=== PATIENT | female | born 1965 | race Caucasian/White ===

== ENCOUNTER 2023-07-27 13:21 | Inpatient (IN) | payer BC, SELFPAY ==
[2023-07-27] VITALS (50 sets, daily range): BP systolic 113–192; BP diastolic 67–153; PULSE 68–192; RESP 20–28; TEMP 36.5–36.9; O2SAT 89–100; BMI 38.0; BMI 37.9
[2023-07-27 13:32] LABS: Glucometer 480 mg/dL (74-106)
--- NOTE | 2023-07-27 13:41 | PC.NURSE ---
pt has not taken her medications including insulin in 3 days d/t packing it away since she just moved here from [place]
--- NOTE | 2023-07-27 13:56 | XR_ITS ---
The [address] [address] Patient Name: SUSSY BLOUNT MRN: [id number] date: 1965 Sex: F Assigned Patient Location: ER Current Patient Location: ER Accession/Order Number: [id number] Exam Date: 07/27/2023 14:00 Report Date: 07/27/2023 14:33 At the request of: REJI PERRY Procedure: XR chest 1V EXAM: XR chest 1V INDICATION: afib. COMPARISON: None. TECHNIQUE: Single frontal view of the chest FINDINGS: Normal cardiomediastinal contours. No acute infiltrative process. No pleural effusion or pneumothorax. No acute osseous abnormality. XR/XR chest 1V IMPRESSION: No acute cardiopulmonary process. Electronically authenticated by: MARY WALKER Date: 07/27/2023 14:33
--- NOTE | 2023-07-27 13:56 | ECG_ITS ---
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1965 Requested By: Order Number: [id number] Reading MD: OMI PEREZ Measurements Intervals [place] Rate: 176 P: -22739 [place]: -31657 QRS: 9 QRSD: 90 T: 192 QT: 306 QTc: 400 Interpretive Statements 97170 Atrial fibrillation with rapid ventricular response [address] depression, possible subendocardial injury or digitalis effect 82035 Twave abnormality, possible anterolateral ischemia or digitalis effect 30829 Twave abnormality, possible inferior ischemia or digitalis effect 9150 abnormal ECG No previous ECG available for comparison Electronically Signed On 07-28-2023 7:32:15 EST by OMI PEREZ
--- NOTE | 2023-07-27 13:59 | ED_ITS ---
HPI - General Adult General Chief complaint: Nausea/Vomiting/Diarrhea Stated complaint: HIGH BLOOD SUGAR Time Seen by Provider: 07/27/23 13:53 Source: patient Mode of arrival: Wheelchair Limitations: no limitations History of Present Illness HPI narrative: Patient is a 57-year-old female who is presenting to the ER with chief complaint of nausea, vomiting, high sugars, fast heart rate. Patient just moved here from [place] 3 days ago. Patient has not taken any of her medications in the past 3 days. Patient is from the local area of [place], patient has been living in [place] for 10 years. Patient moves home, and has driven home the past 3 days in a [employer]. Patient states that she cannot find her medications, somebody Pack of her medications she does not know what box therein. Patient is uncertain if it's in her [place], or she thinks it may be in a garage door been of a friend does not know when she can get there to find them. Patient came into the Emergency Room today complaining of lightheaded, dizziness, fast heart rate. Patient is on a course, she is not taking eloquent for 3 days. Patient has a history of intermittent atrial fibrillation. Patient isn't from diabetic. No sick contacts. Patient does not believe she's never had DKA before. Patient has no establlished PCP locally, patient thinks she might see Dr. Beltran. Patient presented with heart rate in the 170s,Slightly hypotensive. All systems are negative except as noted/marked. All systems reviewed and otherwise negative. Nurses note and vital signs reviewed and patient is not hypoxic. General: The patient appears Mild distress with low blood pressure, inncreased heart rate, nausea and vomiting. Patient is resting uncomfortably on cart. Patient is not toxic, lethargic, or listless Skin: Warm, dry, no pallor noted. There is no rash noted. No petechiae, purpura. Head: Normocephalic, atraumatic Eye: Normal conjunctiva, no drainage, EOMI. PERRL Ears, Nose, Mouth, and Throat: oral mucosa is dry. Nares patent. Mouth without vesicles. Cardiovascular: Irregular irregular tachycardic Rate and Rhythm, no murmur, gallop, rub, Atrial fibrillation with RVR, acute on chronic Respiratory: Patient is in no distress, no accessory muscle use, lungs are clear to auscultation, no wheezing, rales or rhonchi Back: Obese, mild midepigastric tenderness to palpation, no peritoneal signs, no flank pain bilateral, otherwise non-tender, no CVA tenderness bilaterally to percussion. No CT LS midline pain GI: no tenderness to palpation, no masses appreciated. No rebound, guarding, or rigidity noted. No distention Musculoskeletal: Patient has full range of motion of all of the extremities, no motor, sensory, or focal neurological deficits Neurological: A&O x4, normal speech Psychiatric: Cooperative Related Data Home Medications Medication Instructions Recorded Confirmed albuterol sulfate 90 mcg/actuation 2 inh inhalation Q4H PRN SOB 07/27/23 07/27/23 aerosol inhaler (Ventolin HFA) amiodarone 200 mg tablet 200 mg PO DAILY 07/27/23 07/27/23 apixaban 5 mg tablet (Eliquis) 5 mg PO BID 07/27/23 07/27/23 aripiprazole 5 mg tablet (Abilify) 5 mg PO DAILY 07/27/23 07/27/23 aspirin 81 mg capsule 81 mg PO DAILY 07/27/23 07/27/23 atorvastatin 20 mg tablet 20 mg PO DAILY 07/27/23 07/27/23 clonidine HCl 0.1 mg tablet 0.1 mg PO TID 07/27/23 07/27/23 duloxetine 60 mg capsule,delayed 60 mg PO BID 07/27/23 07/27/23 release (Cymbalta) gabapentin 300 mg capsule 300 mg PO BID 07/27/23 07/27/23 hydrochlorothiazide 25 mg tablet 25 mg PO DAILY 07/27/23 07/27/23 insulin glargine 100 unit/mL (3 100 unit subcut QPM 07/27/23 07/27/23 mL) subcutaneous pen (Lantus Solostar U-100 Insulin) lisinopril 40 mg tablet 40 mg PO DAILY 07/27/23 07/27/23 metoprolol tartrate 100 mg tablet 100 mg PO BID 07/27/23 07/27/23 (Lopressor) oxcarbazepine 300 mg tablet 300 mg PO DAILY 07/27/23 07/27/23 (Trileptal) oxycodone 15 mg tablet 15 mg PO DAILY 07/27/23 07/27/23 verapamil 40 mg tablet 20 mg PO DAILY 07/27/23 07/27/23 Allergies Allergy/AdvReac Type Severity Reaction Status Date / Time Sulfa (Sulfonamide AdvReac Severe Hives Verified 07/27/23 13:33 Antibiotics) [facility] Medical History (Updated 07/27/23 @ 17:40 by Wilma Knutson) FHx: cholecystectomy ?Z83.79 - Family history of other diseases of the digestive system (ICD-10) Carpal tunnel syndrome of left wrist ?G56.02 - Carpal tunnel syndrome, left upper limb (ICD-10) Rectocele ?N81.6 - Rectocele (ICD-10) delivery delivered ?O82 - Encounter for delivery without indication (ICD-10) AC (acromioclavicular) joint arthritis ?M19.019 - Primary osteoarthritis, unspecified shoulder (ICD-10) Surgical History (Updated 07/27/23 @ 17:40 by Wilma Knutson) H/O right heart catheterization ?Z98.890 - Other specified postprocedural states (ICD-10) Status post left breast lumpectomy ?Z98.890 - Other specified postprocedural states (ICD-10) H/O hysterectomy for benign disease ?Z90.710 - Acquired absence of both cervix and uterus (ICD-10) Previous back surgery ?Z98.890 - Other specified postprocedural states (ICD-10) Tubal ligation status ?Z98.51 - Tubal ligation status (ICD-10) History of tonsillectomy ?Z90.89 - Acquired absence of other organs (ICD-10) Social History (Updated 07/27/23 @ 17:42 by Wilma Knutson) Within the past year, how often did you have a drink containing alcohol: never Score interpretation: A score less than 3 is consistent with normal alcohol consumption. Non-prescribed substance use: cannabis (any form) Previous occupational history: disabled Known occupational exposures/hazards: No Highest level of school completed/degree received: high school graduate Little interest or pleasure in doing things: not at all Feeling down, depressed, or hopeless: not at all Feel stressed/tense/nervous/anxious/difficulty sleeping: only a little Life stressor details: recent move to [place] from [place] Due to disability, difficulty making decisions: No Exam Constitutional Vital Signs, click to edit/add: Last Vital Signs Temp 97.7 F 07/27/23 19:26 Pulse 135 H 07/27/23 19:29 Resp 27 H 07/27/23 19:26 BP 151/76 H 07/27/23 19:26 Pulse Ox 95 07/27/23 19:29 O2 Del Method Nasal Cannula 07/27/23 19:26 O2 Flow Rate 2 07/27/23 19:26 Course Vital Signs Vital signs: Vital Signs Pulse Rate 69 07/27/23 13:26 Respiratory Rate 20 07/27/23 13:26 Blood Pressure 145/125 H 07/27/23 13:26 Pulse Oximetry 95 07/27/23 13:26 Oxygen Delivery Method Room Air 07/27/23 13:26 Temperature 97.7 F 07/27/23 19:26 Pulse Rate 135 H 07/27/23 19:29 Respiratory Rate 27 H 07/27/23 19:26 Blood Pressure 151/76 H 07/27/23 19:26 Pulse Oximetry 95 07/27/23 19:29 Oxygen Delivery Method Nasal Cannula 07/27/23 19:26 Oxygen Delivery Flow Rate 2 07/27/23 19:26 Medical Decision Making MDM Narrative Medical decision making narrative: Patient presented in atrial fibrillation with RVR, patient's blood sugars were reading high, patient's blood pressure was low. Chest pain cardiac workup and a DKA workup was initiated. Patient had 2 IVs placed immediately, patient was given 2 L of IV fluid. Patient was given Zofran. Patient was initially given CCardizem 20 bolus and started on a drip of 5 mg per hour. Patient had her Cardizem drip titrated. Patient was given a 2nd bolus of 20 mg Cardizem IV, and patient's Cardizem drip was titrated up to 15. Patient's heart rate was managing in the 100s to 1 teens after this. Patient was also given a dose of eliquis and amiodaarone that she has not taken for days. See medication list, patient's approximately 12-15 medications that she has not had an 3 days leading to her high blood sugars and high heart rate. Patient's pH and CO2 levels were not showing any signs of DKA. Patient was given IV fluids and given subcutaneous insulin. Patient has leukocytosis and elevated troponins as well. This could be distress secondary to several days of atrial fibrillation with RVR. Lactic and blood cultures were added and prophylactic antibiotic was started by Dr SAENZ encase there is underlying infection that is not being found in the Emergency Room. Patient will be admitted to the intensive care unit. Patient does feel better after 2 L of IV fluid. Patient's initial troponin was 137, a repeat troponin was done at 160. Dr Saenz is aware of this and comfortable with admission at [facility] still to the ICU. Patient was giiven aspirin. Patient was given her relative's. No Lovenox or heparin will be started, this was discussed with Dr. Saenz as well and he stated giveing aspirin and eliquis is apppropriate at this time. Multiple bedside visits were made to reassess patient's hemodynamics. Critical care time 45 minutes exclusive from separate billable procedures that were performed. The following was considered in the determination of critical care but not limited to the level of medical decision making, intensive cardiac and/or respiratory monitoring, frequent vital sign monitoring, evaluation of laboratory studies, evaluation of radiographic studies, oxygen monitoring, and constant monitoring and speaking to family at bedside Lab Data Lab results reviewed: Yes I reviewed the patient's lab results Labs: Lab Results 07/27/23 07/27/23 07/27/23 Range/Units 13:29 13:40 13:56 WBC 21.0 H (4.0-11.0) 10^3/uL RBC 5.01 (4.20-5.40) 10^6/uL Hgb 13.9 (12.0-16.0) g/dL Hct 43.1 (36.0-48.0) % MCV 86.0 (81.0-99.0) fL MCH 27.7 (26.7-34.0) pg MCHC 32.3 (29.9-35.2) g/dL RDW 15.3 H (11.0-15.0) % Plt Count 293 (150-450) 10^3/uL MPV 11.5 (9.5-13.5) fL Neut % (Auto) 83.6 H (43.0-75.0) % Lymph % (Auto) 9.7 L (20.5-60.0) % [place] % (Auto) 5.7 (1.7-12.0) % Eos % (Auto) 0.0 L (0.9-7.0) % Baso % (Auto) 0.2 (0.2-2.0) % Neut # (Auto) 17.6 H (1.4-6.5) 10^3/uL Lymph # (Auto) 2.0 (1.2-3.8) 10^3/uL [place] # (Auto) 1.2 H (0.3-0.8) 10^3/uL Eos # (Auto) 0.0 (0.0-0.7) 10^3/uL Baso # (Auto) 0.0 (0.0-0.1) 10^3/uL Abs Immat Gran (auto) 0.17 H (0.00-0.03) 10^3/uL Imm/Tot Granulo (auto) 0.8 H (0.0-0.5) % D-Dimer 0.55 (<=0.59) mg/L FEU VBG pH 7.473 H (7.330-7.430) VBG pCO2 36.3 L (40.0-52.0) mmHg Sodium 133 L (136-145) mmol/L Potassium 3.4 L (3.5-5.1) mmol/L Chloride 90 L (98-107) mmol/L Carbon Dioxide 25.0 (21.0-32.0) mmol/L Anion Gap 21.4 BUN 15.0 (7.0-18.0) mg/dL Creatinine 1.03 H (0.55-1.02) mg/dL Est GFR ( Amer) >60 (>=60) Est GFR (Non-Af Amer) 56 L (>=60) BUN/Creatinine Ratio 14.6 Glucose 459 H (74-106) mg/dL Lactate 2.8 H* (0.4-2.0) mmol/L Calcium 9.9 (8.5-10.1) mg/dL Magnesium 1.7 L (1.8-2.4) mg/dL Total Bilirubin 1.3 H (0.2-1.0) mg/dL AST 12 L (15-37) U/L ALT 21 (14-59) U/L Alkaline Phosphatase 102 (46-116) U/L Total Creatine Kinase 74 (26-192) U/L Troponin I High Sens 137.0 H* (4.0-51.3) pg/mL NT-Pro-B Natriuret Pep 3777.0 H* (<=900.0) pg/mL Total Protein 7.8 (6.4-8.2) g/dL Albumin 3.2 L (3.4-5.0) g/dL Globulin 4.6 g/dL Albumin/Globulin Ratio 0.7 Lipase 16.0 (16.0-77.0) U/L Urine Ketones >=80 A (NEGATIVE) mg/dL POC Glucose 480 H (74-106) mg/dL 07/27/23 Range/Units 16:03 WBC (4.0-11.0) 10^3/uL RBC (4.20-5.40) 10^6/uL Hgb (12.0-16.0) g/dL Hct (36.0-48.0) % MCV (81.0-99.0) fL MCH (26.7-34.0) pg MCHC (29.9-35.2) g/dL RDW (11.0-15.0) % Plt Count (150-450) 10^3/uL MPV (9.5-13.5) fL Neut % (Auto) (43.0-75.0) % Lymph % (Auto) (20.5-60.0) % [place] % (Auto) (1.7-12.0) % Eos % (Auto) (0.9-7.0) % Baso % (Auto) (0.2-2.0) % Neut # (Auto) (1.4-6.5) 10^3/uL Lymph # (Auto) (1.2-3.8) 10^3/uL [place] # (Auto) (0.3-0.8) 10^3/uL Eos # (Auto) (0.0-0.7) 10^3/uL Baso # (Auto) (0.0-0.1) 10^3/uL Abs Immat Gran (auto) (0.00-0.03) 10^3/uL Imm/Tot Granulo (auto) (0.0-0.5) % D-Dimer (<=0.59) mg/L FEU VBG pH (7.330-7.430) VBG pCO2 (40.0-52.0) mmHg Sodium (136-145) mmol/L Potassium (3.5-5.1) mmol/L Chloride (98-107) mmol/L Carbon Dioxide (21.0-32.0) mmol/L Anion Gap BUN (7.0-18.0) mg/dL Creatinine (0.55-1.02) mg/dL Est GFR ( Amer) (>=60) Est GFR (Non-Af Amer) (>=60) BUN/Creatinine Ratio Glucose (74-106) mg/dL Lactate (0.4-2.0) mmol/L Calcium (8.5-10.1) mg/dL Magnesium (1.8-2.4) mg/dL Total Bilirubin (0.2-1.0) mg/dL AST (15-37) U/L ALT (14-59) U/L Alkaline Phosphatase (46-116) U/L Total Creatine Kinase (26-192) U/L Troponin I High Sens 160.8 H* (4.0-51.3) pg/mL NT-Pro-B Natriuret Pep (<=900.0) pg/mL Total Protein (6.4-8.2) g/dL Albumin (3.4-5.0) g/dL Globulin g/dL Albumin/Globulin Ratio Lipase (16.0-77.0) U/L Urine Ketones (NEGATIVE) mg/dL POC Glucose (74-106) mg/dL ECG Data Attestation: I personally reviewed and interpreted this ECG as follows: (EKG interpretation. Irregular irregular rhythm at 176 beats a minute. Normal axis deviation. QTc of 400. Nonspecific ST changes, ST depression noted throughout.) Discharge Plan Discharge Chief Complaint: Nausea/Vomiting/Diarrhea Clinical Impression: Atrial fibrillation with RVR, Dehydration, Hyperglycemia, Medically noncompliant, Elevated troponin Patient Disposition: Admitted As Inpatient Time of Disposition Decision: 16:00 Condition: Serious Discharge Date/Time: 07/27/23 16:44
[2023-07-27] MEDS: 0.9 % SODIUM CHLORIDE 1,000 ML 999 ML IV (14:03)
[2023-07-27] MEDS: 0.9 % SODIUM CHLORIDE 1,000 ML 1000 ML IV (14:03)
[2023-07-27] MEDS: ASPIRIN 81 MG TAB.CHEW 162 MG PO (14:06)
[2023-07-27] MEDS: ONDANSETRON PF 4 MG/2 ML VIAL IV (14:07)
[2023-07-27 14:11] LABS: Basophils Percent Auto 0.2 % (0.2-2.0); Hematocrit 43.1 % (36.0-48.0); Hemoglobin 13.9 g/dL (12.0-16.0); Immature Granulocytes Abs Auto 0.17 10^3/uL (0.00-0.03); Immature Granulocytes Pct Auto 0.8 % (0.0-0.5); Lymphocytes Percent Auto 9.7 % (20.5-60.0); Mean Corpuscular HGB Conc 32.3 g/dL (29.9-35.2); Mean Corpuscular Hemoglobin 27.7 pg (26.7-34.0); Mean Platelet Volume 11.5 fL (9.5-13.5); Monocytes Absolute Auto 1.2 10^3/uL (0.3-0.8); Monocytes Percent Auto 5.7 % (1.7-12.0); Neutrophils Absolute Auto 17.6 10^3/uL (1.4-6.5); Neutrophils Percent Auto 83.6 % (43.0-75.0); Platelet Count 293 10^3/uL (150-450); Red Blood Count 5.01 10^6/uL (4.20-5.40); Red Cell Distribution Width 15.3 % (11.0-15.0)
[2023-07-27 14:12] LABS: PCO2 VBG 36.3 mmHg (40.0-52.0); pH VBG 7.473 (7.330-7.430)
[2023-07-27] MEDS: DILTIAZEM HCL 25 MG/5 ML VIAL 20 MG IV ×2 (14:18→15:10)
[2023-07-27 14:19] LABS: Ketones Urine >=80 mg/dL (NEGATIVE)
[2023-07-27] MEDS: dilTIAZem HCL 125 MG in 0.9 % SODIUM CHLORIDE 100 ML IV (14:20)
[2023-07-27 14:25] LABS: D Dimer 0.55 mg/L FEU (<=0.59)
[2023-07-27 14:28] LABS: Magnesium 1.7 mg/dL (1.8-2.4)
[2023-07-27 14:33] LABS: Creatine Kinase 74 U/L (26-192)
[2023-07-27 14:35] LABS: Alanine Aminotransferase 21 U/L (14-59); Albumin Globulin Ratio 0.7; Albumin Level 3.2 g/dL (3.4-5.0); Alkaline Phosphatase 102 U/L (46-116); Anion Gap 21.4; Aspartate Amino Transferase 12 U/L (15-37); BUN Creatinine Ratio 14.6; Bilirubin Total 1.3 mg/dL (0.2-1.0); Calcium 9.9 mg/dL (8.5-10.1); Chloride 90 mmol/L (98-107); Estimated GFR (African America >60 (>=60); Estimated GFR (Non-African Ame 56 (>=60); Globulin 4.6 g/dL; Glucose 459 mg/dL (74-106); Potassium 3.4 mmol/L (3.5-5.1); Sodium 133 mmol/L (136-145); Total Protein 7.8 g/dL (6.4-8.2)
[2023-07-27] MEDS: APIXABAN 5 MG TABLET 10 MG PO (14:44)
[2023-07-27 14:46] LABS: Lactate/Lactic Acid 2.8 mmol/L (0.4-2.0)
[2023-07-27] MEDS: 0.9 % SODIUM CHLORIDE 1,000 ML 150 ML IV (15:11)
[2023-07-27] MEDS: AMIODARONE HCL 200 MG TABLET PO (15:58)
--- NOTE | 2023-07-27 16:19 | CA_ITS ---
Patient Name: SUSSY BLOUNT MR#: [id number] : 1965 Exam Date: 07/29/2023 Ordering Doctor: DR Sergio Cabrera . ECHOCARDIOGRAM REPORT PROCEDURE: CA ECHO DOPPLER COMPLETE INDICATIONS: Dyspnea COMPARISON: None. DESCRIPTION: COMPLETE ECHOCARDIOGRAM Real-time transthoracic echocardiography with 2D, M-mode, spectral and color flow Doppler performed. QUALITY: Technical quality was good. LEFT VENTRICLE: Severe dilatation. Thickened septal wall. LV EF: Global left ventricular systolic function is lower normal limits; visually estimated ejection fraction is 50 to 55%. Abnormal septal motion; may be related to underlying bundle branch block. DIASTOLIC: Not adequately assessed due to heart rhythm. ATRIAL SEPTUM: Inadequately seen. LEFT ATRIUM: Severe dilatation. RIGHT ATRIUM: Mild dilatation. RIGHT VENTRICLE: Normal chamber size. Normal right ventricular systolic function. TRICUSPID VALVE: Normal mobility and thickness. No stenosis with mild regurgitation. Mild pulmonary hypertension. RVSP 42mmHg MITRAL VALVE: Normal mobility and thickness. No evidence of mitral valve stenosis. There is no mitral annular calcification. Trivial mitral regurgitation. AORTIC VALVE: Normal trileaflet appearance. Mildly calcified aortic valve. Normal leaflet mobility. No evidence of aortic valve stenosis. Trivial aortic regurgitation. AORTIC ROOT: Normal diameter and appearance. PULMONIC VALVE: Grossly normal. No stenosis. No regurgitation. PERICARDIUM: No evidence of pericardial effusion. IVC: Collapses with inspirations. Mildly dilated measuring 2.2cm. CONCLUSION: 1. Global left ventricular systolic function is at lower normal limits; visually estimated ejection fraction is 50 to 55% 2. Normal right ventricular size and systolic function 3. Biatrial enlargement 4. Mild tricuspid regurgitation 5. Mildly elevated right ventricular systolic pressure; RVSP 42 mmHg The patient's rhythm appears to be atrial flutter Adult Echocardiography Procedure Report Left Ventricle LVEDD (3.7 - 5.6 cm): 6.18 cm LVESD (2.2 - 4.0 cm): 5.22 cm LVIVS thickness (0.6 - 1.2 cm): 1.44 cm LVPW thickness (0.5 - 1.0 cm): 1.09 cm e': 0.14 m/s E - e': 7.37 LVOT Max Gradient: 2.42 mm[Hg] LVOT Area (cm2): 0.78 m/s Peak Velocity (LVOT): 0.78 m/s Mean Velocity (LVOT): 0.57 m/s LVOT Diameter 2.34 cm Left Ventricular Ejection Fraction: 52.97 % Left Atrium LA Volume Index (2D A2C): 52.03 ml/m2 Left Atrium Systolic Dimension: 4.60 cm Mitral Valve MV E to A Ratio: 232.35 Mitral Valve A-Wave Peak Velocity: 0.00 m/s Mitral Valve E-Wave Peak Velocity: 1.02 m/s Right Ventricle RV Internal Diastolic Dimension: 3.93 cm Aorta AO Root Diam: 3.63 cm Ascending Ao Diam: 3.41 cm Aortic Valve AoV Area (Peak [place]): 2.61 cm2, 2.61 cm2 AoV Area (VTI): 2.34 cm2, 2.34 cm2 Peak Velocity(Antegrade Flow): 1.28 m/s Peak Gradient(Antegrade Flow): 6.53 mm[Hg] Mean Velocity(Antegrade Flow): 0.95 m/s Mean Gradient(Antegrade Flow): 3.96 mm[Hg] Velocity Time Integral: 26.36 cm Tricuspid Valve Peak Velocity (Regurgitant Flow): 2.13 m/s, 2.24 m/s, 2.91 m/s Pulmonic Valve Mean Gradient: 1.34 mm[Hg] Mean Velocity: 0.56 m/s Peak Velocity: 0.70 m/s, 0.90 m/s Peak Gradient: 1.94 mm[Hg], 3.26 mm[Hg] Right Atrium Right Atrium Systolic Pressure: 59.89 ml, 59.89 ml Dictated by: Jean Pierre Cheng M.D. on 07/29/2023 at 10:19 Approved by: Jean Pierre Cheng M.D. on 07/29/2023 at 10:24
[2023-07-27 16:28] LABS: Troponin I High Sensitivity 160.8 pg/mL (4.0-51.3)
[2023-07-27] MEDS: PANTOPRAZOLE SODIUM 40 MG VIAL IV (17:24)
[2023-07-27] MEDS: DILTIAZEM HCL 60 MG TABLET PO ×2 (17:24→21:44)
[2023-07-27] MEDS: 0.9 % SODIUM CHLORIDE 1,000 ML 100 ML IV (17:26)
[2023-07-27] MEDS: dilTIAZem HCL 125 MG in 0.9 % SODIUM CHLORIDE 100 ML 10 MG IV (17:30)
[2023-07-27] MEDS: INSULIN ASPART 300 UNIT/3 ML PEN SUBQ ×2 (17:32→21:49)
[2023-07-27 17:34] LABS: Glucometer 311 mg/dL (74-106)
[2023-07-27 17:46] LABS: Lactate/Lactic Acid 2.1 mmol/L (0.4-2.0)
[2023-07-27 17:46] LABS: Troponin I High Sensitivity 165.8 pg/mL (4.0-51.3)
[2023-07-27] MEDS: PIPERACILLIN SODIUM/TAZOBACTAM 3.375 GM in 0.9 % SODIUM CHLORIDE 50 ML IV ×2 (17:49→23:55)
--- NOTE | 2023-07-27 18:15 | PC.NURSE ---
1654- Patient C/O sudden onset heartburn and nausea. Vomits approx 300 cc green emesis with immediate releif of heartburn. EKG done. Dr Cabrera made aware
--- NOTE | 2023-07-27 18:17 | ECG_ITS ---
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1965 Requested By: CHEMO SAENZ Order Number: [id number] Reading MD: OMI PEREZ Measurements Intervals [place] Rate: 121 P: -95939 [place]: -54517 QRS: 65 QRSD: 96 T: 217 QT: 336 QTc: 408 Interpretive Statements 19637 Atrial fibrillation with rapid ventricular response with aberrant conduction, or ventricular premature complexes [address] depression, probably digitalis effect 14692 Twave abnormality, possible anterolateral ischemia or digitalis effect 09650 Twave abnormality, possible inferior ischemia or digitalis effect 9150 abnormal ECG Compared to ECG 07/27/2023 13:42:30 Ventricular premature complex(es) now present ST (T wave) deviation still present Possible ischemia still present Electronically Signed On 07-28-2023 7:33:18 EST by OMI PEREZ
[2023-07-27] MEDS: METOPROLOL TARTRATE 100 MG TABLET PO (20:21)
[2023-07-27] MEDS: DULOXETINE HCL 60 MG CAPSULE.DR PO (20:21)
[2023-07-27] MEDS: APIXABAN 5 MG TABLET PO (20:22)
[2023-07-27] MEDS: GABAPENTIN 300 MG CAPSULE PO (20:22)
[2023-07-27 20:42] LABS: Troponin I High Sensitivity 194.2 pg/mL (4.0-51.3)
[2023-07-27] MEDS: LEVOFLOXACIN IN DEXTROSE 5 % 750 MG/150 ML IV.SOLN 100 MG IV (20:51)
[2023-07-27 20:59] LABS: Bilirubin Urine SMALL (NEGATIVE); Blood Urine NEGATIVE (NEGATIVE); Clarity Urine CLEAR (CLEAR); Color Urine YELLOW (YELLOW); Glucose Urine UA >=1000 mg/dL (NEGATIVE); Ketones Urine >=80 mg/dL (NEGATIVE); Leukocyte Esterase Urine NEGATIVE (NEGATIVE); Nitrite Urine NEGATIVE (NEGATIVE); Protein Urine NEGATIVE (NEG/TRACE); Urobilinogen Urine 0.2 EU/dL (0.2-1.0)
[2023-07-27 21:00] LABS: Bacteria Urine TRACE #/HPF (NONE SEEN); RBC Urine 0-2 #/HPF (0-2)
[2023-07-27 21:01] LABS: Cast Seen? NONE SEEN #/LPF (NONE SEEN); Crystals Seen? None Seen #/HPF (None Seen); Mucus Urine NONE SEEN (NONE SEEN); Squamous Epithelial Cell Urine FEW #/LPF (NONE/RARE); Urine Culture Indicated ALREADY ORDERED
[2023-07-27] MEDS: CLONIDINE HCL 0.1 MG TABLET 0.100000000000000006 MG PO (21:45)
[2023-07-27 21:52] LABS: Glucometer 190 mg/dL (74-106)
[2023-07-28] VITALS (49 sets, daily range): BP systolic 96–131; BP diastolic 54–91; PULSE 62–121; RESP 12–26; TEMP 36.6–37.1; O2SAT 54–100
[2023-07-28] MEDS: 0.9 % SODIUM CHLORIDE 1,000 ML 100 ML IV ×3 (02:10→21:24)
[2023-07-28] MEDS: DILTIAZEM HCL 60 MG TABLET PO ×4 (05:34→21:11)
[2023-07-28 05:44] LABS: Basophils Percent Auto 0.2 % (0.2-2.0); Eosinophils Percent Auto 0.1 % (0.9-7.0); Hematocrit 38.1 % (36.0-48.0); Hemoglobin 11.8 g/dL (12.0-16.0); Immature Granulocytes Abs Auto 0.15 10^3/uL (0.00-0.03); Immature Granulocytes Pct Auto 0.8 % (0.0-0.5); Lymphocytes Percent Auto 15.6 % (20.5-60.0); Mean Corpuscular Hemoglobin 27.4 pg (26.7-34.0); Mean Corpuscular Volume 88.6 fL (81.0-99.0); Mean Platelet Volume 12.1 fL (9.5-13.5); Monocytes Absolute Auto 1.8 10^3/uL (0.3-0.8); Monocytes Percent Auto 9.2 % (1.7-12.0); Neutrophils Absolute Auto 14.2 10^3/uL (1.4-6.5); Neutrophils Percent Auto 74.1 % (43.0-75.0); Platelet Count 221 10^3/uL (150-450); Red Cell Distribution Width 15.7 % (11.0-15.0); White Blood Count 19.1 10^3/uL (4.0-11.0)
[2023-07-28 06:28] LABS: Alanine Aminotransferase 18 U/L (14-59); Albumin Globulin Ratio 0.7; Albumin Level 2.5 g/dL (3.4-5.0); Alkaline Phosphatase 77 U/L (46-116); Anion Gap 8.9; Aspartate Amino Transferase 15 U/L (15-37); BUN Creatinine Ratio 15.2; Bilirubin Total 0.7 mg/dL (0.2-1.0); Calcium 8.8 mg/dL (8.5-10.1); Carbon Dioxide 31.5 mmol/L (21.0-32.0); Chloride 102 mmol/L (98-107); Estimated GFR (African America >60 (>=60); Estimated GFR (Non-African Ame >60 (>=60); Globulin 3.8 g/dL; Glucose 153 mg/dL (74-106); Potassium 3.4 mmol/L (3.5-5.1); Sodium 139 mmol/L (136-145); Total Protein 6.3 g/dL (6.4-8.2)
[2023-07-28] MEDS: OXYCODONE HCL 15 MG TABLET PO ×3 (06:32→21:10)
[2023-07-28 06:38] LABS: Troponin I High Sensitivity 171.1 pg/mL (4.0-51.3)
[2023-07-28] MEDS: INSULIN ASPART 300 UNIT/3 ML PEN SUBQ ×4 (07:38→21:14)
[2023-07-28] MEDS: APIXABAN 5 MG TABLET PO ×2 (08:07→20:58)
[2023-07-28] MEDS: METOPROLOL TARTRATE 100 MG TABLET PO ×2 (08:07→20:58)
[2023-07-28] MEDS: DULOXETINE HCL 60 MG CAPSULE.DR PO ×2 (08:07→20:58)
[2023-07-28] MEDS: ARIPIPRAZOLE 5 MG TABLET PO (08:07)
[2023-07-28] MEDS: ASPIRIN 81 MG TAB.CHEW PO (08:08)
[2023-07-28] MEDS: OXcarbazepine 300 MG TABLET PO (08:08)
[2023-07-28] MEDS: AMIODARONE HCL 200 MG TABLET PO (08:08)
[2023-07-28] MEDS: GABAPENTIN 300 MG CAPSULE PO ×2 (08:08→20:58)
[2023-07-28] MEDS: PIPERACILLIN SODIUM/TAZOBACTAM 3.375 GM in 0.9 % SODIUM CHLORIDE 50 ML IV ×3 (08:17→23:55)
[2023-07-28] MEDS: POTASSIUM CHLORIDE 10 MEQ ER TABLET 20 MEQ PO ×2 (09:03→20:58)
[2023-07-28 10:54] LABS: Glucometer 197 mg/dL (74-106)
--- NOTE | 2023-07-28 11:00 | P.HP_ITS ---
H&P: HPI History of Present Illness Chief complaint: HIGH BLOOD SUGAR, Afib, RVR, Hyperglycemia Narrative: Patient was seen and evaluated in the emergency room with palpitations and shortness of breath, cough. She has had frequent admissions in the last year for acute exacerbation of COPD secondary to pneumonia. In ER found to have atrial fibrillation with rapid ventricular response. She has a history of atrial fibrillation. She has been off of all of her medications as she is traveling recently from [place] and unable to have access to her medications for several days. Also severe hyperglycemia in the emergency room. Because of the rapid heart rate and Cardizem drip she was placed in the intensive care unit When I saw her this morning she was up at the bedside resting comfortably and her heart rate is much improved, still with dyspnea with any activity. Cough persisting. Review of Systems ROS Status of ROS 10 or more systems reviewed and unremark able except as noted in history and below [facility] Medical History (Updated 07/28/23 @ 08:56 by Wilma Knutson) Depression ?F32.A - Depression, unspecified (ICD-10) FHx: cholecystectomy ?Z83.79 - Family history of other diseases of the digestive system (ICD-10) Carpal tunnel syndrome of left wrist ?G56.02 - Carpal tunnel syndrome, left upper limb (ICD-10) Rectocele ?N81.6 - Rectocele (ICD-10) delivery delivered ?O82 - Encounter for delivery without indication (ICD-10) AC (acromioclavicular) joint arthritis ?M19.019 - Primary osteoarthritis, unspecified shoulder (ICD-10) Surgical History (Updated 07/27/23 @ 17:40 by Wilma Knutson) H/O right heart catheterization ?Z98.890 - Other specified postprocedural states (ICD-10) Status post left breast lumpectomy ?Z98.890 - Other specified postprocedural states (ICD-10) H/O hysterectomy for benign disease ?Z90.710 - Acquired absence of both cervix and uterus (ICD-10) Previous back surgery ?Z98.890 - Other specified postprocedural states (ICD-10) Tubal ligation status ?Z98.51 - Tubal ligation status (ICD-10) History of tonsillectomy ?Z90.89 - Acquired absence of other organs (ICD-10) Social History (Updated 07/27/23 @ 17:42 by Wilma Knutson) Within the past year, how often did you have a drink containing alcohol: never Score interpretation: A score less than 3 is consistent with normal alcohol consumption. Non-prescribed substance use: cannabis (any form) Previous occupational history: disabled Known occupational exposures/hazards: No Highest level of school completed/degree received: high school graduate Little interest or pleasure in doing things: not at all Feeling down, depressed, or hopeless: not at all Feel stressed/tense/nervous/anxious/difficulty sleeping: only a little Life stressor details: recent move to [place] from [place] Due to disability, difficulty making decisions: No Meds Home Medications and Allergies Home Medications Medication Instructions Recorded Confirmed Type albuterol sulfate 90 mcg/actuation 2 inh inhalation Q4H PRN SOB 07/27/23 07/27/23 History aerosol inhaler (Ventolin HFA) amiodarone 200 mg tablet 200 mg PO DAILY 07/27/23 07/27/23 History apixaban 5 mg tablet (Eliquis) 5 mg PO BID 07/27/23 07/27/23 History aripiprazole 5 mg tablet (Abilify) 5 mg PO DAILY 07/27/23 07/27/23 History aspirin 81 mg capsule 81 mg PO DAILY 07/27/23 07/27/23 History atorvastatin 20 mg tablet 20 mg PO DAILY 07/27/23 07/27/23 History clonidine HCl 0.1 mg tablet 0.1 mg PO TID 07/27/23 07/27/23 History duloxetine 60 mg capsule,delayed 60 mg PO BID 07/27/23 07/27/23 History release (Cymbalta) gabapentin 300 mg capsule 300 mg PO BID 07/27/23 07/27/23 History hydrochlorothiazide 25 mg tablet 25 mg PO DAILY 07/27/23 07/27/23 History insulin glargine 100 unit/mL (3 50 unit subcut BID 07/27/23 07/28/23 History mL) subcutaneous pen (Lantus Solostar U-100 Insulin) lisinopril 40 mg tablet 40 mg PO DAILY 07/27/23 07/27/23 History metoprolol tartrate 100 mg tablet 100 mg PO BID 07/27/23 07/27/23 History (Lopressor) oxcarbazepine 300 mg tablet 300 mg PO DAILY 07/27/23 07/27/23 History (Trileptal) oxycodone 15 mg tablet 15 mg PO Q6H PRN pain 07/27/23 07/28/23 History verapamil 40 mg tablet 20 mg PO DAILY 07/27/23 07/27/23 History Allergies Allergy/AdvReac Type Severity Reaction Status Date / Time Sulfa (Sulfonamide AdvReac Severe Hives Verified 07/27/23 13:33 Antibiotics) Exam Constitutional Vital Signs, click to edit/add: Last Vital Signs Temp 98 F 07/28/23 07:47 Pulse 62 07/28/23 10:00 Resp 20 07/28/23 07:47 BP 112/58 07/28/23 07:47 Pulse Ox 94 L 07/28/23 10:00 O2 Del Method Room Air 07/28/23 07:47 O2 Flow Rate 4 07/28/23 05:30 Documenting provider has reviewed patient's vital signs: yes Common normals: apparent distress (Mild conversational dyspnea at bedside) Exam limitations: no altered mental status HENMT Common normals: normocephalic Chest Common normals: inspection of chest normal and palpation of chest normal Respiratory Common normals: no use of accessory muscles; abnormal respiratory effort (Mild conversational dyspnea) and not clear to ascultation bilaterally Auscultation: rhonchi and diminished lung sounds Cardio Common normals: regular rate; irregular rhythm Rhythm: abnormal rhythm GI Common normals: Normal to inspection, nondistended, normoactive bowel sounds present (Obese) Results Labs Labs: Short CBC 07/27/23 07/28/23 Range/Units 13:56 04:07 WBC 21.0 H 19.1 H (4.0-11.0) 10^3/uL Hgb 13.9 11.8 L (12.0-16.0) g/dL Hct 43.1 38.1 (36.0-48.0) % Plt Count 293 221 (150-450) 10^3/uL BMP 07/27/23 07/28/23 13:56 04:07 Sodium 133 L 139 Potassium 3.4 L 3.4 L Chloride 90 L 102 Carbon Dioxide 25.0 31.5 BUN 15.0 14.0 Creatinine 1.03 H 0.92 Glucose 459 H 153 H Calcium 9.9 8.8 Cardiac Enzymes 07/27/23 Range/Units 13:56 Total Creatine Kinase 74 (26-192) U/L Liver Function 07/27/23 07/28/23 Range/Units 13:56 04:07 Total Bilirubin 1.3 H 0.7 (0.2-1.0) mg/dL AST 12 L 15 (15-37) U/L ALT 21 18 (14-59) U/L Alkaline Phosphatase 102 77 (46-116) U/L Albumin 3.2 L 2.5 L (3.4-5.0) g/dL Urine 07/27/23 Range/Units 20:45 Urine Color Yellow (YELLOW) Urine Clarity Clear (CLEAR) Urine pH 6.0 (5.0-9.0) Ur Specific [place] 1.020 (1.005-1.025) Urine Protein Negative (NEG/TRACE) mg/dL Urine Glucose (UA) >=1000 A (NEGATIVE) mg/dL ABG ABG results: 07/27/23 13:56 VBG pH 7.473 H VBG pCO2 36.3 L Assessment and Plan Assessment and Plan (1) Elevated troponin: (2) Medically noncompliant: (3) Hyperglycemia: (4) Dehydration: (5) Atrial fibrillation with RVR: Plan Atrial fibrillation with rapid ventricular sponsor with respiratory distress and acute hypoxia with O2 saturation of 89% on 4 L. Uncontrolled hyperglycemia, leukocytosis, lactic acidosis, hyponatremia, hypokalemia, elevated high- sensitivity troponin and BNP secondary to acute exacerbation of COPD and complicated by atrial fibrillation with rapid ventricular response. Patient in the ICU Atrial fibrillation with rapid ventricular response leading to elevated troponin and BNP secondary to demand ischemia-check echocardiogram. She states last echo was 6 months ago high sensitive troponins are trending down, BNP improved despite fluid resuscitation for the above L Acute exacerbation of COPD with leukocytosis-plan to obtain sputum culture, aerosol treatments, IV antibiotics, leukocytosis and lactic acidosis improving. Poorly controlled insulin-dependent diabetes mellitus-restart home regiment. Deficiency anemia-deteriorated somewhat today, monitor daily Hyponatremia secondary to dehydration secondary to hyperglycemia-improved and back to baseline normal Hypokalemia-same today-supplement Moderate protein calorie malnutrition-diet management Abnormal UA consistent with possible early acute UTI-culture which should be back tomorrow, continue with antibiotics for outlined above The severity of symptoms, most of which are unresolved over the first midnight, mentation patient in the inpatient status, intensive care unit. Medically necessary treatment likely span 3-4 midnights
[2023-07-28] MEDS: INSULIN DETEMIR 300 UNIT/3 ML INSULN.PEN 50 UNIT SQ ×2 (11:16→21:15)
[2023-07-28] MEDS: IPRATROPIUM BROMIDE 0.5 MG/2.5 ML VIAL.NEB IH ×3 (11:40→23:12)
[2023-07-28] MEDS: LEVALBUTEROL HCL 0.63 MG/3 ML VIAL.NEB 0.630000000000000004 MG IH ×3 (11:40→23:11)
[2023-07-28 13:45] LABS: Glucometer 171 mg/dL (74-106)
[2023-07-28 16:13] LABS: Glucometer 193 mg/dL (74-106)
--- NOTE | 2023-07-28 17:31 | RESP.RT ---
Pt asleep, flat on back, snoring, on room air when RT arrived. Woke pt up, sat her up in bed, and placed on 6L, but pt quickly recovered to 99%. Placed back on RA and pt maintained SpO2 of 98%. Pt stated that she had a CPAP but sold it. RT strongly encouraged pt to talk to PCP about sleep study.
[2023-07-28] MEDS: LEVOFLOXACIN IN DEXTROSE 5 % 750 MG/150 ML IV.SOLN 100 MG IV (19:50)
[2023-07-28 20:53] LABS: A. calcoaceticus-baumannii Cpx NOT DETECTED (NOT DETECTE); Bacteroides fragilis NOT DETECTED (NOT DETECTE); Candida albicans NOT DETECTED (NOT DETECTE); Candida auris NOT DETECTED (NOT DETECTE); Candida glabrata NOT DETECTED (NOT DETECTE); Candida krusei NOT DETECTED (NOT DETECTE); Candida parapsilosis NOT DETECTED (NOT DETECTE); Candida tropicalis NOT DETECTED (NOT DETECTE); Cryptococcus neoformans/gattii NOT DETECTED (NOT DETECTE); Enterobacter cloacae complex NOT DETECTED (NOT DETECTE); Enterobacterales NOT DETECTED (NOT DETECTE); Enterococcus faecalis NOT DETECTED (NOT DETECTE); Enterococcus faecium NOT DETECTED (NOT DETECTE); Haemophilus influenzae NOT DETECTED (NOT DETECTE); Klebsiella aerogenes NOT DETECTED (NOT DETECTE); Klebsiella pneumoniae group NOT DETECTED (NOT DETECTE); Listeria monocytogenes NOT DETECTED (NOT DETECTE); Neisseria meningitidis NOT DETECTED (NOT DETECTE); Proteus spp. NOT DETECTED (NOT DETECTE); Pseudomonas aeruginosa NOT DETECTED (NOT DETECTE); Salmonella spp. NOT DETECTED (NOT DETECTE); Serratia marcescens NOT DETECTED (NOT DETECTE); Staphylococcus epidermidis NOT DETECTED (NOT DETECTE); Staphylococcus lugdunensis NOT DETECTED (NOT DETECTE); Staphylococcus spp. NOT DETECTED (NOT DETECTE); Stenotrophomonas maltophilia NOT DETECTED (NOT DETECTE); Streptococcus agalactiae NOT DETECTED (NOT DETECTE); Streptococcus pneumoniae NOT DETECTED (NOT DETECTE); Streptococcus pyogenes NOT DETECTED (NOT DETECTE); Streptococcus spp. NOT DETECTED (NOT DETECTE)
[2023-07-28] MEDS: ATORVASTATIN CALCIUM 20 MG TABLET PO (20:58)
[2023-07-28] MEDS: CLONIDINE HCL 0.1 MG TABLET 0.100000000000000006 MG PO (21:11)
[2023-07-28 21:18] LABS: Glucometer 196 mg/dL (74-106)
[2023-07-29] VITALS (33 sets, daily range): BP systolic 109–148; BP diastolic 70–106; PULSE 54–86; RESP 2–28; TEMP 36.6; O2SAT 90–98
[2023-07-29] MEDS: LEVALBUTEROL HCL 0.63 MG/3 ML VIAL.NEB 0.630000000000000004 MG IH ×2 (04:11→10:35)
[2023-07-29] MEDS: IPRATROPIUM BROMIDE 0.5 MG/2.5 ML VIAL.NEB IH ×2 (04:11→10:35)
[2023-07-29 06:56] LABS: Basophils Absolute Auto 0.1 10^3/uL (0.0-0.1); Basophils Percent Auto 0.5 % (0.2-2.0); Eosinophils Percent Auto 0.1 % (0.9-7.0); Hematocrit 40.4 % (36.0-48.0); Immature Granulocytes Abs Auto 0.26 10^3/uL (0.00-0.03); Immature Granulocytes Pct Auto 1.8 % (0.0-0.5); Lymphocytes Absolute Auto 2.7 10^3/uL (1.2-3.8); Lymphocytes Percent Auto 18.9 % (20.5-60.0); Mean Corpuscular HGB Conc 29.7 g/dL (29.9-35.2); Mean Corpuscular Hemoglobin 27.8 pg (26.7-34.0); Mean Corpuscular Volume 93.5 fL (81.0-99.0); Mean Platelet Volume 10.8 fL (9.5-13.5); Monocytes Absolute Auto 1.4 10^3/uL (0.3-0.8); Monocytes Percent Auto 9.7 % (1.7-12.0); Neutrophils Absolute Auto 9.7 10^3/uL (1.4-6.5); Platelet Count 218 10^3/uL (150-450); Red Blood Count 4.32 10^6/uL (4.20-5.40); Red Cell Distribution Width 15.6 % (11.0-15.0); White Blood Count 14.1 10^3/uL (4.0-11.0)
[2023-07-29 07:18] LABS: Alanine Aminotransferase 21 U/L (14-59); Albumin Globulin Ratio 0.7; Albumin Level 2.6 g/dL (3.4-5.0); Alkaline Phosphatase 74 U/L (46-116); Anion Gap 8.6; Aspartate Amino Transferase 15 U/L (15-37); BUN Creatinine Ratio 15.2; Bilirubin Total 0.3 mg/dL (0.2-1.0); Calcium 8.5 mg/dL (8.5-10.1); Carbon Dioxide 31.2 mmol/L (21.0-32.0); Chloride 101 mmol/L (98-107); Estimated GFR (African America 54 (>=60); Estimated GFR (Non-African Ame 44 (>=60); Globulin 3.8 g/dL; Glucose 217 mg/dL (74-106); Potassium 4.8 mmol/L (3.5-5.1); Sodium 136 mmol/L (136-145); Total Protein 6.4 g/dL (6.4-8.2)
[2023-07-29 07:20] LABS: Glucometer 189 mg/dL (74-106)
[2023-07-29 07:30] LABS: Source Blood
[2023-07-29 07:33] LABS: Troponin I High Sensitivity 55.2 pg/mL (4.0-51.3)
[2023-07-29] MEDS: 0.9 % SODIUM CHLORIDE 1,000 ML 100 ML IV (07:42)
[2023-07-29] MEDS: ARIPIPRAZOLE 5 MG TABLET PO (08:14)
[2023-07-29] MEDS: PIPERACILLIN SODIUM/TAZOBACTAM 3.375 GM in 0.9 % SODIUM CHLORIDE 50 ML IV (08:14)
[2023-07-29] MEDS: GABAPENTIN 300 MG CAPSULE PO (08:14)
[2023-07-29] MEDS: ASPIRIN 81 MG TAB.CHEW PO (08:14)
[2023-07-29] MEDS: LISINOPRIL 20 MG TABLET 40 MG PO (08:14)
[2023-07-29] MEDS: DULOXETINE HCL 60 MG CAPSULE.DR PO (08:14)
[2023-07-29] MEDS: APIXABAN 5 MG TABLET PO (08:14)
[2023-07-29] MEDS: OXcarbazepine 300 MG TABLET PO (08:14)
[2023-07-29] MEDS: POTASSIUM CHLORIDE 10 MEQ ER TABLET 20 MEQ PO (08:14)
[2023-07-29] MEDS: AMIODARONE HCL 200 MG TABLET PO (08:15)
[2023-07-29] MEDS: INSULIN DETEMIR 300 UNIT/3 ML INSULN.PEN 50 UNIT SQ (08:15)
[2023-07-29] MEDS: METOPROLOL TARTRATE 100 MG TABLET PO (08:15)
[2023-07-29] MEDS: INSULIN ASPART 300 UNIT/3 ML PEN SUBQ ×2 (08:16→11:27)
[2023-07-29] MEDS: OXYCODONE HCL 15 MG TABLET PO (08:24)
--- NOTE | 2023-07-29 08:33 | P.DS_ITS ---
DS: Providers Provider Date of admission: 07/27/23 16:44 Primary care physician: Non-Staff Physician, DS: Diagnosis Discharge Diagnosis (1) Elevated troponin: (2) Medically noncompliant: (3) Hyperglycemia: (4) Dehydration: (5) Atrial fibrillation with RVR: Plan Atrial fibrillation with rapid ventricular sponsor with respiratory distress and acute hypoxia with O2 saturation of 89% on 4 L. Uncontrolled hyperglycemia, leukocytosis, lactic acidosis, hyponatremia, hypokalemia, elevated high- sensitivity troponin and BNP secondary to acute exacerbation of COPD and complicated by atrial fibrillation with rapid ventricular response. Atrial fibrillation with rapid ventricular response leading to elevated troponin and BNP secondary to demand ischemia Acute exacerbation of COPD with leukocytosis Poorly controlled insulin Iron Deficiency anemia Hyponatremia secondary to dehydration secondary to hyperglycemia- Hypokalemia- Moderate protein calorie malnutrition Abnormal UA consistent with possible early acute UTI DS: Summary Hospital Course Hospital Course: Patient appears to the emergency room with palpitations and shortness of breath. Found to have acute exacerbation of COPD with uncontrolled diabetes mellitus leading to atrial fibrillation with rapid ventricular response with demand ischemia causing elevation in BNP and high-sensitivity troponin. Her troponins were trended throughout the hospital stay and are improving. Not quite back to baseline. BNP is back to baseline. 1 blood culture returning positive which may be more likely contaminant since it is only 1 blood culture, recommend the patient to improve her overall diabetes and her COPD would be best to stay 1 additional day but she feels comfortable with going home and having close follow-up with her previous physician. She did recover faster than anticipated as initially I would suspect of a minimum of a 3-day stay. If she ambulates well, echocardiogram is normal, she will be discharged home in improving condition. Medications see list. Follow-up with PCP within the next week. Time Spent with Patient Time attestation: Total time spent providing and/or coordinating discharge services: Time spent: less than 30 minutes Exam Constitutional Vital Signs, click to edit/add: Last Vital Signs Temp 98 F 07/29/23 07:26 Pulse 86 07/29/23 08:00 Resp 6 L 07/29/23 07:06 BP 119/70 07/29/23 07:06 Pulse Ox 90 L 07/29/23 07:30 O2 Del Method Room Air 07/29/23 07:26 O2 Flow Rate 4 07/29/23 04:31 Documenting provider has reviewed patient's vital signs: yes Common normals: apparent distress (Mild conversational dyspnea at bedside) Exam limitations: no altered mental status HENMT Common normals: normocephalic Chest Common normals: inspection of chest normal and palpation of chest normal Respiratory Common normals: no use of accessory muscles; abnormal respiratory effort (Mild conversational dyspnea) and not clear to ascultation bilaterally Auscultation: rhonchi and diminished lung sounds Cardio Common normals: regular rate; irregular rhythm Rhythm: abnormal rhythm GI Common normals: Normal to inspection, nondistended, normoactive bowel sounds present (Obese) DS: Data Data Completed and Pending Labs on day of discharge: Labs from last 24 hours 07/29/23 07/29/23 07/28/23 07:17 06:45 21:09 WBC 14.1 H RBC 4.32 Hgb 12.0 Hct 40.4 MCV 93.5 MCH 27.8 MCHC 29.7 L RDW 15.6 H Plt Count 218 MPV 10.8 Neut % (Auto) 69.0 Lymph % (Auto) 18.9 L Kimball % (Auto) 9.7 Eos % (Auto) 0.1 L Baso % (Auto) 0.5 Neut # (Auto) 9.7 H Lymph # (Auto) 2.7 Kimball # (Auto) 1.4 H Eos # (Auto) 0.0 Baso # (Auto) 0.1 Abs Immat Gran (auto) 0.26 H Imm/Tot Granulo (auto) 1.8 H Sodium 136 Potassium 4.8 Chloride 101 Carbon Dioxide 31.2 Anion Gap 8.6 BUN 19.0 H Creatinine 1.25 H Est GFR ( Amer) 54 L Est GFR (Non-Af Amer) 44 L BUN/Creatinine Ratio 15.2 Glucose 217 H Calcium 8.5 Total Bilirubin 0.3 AST 15 ALT 21 Alkaline Phosphatase 74 Troponin I High Sens 55.2 H* NT-Pro-B Natriuret Pep 884.0 Total Protein 6.4 Albumin 2.6 L Globulin 3.8 Albumin/Globulin Ratio 0.7 Specimen Source A.calcoaceticus-baumannii cmplx PCR Bacteroides fragilis Cassandra albicans (PCR) Cassandra auris (PCR) C. glabrata (PCR) C. krusei (PCR) C. parapsilosis (PCR) C. tropicalis (PCR) C. neoform/gattii (PCR) Enterobacterales (PCR) E. cloacae complex PCR Enterococc faecalis PCR Enterococc faecium PCR E. coli (PCR) H. influenzae (PCR) Klebsiella aerogenes (PCR) Klebsiella oxytoca PCR K. pneumoniae group (PCR) List. monocytogenes PCR N. meningitidis (PCR) Proteus spp. (copies/mL) Salmonella spp. (PCR) Serratia marcescens PCR Staphylococcus sp PCR Staph aureus (PCR) mecA/C & MREJ Resist Gene mecA/C-Methicil Resis Gene mcr-1 Colistin Res Gene PCR Staph epidermidis (PCR) Staph lugdunensis (TEM-PCR) S. maltophilia (PCR) Streptococcus sp PCR Strep agalactiae (PCR) Strep pneumoniae (PCR) S. pyogenes (PCR) P. aeruginosa (PCR) Isaac/B-Vanco Res Genes blaIMP Car res Gene PCR KPC (blaKPC) Detect PCR NDM (blaNDM) Detect PCR OXA-48 Carbapenem Resis Gene (PCR) blaVIM Car Res Gene PCR CTX-M ESBL (PCR) POC Glucose 189 H 196 H 07/28/23 07/28/23 07/28/23 16:07 13:44 10:43 WBC RBC Hgb Hct MCV MCH MCHC RDW Plt Count MPV Neut % (Auto) Lymph % (Auto) Kimball % (Auto) Eos % (Auto) Baso % (Auto) Neut # (Auto) Lymph # (Auto) Kimball # (Auto) Eos # (Auto) Baso # (Auto) Abs Immat Gran (auto) Imm/Tot Granulo (auto) Sodium Potassium Chloride Carbon Dioxide Anion Gap BUN Creatinine Est GFR ( Amer) Est GFR (Non-Af Amer) BUN/Creatinine Ratio Glucose Calcium Total Bilirubin AST ALT Alkaline Phosphatase Troponin I High Sens NT-Pro-B Natriuret Pep Total Protein Albumin Globulin Albumin/Globulin Ratio Specimen Source A.calcoaceticus-baumannii cmplx PCR Bacteroides fragilis Cassandra albicans (PCR) Cassandra auris (PCR) C. glabrata (PCR) C. krusei (PCR) C. parapsilosis (PCR) C. tropicalis (PCR) C. neoform/gattii (PCR) Enterobacterales (PCR) E. cloacae complex PCR Enterococc faecalis PCR Enterococc faecium PCR E. coli (PCR) H. influenzae (PCR) Klebsiella aerogenes (PCR) Klebsiella oxytoca PCR K. pneumoniae group (PCR) List. monocytogenes PCR N. meningitidis (PCR) Proteus spp. (copies/mL) Salmonella spp. (PCR) Serratia marcescens PCR Staphylococcus sp PCR Staph aureus (PCR) mecA/C & MREJ Resist Gene mecA/C-Methicil Resis Gene mcr-1 Colistin Res Gene PCR Staph epidermidis (PCR) Staph lugdunensis (TEM-PCR) S. maltophilia (PCR) Streptococcus sp PCR Strep agalactiae (PCR) Strep pneumoniae (PCR) S. pyogenes (PCR) P. aeruginosa (PCR) Isaac/B-Vanco Res Genes blaIMP Car res Gene PCR KPC (blaKPC) Detect PCR NDM (blaNDM) Detect PCR OXA-48 Carbapenem Resis Gene (PCR) blaVIM Car Res Gene PCR CTX-M ESBL (PCR) POC Glucose 193 H 171 H 197 H 07/27/23 16:03 WBC RBC Hgb Hct MCV MCH MCHC RDW Plt Count MPV Neut % (Auto) Lymph % (Auto) [place] % (Auto) Eos % (Auto) Baso % (Auto) Neut # (Auto) Lymph # (Auto) Kimball # (Auto) Eos # (Auto) Baso # (Auto) Abs Immat Gran (auto) Imm/Tot Granulo (auto) Sodium Potassium Chloride Carbon Dioxide Anion Gap BUN Creatinine Est GFR ( Amer) Est GFR (Non-Af Amer) BUN/Creatinine Ratio Glucose Calcium Total Bilirubin AST ALT Alkaline Phosphatase Troponin I High Sens NT-Pro-B Natriuret Pep Total Protein Albumin Globulin Albumin/Globulin Ratio Specimen Source Blood A.calcoaceticus-baumannii cmplx PCR Not detected Bacteroides fragilis Not detected Cassandra albicans (PCR) Not detected Cassandra auris (PCR) Not detected C. glabrata (PCR) Not detected C. krusei (PCR) Not detected C. parapsilosis (PCR) Not detected C. tropicalis (PCR) Not detected C. neoform/gattii (PCR) Not detected Enterobacterales (PCR) Not detected E. cloacae complex PCR Not detected Enterococc faecalis PCR Not detected Enterococc faecium PCR Not detected E. coli (PCR) Not detected H. influenzae (PCR) Not detected Klebsiella aerogenes (PCR) Not detected Klebsiella oxytoca PCR Not detected K. pneumoniae group (PCR) Not detected List. monocytogenes PCR Not detected N. meningitidis (PCR) Not detected Proteus spp. (copies/mL) Not detected Salmonella spp. (PCR) Not detected Serratia marcescens PCR Not detected Staphylococcus sp PCR Not detected Staph aureus (PCR) Not detected mecA/C & MREJ Resist Gene Not applicable mecA/C-Methicil Resis Gene Not applicable mcr-1 Colistin Res Gene PCR Not applicable Staph epidermidis (PCR) Not detected Staph lugdunensis (TEM-PCR) Not detected S. maltophilia (PCR) Not detected Streptococcus sp PCR Not detected Strep agalactiae (PCR) Not detected Strep pneumoniae (PCR) Not detected S. pyogenes (PCR) Not detected P. aeruginosa (PCR) Not detected Isaac/B-Vanco Res Genes Not applicable blaIMP Car res Gene PCR Not applicable KPC (blaKPC) Detect PCR Not applicable NDM (blaNDM) Detect PCR Not applicable OXA-48 Carbapenem Resis Gene (PCR) Not applicable blaVIM Car Res Gene PCR Not applicable CTX-M ESBL (PCR) Not applicable POC Glucose Preliminary micro results at discharge 07/27/23 16:03 - Preliminary Blood Discharge Plan Discharge Disposition: Home, Self-Care Condition: Good Discharge Medications: New Levemir FlexPen 100 unit/mL (3 mL) Insulin Pen 50 unit subcut BID Qty: 15 11RF levofloxacin 500 mg tablet 500 mg PO DAILY 7 Days Qty: 7 0RF diltiazem HCl 240 mg capsule,extended release 24 hr 240 mg PO Q24H Qty: 30 11RF Continued Eliquis 5 mg tablet 5 mg PO BID hydrochlorothiazide 25 mg tablet 25 mg PO DAILY oxcarbazepine [Trileptal] 300 mg tablet 300 mg PO DAILY duloxetine [Cymbalta] 60 mg capsule,delayed release(DR/EC) 60 mg PO BID gabapentin 300 mg capsule 300 mg PO BID atorvastatin 20 mg tablet 20 mg PO DAILY amiodarone 200 mg tablet 200 mg PO DAILY aripiprazole [Abilify] 5 mg tablet 5 mg PO DAILY lisinopril 40 mg tablet 40 mg PO DAILY metoprolol tartrate [Lopressor] 100 mg tablet 100 mg PO BID clonidine HCl 0.1 mg tablet 0.1 mg PO TID oxycodone 15 mg tablet 15 mg PO Q6H PRN (Reason: pain) aspirin 81 mg capsule 81 mg PO DAILY albuterol sulfate [Ventolin HFA] 90 mcg/actuation HFA aerosol inhaler 2 inh inhalation Q4H PRN (Reason: SOB) Discontinued verapamil 40 mg tablet 20 mg PO DAILY insulin glargine [Lantus Solostar U-100 Insulin] 100 unit/mL (3 mL) insulin pen 50 unit subcut BID Forms: Portal Instructions
--- NOTE | 2023-07-29 09:20 | CM.NOTE ---
Rounds made with Dr. Cabrera. Potential plan for discharge later today. Ms. Chabmerlain in agreement with plan.
[2023-07-29 11:26] LABS: Glucometer 213 mg/dL (74-106)
[2023-07-29] MEDS: DILTIAZEM HCL 60 MG TABLET PO (11:33)
--- NOTE | 2023-07-29 12:26 | DIETREC ---
Pt is refusing Ensure High PRO supplement. PO intakes are good; recommend d/c Ensure. Will continue to monitor PO intakes.
--- NOTE | 2023-07-29 13:26 | PC.NURSE ---
taken to exit via wheelchair. pt discharged to private vehicle with belongings
--- NOTE | 2023-07-30 16:20 | CM.DCFOLLOWU ---
1st attempt. No answer
--- NOTE | 2023-07-31 15:06 | CM.DCFOLLOWU ---
Second attempt at discharge follow up today with no answer.
--- NOTE | 2023-08-01 13:57 | CM.DCFOLLOWU ---
07/31- 3rd attempt. No answer
== END 2023-07-29 13:25 | disposition home or self-care (01) | DRG 309 ==
LOC: ER 13:30 → ICU 16:53
PROVIDERS: Admitting Provider Family Medicine; Emergency Provider Emergency Medicine; Visit Provider Family Medicine
DX: I48.91 Unspecified atrial fibrillation (principal); E44.0 Moderate protein-calorie malnutrition; J44.1 Chronic obstructive pulmonary disease with (acute) exacerbation; E87.1 Hypo-osmolality and hyponatremia; N39.0 Urinary tract infection, site not specified; I24.89 Other forms of acute ischemic heart disease; T45.516A Underdosing of anticoagulants, initial encounter; T38.3X6A Underdosing of insulin and oral hypoglycemic [antidiabetic] drugs, initial encounter; T46.2X6A Underdosing of other antidysrhythmic drugs, initial encounter; R09.02 Hypoxemia; E11.65 Type 2 diabetes mellitus with hyperglycemia; R79.89 Other specified abnormal findings of blood chemistry; E87.6 Hypokalemia; F32.A Depression, unspecified; E86.0 Dehydration; Z91.148 Patient's other noncompliance with medication regimen for other reason; D50.9 Iron deficiency anemia, unspecified; Z79.899 Other long term (current) drug therapy; Z79.82 Long term (current) use of aspirin; Z79.4 Long term (current) use of insulin; Z68.37 Body mass index [BMI] 37.0-37.9, adult; Z79.01 Long term (current) use of anticoagulants; Z79.891 Long term (current) use of opiate analgesic; Z88.2 Allergy status to sulfonamides; Z91.138 Patient's unintentional underdosing of medication regimen for other reason; Z87.01 Personal history of pneumonia (recurrent)
CPT/HCPCS: 36415; 71045; 80053; 81001; 82550; 82800; 82948; 83605; 83690; 83735; 83880; 84484; 85025; 85378; 87040; 87070; 87086; 87150; 87493; 87507; 93005; 93306; 94640; 94667; 94668; 94761; 96361; 96365; 96366; 96368; 96375; 96376; 99285

== ENCOUNTER 2024-03-24 14:59 | Outpatient (OUT) | payer BC, SELFPAY ==
--- OUTSIDE RECORDS SUMMARY | 2024-03-24 15:20 | XMS_ITS | CCD ---
Author Organization [facility] Care Team Providers Care 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 Name Role Phone Unavailable Primary Care Provider UnavailJose Wisdom DO Primary Care Provider [phone] JACKSON HOLDEN Referring Unavailable JACKSON HOLDEN Referring Unavailable LYNNETTE AVILES Admitting Unavailable LYNNETTE AVILES Attending Unavailable JAMES STEVENSON Attending Unavailable SERVICES, [facility] Primary Care Unava ilable Services, [facility] Primary Care Provider NO PCP, NO PCP Primary Care Unavailable RAINER JOSHI Attending Unavailable HOMAR MARCUS Admitting Unavailable RAINER JOSHI Attending Unavailable RAINER JOSHI Referring Unavailable NO PCP, NO PCP Primary Care Unavailable RAINER JOSHI Attending Unavailable RAINER JOSHI Referring Unavailable NO PCP, NO PCP Primary Care Unavailable DANYEL ASEHR Attending Unavailable NO PCP, NO PCP Primary Care Unavailable DANNI MC Attending Unavailable DANNI MC Referring Unavailable NO PCP, NO PCP Primary Care Unavailable SERVICES, [facility] Primary Care Unava ilable ELIEZER LYONS Attending Unavailable CAROLEE MADERA Admitting Unavailable ELIEZER LYONS Attending Unavailable ELIEZER LYONS Referring Unavailable [facility] Primary Care Unava ilable SERVICES, [facility] Primary Care Unava ilable Allergies Allergy Classification Reported Allergen(s) Allergy Type Date of Onset Reaction(s) Facility (9 sources) Sulfonamides (Antibiotic); Translations: [SULFA (SULFONAMIDE ANTIBIOTICS)] Propensity to adverse reactions to drug 4 [facility] Medications Current Medications Medication Drug Class(es) Dates Sig (Normalized) Sig (Original) [id number] 200 actuat albuterol 0.09 mg/actuat metered dose inhaler (6 sources) beta2-Adrenergic Agonist Start: 08-21-2023 take 2 puff(s) by inhalation four times daily as needed for wheezing VENTOLIN HFA 90 mcg/actuation inhaler Indications: Chronic obstructive pulmonary disease, unspecified COPD type ([facility]) Inhale 2 puffs 4 (four) times a day as needed for wheezing. 18 g 2 08/21/2023 Active Start: 08-03-2023 take 1-2 puff(s) by mouth every four hours as needed albuterol (PROVENTIL HFA;VENTOLIN HFA) 90 mcg/actuation inhaler INHALE 1 TO 2 PUFFS BY MOUTH EVERY 4 HOURS NEEDED 0 08/03/2023 Active albuterol 0.833 mg/ml / ipratropium bromide 0.167 mg/ml inhalation solution (6 sources) Anticholinergic, beta2-Adrenergic Agonist Start: 07-16-2023 take 3 mL by inhalation four times daily as needed ipratropium-albuteroL (DUONEB) 0.5 mg-3 mg(2.5 mg base)/3 mL nebulizer Inhale 3 mL by nebulization 4 (four) times a day as needed for shortness of breath. 07/16/2023 Active Start: 07-16-2023 take 1 dose by inhal ation four times daily as needed for wheezing ipratropium-albuteroL (DUONEB) 0.5 mg-3 mg(2.5 mg base)/3 mL nebulizer INHALE 1 VIAL VIA NEBULIZER FOUR TIMES DAILY FOR 30 DAYS NEEDED FOR SHORTNESS OF BREATH OR WHEEZING 0 07/16/2023 Active amiodarone hydrochloride 200 mg oral tablet (3 sources) Antiarrhythmic take 1 tablet by mouth in the morning amiodarone (PACERONE) 200 mg tablet Take 1 tablet (200 mg total) by mouth in the morning. 0 Active apixaban 5 mg oral tablet (6 sources) Factor Xa Inhibitor Start: 07-19-19 take 1 tablet by mouth in the morning, then take 1 tablet by mouth at bedtime ELIQUIS 5 mg tablet Take 1 tablet (5 mg total) by mouth in the morning and 1 tablet (5 mg total) before bedtime. 07/19/2023 Active ARIPiprazole 10 mg oral tablet (5 sources) Atypical Antipsychotic Start: 04-10-20 24 take 0.5 tablet by mouth in the morning ARIPiprazole (ABILIFY) 10 mg tablet Indications: Persistent depressive disorder Take 0.5 tablets (5 mg total) by mouth in the morning. 15 tablet 09/04/2023 Active Start: 08-16-2023 take 1 tablet by sylwia th in the morning ARIPiprazole (ABILIFY) 10 mg tablet Indications: Persistent depressive disorder Take 1 tablet (10 mg total) by mouth in the morning. 90 tablet 0 08/16/2023 Active aspirin 81 mg chewable tablet (3 sources) Platelet Aggregation Inhibitor, Nonsteroidal Anti-inflammatory Drug aspirin 81 mg chewable tablet Chew 1 tablet (81 mg total) and swallow in the morning. Active atorvastatin 20 mg oral tablet (6 sources) HMG-CoA Reductase Inhibitor Start: take 1 tablet by mouth once daily atorvastatin (LIPITOR) 20 mg tablet Take 1 tablet (20 mg total) by mouth nightly. 06/16/2023 Active cloNIDine hydrochloride 0.1 mg oral tablet (6 sources) Central alpha-2 Adrenergic Agonist Start: cloNIDine (CATAPRES) 0.1 mg tablet Take 1 tablet (0.1 mg total) by mouth in the morning and 1 tablet (0.1 mg total) at noon and 1 tablet (0.1 mg total) in the evening. Take before meals. 05/19/2023 Active dapagliflozin 10 mg oral tablet (3 sources) Sodium-Glucose Cotransporter 2 Inhibitor Start: take 1 tablet by mouth in the morning FARXIGA 10 mg tablet Take 1 tablet (10 mg total) by mouth in the morning. 02/04/2024 Active 0.5 ml dulaglutide 3 mg/ml auto-injector (3 sources) GLP-1 Receptor Agonist Start: TRULICITY 1.5 mg/0.5 mL pen injector once a week. Saturday02/26/2024 Active Start: 02-26-2024 TRULICITY 1.5 mg/0.5 mL pen injector 02/26/2024 Active DULoxetine 60 mg delayed release oral capsule (9 sources) Serotonin and Norepinephrine Reuptake Inhibitor Start: 05-29-2023 take 1 capsule by mouth in the morning, then take 1 capsule by mouth at bedtime DULoxetine (CYMBALTA) 60 mg capsule Take 1 capsule (60 mg total) by mouth in the morning and 1 capsule (60 mg total) before bedtime. 05/29/2023 Active gabapentin 300 mg oral capsule (6 sources) Anti-epileptic Agent Start: 06-24-2023 take 1 capsule by mouth at bedtime gabapentin (NEURONTIN) 300 mg capsule Take 1 capsule (300 mg total) by mouth in the morning and at bedtime. 06/24/2023 Active insulin detemir 100 unt/ml injectable solution (3 sources) Insulin Analog Start: 10-16-2023 inject 0.56 mL by subcutaneous injection in the morning insulin detemir U-100 (LEVEMIR U-100 INSULIN) 100 unit/mL injection Indications: Type 2 diabetes mellitus without complication, with long-term current use of insulin ([facility]) Inject 0.56 mL (56 Units total) under the skin in the morning and 0.56 mL (56 Units total) before bedtime. 10 mL 1 10/16/2023 Active insulin glargine 100 unt/ml injectable solution (3 sources) Insulin Analog Start: 07-26-2023 inject 0.56 mL by subcutaneous injection in the morning LANTUS U-100 INSULIN 100 unit/mL injection Inject 0.56 mL (56 Units total) under the skin in the morning and 0.56 mL (56 Units total) before bedtime. 0 07/26/2023 Active Start: 07-26-2023 inject 50 [IU] by gillespie bcutaneous injection twice daily LANTUS U-100 INSULIN 100 unit/mL injection INJECT 50 UNITS UNDER THE SKIN TWICE DAILY 0 07/26/2023 Active insulin, regular, human 100 unt/ml injectable solution (6 sources) Insulin Start: 10-10-2023 insulin regula r (HumuLIN R Regular U-100 Insuln) 100 unit/mL injection Indications: Type 2 diabetes mellitus without complication, with long-term current use of insulin ([facility]) Inject 0.05 mL (5 Units total) under the skin in the morning and 0.05 mL (5 Units total) at noon and 0.05 mL (5 Units total) in the evening. Inject before meals. 10 mL 10/10/2023 Active Start: 07-26-2023 NovoLIN R Regu lar U100 Insulin 100 unit/mL injection ADMINISTER 60 UNITS UNDER THE SKIN DAILY PER SLIDING SCALE 0 07/26/2023 Active lisinopril 40 mg oral tablet (6 sources) Angiotensin Converting Enzyme Inhibitor Start: 05-29-2023 take 1 tablet by mouth in the morning lisinopriL (PRINIVIL,ZESTRIL) 40 mg tablet Take 1 tablet (40 mg total) by mouth in the morning. 05/29/2023 Active metoprolol tartrate 100 mg oral tablet (7 sources) beta-Adrenergic Hailey Start: 06-22-2023 End: 08-20-2023 take 1 tablet by mouth twice daily metoprolol tartrate (LOPRESSOR) 100 mg tablet Indications: Chronic diastolic CHF (congestive heart failure) (CMS-HCC) TAKE 1 TABLET BY MOUTH TWICE DAILY 180 tablet 08/20/2023 Active OXcarbazepine 300 mg oral tablet (6 sources) Anti-epileptic Agent Start: 06-03-2023 take 1 tablet by mouth in the morning OXcarbazepine (TRILEPTAL) 300 mg tablet Take 1 tablet (300 mg total) by mouth in the morning. 06/03/2023 Active potassium chloride 10 meq extended release oral capsule (6 sources) Start: 02-17-2024 take 1 capsule by mouth in the morning potassium chloride (KLOR-CON SPRINKLE) 10 MEQ CR capsule Take 1 capsule (10 mEq total) by mouth in the morning and 1 capsule (10 mEq total) before bedtime. 02/17/2024 Active Start: 07-19-2023 potassium chlo ride (K-TAB,KLOR-CON) 10 MEQ CR tablet TAKE 1 TO 2 TABLETS BY MOUTH DAILY 0 07/19/2023 Active sod sulf-pot chloride-mag sulf 1.479-0.188- 0.225 gram tablet (3 sources) Start: 03-03-2024 sod sulf-pot chloride-mag sulf 1.479-0.188- 0.225 gram tablet Indications: Positive colorectal cancer screening using Cologuard test Please see instructional sheet given by physicians office. 24 tablet 03/03/2024 Active spironolactone 25 mg oral tablet (5 sources) Aldosterone Antagonist Start: 08-16-2023 take 0.5 tablet by mouth in the morning spironolactone (ALDACTONE) 25 mg tablet Indications: Chronic diastolic CHF (congestive heart failure) (CMS-HCC) Take 0.5 tablets (12.5 mg total) by mouth in the morning. 45 tablet 1 08/16/2023 Active Completed/Discontinued Medications Medication Drug Class(es) Dates Sig (Normalized) Sig (Original) empagliflozin 10 mg oral tablet (4 sources) Sodium-Glucose Cotransporter 2 Inhibitor Start: 08-16-2023 End: 03-03-2024 take 1 tablet by mouth in the morning empagliflozin (JARDIANCE) 10 mg tablet tablet Indications: Chronic diastolic CHF (congestive heart failure) ([facility]) Take 1 tablet (10 mg total) by mouth in the morning. 90 tablet 1 08/16/2023 03/03/2024 Discontinued (Therapy completed) lansoprazole 30 mg delayed release oral capsule (4 sources) Proton Pump Inhibitor Start: 09-11-2023 End: 03-03-2024 take 1 capsule by mouth once daily before breakfast lansoprazole (PREVACID) 30 mg capsule Indications: Gastroesophageal reflux disease, unspecified whether esophagitis present Take 1 capsule (30 mg total) by mouth every morning before breakfast. 90 capsule 09/11/2023 03/03/2024 Discontinued (Therapy completed) Start: 05-29-2023 take 1 capsule by mo [facility] once daily lansoprazole (PREVACID) 30 mg capsule TAKE 1 CAPSULE BY MOUTH DAILY 0 05/29/2023 Active levoFLOXacin 500 mg oral tablet (2 sources) Quinolone Antimicrobial Start: 07-29-2023 End: 08-16-2023 take 1 tablet by mouth once daily levoFLOXacin (LEVAQUIN) 500 mg tablet TAKE 1 TABLET BY MOUTH DAILY FOR 7 DAYS 0 07/29/2023 08/16/2023 Discontinued (Therapy completed) Problems Active Problems Problem Classification Problem Date Documented Da te Episodic/Chronic Cardiac dysrhythmias (7 sources) Paroxysmal atrial fibrillation; Translations: [Paroxysmal atrial fibrillation] Onset: 08-07-2023 08-07-2023 Chronic Congestive heart failure; nonhypertensive (2 sources) Chronic diastolic heart failure; Translations: [Chronic diastolic (congestive) heart failure] 08-16-2023 Chronic Diabetes mellitus with complications (14 sources) Type 1 diabetes mellitus; Translations: [Type 1 diabetes mellitus with diabetic polyneuropathy] Onset: 08-07-2023 08-07-2023 Chronic Diabetes mellitus without complication (2 sources) Type 2 diabetes mellitus without complication; Translations: [Type 2 diabetes mellitus without complications] 08-07-2023 Chronic Diabetes mellitus without complication (5 sources) High glucose level in blood; Translations: [Hyperglycemia, unspecified] Onset: 12-29-2023 12-29-2023 Episodic Diseases of white blood cells (1 source) Elevated white blood cell count, unspecified; Translations: [Elevated white blood cell count, unspecified] Onset: 12-29-2023 Chronic Disorders of lipid metabolism (4 sources) Hyperlipidemia; Translations: [Hyperlipidemia, unspecified] 08-07-2023 Chronic Essential hypertension (5 sources) Essential hypertension; Translations: [Essential (primary) hypertension] 08-07-2023 Chronic Mood disorders (2 sources) Dysthymic disorder; Translations: [Dysthymic disorder] Onset: 09-02-2023 08-16-2023 Chronic Nutritional deficiencies (1 source) Cobalamin deficiency; Translations: [Deficiency of other specified B group vitamins] 08-07-2023 Episodic Other gastrointestinal disorders (1 source) Other fecal abnormalities; Translations: [Other fecal abnormalities] Onset: 03-03-2024 Episodic Other gastrointestinal disorders (1 source) Stool DNA-based colorectal cancer screening positive; Translations: [Other fecal abnormalities] 03-03-2024 Episodic Other injuries and conditions due to external causes (2 sources) Unspecified foreign body in larynx causing other injury, initial encounter; Translations: [Unspecified foreign body in larynx causing other injury, initial encounter] Onset: 09-11-2023 Episodic Other nervous system disorders (3 sources) Chronic pain syndrome; Translations: [Chronic pain syndrome] Onset: 09-04-2023 09-04-2023 Chronic Other nervous system disorders (1 source) Chronic pain syndrome; Translations: [Chronic pain syndrome] Onset: 09-04-2023 Chronic Other screening for suspected conditions (not mental disorders or infectious disease) (1 source) Other specified abnormal findings of blood chemistry; Translations: [Other specified abnormal findings of blood chemistry] Onset: 12-29-2023 Episodic Residual codes; unclassified (1 source) Obstructive sleep apnea syndrome; Translations: [Obstructive sleep apnea (adult) (pediatric)] 08-16-2023 Chronic Spondylosis; intervertebral disc disorders; other back problems (1 source) Chronic low back pain; Translations: [Chronic bilateral low back pain, unspecified whether sciatica present] 08-07-2023 Episodic Unclassified (1 source) High Blood Sugar - Symptomatic Onset: 12-29-2023 Unclassified (1 source) Pleuritic Chest Pain - Adult Onset: 10-16-2023 Unclassified (1 source) weakness, pain rt knee Onset: 09-02-2023 Past or Other Problems Problem Classification Problem Date Documented Da te Episodic/Chronic Acute and unspecified renal failure (4 sources) Acute renal failure syndrome; Translations: [Acute kidney failure, unspecified] Onset: 09-03-2023 12-29-2023 Episodic Malaise and fatigue (1 source) Weakness; Translations: [Weakness] Onset: 09-02-2023 Episodic Mood disorders (6 sources) Mood disorders Onset: 08-07-2023 Resolved: 08-16-2023 08-07-2023 Nonspecific chest pain (4 sources) Other chest pain; Translations: [Chest pain, unspecified] Onset: 09-11-2023 Episodic Other non-traumatic joint disorders (3 sources) Pain in right knee; Translations: [Pain in joint, lower leg] Onset: 09-03-2023 09-03-2023 Episodic Other non-traumatic joint disorders (1 source) Knee pain Onset: 09-02-2023 Episodic Results Test Name Value Interpretation Reference Range Facility CBC AND AUTO DIFFon 01-01-20 24 ABSOLUTE BASOPHIL 0.1 X10E9/L Normal 0.0-0.2 [facility] Comment on above: Performed By: #### C BCA, CMP, 18975-2 ####[facility] ([id number])[address] [place] [address] 04243 ABSOLUTE NEUTROPHIL 6.5 X10E9/L Normal 1.5-6.6 [facility] Comment on above: Performed By: #### C BCA, CMP, 75492-9 ####[facility] ([id number])[address] [place] [address] 44946 Basophils/100 WBC (Bld) 0.8 % Normal [facility] Comment on above: Performed By: #### C BCA, CMP, 08552-9 ####[facility] ([id number])[address] [place] [address] 84027 Eosinophils (Bld) [#/Vol] 0.0 10*3/uL Normal 0.0-0.4 [facility] Comment on above: Performed By: #### Siva FRANKEL [facility], ####[facility] ([id number])[address] [place] [address] 76310 Eosinophils/100 WBC (Bld) 0.2 % Normal [facility] Comment on above: Performed By: #### Siva FRANKEL [facility], ####[facility] ([id number])[address] [place] [address] 02555 Erythrocyte distribution width (RBC) [Ratio] 15.8 % High 11.5-15.0 [facility] Comment on above: Performed By: #### Siva FRANKEL [facility], ####[facility] ([id number])[address] [place] [address] 32810 Hematocrit (Bld) [Volume fraction] 39.6 % Normal 35-47 [facility] Comment on above: Performed By: #### Siva FRANKEL [facility], ####[facility] ([id number])[address] [place] [address] 78656 Hemoglobin (Bld) [Mass/Vol] 12.9 g/dL Normal 11.7-15.5 [facility] Comment on above: Performed By: #### Siva FRANKEL [facility], ####[facility] ([id number])[address] [place] [address] 53588 Lymphocytes (Bld) [#/Vol] 3.9 10*3/uL High 1.0-3.5 [facility] Comment on above: Performed By: #### Siva FRANKEL [facility], ####[facility] ([id number])[address] [place] [address] 12095 Lymphocytes/100 WBC (Bld) 33.3 % Normal [facility] Comment on above: Performed By: #### Siva FRANKEL CMP, ####[facility] ([id number])[address] [place] [address] 72273 MCH (RBC) [Entitic mass] 28.0 pg Normal 27-34 [facility] Comment on above: Performed By: #### Siva FRANKEL CMP, ####[facility] ([id number])[address] [place] [address] 55586 MCHC (RBC) [Mass/Vol] 32.7 g/dL Normal 32-36 [facility] Comment on above: Performed By: #### Siva FRANKEL CMP, ####[facility] ([id number])[address] [place] [address] 09123 MCV (RBC) [Entitic vol] 86 fL Normal 80-100 [facility] Comment on above: Performed By: #### Siva FRANKEL CMP, ####[facility] ([id number])[address] [place] [address] 33246 Monocytes (Bld) [#/Vol] 1.3 10*3/uL High 0-0.9 [facility] Comment on above: Performed By: #### Siva FRANKEL CMP, ####[facility] ([id number])[address] [place] [address] 02631 Monocytes/100 WBC (Bld) 11.1 % Normal [facility] Comment on above: Performed By: #### Siva FRANKEL CMP, ####[facility] ([id number])[address] [place] [address] 03547 Neutrophils/100 WBC (Bld) 54.6 % Normal [facility] Comment on above: Performed By: #### Siva FRANKEL CMP, ####[facility] ([id number])[address] [place] [address] 14479 Platelet mean volume (Bld) [Entitic vol] 8.8 fL Normal 7-12 [facility] Comment on above: Performed By: #### C JOSTIN, CMP, ####[facility] ([id number])[address] [place] [address] 13293 Platelets (Bld) [#/Vol] 197 10*3/uL Normal 150-450 [facility] Comment on above: Performed By: #### C JOSTIN, CMP, ####[facility] ([id number])[address] [place] [address] 29593 RBC COUNT 4.62 X10E12/L Normal 3.80-5.20 [facility] Comment on above: Performed By: #### C JOSTIN, CMP, ####[facility] ([id number])[address] [place] [address] 31364 WBC (Bld) [#/Vol] 11.9 10*3/uL High 4.0-11.0 [facility] Comment on above: Performed By: #### C JOSTIN, CMP, ####[facility] ([id number])[address] [place] [address] 05807 COMPREHENSIVE METABOLIC PANE Virgil 01-01-2024 Albumin [Mass/Vol] 3.3 g/dL Normal 3.2-5.3 [facility] Comment on above: Performed By: #### C BCA, CMP, ####[facility] ([id number])[address] [place] [address] 54034 ALP [Catalytic activity/Vol] 94 U/L Normal 39-130 [facility] Comment on above: Performed By: #### C BCA, CMP, ####[facility] ([id number])[address] [place] [address], [place] [address] ALT [Catalytic activity/Vol] 19 U/L Normal 0-31 [facility] Comment on above: Performed By: #### C BCA, CMP, 82737-6 ####[facility] ([id number])[address] [place] [address], [place] [address] Anion gap [Moles/Vol] 8 mmol/L Normal 5-15 [facility] Comment on above: Performed By: #### C BCA, CMP, 39640-7 ####[facility] ([id number])[address] [place] [address], [place] [address] AST [Catalytic activity/Vol] 16 U/L Normal 0-41 [facility] Comment on above: Performed By: #### C BCA, CMP, ####[facility] ([id number])[address] [place] [address], [place] [address] Bilirubin [Mass/Vol] 0.7 mg/dL Normal 0.3-1.2 [facility] Comment on above: Performed By: #### C BCA, CMP, 54445-7 ####[facility] ([id number])[address] [place] [address], [place] [address] Calcium [Mass/Vol] 8.8 mg/dL Normal 8.5-10.5 [facility] Comment on above: Performed By: #### C BCA, CMP, 84234-5 ####[facility] ([id number])[address] [place] [address], [place] [address] Chloride [Moles/Vol] 99 mmol/L Normal 98-109 [facility] Comment on above: Performed By: #### C BCA, CMP, 62888-5 ####[facility] ([id number])[address] [place] [address], [place] [address] CO2 [Moles/Vol] 27 mmol/L Normal 22-32 [facility] Comment on above: Performed By: #### C JOSTIN [facility], 69367-0 ####[facility] ([id number])[address] [place] [address] 79052 Creatinine [Mass/Vol] 0.70 mg/dL Normal 0.40-1.00 [facility] Comment on above: Result Comment: METH OD TRACEABLE TO IDMS STANDARD Performed By: #### C VERNON FRANKEL, ####[facility] ([id number])[address] [place] [address] 32045 eGFR (CKD-EPI) NON-RACE DEPENDENT >90 Normal >59 [facility] Comment on above: Result Comment: Reported eGFR is based on the CKD-EPI 2020 equation that does not use a race coefficient. Performed By: #### C VERNON FRANKEL, ####[facility] ([id number])[address] [place] [address] 64075 Glucose [Mass/Vol] 97 mg/dL Normal 65-99 [facility] Comment on above: Performed By: #### C JOSTIN [facility], 14698-6 ####[facility] ([id number])[address] [place] [address] 08054 Potassium [Moles/Vol] 3.6 mmol/L Normal 3.5-5.0 [facility] Comment on above: Performed By: #### C VERNON FRANKEL, 02753-3 ####[facility] ([id number])[address] [place] [address] 66485 Protein [Mass/Vol] 6.6 g/dL Normal 6.0-8.0 [facility] Comment on above: Performed By: #### C VERNON FRANKEL, 78592-5 ####[facility] ([id number])[address] [place] [address] 85862 Sodium [Moles/Vol] 134 mmol/L Normal 134-146 [facility] Comment on above: Performed By: #### C BCA, CMP, 17050-0 ####[facility] ([id number])[address] [place] [address] 12582 Urea nitrogen [Mass/Vol] 15 mg/dL Normal 5-23 [facility] Comment on above: Performed By: #### C BCA, CMP, 11420-5 ####[facility] ([id number])[address] [place] [address] 21036 MAGNESIUMon 01-01-2024 Magnesium [Mass/Vol] 2.1 mg/dL Normal 1.8-2.6 [facility] Comment on above: Performed By: #### C BCA, CMP, ####[facility] ([id number])[address] [place] [address] 59247 CBC AND AUTO DIFFon 12-31-19 24 Band form neutrophils/100 WBC (Bld) 1.0 % Normal [facility] Comment on above: Performed By: #### C BCA, PINR, 71677-5, CMP, 3040-3, 32480-8, 5643-2, 1987-09, , 12324-7, 215-6, 53288-3, THYR #### [facility] ([id number]) [address] [place] [address] 87028 Erythrocyte distribution width (RBC) [Ratio] 16.1 % High 11.5-15.0 [facility] Comment on above: Performed By: #### C BCA, PINR, 77689-7, CMP, 3040-3, 29031-4, 5643-2, 1987-09, 64635-6, 85469-2, 2157-6, 67497-7, THYR #### [facility] ([id number]) [address] [place] [address] 60509 Hematocrit (Bld) [Volume fraction] 38.0 % Normal 35-47 [facility] Comment on above: Performed By: #### C BCA, PINR, 79177-1, CMP, 3040-3, 44911-6, 5643-2, 1987-09, 71248-2, 71356-2, 2157-6, 89063-5, THYR #### [facility] ([id number]) [address] [place] [address] 45592 Hemoglobin (Bld) [Mass/Vol] 12.5 g/dL Normal 11.7-15.5 [facility] Comment on above: Performed By: #### C BCA, PINR, 75038-2, CMP, 3040-3, 45796-3, 5643-, 1987-09, , 70081-0, 2157-6, 60372-1, THYR #### [facility] ([id number]) [address] [place] [address] 00926 LYMPHOCYTE, ATYPICAL 1.9 % Normal [facility] [place] Comment on above: Performed By: #### C BCA, PINR, 58260-5, CMP, 3040-3, 44586-3, 5643-2, 1987-09, 88053-6, 61988-9, 215-6, 95362-8, THYR #### [facility] ([id number]) [address] [place] [address] 57839 Lymphocytes (Bld) [#/Vol] 3.2 10*3/uL Normal 1.0-3.5 [facility] Comment on above: Performed By: #### C BCA, PINR, 43408-9, CMP, 3040-3, 07455-8, 5643-2, 1987-09, 31610-7, 00386-1, 2157-6, 22929-5, THYR #### [facility] ([id number]) [address] [place] [address] 30904 Lymphocytes/100 WBC (Bld) 14.3 % Normal [facility] Comment on above: Performed By: #### C BCA, PINR, 20745-2, CMP, 3040-3, 06534-8, 5643-2, 1987-09, , 84036-4, 215-6, 00663-5, THYR #### [facility] ([id number]) [address] [place] [address] 94965 MCH (RBC) [Entitic mass] 28.3 pg Normal 27-34 [facility] Comment on above: Performed By: #### C BCA, PINR, 83485-6, CMP, 3040-3, 74999-8, 5643-2, 1987-09, 71545-5, 75252-2, 2156-6, 85815-4, THYR #### [facility] ([id number]) [address] [place] [address] 41117 MCHC (RBC) [Mass/Vol] 32.8 g/dL Normal 32-36 [facility] Comment on above: Performed By: #### C BCA, PINR, 77480-4, CMP, 3040-3, 68963-1, 5643-, 1987-09, , 53335-5, 2156, 75788-2, THYR #### [facility] ([id number]) [address] [place] [address] [place] [address] MCV (RBC) [Entitic vol] 86 fL Normal 80-100 [facility] Comment on above: Performed By: #### C BCA, PINR, 56319-4, CMP, 3040-3, 11185-4, 5643-2, 1987-09, 64722-9, 58844-0, 2156-6, 32312-5, THYR #### [facility] ([id number]) [address] [place] [address] 63191 Monocytes (Bld) [#/Vol] 0.7 10*3/uL Normal 0-0.9 [facility] Comment on above: Performed By: #### C BCA, PINR, 03352-1, CMP, 3040-3, 26233-7, 5643-2, 1987-09, 21368-8, 78440-9, 215-6, 94500-1, THYR #### [facility] ([id number]) [address] [place] [address] 78610 Monocytes/100 WBC (Bld) 3.8 % Normal [facility] Comment on above: Performed By: #### C BCA, PINR, 84201-9, CMP, 3040-3, 65326-2, 5643-2, 1987-09, , 91197-3, 215-6, 80195-6, THYR #### [facility] ([id number]) [address] [place] [address] [place] [address] MYELOCYTE 1.0 % Normal [facility] Comment on above: Performed By: #### C BCA, PINR, 54762-3, CMP, 3040-3, 02547-5, 5643-2, 1987-09, 50923-3, 21668-5, 215-6, 22460-7, THYR #### [facility] ([id number]) [address] [place] [address] 83208 Neutrophils (Bld) [#/Vol] 15.6 10*3/uL High 1.5-6.6 [facility] Comment on above: Performed By: #### C BCA, PINR, 04258-9, CMP, 3040-3, 63866-2, 5643-2, 1987-09, 18290-9, 80507-8, 215-6, 56654-2, THYR #### [facility] ([id number]) [address] [place] [address] [place] [address] Platelet mean volume (Bld) [Entitic vol] 9.2 fL Normal 7-12 [facility] Comment on above: Performed By: #### C BCA, PINR, 55026-6, CMP, 3040-3, 83842-8, 5643-2, 1987-, 11920-9, 24732-9, 2157-6, 24459-4, THYR #### [facility] ([id number]) [address] [place] [address] 16623 Platelets (Bld) [#/Vol] 213 10*3/uL Normal 150-450 [facility] Comment on above: Performed By: #### C BCA, PINR, 42281-8, CMP, 3040-3, 01521-1, 5643-2, 1987-09, 76911-9, 16321-4, 2157-6, 09428-4, THYR #### [facility] ([id number]) [address] [place] [address] [place] [address] RBC COUNT 4.41 X10E12/L Normal 3.80-5.20 [facility] Comment on above: Performed By: #### C BCA, PINR, 89271-2, CMP, 3040-3, 67418-8, 5643-2, 1987-09, 14168-9, 43015-6, 2157-6, 87191-6, THYR #### [facility] ([id number]) [address] [place] [address] [place] [address] SEG NEUTROPHIL 78.0 % Normal [facility] Comment on above: Performed By: #### C BCA, PINR, 34697-2, CMP, 3040-3, 83321-0, 5643-2, 1987-09, 28627-1, 34243-9, 2157-6, 93322-3, THYR #### [facility] ([id number]) [address] [place] [address] [place] [address] WBC (Bld) [#/Vol] 19.7 10*3/uL High 4.0-11.0 [facility] Comment on above: Performed By: #### C BCA, PINR, 47841-2, CMP, 3040-3, 57804-3, 5643-2, 1987-, 88106-2, 33607-9, 2157-6, 54655-4, THYR #### [facility] ([id number]) [address] [place] [address] 29467 COMPREHENSIVE METABOLIC PANE Virgil 12-31-2023 Albumin [Mass/Vol] 3.3 g/dL Normal 3.2-5.3 [facility] Comment on above: Performed By: #### C BCA, PINR, 76695-8, CMP, 3040-3, 41413-9, 5643-2, 1987-09, 69827-3, 67532-7, 2157-6, 77862-3, THYR #### [facility] ([id number]) [address] [place] [address] 89499 ALP [Catalytic activity/Vol] 100 U/L Normal 39-130 [facility] Comment on above: Performed By: #### C BCA, PINR, 52604-7, CMP, 3040-3, 68492-7, 5643-2, 1987-, 62170-0, 86670-3, 2157-6, 28456-3, THYR #### [facility] ([id number]) [address] [place] [address] 20357 ALT [Catalytic activity/Vol] 17 U/L Normal 0-31 [facility] Comment on above: Performed By: #### C BCA, PINR, 77239-1, CMP, 3040-3, 15907-6, 5643-2, 1987-, 87639-1, 85381-9, 2157-6, 26608-2, THYR #### [facility] ([id number]) [address] [place] [address] 90498 Anion gap [Moles/Vol] 7 mmol/L Normal 5-15 [facility] Comment on above: Performed By: #### C BCA, PINR, 95166-3, CMP, 3040-3, 21993-8, 5643-2, 1987-, 64497-6, 35964-2, 215-6, 86845-7, THYR #### [facility] ([id number]) [address] [place] [address] [place] [address] AST [Catalytic activity/Vol] 16 U/L Normal 0-41 [facility] Comment on above: Performed By: #### C BCA, PINR, 66726-4, CMP, 3040-3, 43835-9, 5643-2, 1987-, 49471-2, 90269-5, 2156-6, 21324-5, THYR #### [facility] ([id number]) [address] [place] [address] 46594 Bilirubin [Mass/Vol] 0.8 mg/dL Normal 0.3-1.2 [facility] [place] Comment on above: Performed By: #### C BCA, PINR, 23485-2, CMP, 3040-3, 77939-6, 5643-2, 1987-, 88311-7, 60744-5, 215-6, 10737-8, THYR #### [facility] ([id number]) [address] [place] [address] 61458 Calcium [Mass/Vol] 8.7 mg/dL Normal 8.5-10.5 [facility] Comment on above: Performed By: #### C BCA, PINR, 82528-3, CMP, 3040-3, 86695-0, 5643-2, 1987-, 03808-7, 70456-9, 2156-6, 57198-2, THYR #### [facility] ([id number]) [address] [place] [address] [place] [address] Chloride [Moles/Vol] 100 mmol/L Normal 98-109 [facility] [place] Comment on above: Performed By: #### C BCA, PINR, 06248-6, CMP, 3040-3, 47447-5, 5643-2, 1987-09, 76550-2, 10205-8, 2157-6, 53900-8, THYR #### [facility] ([id number]) [address] [place] [address] 84755 CO2 [Moles/Vol] 27 mmol/L Normal 22-32 [facility] Comment on above: Performed By: #### C BCA, PINR, 45556-1, CMP, 3040-3, 53099-4, 5643-2, 1987-09, 34528-1, 36679-6, 215-6, 15082-8, THYR #### [facility] ([id number]) [address] [place] [address] 65578 Creatinine [Mass/Vol] 0.69 mg/dL Normal 0.40-1.00 [facility] Comment on above: Result Comment: METH OD TRACEABLE TO IDMS STANDARD Performed By: #### C BCA, PINR, 90353-1, CMP, 3040-3, 71730-2, 5643-2, 1987-09, , 30674-2, 215-6, 11166-2, THYR #### [facility] ([id number]) [address] [place] [address] [place] [address] eGFR (CKD-EPI) NON-RACE DEPENDENT >90 Normal >59 [facility] Comment on above: Result Comment: Reported eGFR is based on the CKD-EPI 2020 equation that does not use a race coefficient. Performed By: #### C BCA, PINR, 54623-9, CMP, 3040-3, 56718-3, 5643-2, 1987-09, , 74176-2, 2157-6, 35837-4, THYR #### [facility] ([id number]) [address] [place] [address] 86876 Glucose [Mass/Vol] 167 mg/dL High 65-99 [facility] Comment on above: Performed By: #### C BCA, PINR, 26449-3, CMP, 3040-3, 88738-4, 5643-2, 1987-, 42950-4, 07793-6, 2157-6, 35747-4, THYR #### [facility] ([id number]) [address] [place] [address] 48621 Potassium [Moles/Vol] 3.6 mmol/L Normal 3.5-5.0 [facility] Comment on above: Performed By: #### C BCA, PINR, 70740-9, CMP, 3040-3, 68339-7, 5643-2, 1987-09, 25973-5, 37554-1, 2157-6, 21896-4, THYR #### [facility] ([id number]) [address] [place] [address] [place] [address] Protein [Mass/Vol] 6.5 g/dL Normal 6.0-8.0 [facility] Comment on above: Performed By: #### C BCA, PINR, 17163-6, CMP, 3040-3, 67051-2, 5643-2, 1987-09, 45260-9, 45092-8, 2157-6, 04390-0, THYR #### [facility] ([id number]) [address] [place] [address] [place] [address] Sodium [Moles/Vol] 134 mmol/L Normal 134-146 [facility] Comment on above: Performed By: #### C BCA, PINR, 33972-7, CMP, 3040-3, 37135-4, 5643-2, 1987-09, 45126-2, 94148-6, 215-6, 86332-9, THYR #### [facility] ([id number]) [address] [place] [address] [place] [address] Urea nitrogen [Mass/Vol] 14 mg/dL Normal 5-23 [facility] Comment on above: Performed By: #### C BCA, PINR, 41322-3, CMP, 3040-3, 38377-3, 5643-2, 1987-5, 85483-5, 56670-1, 2157-6, 96339-2, THYR #### [facility] ([id number]) [address] [place] [address] [place] [address] ELECTROLYTESon 12-31-2023 Anion gap [Moles/Vol] 9 mmol/L Normal 5-15 [facility] Comment on above: Performed By: #### E LEC ####[facility] ([id number])[address] [place] [address] 36268 Chloride [Moles/Vol] 99 mmol/L Normal 98-109 [facility] [place] Comment on above: Performed By: #### E LEC ####[facility] ([id number])[address] [place] [address] [place] [address] CO2 [Moles/Vol] 25 mmol/L Normal 22-32 [facility] Comment on above: Performed By: #### E LEC ####[facility] ([id number])[address] [place] [address] 22575 Potassium [Moles/Vol] 3.8 mmol/L Normal 3.5-5.0 [facility] Comment on above: Performed By: #### E LEC ####[facility] ([id number])[address] [place] [address] [place] [address] Sodium [Moles/Vol] 133 mmol/L Low 134-146 [facility] Comment on above: Performed By: #### E LEC ####[facility] ([id number])[address] [place] [address] [place] [address] Anion gap [Moles/Vol] 5 mmol/L Normal 5-15 [facility] Comment on above: Performed By: #### C BCA, PINR, 82348-9, CMP, 3040-3, 19336-0, 5643-2, 1987-09, 69420-9, 74515-8, 2156-6, 98228-2, THYR #### [facility] ([id number]) [address] [place] [address], [place] [address] Chloride [Moles/Vol] 97 mmol/L Low 98-109 [facility] [place] Comment on above: Performed By: #### C BCA, PINR, 92009-9, CMP, 3040-3, 25040-4, 5643-2, 1987-09, 57496-8, 98424-0, 2156-, 94652-0, THYR #### [facility] ([id number]) [address] [place] [address], [place] [address] CO2 [Moles/Vol] 28 mmol/L Normal 22-32 [facility] Comment on above: Performed By: #### C BCA, PINR, 36596-7, CMP, 3040-3, 90860-9, 5643-2, 1987-09, 24998-4, 13619-0, 2156-, 23316-3, THYR #### [facility] ([id number]) [address] [place] [address], [place] [address] Potassium [Moles/Vol] 3.9 mmol/L Normal 3.5-5.0 [facility] Comment on above: Performed By: #### C BCA, PINR, 01248-8, CMP, 3040-3, 17221-3, 5643-2, 1987-09, 79576-1, 60355-1, 2156-6, 22985-2, THYR #### [facility] ([id number]) [address] [place] [address], [place] [address] Sodium [Moles/Vol] 130 mmol/L Low 134-146 [facility] Comment on above: Performed By: #### C BCA, PINR, 34752-4, CMP, 3040-3, 56823-3, 5643-2, 1987-09, 21358-7, 26014-9, 2157-6, 13952-3, THYR #### [facility] ([id number]) [address] [place] [address] [place] [address] Anion gap [Moles/Vol] 8 mmol/L Normal 5-15 [facility] Comment on above: Performed By: #### C BCA, PINR, 12063-4, CMP, 3040-3, 21852-0, 5643-2, 1987-09, 04156-8, 11499-6, 2157-6, 52104-2, THYR #### [facility] ([id number]) [address] [place] [address] [place] [address] Chloride [Moles/Vol] 99 mmol/L Normal 98-109 [facility] Comment on above: Performed By: #### C BCA, PINR, 46442-3, CMP, 3040-3, 34101-2, 5643-2, 1987-09, 40056-7, 93157-7, 2157-6, 20113-7, THYR #### [facility] ([id number]) [address] [place] [address] [place] [address] CO2 [Moles/Vol] 25 mmol/L Normal 22-32 [facility] Comment on above: Performed By: #### C BCA, PINR, 10489-9, CMP, 3040-3, 69868-2, 5643-2, 1987-09, , 41698-4, 215-6, 04018-0, THYR #### [facility] ([id number]) [address] [place] [address] [place] [address] Potassium [Moles/Vol] 4.3 mmol/L Normal 3.5-5.0 [facility] Comment on above: Performed By: #### C BCA, PINR, 16566-8, CMP, 3040-3, 67075-2, 5643-2, 1987-09, 95875-1, 72358-1, 2157-6, 52547-5, THYR #### [facility] ([id number]) [address] [place] [address], [place] [address] Sodium [Moles/Vol] 132 mmol/L Low 134-146 [facility] Comment on above: Performed By: #### C BCA, PINR, 40535-8, CMP, 3040-3, 50284-7, 5643-, 1987-09, , 40861-8, 2157-6, 11265-4, THYR #### [facility] ([id number]) [address] [place] [address], [place] [address] Anion gap [Moles/Vol] 8 mmol/L Normal 5-15 [facility] Comment on above: Performed By: #### C BCA, PINR, 84725-9, CMP, 3040-3, 75227-1, 5643-, 1987-09, , 41956-4, 2157-6, 60999-4, THYR #### [facility] ([id number]) [address] [place] [address], [place] [address] Chloride [Moles/Vol] 99 mmol/L Normal 98-109 [facility] Comment on above: Performed By: #### C BCA, PINR, 68884-9, CMP, 3040-3, 88556-2, 5643-, 1987-09, , 65802-5, 215-6, 22072-0, THYR #### [facility] ([id number]) [address] [place] [address], [place] [address] CO2 [Moles/Vol] 25 mmol/L Normal 22-32 [facility] Comment on above: Performed By: #### C BCA, PINR, 71197-7, CMP, 3040-3, 98868-9, 5643-, 1987-09, 47470-1, 98934-2, 2157-6, 96838-3, THYR #### [facility] ([id number]) [address] [place] [address] 03472 Potassium [Moles/Vol] 3.6 mmol/L Normal 3.5-5.0 [facility] Comment on above: Performed By: #### C BCA, PINR, 98802-2, CMP, 3040-3, 47869-9, 5643-2, 1987-09, , 05057-9, 2156-10, 34081-5, THYR #### [facility] ([id number]) [address] [place] [address] 99789 Sodium [Moles/Vol] 132 mmol/L Low 134-146 [facility] Comment on above: Performed By: #### C BCA, PINR, 11945-3, CMP, 3040-3, 11935-1, 5643-, 1987-09, , , 2156-10, 92328-0, THYR #### [facility] ([id number]) [address] [place] [address] [place] [address] Anion gap [Moles/Vol] 7 mmol/L Normal 5-15 [facility] Comment on above: Performed By: #### C BCA, PINR, 45268-7, CMP, 3040-3, 60781-2, 5643-, 1987-09, , , 2156-10, 06633-8, THYR #### [facility] ([id number]) [address] [place] [address], [place] [address] Chloride [Moles/Vol] 101 mmol/L Normal 98-109 [facility] Comment on above: Performed By: #### C BCA, PINR, 17279-0, CMP, 3040-3, 33646-7, 5643-2, 1987-09, , 94482-0, 2156-10, 27399-3, THYR #### [facility] ([id number]) [address] [place] [address] 57526 CO2 [Moles/Vol] 27 mmol/L Normal 22-32 [facility] Comment on above: Performed By: #### C BCA, PINR, 68740-1, CMP, 3040-3, 44791-4, 5643-2, 1987-, 41029-5, 20952-4, 2156-6, 55684-3, THYR #### [facility] ([id number]) [address] [place] [address] 12560 Potassium [Moles/Vol] 3.8 mmol/L Normal 3.5-5.0 [facility] Comment on above: Performed By: #### C BCA, PINR, 12378-7, CMP, 3040-3, 43371-8, 5643-2, 1987-09, , 83585-0, 2156-6, 16039-1, THYR #### [facility] ([id number]) [address] [place] [address] 29772 Sodium [Moles/Vol] 135 mmol/L Normal 134-146 [facility] Comment on above: Performed By: #### C BCA, PINR, 22091-4, CMP, 3040-3, 96777-4, 5643-2, 1987-09, , 14474-8, 2156-6, 19857-6, THYR #### [facility] ([id number]) [address] [place] [address] 64635 Glucose Glucometer (dC) [M ass/Vol]on 12-31-2023 Glucose [Mass/Vol] 153 mg/dL High 65-99 [facility] Glucose [Mass/Vol] 203 mg/dL High 65-99 [facility] Glucose [Mass/Vol] 226 mg/dL High 65-99 [facility] MAGNESIUMon 08-06-2024 Magnesium [Mass/Vol] 2.3 mg/dL Normal 1.8-2.6 [facility] Comment on above: Performed By: #### E LEC, ####[facility] ([id number])[address] [place] [address] 34279 Magnesium [Mass/Vol] 1.8 mg/dL Normal 1.8-2.6 [facility] Comment on above: Performed By: #### C BCA, PINR, 74798-7, CMP, 3040-3, 44222-1, 5643-2, 1987-09, , , 2156-, 05585-9, THYR #### [facility] ([id number]) [address] [place] [address] 60652 XR ABDOMEN AP AND ERECT ONLY on 12-31-2023 XR ABDOMEN AP AND ERECT ONLY XR ABDOMEN AP AND ERECT ONLY CLINICAL INFORMATION: Nausea and vomiting abdominal pain TECHNIQUE/PROCEDURE: Upright and supine radiographs of the abdomen COMPARISON: No relevant prior studies available. FINDINGS: Nonobstructive bowel gas pattern. No pneumatosis or portal venous gas. No organomegaly, mass effect or suspicious calcifications. Surgical clips right upper quadrant. Interbody fusion devices L5-S1. Mild dextroconvex curvature of the lumbar spine. IMPRESSION: Nonobstructive bowel gas pattern. Finalized by Danyel Rodriguez MD on 12/31/2023 3:12 PM Normal [facility] Beta hydroxybutyrate [Moles/ Vol]on 12-30-2023 BetaHydroxybutyrate <0.05 Normal 0.02-0.27 [facility] Comment on above: Performed By: #### C BCA, PINR, 44994-8, CMP, 3040-3, 64296-8, 5643-2, 1987-09, , 39326-4, 2156-6, 40598-5, THYR #### [facility] ([id number]) [address] [place] [address] 02758 BetaHydroxybutyrate 0.40 mmol/L High 0.02-0.27 [facility] Comment on above: Performed By: #### C JOSTIN, PINR, 27309-3, CMP, 3040-3, 54940-5, 5643-2, 1987-, 68165-9, 30827-6, 2157-6, 10953-6, THYR #### [facility] ([id number]) [address] [place] [address] 14734 CBC AND AUTO DIFFon 12-30-19 Erythrocyte distribution width (RBC) [Ratio] 15.7 % High 11.5-15.0 [facility] Comment on above: Performed By: #### C JOSTIN, PINR, 22057-2, CMP, 3040-3, 00743-5, 5643-2, 1987-09, 49571-2, 41581-4, 2157-6, 57696-7, THYR #### [facility] ([id number]) [address] [place] [address] 16025 Hematocrit (Bld) [Volume fraction] 42.6 % Normal 35-47 [facility] Comment on above: Performed By: #### C JOSTIN, PINR, 76869-2, CMP, 3040-3, 29292-2, 5643-2, 1987-, 13691-6, 01123-6, 2157-6, 41604-8, THYR #### [facility] ([id number]) [address] [place] [address] 07799 Hemoglobin (Bld) [Mass/Vol] 13.7 g/dL Normal 11.7-15.5 [facility] Comment on above: Performed By: #### C BCA, PINR, 44873-7, CMP, 3040-3, 69438-0, 5643-2, 1987-, 77769-7, 61198-1, 2157-6, 94204-4, THYR #### [facility] ([id number]) [address] [place] [address] 21642 LYMPHOCYTE, ATYPICAL 1.0 % Normal [facility] Comment on above: Performed By: #### C BCA, PINR, 98229-6, CMP, 3040-3, 73680-6, 5643-2, 1987-, 91127-4, 73077-1, 2157-6, 40678-8, THYR #### [facility] ([id number]) [address] [place] [address] 10286 Lymphocytes (Bld) [#/Vol] 1.2 10*3/uL Normal 1.0-3.5 [facility] Comment on above: Performed By: #### C BCA, PINR, 63210-1, CMP, 3040-3, 48844-0, 5643-2, 1987-09, 89368-9, 77934-8, 2157-6, 52803-1, THYR #### [facility] ([id number]) [address] [place] [address] 39453 Lymphocytes/100 WBC (Bld) 4.0 % Normal [facility] Comment on above: Performed By: #### C BCA, PINR, 98005-2, CMP, 3040-3, 52874-7, 5643-2, 1987-09, 77433-6, 22572-0, 2157-6, 73896-2, THYR #### [facility] ([id number]) [address] [place] [address] [place] [address] MCH (RBC) [Entitic mass] 27.8 pg Normal 27-34 [facility] Comment on above: Performed By: #### C BCA, PINR, 72444-5, CMP, 3040-3, 10583-1, 5643-2, 1987-, 71061-7, 99249-5, 2157-6, 01511-5, THYR #### [facility] ([id number]) [address] [place] [address] MCHC (RBC) [Mass/Vol] 32.2 g/dL Normal 32-36 [facility] Comment on above: Performed By: #### C BCA, PINR, 27152-6, CMP, 3040-3, 69495-6, 5643-2, 1987-09, 39916-5, 58424-4, 2157-6, 60621-3, THYR #### [facility] ([id number]) [address] [place] [address] 29127 MCV (RBC) [Entitic vol] 86 fL Normal 80-100 [facility] Comment on above: Performed By: #### C BCA, PINR, 36488-1, CMP, 3040-3, 24916-8, 5643-2, 1987-09, 41568-6, 51132-8, 2157-6, 15387-4, THYR #### [facility] ([id number]) [address] [place] [address] 02202 Monocytes (Bld) [#/Vol] 2.5 10*3/uL High 0-0.9 [facility] Comment on above: Performed By: #### C BCA, PINR, 58838-7, CMP, 3040-3, 24121-7, 5643-, 1987-09, 59718-8, 82767-4, 2157-6, 69216-1, THYR #### [facility] ([id number]) [address] [place] [address] 04991 Monocytes/100 WBC (Bld) 10.0 % Normal [facility] Comment on above: Performed By: #### C BCA, PINR, 06366-9, CMP, 3040-3, 35289-7, 5643-2, 1987-09, 83091-7, 89553-0, 2157-6, 89626-7, THYR #### [facility] ([id number]) [address] [place] [address] 42905 Neutrophils (Bld) [#/Vol] 20.9 10*3/uL High 1.5-6.6 [facility] Comment on above: Performed By: #### C JOSTIN, PINR, 63497-2, CMP, 3040-3, 23019-1, 5643-2, 1987-, 50553-4, 05025-6, 2157-6, 70314-8, THYR #### [facility] ([id number]) [address] [place] [address] 45204 Platelet mean volume (Bld) [Entitic vol] 9.7 fL Normal 7-12 [facility] Comment on above: Performed By: #### C JOSTIN, PINR, 52242-5, CMP, 3040-3, 90496-5, 5643-2, 1987-09, 33365-8, 48704-3, 2157-6, 77117-0, THYR #### [facility] ([id number]) [address] [place] [address] 13500 Platelets (Bld) [#/Vol] 238 10*3/uL Normal 150-450 [facility] Comment on above: Performed By: #### C BCA, PINR, 59722-1, CMP, 3040-3, 63220-2, 5643-2, 1987-09, 50627-0, 56031-6, 2157-6, 84443-9, THYR #### [facility] ([id number]) [address] [place] [address] 67604 RBC COUNT 4.95 X10E12/L Normal 3.80-5.20 [facility] Comment on above: Performed By: #### C JOSTIN, PINR, 04280-3, CMP, 3040-3, 12038-7, 5643-2, 1987-09, 77308-8, 31149-2, 2157-6, 44723-3, THYR #### [facility] ([id number]) [address] [place] [address] 82773 RBC morphology finding Nom (Bld) NORMAL Normal [facility] Comment on above: Performed By: #### C BCA, PINR, 88032-6, CMP, 3040-3, 61116-8, 5643-2, 1987-, 79709-7, 65559-8, 2157-6, 46432-2, THYR #### [facility] ([id number]) [address] [place] [address] 60045 SEG NEUTROPHIL 85.0 % Normal [facility] Comment on above: Performed By: #### C BCA, PINR, 92027-8, CMP, 3040-3, 12721-7, 5643-2, 1987-, 46632-2, 05929-0, 2157-6, 03152-5, THYR #### [facility] ([id number]) [address] [place] [address] 57174 WBC (Bld) [#/Vol] 24.6 10*3/uL High 4.0-11.0 [facility] Comment on above: Performed By: #### C BCA, PINR, 44105-1, CMP, 3040-3, 93206-6, 5643-2, 1987-, 38771-8, 35168-8, 2157-6, 69485-6, THYR #### [facility] ([id number]) [address] [place] [address] 09702 COMPREHENSIVE METABOLIC PANE [place] 12-30-2023 Albumin [Mass/Vol] 3.5 g/dL Normal 3.2-5.3 [facility] Comment on above: Performed By: #### C BCA, PINR, 35774-9, CMP, 3040-3, 53362-6, 5643-2, 1987-09, 13669-7, 30940-2, 2157-6, 34872-5, THYR #### [facility] ([id number]) [address] [place] [address] 16858 ALP [Catalytic activity/Vol] 106 U/L Normal 39-130 [facility] Comment on above: Performed By: #### C BCA, PINR, 81694-0, CMP, 3040-3, 65762-1, 5643-2, 1987-, 66636-0, 93234-2, 2157-6, 72336-4, THYR #### [facility] ([id number]) [address] [place] [address] 79662 AST [Catalytic activity/Vol] 20 U/L Normal 0-41 [facility] Comment on above: Performed By: #### C BCA, PINR, 78656-2, CMP, 3040-3, 50071-0, 5643-2, 1987-, 06138-1, 41944-4, 2157-6, 43919-3, THYR #### [facility] ([id number]) [address] [place] [address] 20814 Bilirubin [Mass/Vol] 0.6 mg/dL Normal 0.3-1.2 [facility] Comment on above: Performed By: #### C BCA, PINR, 79349-7, CMP, 3040-3, 93417-3, 5643-2, 1987-09, 28993-1, 87989-7, 2157-6, 20105-8, THYR #### [facility] ([id number]) [address] [place] [address] 84723 CO2 [Moles/Vol] 26 mmol/L Normal 22-32 [facility] Comment on above: Performed By: #### C BCA, PINR, 75742-7, CMP, 3040-3, 53712-5, 5643-2, 1987-09, 24627-8, 83775-6, 2157-6, 40175-1, THYR #### [facility] ([id number]) [address] [place] [address] 28902 Creatinine [Mass/Vol] 0.86 mg/dL Normal 0.40-1.00 [facility] Comment on above: Result Comment: METH OD TRACEABLE TO IDMS STANDARD Performed By: #### C JOSTIN, PINR, 99785-4, CMP, 3040-3, 46497-7, 5643-2, 1987-09, 08361-5, 85109-2, 2157-6, 32848-7, THYR #### [facility] ([id number]) [address] [place] [address] 89465 GFR/1.73 sq M.predicted among non-blacks MDRD (S/P/Bld) [Vol rate/Area] 79 mL/min/{1.73_m2} Normal >59 [facility] Comment on above: Result Comment: Reported eGFR is based on the CKD-EPI 2020 equation that does not use a race coefficient. Performed By: #### C JOSTIN, PINR, 39852-2, CMP, 3040-3, 09519-5, 5643-, 1987-09, 68713-5, 74455-7, 2157-6, 57920-3, THYR #### [facility] ([id number]) [address] [place] [address] 58131 Glucose [Mass/Vol] 86 mg/dL Normal 65-99 [facility] Comment on above: Performed By: #### C BCA, PINR, 97965-9, CMP, 3040-3, 07287-9, 5643-, 1987-09, 40874-5, 84137-3, 2157-6, 41872-1, THYR #### [facility] ([id number]) [address] [place] [address] 13605 Protein [Mass/Vol] 6.9 g/dL Normal 6.0-8.0 [facility] Comment on above: Performed By: #### C BCA, PINR, 71927-4, CMP, 3040-3, 81827-6, 5643-2, 1987-09, 44341-7, 78135-9, 2157-6, 57448-2, THYR #### [facility] ([id number]) [address] [place] [address] 16670 Sodium [Moles/Vol] 137 mmol/L Normal 134-146 [facility] Comment on above: Performed By: #### C BCA, PINR, 56564-3, CMP, 3040-3, 54215-3, 5643-2, 1987-09, 66162-1, 55667-3, 215-6, 13795-1, THYR #### [facility] ([id number]) [address] [place] [address] 90910 Urea nitrogen [Mass/Vol] 16 mg/dL Normal 5-23 [facility] Comment on above: Performed By: #### C BCA, PINR, 63293-8, CMP, 3040-3, 87271-1, 5643-, 1987-09, 48795-2, 67195-6, 215-6, 74805-6, THYR #### [facility] ([id number]) [address] [place] [address] [place] [address] Albumin [Mass/Vol] 3.4 g/dL Normal 3.2-5.3 [facility] Comment on above: Performed By: #### C BCA, PINR, 89540-7, CMP, 3040-3, 84412-7, 5643-, 1987-09, 99480-0, 41887-4, 215-6, 06090-6, THYR #### [facility] ([id number]) [address] [place] [address] 37416 ALP [Catalytic activity/Vol] 108 U/L Normal 39-130 [facility] Comment on above: Performed By: #### C BCA, PINR, 91694-2, CMP, 3040-3, 47565-4, 5643-2, 1987-09, 43465-2, 90106-3, 2157-6, 23902-9, THYR #### [facility] ([id number]) [address] [place] [address] ALT [Catalytic activity/Vol] 18 U/L Normal 0-31 [facility] Comment on above: Performed By: #### C BCA, PINR, 86809-4, CMP, 3040-3, 42214-0, 5643-2, 1987-, 78356-6, 64658-5, 2157-6, 48279-1, THYR #### [facility] ([id number]) [address] [place] [address] 54437 Result Comment: SPEC IMEN HEMOLYZED, RESULTS INCREASED Anion gap [Moles/Vol] 10 mmol/L Normal 5-15 [facility] Comment on above: Performed By: #### C BCA, PINR, 23402-1, CMP, 3040-3, 38747-8, 5643-2, 1987-09, 51726-8, 17570-1, 2157-6, 80021-9, THYR #### [facility] ([id number]) [address] [place] [address] [place] [address] AST [Catalytic activity/Vol] 27 U/L Normal 0-41 [facility] Comment on above: Result Comment: SPEC IMEN HEMOLYZED, RESULTS INCREASED Performed By: #### C BCA, PINR, 60365-1, CMP, 3040-3, 27519-6, 5643-2, 1987-09, 67205-0, 37866-9, 2157-6, 97040-8, THYR #### [facility] ([id number]) [address] [place] [address] [place] [address] Bilirubin [Mass/Vol] 1.0 mg/dL Normal 0.3-1.2 [facility] Comment on above: Result Comment: RESU LTS QUESTIONABLE DUE TO HEMOLYSIS Performed By: #### C BCA, PINR, 55631-1, CMP, 3040-3, 10770-5, 5643-2, 1987-09, 16142-9, 40574-5, 2157-6, 20465-4, THYR #### [facility] ([id number]) [address] [place] [address] [place] [address] Calcium [Mass/Vol] 8.6 mg/dL Normal 8.5-10.5 [facility] Comment on above: Performed By: #### C BCA, PINR, 04553-1, CMP, 3040-3, 00364-6, 5643-2, 1987-09, 87609-2, 59664-3, 2157-6, 59930-9, THYR #### [facility] ([id number]) [address] [place] [address] [place] [address] Chloride [Moles/Vol] 105 mmol/L Normal 98-109 [facility] Comment on above: Performed By: #### C BCA, PINR, 14793-4, CMP, 3040-3, 67788-5, 5643-, 1987-09, 11018-4, 61529-9, 2157-6, 51832-9, THYR #### [facility] ([id number]) [address] [place] [address] [place] [address] CO2 [Moles/Vol] 20 mmol/L Low 22-32 [facility] Comment on above: Performed By: #### C BCA, PINR, 38382-8, CMP, 3040-3, 21213-3, 5643-2, 1987-09, 12968-3, 89154-4, 2157-6, 68553-5, THYR #### [facility] ([id number]) [address] [place] [address] [place] [address] Creatinine [Mass/Vol] 0.85 mg/dL Normal 0.40-1.00 [facility] Comment on above: Result Comment: METH OD TRACEABLE TO IDMS STANDARD Performed By: #### C BCA, PINR, 57122-5, CMP, 3040-3, 02847-4, 5643-, 1987-09, 27016-7, 11271-7, 2157-6, 91300-8, THYR #### [facility] ([id number]) [address] [place] [address] 62611 GFR/1.73 sq M.predicted among non-blacks MDRD (S/P/Bld) [Vol rate/Area] 80 mL/min/{1.73_m2} Normal >59 [facility] Comment on above: Result Comment: Reported eGFR is based on the CKD-EPI 2020 equation that does not use a race coefficient. Performed By: #### C JOSTIN, PINR, 64870-2, CMP, 3040-3, 20507-3, 43-, 1987-09, , 76544-2, 2156-6, 24733-0, THYR #### [facility] ([id number]) [address] [place] [address] 89491 Glucose [Mass/Vol] 113 mg/dL High 65-99 [facility] Comment on above: Performed By: #### C BCA, PINR, 48590-7, CMP, 3040-3, 30833-7, 5643-, 1987-09, , 94843-0, 2156-6, 88804-2, THYR #### [facility] ([id number]) [address] [place] [address] 87654 Potassium [Moles/Vol] 4.8 mmol/L Normal 3.5-5.0 [facility] Comment on above: Result Comment: SPEC IMEN HEMOLYZED, RESULTS INCREASED Performed By: #### C BCA, PINR, 94419-3, CMP, 3040-3, 48545-4, 5643-2, 1987-09, , 96947-4, 215-6, 66670-9, THYR #### [facility] ([id number]) [address] [place] [address] Protein [Mass/Vol] 7.0 g/dL Normal 6.0-8.0 [facility] Comment on above: Performed By: #### C BCA, PINR, 29951-9, CMP, 3040-3, 81663-6, 5643-2, 1987-09, 83818-7, 00727-7, 2157-6, 32417-7, THYR #### [facility] ([id number]) [address] [place] [address] [place] [address] Sodium [Moles/Vol] 135 mmol/L Normal 134-146 [facility] Comment on above: Performed By: #### C BCA, PINR, 91268-1, CMP, 3040-3, 54589-4, 5643-, 1987-09, 98604-9, 48914-0, 2157-6, 04133-3, THYR #### [facility] ([id number]) [address] [place] [address] [place] [address] Urea nitrogen [Mass/Vol] 24 mg/dL High 5-23 [facility] Comment on above: Performed By: #### C BCA, PINR, 08854-0, CMP, 3040-3, 92229-9, 5643-2, 1987-09, 02741-3, 68365-9, 2157-6, 38010-6, THYR #### [facility] ([id number]) [address] [place] [address] [place] [address] Potassium [Moles/Vol] 3.9 mmol/L Normal 3.5-5.0 [facility] Comment on above: Performed By: #### C BCA, PINR, 43291-2, CMP, 3040-3, 32411-6, 5643-2, 1987-09, 15119-7, 06451-5, 2157-6, 60790-9, THYR #### [facility] ([id number]) [address] [place] [address] [place] [address] ELECTROLYTESon 12-30-2023 Anion gap [Moles/Vol] 7 mmol/L Normal 5-15 [facility] Comment on above: Performed By: #### C BCA, PINR, 30345-7, CMP, 3040-3, 43307-1, 5643-2, 1987-09, 33677-8, 21944-4, 2157-6, 35006-9, THYR #### [facility] ([id number]) [address] [place] [address], [place] [address] Chloride [Moles/Vol] 102 mmol/L Normal 98-109 [facility] Comment on above: Performed By: #### C BCA, PINR, 14031-9, CMP, 3040-3, 05381-0, 5643-, 1987-09, , 38691-5, 2157-6, 37019-8, THYR #### [facility] ([id number]) [address] [place] [address], [place] [address] CO2 [Moles/Vol] 24 mmol/L Normal 22-32 [facility] Comment on above: Performed By: #### C BCA, PINR, 33745-4, CMP, 3040-3, 72650-5, 5643-2, 1987-09, , 22742-9, 2157-6, 04262-8, THYR #### [facility] ([id number]) [address] [place] [address], [place] [address] Potassium [Moles/Vol] 3.7 mmol/L Normal 3.5-5.0 [facility] Comment on above: Performed By: #### C BCA, PINR, 86777-7, CMP, 3040-3, 60312-6, 5643-2, 1987-09, , 81329-8, 2157-6, 25347-4, THYR #### [facility] ([id number]) [address] [place] [address], [place] [address] Sodium [Moles/Vol] 133 mmol/L Low 134-146 [facility] Comment on above: Performed By: #### C BCA, PINR, 17246-5, CMP, 3040-3, 18855-5, 5643-2, 1987-, 80464-7, 32711-5, 2156-6, 83420-9, THYR #### [facility] ([id number]) [address] [place] [address] [place] [address] Anion gap [Moles/Vol] 5 mmol/L Normal 5-15 [facility] Comment on above: Performed By: #### C BCA, PINR, 44660-7, CMP, 3040-3, 93304-4, 5643-, 1987-09, , 10253-8, 2156-6, 85975-2, THYR #### [facility] ([id number]) [address] [place] [address] [place] [address] Chloride [Moles/Vol] 104 mmol/L Normal 98-109 [facility] Comment on above: Performed By: #### C BCA, PINR, 56195-3, CMP, 3040-3, 85981-6, 5643-2, 1987-09, , 59006-4, 2156-6, 58134-8, THYR #### [facility] ([id number]) [address] [place] [address] [place] [address] CO2 [Moles/Vol] 25 mmol/L Normal 22-32 [facility] Comment on above: Performed By: #### C BCA, PINR, 04996-6, CMP, 3040-3, 22053-9, 5643-2, 1987-09, , 84177-4, 2156-, 97737-7, THYR #### [facility] ([id number]) [address] [place] [address] [place] [address] Potassium [Moles/Vol] 4.0 mmol/L Normal 3.5-5.0 [facility] Comment on above: Performed By: #### C BCA, PINR, 10100-8, CMP, 3040-3, 07196-1, 5643-2, 1987-09, 74797-6, 51924-5, 2156-6, 62349-6, THYR #### [facility] ([id number]) [address] [place] [address], [place] [address] Sodium [Moles/Vol] 134 mmol/L Normal 134-146 [facility] Comment on above: Performed By: #### C BCA, PINR, 69592-8, CMP, 3040-3, 07812-1, 5643-2, 1987-09, , 39019-9, 2156-6, 01784-1, THYR #### [facility] ([id number]) [address] [place] [address] [place] [address] Anion gap [Moles/Vol] 3 mmol/L Low 5-15 [facility] Comment on above: Performed By: #### C BCA, PINR, 75968-9, CMP, 3040-3, 66144-6, 5643-, 1987-09, , 42711-2, 2156-6, 02490-8, THYR #### [facility] ([id number]) [address] [place] [address], [place] [address] Sodium [Moles/Vol] 130 mmol/L Low 134-146 [facility] Comment on above: Performed By: #### C BCA, PINR, 86081-5, CMP, 3040-3, 31036-9, 5643-2, 1987-09, , 65273-4, 6, 67678-0, THYR #### [facility] ([id number]) [address] [place] [address], [place] [address] Anion gap [Moles/Vol] 6 mmol/L Normal 5-15 [facility] Comment on above: Performed By: #### C BCA, PINR, 14855-3, CMP, 3040-3, 64742-2, 5643-2, 1987-09, 57017-2, 31794-5, 215-6, 19202-4, THYR #### [facility] ([id number]) [address] [place] [address] 22845 Chloride [Moles/Vol] 103 mmol/L Normal 98-109 [facility] Comment on above: Performed By: #### C BCA, PINR, 04489-8, CMP, 3040-3, 04671-8, 5643-2, 1987-09, , 73734-6, 2156-6, 38348-1, THYR #### [facility] ([id number]) [address] [place] [address] 25394 CO2 [Moles/Vol] 25 mmol/L Normal 22-32 [facility] Comment on above: Performed By: #### C BCA, PINR, 62225-1, CMP, 3040-3, 25367-3, 5643-2, 1987-09, 45144-1, 98233-7, 215-6, 74981-5, THYR #### [facility] ([id number]) [address] [place] [address] [place] [address] Sodium [Moles/Vol] 134 mmol/L Normal 134-146 [facility] Comment on above: Performed By: #### C BCA, PINR, 22423-0, CMP, 3040-3, 42800-5, 5643-2, 1987-09, 58004-4, 45007-8, 2156-6, 40915-3, THYR #### [facility] ([id number]) [address] [place] [address] [place] [address] Glucose Glucometer (BldC) [M ass/Vol]on 12-30-2023 Glucose [Mass/Vol] 170 mg/dL High 65-99 [facility] Glucose [Mass/Vol] 130 mg/dL High 65-99 [facility] Glucose [Mass/Vol] 109 mg/dL High 65-99 [facility] Glucose [Mass/Vol] 138 mg/dL High 65-99 [facility] Glucose [Mass/Vol] 113 mg/dL High 65-99 [facility] Glucose [Mass/Vol] 88 mg/dL Normal 65-99 [facility] Glucose [Mass/Vol] 164 mg/dL High 65-99 [facility] Glucose [Mass/Vol] 209 mg/dL High 65-99 [facility] Glucose [Mass/Vol] 210 mg/dL High 65-99 [facility] Glucose [Mass/Vol] 237 mg/dL High 65-99 [facility] Glucose [Mass/Vol] 180 mg/dL High 65-99 [facility] Glucose [Mass/Vol] 135 mg/dL High 65-99 [facility] Glucose [Mass/Vol] 117 mg/dL High 65-99 [facility] Glucose [Mass/Vol] 91 mg/dL Normal 65-99 [facility] Glucose [Mass/Vol] 114 mg/dL High 65-99 [facility] MAGNESIUMon 12-30-2023 Magnesium [Mass/Vol] 2.0 mg/dL Normal 1.8-2.6 [facility] Comment on above: Result Comment: SPEC IMEN HEMOLYZED, RESULTS INCREASED Performed By: #### C JOSTIN, PINR, 46075-2, CMP, 3040-3, 01883-3, 5643-2, 1987-5, 45881-6, 91103-2, 2157-6, 11181-1, THYR #### [facility] ([id number]) [address] [place] [address], [place] [address] BASIC METABOLIC PANLon 12-28 Anion gap [Moles/Vol] 16 mmol/L High 5-15 [facility] Comment on above: Performed By: #### C BCA, PINR, 85019-7, CMP, 3040-3, 65472-5, 5643-2, 1987-, 90752-1, 50953-8, 2157-6, 54823-4, THYR #### [facility] ([id number]) [address] [place] [address] 99933 Calcium [Mass/Vol] 9.5 mg/dL Normal 8.5-10.5 [facility] Comment on above: Performed By: #### C BCA, PINR, 64283-4, CMP, 3040-3, 34917-8, 5643-2, 1987-09, 70949-8, 23329-8, 2157-6, 36105-4, THYR #### [facility] ([id number]) [address] [place] [address] 40522 Chloride [Moles/Vol] 88 mmol/L Low 98-109 [facility] Comment on above: Performed By: #### C BCA, PINR, 20227-1, CMP, 3040-3, 15927-6, 5643-2, 1987-09, 89945-3, 67494-7, 2157-6, 34546-9, THYR #### [facility] ([id number]) [address] [place] [address] [place] [address] CO2 [Moles/Vol] 23 mmol/L Normal 22-32 [facility] Comment on above: Performed By: #### C BCA, PINR, 40637-3, CMP, 3040-3, 30636-0, 5643-2, 1987-09, 83508-0, 90108-1, 2157-6, 04838-2, THYR #### [facility] ([id number]) [address] [place] [address] [place] [address] Creatinine [Mass/Vol] 1.56 mg/dL High 0.40-1.00 [facility] Comment on above: Result Comment: METH OD TRACEABLE TO IDMS STANDARD Performed By: #### C BCA, PINR, 51098-5, CMP, 3040-3, 71695-8, 5643-2, 1987-09, 99254-0, 89180-1, 2157-6, 16427-1, THYR #### [facility] ([id number]) [address] [place] [address] 68433 GFR/1.73 sq M.predicted among non-blacks MDRD (S/P/Bld) [Vol rate/Area] 39 mL/min/{1.73_m2} Low >59 [facility] Comment on above: Result Comment: Reported eGFR is based on the CKD-EPI 2020 equation that does not use a race coefficient. Performed By: #### C TAWNY FRANKELR, 52648-6, CMP, 3040-3, 03989-7, 5643-, 1987-09, , , 2156-, 73435-2, THYR #### [facility] ([id number]) [address] [place] [address] 85144 Glucose [Mass/Vol] 596 mg/dL Critically high 65-99 [facility] Comment on above: Performed By: #### C JOSTIN PINR, 35775-0, [facility], 3040-3, 71985-0, 5643-2, 1987-09, 56336-3, 05199-6, 2156-6, 05128-2, THYR #### [facility] ([id number]) [address] [place] [address] 86574 Potassium [Moles/Vol] 4.2 mmol/L Normal 3.5-5.0 [facility] Comment on above: Performed By: #### C JOSTIN, PINR, 87449-3, CMP, 3040-3, 87214-8, 5643-2, 1987-09, 26681-0, 05036-7, 215-6, 74774-8, THYR #### [facility] ([id number]) [address] [place] [address] 01766 Sodium [Moles/Vol] 127 mmol/L Low 134-146 [facility] Comment on above: Performed By: #### C BCA, PINR, 63429-8, CMP, 3040-3, 23233-5, 5643-2, 1987-09, 30931-5, 47015-8, 215-6, 23258-9, THYR #### [facility] ([id number]) [address] [place] [address] 10324 Urea nitrogen [Mass/Vol] 28 mg/dL High 5-23 [facility] Comment on above: Performed By: #### C BCA, PINR, 85043-9, CMP, 3040-3, 32810-8, 5643-, 1987-09, , 74622-7, 2156-6, 53679-7, THYR #### [facility] ([id number]) [address] [place] [address] 35096 BLOOD CULTUREon 12-29-2023 Bacteria identified Aer cx Nom (Bld) SPECIMEN NOTES SUBOPTIMAL VOLUME OF BLOOD COLLECTED, RESULTS MAY BE AFFECTED. CULTURE RESULTS NO GROWTH 5 DAYS Normal [facility] Comment on above: Performed By: #### C BCA, PINR, 17613-8, CMP, 3040-3, 96365-1, 5643-, 1987-09, , 98256-7, 2156-6, 83642-9, THYR #### [facility] ([id number]) [address] [place] [address] 88563 Bacteria identified Aer cx Nom (Bld) CULTURE RESULTS NO GROWTH 5 DAYS Normal [facility] Beta hydroxybutyrate [Moles/ Vol]on 12-29-2023 BetaHydroxybutyrate 0.62 mmol/L High 0.02-0.27 [facility] Comment on above: Performed By: #### C BCA, PINR, 01874-5, CMP, 3040-3, 55399-8, 5643-2, 1987-09, 94045-6, 99080-4, 2157-6, 82846-7, THYR #### [facility] ([id number]) [address] [place] [address] 95889 CBC AND AUTO DIFFon 12-29-19 24 ABSOLUTE BASOPHIL 0.1 X10E9/L Normal 0.0-0.2 [facility] Comment on above: Performed By: #### C BCA, PINR, 09457-1, CMP, 3040-3, 89687-3, 5643-2, 1987-09, 61858-7, 82426-0, 2157-6, 68233-6, THYR #### [facility] ([id number]) [address] [place] [address] [place] [address] ABSOLUTE NEUTROPHIL 18.6 X10E9/L High 1.5-6.6 [facility] Comment on above: Performed By: #### C BCA, PINR, 75983-2, CMP, 3040-3, 67766-9, 5643-2, 1987-09, 20683-6, 31769-0, 2157-6, 81735-0, THYR #### [facility] ([id number]) [address] [place] [address] [place] [address] Basophils/100 WBC (Bld) 0.3 % Normal [facility] Comment on above: Performed By: #### C BCA, PINR, 33480-5, CMP, 3040-3, 16508-8, 5643-2, 1987-09, 48692-7, 27654-3, 2157-6, 17493-2, THYR #### [facility] ([id number]) [address] [place] [address] Eosinophils (Bld) [#/Vol] 0.1 10*3/uL Normal 0.0-0.4 [facility] Comment on above: Performed By: #### C BCA, PINR, 20297-8, CMP, 3040-3, 72292-7, 5643-2, 1987-09, 02124-4, 37281-2, 2157-6, 33897-7, THYR #### [facility] ([id number]) [address] [place] [address]89 Eosinophils/100 WBC (Bld) 0.3 % Normal [facility] Comment on above: Performed By: #### C BCA, PINR, 55582-9, CMP, 3040-3, 33451-5, 5643-, 1987-09, 83574-7, 72470-8, 2157-6, 51682-1, THYR #### [facility] ([id number]) [address] [place] [address] Erythrocyte distribution width (RBC) [Ratio] 15.9 % High 11.5-15.0 [facility] Comment on above: Performed By: #### C BCA, PINR, 93017-0, CMP, 3040-3, 46374-4, 5643-, 1987-09, 96556-2, 84717-6, 2157-6, 08077-9, THYR #### [facility] ([id number]) [address] [place] [address] Hematocrit (Bld) [Volume fraction] 47.4 % High 35-47 [facility] Comment on above: Performed By: #### C BCA, PINR, 80724-9, CMP, 3040-3, 65748-3, 5643-2, 1987-09, 31647-0, 19337-1, 2157-6, 94563-8, THYR #### [facility] ([id number]) [address] [place] [address]32 Hemoglobin (Bld) [Mass/Vol] 15.5 g/dL Normal 11.7-15.5 [facility] Comment on above: Performed By: #### C BCA, PINR, 71011-6, CMP, 3040-3, 29851-0, 5643-, 1987-09, 42973-8, 96320-8, 2157-6, 89503-1, THYR #### [facility] ([id number]) [address] [place] [address]138 Lymphocytes (Bld) [#/Vol] 1.3 10*3/uL Normal 1.0-3.5 [facility] Comment on above: Performed By: #### C BCA, PINR, 63218-1, CMP, 3040-3, 46857-9, 5643-2, 1987-09, 05269-6, 61861-0, 2157-6, 19622-4, THYR #### [facility] ([id number]) [address] [place] [address]6561 Lymphocytes/100 WBC (Bld) 5.9 % Normal [facility] Comment on above: Performed By: #### C BCA, PINR, 79681-7, CMP, 3040-3, 81287-7, 5643-, 1987-09, 50878-8, 67516-6, 2157-6, 14476-8, THYR #### [facility] ([id number]) [address] [place] [address] [place] [address] MCH (RBC) [Entitic mass] 28.3 pg Normal 27-34 [facility] Comment on above: Performed By: #### C BCA, PINR, 10299-9, CMP, 3040-3, 62015-0, 5643-2, 1987-09, 07772-6, 50812-2, 2157-6, 45682-6, THYR #### [facility] ([id number]) [address] [place] [address] MCHC (RBC) [Mass/Vol] 32.7 g/dL Normal 32-36 [facility] Comment on above: Performed By: #### C BCA, PINR, 81171-5, CMP, 3040-3, 34059-9, 5643-2, 1987-09, 67380-5, 48290-1, 2157-6, 98680-7, THYR #### [facility] ([id number]) [address] [place] [address] MCV (RBC) [Entitic vol] 87 fL Normal 80-100 [facility] Comment on above: Performed By: #### C BCA, PINR, 57993-5, CMP, 3040-3, 49653-5, 5643-2, 1987-09, 42642-3, 62992-9, 2157-6, 27107-7, THYR #### [facility] ([id number]) [address] [place] [address] 30394 Monocytes (Bld) [#/Vol] 1.4 10*3/uL High 0-0.9 [facility] Comment on above: Performed By: #### C BCA, PINR, 80828-1, CMP, 3040-3, 20351-5, 5643-, 1987-09, 87681-5, 50705-6, 2157-6, 27661-9, THYR #### [facility] ([id number]) [address] [place] [address] 34517 Monocytes/100 WBC (Bld) 6.5 % Normal [facility] Comment on above: Performed By: #### C BCA, PINR, 20988-2, CMP, 3040-3, 93881-6, 5643-, 1987-09, 50111-7, 50233-8, 2157-6, 65810-2, THYR #### [facility] ([id number]) [address] [place] [address] [place] [address] Neutrophils/100 WBC (Bld) 87.0 % Normal [facility] Comment on above: Performed By: #### C BCA, PINR, 47603-0, CMP, 3040-3, 98597-8, 5643-, 1987-09, 62967-1, 55331-0, 2157-6, 92123-6, THYR #### [facility] ([id number]) [address] [place] [address] Platelet mean volume (Bld) [Entitic vol] 9.3 fL Normal 7-12 [facility] Comment on above: Performed By: #### C JOSTIN, PINR, 79378-2, CMP, 3040-3, 68339-6, 5643-2, 1987-, 96880-4, 16893-0, 2157-6, 57052-2, THYR #### [facility] ([id number]) [address] [place] [address] 23309 Platelets (Bld) [#/Vol] 306 10*3/uL Normal 150-450 [facility] Comment on above: Performed By: #### C JOSTIN, PINR, 62646-1, CMP, 3040-3, 64071-6, 5643-2, 1987-09, , 96903-3, 2157-6, 21881-6, THYR #### [facility] ([id number]) [address] [place] [address] [place] [address] RBC COUNT 5.48 X10E12/L High 3.80-5.20 [facility] Comment on above: Performed By: #### C JOSTIN, PINR, 45274-6, CMP, 3040-3, 31146-9, 5643-2, 1987-09, 69362-9, 87357-3, 2157-6, 92694-5, THYR #### [facility] ([id number]) [address] [place] [address] 47202 WBC (Bld) [#/Vol] 21.4 10*3/uL High 4.0-11.0 [facility] Comment on above: Performed By: #### C BCA, PINR, 22083-7, CMP, 3040-3, 62683-9, 5643-2, 1987-09, 64922-0, 52656-7, 2157-6, 85688-5, THYR #### [facility] ([id number]) [address] [place] [address] 75618 DRUG SCREEN, URINEon 024 AMPHETAMINE/METHAMP Negative Normal NEG [facility] Comment on above: Result Comment: AMPH /METH screening cut off = 1000 ng/mL Performed By: #### C BCA, PINR, 69397-9, CMP, 3040-3, 34088-0, 5643-2, 1987-09, 62563-2, 62015-4, 2157-6, 47517-4, THYR #### [facility] ([id number]) [address] [place] [address] 67139 BARBITURATES Negative Normal NEG [facility] Comment on above: Result Comment: Kylah iturates screening cut off value = 200 ng/mL Performed By: #### C BCA, PINR, 44457-2, CMP, 3040-3, 20666-2, 5643-, 1987-09, 64970-5, 15460-6, 215-6, 36494-9, THYR #### [facility] ([id number]) [address] [place] [address] 20244 BENZODIAZEPINES Negative Normal NEG [facility] Comment on above: Result Comment: Portillo odiazepines screening cut off value = 200 ng/mL Performed By: #### C BCA, PINR, 31321-9, CMP, 3040-3, 46443-8, 5643-2, 1987-09, 56082-2, 74964-9, 215-6, 41268-3, THYR #### [facility] ([id number]) [address] [place] [address] [place] [address] CANNABINOIDS Positive Abnormal NEG [facility] Comment on above: Result Comment: Conf irmation available upon request. Cannabinoids/THC screening cut off value = 50 ng/mL Performed By: #### C BCA, PINR, 19046-1, CMP, 3040-3, 24019-3, 5643-2, 1987-09, 84320-8, 21545-7, 215-6, 27255-6, THYR #### [facility] ([id number]) [address] [place] [address] 63595 COCAINE METABOLITE Negative Normal NEG [facility] Comment on above: Result Comment: Coca ine screening cut off value = 300 ng/mL Performed By: #### C BCA, PINR, 20088-3, CMP, 3040-3, 13718-8, 5643-2, 1987-09, , 71478-9, 215-6, 18289-6, THYR #### [facility] ([id number]) [address] [place] [address] 82135 ECSTASY Negative Normal NEG [facility] Comment on above: Result Comment: Ecst asy screening cut off value = 500 ng/mL This report is intended for use in clinical monitoring or management of patients. Performed By: #### C BCA, PINR, 89874-3, CMP, 3040-3, 09381-0, 5643-2, 1987-09, , 23622-8, 215-6, 08746-2, THYR #### [facility] ([id number]) [address] [place] [address] [place] [address] METHADONE Negative Normal NEG [facility] Comment on above: Result Comment: Meth adone screening cut off value = 300 ng/mL. Performed By: #### C BCA, PINR, 43165-5, CMP, 3040-3, 13228-6, 5643-2, 1987-09, , , 215-6, 60864-6, THYR #### [facility] ([id number]) [address] [place] [address] 69227 OPIATES Negative Normal NEG [facility] Comment on above: Result Comment: Opia fidel screening cut off value = 300 ng/mL NOTE: This test is used for the detection of codeine, hydrocodone (>1000 ng/mL), morphine and hydromorphone (>900 ng/mL) in urine. Performed By: #### C BCA, PINR, 81725-5, CMP, 3040-3, 55135-1, 5643-2, 1987-09, 14251-4, 02541-6, 2157-6, 44112-1, THYR #### [facility] ([id number]) [address] [place] [address] 34727 OXYCODONE Negative Normal NEG [facility] Comment on above: Result Comment: Oxyc odone screening cut off value = 300 ng/mL NOTE: This test is used for the detection of oxycodone and oxymorphone in urine. Performed By: #### C BCA, PINR, 42606-4, CMP, 3040-3, 00779-5, 5643-, 1987-09, , 95813-5, 215-6, 19927-2, THYR #### [facility] ([id number]) [address] [place] [address] 42632 PHENCYCLIDINE Negative Normal NEG [facility] Comment on above: Result Comment: Phen cyclidine screening cut off value = 25 ng/mL Performed By: #### C BCA, PINR, 34742-8, CMP, 3040-3, 43572-1, 5643-2, 1987-09, , 05061-4, 2157-6, 45605-4, THYR #### [facility] ([id number]) [address] [place] [address] 80076 ELECTROLYTESon 12-29-2023 Anion gap [Moles/Vol] 8 mmol/L Normal 5-15 [facility] Comment on above: Performed By: #### C BCA, PINR, 55465-6, CMP, 3040-3, 32510-2, 5643-2, 1987-09, , 98598-4, 215-6, 09426-6, THYR #### [facility] ([id number]) [address] [place] [address], [place] [address] Chloride [Moles/Vol] 98 mmol/L Normal 98-109 [facility] Comment on above: Performed By: #### C BCA, PINR, 47336-8, CMP, 3040-3, 58214-7, 5643-2, 1987-09, , 94334-5, 215-6, 10444-5, THYR #### [facility] ([id number]) [address] [place] [address], [place] [address] CO2 [Moles/Vol] 25 mmol/L Normal 22-32 [facility] Comment on above: Performed By: #### C BCA, PINR, 38836-1, CMP, 3040-3, 52818-5, 5643-2, 1987-09, , 46913-1, 2156-6, 67296-0, THYR #### [facility] ([id number]) [address] [place] [address], [place] [address] Potassium [Moles/Vol] 4.6 mmol/L Normal 3.5-5.0 [facility] Comment on above: Result Comment: SPEC IMEN HEMOLYZED, RESULTS INCREASED Performed By: #### C BCA, PINR, 48389-1, CMP, 3040-3, 00950-0, 5643-2, 1987-09, , 50098-0, 215-6, 90026-5, THYR #### [facility] ([id number]) [address] [place] [address], [place] [address] Sodium [Moles/Vol] 131 mmol/L Low 134-146 [facility] Comment on above: Performed By: #### C BCA, PINR, 35304-1, CMP, 3040-3, 77499-4, 5643-2, 1987-09, , 33778-0, 215-6, 71151-7, THYR #### [facility] ([id number]) [address] [place] [address] [place] [address] Anion gap [Moles/Vol] 9 mmol/L Normal 5-15 [facility] Comment on above: Performed By: #### C BCA, PINR, 71095-2, CMP, 3040-3, 01648-5, 5643-2, 1987-09, , 99904-3, 2156-6, 94084-7, THYR #### [facility] ([id number]) [address] [place] [address] [place] [address] Chloride [Moles/Vol] 95 mmol/L Low 98-109 [facility] Comment on above: Performed By: #### C BCA, PINR, 85951-0, CMP, 3040-3, 80926-7, 5643-, 1987-09, , 98026-8, 2156-6, 80674-7, THYR #### [facility] ([id number]) [address] [place] [address] [place] [address] CO2 [Moles/Vol] 26 mmol/L Normal 22-32 [facility] Comment on above: Performed By: #### C BCA, PINR, 16531-8, CMP, 3040-3, 88491-6, 5643-, 1987-09, , 63336-6, 2156-6, 02137-4, THYR #### [facility] ([id number]) [address] [place] [address] [place] [address] Potassium [Moles/Vol] 4.0 mmol/L Normal 3.5-5.0 [facility] Comment on above: Performed By: #### C BCA, PINR, 76384-9, CMP, 3040-3, 58476-3, 5643-2, 1987-09, 26593-1, 23022-0, 2157-6, 73209-8, THYR #### [facility] ([id number]) [address] [place] [address] 22331 Sodium [Moles/Vol] 130 mmol/L Low 134-146 [facility] Comment on above: Performed By: #### C BCA, PINR, 70806-0, CMP, 3040-3, 27720-9, 5643-2, 1987-09, , 49893-1, 215-6, 82004-6, THYR #### [facility] ([id number]) [address] [place] [address] [place] [address] Anion gap [Moles/Vol] 9 mmol/L Normal 5-15 [facility] Comment on above: Performed By: #### C BCA, PINR, 52311-2, CMP, 3040-3, 79963-2, 5643-, 1987-09, , 89163-4, 2156-6, 92238-7, THYR #### [facility] ([id number]) [address] [place] [address] [place] [address] Chloride [Moles/Vol] 94 mmol/L Low 98-109 [facility] Comment on above: Performed By: #### C BCA, PINR, 94053-1, CMP, 3040-3, 77088-5, 5643-2, 1987-09, , 66876-7, 2156-6, 64348-3, THYR #### [facility] ([id number]) [address] [place] [address], [place] [address] CO2 [Moles/Vol] 27 mmol/L Normal 22-32 [facility] Comment on above: Performed By: #### C BCA, PINR, 67981-3, CMP, 3040-3, 97557-7, 5643-2, 1987-09, , 55251-7, 215-6, 26146-5, THYR #### [facility] ([id number]) [address] [place] [address] 02503 Potassium [Moles/Vol] 3.8 mmol/L Normal 3.5-5.0 [facility] Comment on above: Performed By: #### C BCA, PINR, 17529-7, CMP, 3040-3, 92389-1, 5643-2, 1987-09, 20983-5, 18206-5, 215-6, 07920-3, THYR #### [facility] ([id number]) [address] [place] [address], [place] [address] Sodium [Moles/Vol] 130 mmol/L Low 134-146 [facility] Comment on above: Performed By: #### C BCA, PINR, 44407-4, CMP, 3040-3, 03556-2, 5643-, 1987-09, , 55728-5, 2156-6, 06637-2, THYR #### [facility] ([id number]) [address] [place] [address] 46957 Anion gap [Moles/Vol] 10 mmol/L Normal 5-15 [facility] Comment on above: Performed By: #### C BCA, PINR, 31094-3, CMP, 3040-3, 88948-5, 5643-2, 1987-09, , 53129-4, 215-6, 47762-4, THYR #### [facility] ([id number]) [address] [place] [address] 12792 Chloride [Moles/Vol] 92 mmol/L Low 98-109 [facility] Comment on above: Performed By: #### C BCA, PINR, 13293-2, CMP, 3040-3, 04544-2, 5643-2, 1987-09, 25660-8, 80042-1, 2157-6, 21979-4, THYR #### [facility] ([id number]) [address] [place] [address] CO2 [Moles/Vol] 26 mmol/L Normal 22-32 [facility] Comment on above: Performed By: #### C BCA, PINR, 86965-6, CMP, 3040-3, 59033-7, 5643-2, 1987-, 67451-1, 30699-6, 2156-6, 96705-3, THYR #### [facility] ([id number]) [address] [place] [address] Potassium [Moles/Vol] 3.9 mmol/L Normal 3.5-5.0 [facility] Comment on above: Performed By: #### C BCA, PINR, 15324-6, CMP, 3040-3, 74668-5, 5643-2, 1987-09, 53475-4, 06580-5, 215-6, 73094-4, THYR #### [facility] ([id number]) [address] [place] [address] Sodium [Moles/Vol] 128 mmol/L Low 134-146 [facility] Comment on above: Performed By: #### C BCA, PINR, 11627-1, CMP, 3040-3, 83143-9, 5643-2, 1987-, 99183-4, 02855-4, 2156-6, 04423-1, THYR #### [facility] ([id number]) [address] [place] [address] [place] [address] Glucose Glucometer (dC) [M ass/Vol]on 12-29-2023 Glucose [Mass/Vol] 145 mg/dL High 65-99 [facility] Glucose [Mass/Vol] 150 mg/dL High 65-99 [facility] Glucose [Mass/Vol] 177 mg/dL High 65-99 [facility] Glucose [Mass/Vol] 172 mg/dL High 65-99 [facility] Glucose [Mass/Vol] 213 mg/dL High 65-99 [facility] Glucose [Mass/Vol] 254 mg/dL High 65-99 [facility] Glucose [Mass/Vol] 296 mg/dL High 65-99 [facility] Glucose [Mass/Vol] 309 mg/dL High 65-99 [facility] Glucose [Mass/Vol] 297 mg/dL High 65-99 [facility] Glucose [Mass/Vol] 285 mg/dL High 65-99 [facility] Glucose [Mass/Vol] 343 mg/dL High 65-99 [facility] Glucose [Mass/Vol] 477 mg/dL Critically high 65-99 [facility] BEDSIDE GLUCOSE LAB >500 Critically high 65-99 [facility] Comment on above: Result Comment: SEE LAB RESULTS FOR CONFIRMATION LIPASEon 12-29-2023 Lipase [Catalytic activity/Vol] 47 U/L High 17-40 [facility] Comment on above: Performed By: #### C JOSTIN, PINR, 19362-7, CMP, 3040-3, 53000-7, 5643-2, 1987-, 48344-1, 20863-6, 2157-6, 29390-4, THYR #### [facility] ([id number]) [address] [place] [address] 85617 LIVER PANELon 12-29-2023 Albumin [Mass/Vol] 4.1 g/dL Normal 3.2-5.3 [facility] Comment on above: Performed By: #### C BCA, PINR, 74971-9, CMP, 3040-3, 17196-4, 5643-2, 1987-, 52861-3, 36764-4, 2157-6, 02109-6, THYR #### [facility] ([id number]) [address] [place] [address] 67816 ALP [Catalytic activity/Vol] 142 U/L High 39-130 [facility] Comment on above: Performed By: #### C BCA, PINR, 23723-4, CMP, 3040-3, 87576-8, 5643-2, 1987-, 53496-9, 62226-7, 2157-6, 71439-0, THYR #### [facility] ([id number]) [address] [place] [address] [place] [address] ALT [Catalytic activity/Vol] 23 U/L Normal 0-31 [facility] Comment on above: Performed By: #### C BCA, PINR, 20689-0, CMP, 3040-3, 50772-6, 5643-2, 1987-, 97324-5, 29161-5, 2157-6, 03539-2, THYR #### [facility] ([id number]) [address] [place] [address] 87936 AST [Catalytic activity/Vol] 19 U/L Normal 0-41 [facility] Comment on above: Performed By: #### C BCA, PINR, 72257-2, CMP, 3040-3, 85730-7, 5643-2, 1987-, 29717-3, 95373-6, 2157-6, 82928-6, THYR #### [facility] ([id number]) [address] [place] [address] [place] [address] Bilirubin [Mass/Vol] 1.0 mg/dL Normal 0.3-1.2 [facility] Comment on above: Performed By: #### C BCA, PINR, 32510-4, CMP, 3040-3, 50130-4, 5643-2, 1987-, 92499-6, 99063-0, 2157-6, 02140-0, THYR #### [facility] ([id number]) [address] [place] [address] [place] [address] Bilirubin.direct [Mass/Vol] 0.2 mg/dL Normal 0.0-0.4 [facility] Comment on above: Performed By: #### C BCA, PINR, 78383-5, CMP, 3040-3, 47275-5, 5643-2, 1987-, 70323-7, 07135-4, 2157-6, 39081-5, THYR #### [facility] ([id number]) [address] [place] [address] 90349 Protein [Mass/Vol] 8.3 g/dL High 6.0-8.0 [facility] Comment on above: Performed By: #### C BCA, PINR, 70818-0, CMP, 3040-3, 54632-3, 5643-2, 1987-09, , 79998-6, 2156-6, 47436-7, THYR #### [facility] ([id number]) [address] [place] [address] 27121 Lactate (P brinda) [Moles/Vol]o n 12-29-2023 LACTATE W/REFLEX 1.3 mmol/L Normal 0.4-2.0 [facility] Comment on above: Result Comment: Result did not trigger repeat Lactate, re-order if needed. Performed By: #### C BCA, PINR, 05105-2, CMP, 3040-3, 12418-9, 5643-2, 1987-09, 56108-7, 05558-2, 2156-6, 15016-1, THYR #### [facility] ([id number]) [address] [place] [address] 78107 Lactate [Moles/Vol] 2.8 mmol/L High 0.4-2.0 [facility] Comment on above: Performed By: #### C BCA, PINR, 77361-0, CMP, 3040-3, 56965-7, 5643-2, 1987-09, 27167-9, 18074-8, 215-6, 08508-4, THYR #### [facility] ([id number]) [address] [place] [address] 82759 LACTATE W/REFLEX 3.8 mmol/L High 0.4-2.0 [facility] Comment on above: Performed By: #### C BCA, PINR, 14167-4, CMP, 3040-3, 78876-8, 5643-2, 1987-, 16472-5, 20483-7, 2157-6, 63665-3, THYR #### [facility] ([id number]) [address] [place] [address] MAGNESIUMon 12-29-2023 Magnesium [Mass/Vol] 1.8 mg/dL Normal 1.8-2.6 [facility] Comment on above: Performed By: #### C BCA, PINR, 64751-6, CMP, 3040-3, 63303-4, 5643-2, 1987-, 11490-1, 94425-7, 2157-6, 04536-4, THYR #### [facility] ([id number]) [address] [place] [address] SARS/FLU A+B/RSV by NAAT/Mol ecularon 12-29-2023 SARS/FLU A+B/RSV by NAAT/Molecular FLU A PCR Negative (qualifier value) FLU B PCR Negative (qualifier value) RSV by PCR Negative (qualifier value) SARS CoV 2 Not detected (qualifier value) NOTE The Xpert Xpress SARS-CoV-2/Flu/RSV Plus test is a rapid, multiplexed real-time RT-PCR test intended for the simultaneous qualitative detection and differentiation of SARS-CoV-2, influenza A, influenza B and respiratory syncytial virus (RSV) viral RNA from individuals suspected of respiratory viral infection consistent with COVID-19 by their healthcare provider. This test has not been validated in asymptomatic patients. The Xpert Xpress SARS-CoV-2 test is intended for use by qualified and trained operators who are performing tests using either [employer] DX or Symptom[employer] systems and is limited to laboratories that meet the CLIA requirements to perform high and moderate complexity tests. The Xpert Xpress SARS-CoV-2/Flu/RSV Plus is only for use under the Food and Drug Administration's Emergency Use Authorization. Results are for the simultaneous detection and differentiation of SARS-CoV-2, influenza A, influenza B and RSV nucleic acids in clinical specimens. SARS-CoV-2, influenza A, influenza B and RSV RNA identified by this test are generally detectable in upper respiratory samples during the acute phase of infection. Positive results are indicative of the presence of the identified virus, but do not rule out bacterial infection or co-infection with other pathogens not detected by this test. Clinical correlation with patient history and other diagnostic information is necessary to determine patient infection status. The agent detected may not be the definite cause of disease. Negative results do not preclude SARS-CoV-2, influenza A, influenza B and RSV infection and should not be used as the sole basis for treatment or other patient management decisions. Negative results must be combined with clinical observations, patient history and epidemiological information. An Invalid result may occur with specimen-associated inhibition unable to be resolved with specimen repeat. Fact Sheet for Healthcare Providers: https://www.fda.gov/m edia/497328/download Fact Sheet for Patients: https://www.fda.gov/m edia/878700/download Normal [facility] Comment on above: Performed By: #### C BCA, PINR, 39594-4, CMP, 3040-3, 97932-0, 5643-2, 1988-5, 60687-2, 79676-1, 2157-6, 62397-8, THYR #### [facility] ([id number]) [address] [place] [address], [place] [address] Troponin I.cardiac High sens itivity method [Mass/Vol]on 12-29-2023 1 HOUR TROP I, HIGH SENSITIVITY 24 ng/L High <16 [facility] Comment on above: Result Comment: Elevations of hs-Troponin may be due to causes other than myocardial ischemia. Recommend serial hs-Troponin testing be performed. For the initial evaluation and management of chest pain patients, refer to the algorithms linked below. Emergency Patient: [email or web address] Inpatient: [email or web address] Performed By: #### C BCA, PINR, 29057-3, CMP, 3040-3, 94800-6, 5643-2, 1987-09, 96557-4, 70025-3, 215-6, 46565-9, THYR #### [facility] ([id number]) [address] [place] [address] 04437 TROPONIN I, HIGH SENSITIVITY 29 ng/L High <16 [facility] Comment on above: Result Comment: Elevations of hs-Troponin may be due to causes other than myocardial ischemia. Recommend serial hs-Troponin testing be performed. For the initial evaluation and management of chest pain patients, refer to the algorithms linked below. Emergency Patient: [email or web address] Inpatient: [email or web address] Performed By: #### C BCA, PINR, 56301-8, CMP, 3040-3, 30408-8, 5643-2, 1987-09, 47287-4, 78843-7, 2156-6, 21485-2, THYR #### [facility] ([id number]) [address] [place] [address] 63994 URN MACROSCOPIC NURon 2023 BILIRUBIN MAO Negative Normal NEG [facility] Comment on above: Performed By: #### C BCA, PINR, 77829-3, CMP, 3040-3, 47127-6, 5643-2, 1987-, 56823-5, 28689-6, 2156-6, 45585-0, THYR #### [facility] ([id number]) [address] [place] [address] 05418 BLOOD/HGB MAO Small Abnormal NEG [facility] Comment on above: Performed By: #### C BCA, PINR, 99285-0, CMP, 3040-3, 31400-1, 5643-2, 1987-09, 28718-0, 16739-3, 2157-6, 67210-2, THYR #### [facility] ([id number]) [address] [place] [address] 13337 GLUCOSE MAO >=1000 Abnormal NEG [facility] Comment on above: Performed By: #### C BCA, PINR, 26746-5, CMP, 3040-3, 80477-4, 5643-2, 1987-09, 62455-3, 22296-8, 2157-6, 53744-9, THYR #### [facility] ([id number]) [address] [place] [address] [place] [address] KETONES MAO Trace Abnormal NEG [facility] Comment on above: Performed By: #### C BCA, PINR, 12724-8, CMP, 3040-3, 99810-1, 5643-2, 1987-09, 32732-5, 98079-0, 2157-6, 20511-1, THYR #### [facility] ([id number]) [address] [place] [address] 67167 LEUKOCYTE ESTERASE MAO Negative Normal NEG [facility] Comment on above: Performed By: #### C BCA, PINR, 36930-9, CMP, 3040-3, 88345-3, 5643-2, 1987-09, 38886-4, 81181-1, 2157-6, 26383-3, THYR #### [facility] ([id number]) [address] [place] [address] 30379 NITRITE MAO Negative Normal NEG [facility] Comment on above: Performed By: #### C BCA, PINR, 30738-9, CMP, 3040-3, 68220-8, 5643-2, 1987-09, 63051-2, 58774-1, 2157-6, 93501-5, THYR #### [facility] ([id number]) [address] [place] [address] 10345 PH MAO 5.5 Normal 5.0-8.5 [facility] Comment on above: Performed By: #### C BCA, PINR, 46642-4, CMP, 3040-3, 11840-2, 5643-2, 1987-09, 10072-4, 66230-0, 215-6, 16042-5, THYR #### [facility] ([id number]) [address] [place] [address] 74778 PROTEIN MAO Trace Abnormal NEG [facility] Comment on above: Performed By: #### C BCA, PINR, 96334-3, CMP, 3040-3, 30053-4, 5643-2, 1987-09, 13918-7, 22263-7, 2156-10, 69360-7, THYR #### [facility] ([id number]) [address] [place] [address]14 SPECIFIC GRAVITY MAO 1.010 Normal 1.003-1.035 [facility] Comment on above: Performed By: #### C BCA, PINR, 85412-8, CMP, 3040-3, 39033-1, 5643-2, 1987-09, , 60661-9, 2156-6, 15689-9, THYR #### [facility] ([id number]) [address] [place] [address] [place] [address] UROBILINOGEN MAO 0.2 eu/dL Normal <1.1 [facility] Comment on above: Performed By: #### C BCA, PINR, 90576-4, CMP, 3040-3, 80671-9, 5643-2, 1987-, 55533-1, 73973-9, 2157-6, 31937-6, THYR #### [facility] ([id number]) [address] [place] [address]7721 VENOUS BLOOD GASon 4 DONALD'S TEST Normal [facility] Comment on above: Performed By: #### C BCA, PINR, 60421-2, CMP, 3040-3, 40513-0, 5643-2, 1987-, 07120-6, 89214-9, 2157-6, 49694-9, THYR #### [facility] ([id number]) [address] [place] [address] 52656 Base excess Calc (Bld) [Moles/Vol] 0.0 mmol/L Normal 0.0-2.0 [facility] Comment on above: Performed By: #### C BCA, PINR, 36264-2, CMP, 3040-3, 24018-4, 5643-, 1987-09, , 03251-8, 215-6, 27530-6, THYR #### [facility] ([id number]) [address] [place] [address] [place] [address] Body temperature 98.6 [degF] Normal 37.0 [facility] Comment on above: Performed By: #### C BCA, PINR, 09154-1, CMP, 3040-3, 11828-4, 5643-2, 1987-09, 57852-9, 65633-0, 215-6, 90868-7, THYR #### [facility] ([id number]) [address] [place] [address] 32220 HCO3 (Bld) [Moles/Vol] 23.4 mmol/L Normal 20.0-24.0 [facility] Comment on above: Performed By: #### C BCA, PINR, 49165-7, CMP, 3040-3, 56698-7, 5643-2, 1987-09, 86045-8, 60075-8, 2157-6, 64649-7, THYR #### [facility] ([id number]) [address] [place] [address] [place] [address] INSP. O2 CONC. 21 % Normal [facility] Comment on above: Performed By: #### C BCA, PINR, 53577-0, CMP, 3040-3, 81675-2, 5643-2, 1987-09, 69473-1, 58197-0, 2157-6, 77938-0, THYR #### [facility] ([id number]) [address] [place] [address] [place] [address] Oxygen saturation in Blood 88.0 % Normal >80.0 [facility] [facility] Comment on above: Performed By: #### C BCA, PINR, 33999-5, CMP, 3040-3, 00238-9, 5643-2, 1987-09, 03451-2, 29328-7, 2157-6, 60133-3, THYR #### [facility] ([id number]) [address] [place] [address] [place] [address] OXYGEN SOURCE [facility] Comment on above: Performed By: #### C BCA, PINR, 48935-8, CMP, 3040-3, 94188-5, 5643-2, 1987-09, 26262-3, 75725-9, 2157-6, 22766-1, THYR #### [facility] ([id number]) [address] [place] [address] [place] [address] PCO2, VENOUS 33.5 MMHG Low 35-50 [facility] Comment on above: Performed By: #### C BCA, PINR, 33029-8, CMP, 3040-3, 05358-6, 5643-2, 1987-09, 11496-6, 17274-0, 2157-6, 51554-1, THYR #### [facility] ([id number]) [address] [place] [address] [place] [address] PH, VENOUS 7.452 High 7.320-7.420 [facility] Comment on above: Performed By: #### C BCA, PINR, 74078-8, CMP, 3040-3, 62913-6, 5643-2, 1987-, 36222-6, 81615-1, 2157-6, 73305-3, THYR #### [facility] ([id number]) [address] [place] [address] PO2, VENOUS 52 MMHG High 30-50 [facility] Comment on above: Performed By: #### C BCA, PINR, 68611-7, CMP, 3040-3, 77761-6, 5643-2, 1987-, 10076-9, 03644-3, 2157-6, 09871-8, THYR #### [facility] ([id number]) [address] [place] [address] SAMPLE SITE N/A Normal [facility] Comment on above: Performed By: #### C BCA, PINR, 14818-5, CMP, 3040-3, 70144-1, 5643-2, 1987-, 99702-9, 95556-7, 2157-6, 99217-5, THYR #### [facility] ([id number]) [address] [place] [address] [place] [address] SAMPLE TYPE VENOUS Normal [facility] Comment on above: Performed By: #### C BCA, PINR, 25036-0, CMP, 3040-3, 58691-4, 5643-2, 1987-09, 05554-7, 81231-3, 2157-6, 88963-1, THYR #### [facility] ([id number]) [address] [place] [address] XR CHEST 1 VWon 12-29-2023 XR CHEST 1 VW XR CHEST 1 VW CLINICAL INFORMATION: Hyperglycemia. Nausea. Diaphoresis. COMPARISON: Chest radiograph dated 10/16/2023. VIEWS: 1. FINDINGS: Cardiac and mediastinal shadows are normal. No infiltrates. No effusions. No pneumothorax. No free air below the diaphragm. IMPRESSION: No acute cardiopulmonary disease. Finalized by Alissa Harris MD on 12/29/2023 10:14 AM Normal [facility] BASIC METABOLIC PANELon 04- Anion gap [Moles/Vol] 17 mmol/L Normal 7-20 [facility] Comment on above: Performed By: #### L [id number] #### [facility] ([facility]) [address] [place] [address] Calcium [Mass/Vol] 8.7 mg/dL Normal 8.6-10.3 [facility] Comment on above: Performed By: #### L [id number] #### [facility] ([facility]) [address] [place] [address] Chloride [Moles/Vol] 102 mmol/L Normal 98-[address] [facility] Comment on above: Performed By: #### L [id number] #### [facility] ([facility]) [address] [place] [address] CO2 [Moles/Vol] 24 mmol/L Normal 21-31 [facility] Comment on above: Performed By: #### L [id number] #### [facility] ([facility]) [address] [place] [address] Creatinine [Mass/Vol] 0.71 mg/dL Normal 0.60-1.20 [facility] Comment on above: Performed By: #### L [id number] #### [facility] ([facility]) [address] [place] [address] GLOMERULAR FILTRATION RATE ML/MIN/1.73 SQ M.PREDICTED 100.4 mL/min/1.73m*2 Normal >60.0 [facility] Comment on above: Result Comment: The [facility]???s estimated glomerular filtration rate (eGFR) will no longer include consideration of race in its calculation. The National Kidney Foundation???s eGFR Task Force developed new recommendations for the estimation of the glomerular filtration rate in the [place] They recommend immediate implementation of the new equation refit without the race variable in all laboratories because the calculation does not include race. In addition to not including race in the calculation and reporting, it included diversity in its development, and has acceptable performance characteristics and potential consequences that do not disproportionately affect any one group of individuals. Performed By: #### L [id number] #### [facility] ([facility]) [address] [place] [address] Glucose [Mass/Vol] 146 mg/dL High 70-100 [facility] Comment on above: Performed By: #### L [id number] #### [facility] ([facility]) [address] [place] [address] Potassium [Moles/Vol] 3.9 mmol/L Normal 3.5-5.1 [facility] Comment on above: Performed By: #### L [id number] #### [facility] ([facility]) [address] [place] [address] Sodium [Moles/Vol] 139 mmol/L Normal 136-145 [facility] Comment on above: Performed By: #### L [id number] #### [facility] ([facility]) [address] [place] [address] Urea nitrogen [Mass/Vol] 17 mg/dL Normal 7-25 [facility] Comment on above: Performed By: #### L [id number] #### [facility] ([facility]) [address] [place] [address] UREA NITROGEN/CREATININE (MASS RATIO) IN SER/PLAS 23.9 Normal [facility] Comment on above: Performed By: #### L [id number] #### [facility] ([facility]) [address] [place] [address] CBC WITH AUTO DIFFERENTIALon 09-11-2023 Basophils (Bld) [#/Vol] 0.07 10*3/uL Normal 0.00-0.20 [facility] Comment on above: Performed By: #### L [id number] #### [facility] ([facility]) [address] [place] [address] Basophils/100 WBC (Bld) 0.4 % Normal 0.0-1.0 [facility] Comment on above: Performed By: #### L [id number] #### [facility] ([facility]) [address] [place] [address] Eosinophils (Bld) [#/Vol] 0.50 10*3/uL Normal 0.00-0.50 [facility] Comment on above: Performed By: #### L [id number] #### [facility] ([facility]) [address] [place] [address] Eosinophils/100 WBC (Bld) 3.2 % Normal 0.0-6.0 [facility] Comment on above: Performed By: #### L [id number] #### [facility] [address] [place] [address] Erythrocyte distribution width (RBC) [Ratio] 16.8 % High 11.5-15.0 [facility] Comment on above: Performed By: #### L [id number] #### [facility] ([facility]) [address] [place] [address] ERYTHROCYTE MEAN CORPUSCULAR HEMOGLOBIN CONCENTRATION (G/DL) BY AUTOMATED 32.6 g/dL Normal 32.0-35.0 [facility] Comment on above: Performed By: #### L [id number] #### [facility] ([facility]) [address] [place] [address] Hematocrit (Bld) [Volume fraction] 38.9 % Normal 36.0-48.0 [facility] Comment on above: Performed By: #### L [id number] #### [facility] ([facility]) [address] [place] [address] Hemoglobin (Bld) [Mass/Vol] 12.7 g/dL Normal 12.0-15.0 [facility] Comment on above: Performed By: #### L [id number] #### [facility] ([facility]) [address] [place] [address] Immature granulocytes (Bld) [#/Vol] 0.36 10*3/uL High 0.00-0.20 [facility] Comment on above: Performed By: #### L [id number] #### [facility] [address] [place] [address] Immature granulocytes/100 WBC (Bld) 2.3 % High 0.0-1.0 [facility] Comment on above: Performed By: #### L [id number] #### [facility] [address] [place] [address] Lymphocytes (Bld) [#/Vol] 3.31 10*3/uL Normal 1.20-4.00 [facility] Comment on above: Performed By: #### L [id number] #### [facility] ([facility]) [address] [place] [address] Lymphocytes/100 WBC (Bld) 21.0 % Normal 20.0-45.0 [facility] Comment on above: Performed By: #### L [id number] #### [facility] ([facility]) [address] [place] [address] MCH (RBC) [Entitic mass] 27.9 pg Normal 27.0-33.0 [facility] Comment on above: Performed By: #### L [id number] #### [facility] [address] [place] [address] MCV (RBC) [Entitic vol] 85.5 fL Normal 82.0-98.0 [facility] Comment on above: Performed By: #### L [id number] #### [facility] [address] [place] [address] Monocytes (Bld) [#/Vol] 1.12 10*3/uL High 0.10-1.00 [facility] Comment on above: Performed By: #### L [id number] #### [facility] ([facility]) [address] [place] [address] Monocytes/100 WBC (Bld) 7.1 % Normal 5.0-12.0 [facility] Comment on above: Performed By: #### L [id number] #### [facility] ([facility]) [address] [place] [address] Neutrophils (Bld) [#/Vol] 10.40 10*3/uL High 1.60-7.60 [facility] Comment on above: Performed By: #### L [id number] #### [facility] ([facility]) [address] [place] [address] Neutrophils/100 WBC (Bld) 66.0 % Normal 40.0-72.0 [facility] Comment on above: Performed By: #### L [id number] #### [facility] ([facility]) [address] [place] [address] NRBC (PER 100 WBCS) BY AUTOMATED COUNT 0.0 % Normal 0 [facility] Comment on above: Performed By: #### L [id number] #### [facility] ([facility]) [address] [place] [address] PLATELETS (10*3/UL) IN BLOOD AUTOMATED COUNT 194 10*3/uL Normal 150-400 [facility] Comment on above: Performed By: #### L [id number] #### [facility] ([facility]) [address] [place] [address] RBC (Bld) [#/Vol] 4.55 10*6/uL Normal 3.80-5.00 [facility] Comment on above: Performed By: #### L [id number] #### [facility] ([facility]) [address] [place] [address] WBC (Bld) [#/Vol] 15.76 10*3/uL High 4.00-10.[address] [facility] Comment on above: Performed By: #### L [id number] #### [facility] ([facility]) [address] [place] [address] CT CHEST W IV CONTRASTon CT CHEST W IV CONTRAST CT CHEST W IV CONTRAST 09/11/2023 8:55 PM CLINICAL INDICATIONS: Choking, aspiration, foreign body TECHNIQUE: Multidetector CT axial slices of the chest were obtained with IV contrast. Multiplanar reformats were performed and viewed on a separate workstation and reviewed to further define anatomy and possible pathology. All CT scans at this facility use dose modulation, iterative reconstruction, and/or weight based dosing when appropriate to reduce radiation dose to as low as reasonably achievable. COMPARISON: None. FINDINGS: No pleural or pericardial effusion. No enlarged axillary or mediastinal lymph nodes. Atherosclerotic thoracic aorta. Mild coronary artery calcifications. Dependent change and atelectasis in both lungs. No pneumothorax. There is atelectasis within the lingula, bilateral lower lobes. There is no focal consolidation. No pneumothorax. Degenerative changes of the thoracic spine. IMPRESSION: No evidence of acute cardiopulmonary process. Bilateral lower lobe, middle lobe and lingular atelectasis. Electronically signed: Manan Randolph. Not Vldtd Invalid Interpretation Code [facility] EDPROVon 09-11-2023 EDPROV HPI Chief Complaint Patient presents with Choking Pt presents to ED from home s/p choking on food. Family reports pt passed out and 2 min of CPR was performed by family. Pt arrives to ED drowsy but oriented x4 and c/o CP s/p chest compressions HPI this is a 57-year-old female presents the ED for evaluation of choking, She was at [facility] whenever she was eating a steak, she subsequently began to choke on the steak and required CPR if she became unresponsive. She received 2 minutes of CPR and steak was removed from her oropharynx by bystanders. On arrival EMS reports that she was awake however complaining of chest pain. The patient reports minimal shortness of breath and ongoing chest pain, already given 75 mcg of fentanyl. [place] Coma Scale Score: 14 Patient History History reviewed. No pertinent past medical history. No past surgical history on file. No family history on file. Social History Tobacco Use Smoking status: Not on file Smokeless tobacco: Not on file Substance Use Topics Alcohol use: Not on file Drug use: Not on file Review of Systems Review of Systems Unable to perform ROS: Acuity of condition Respiratory: Positive for shortness of breath. Cardiovascular: Positive for chest pain. Physical Exam ED Triage Vitals Temp Pulse Resp BP -- -- -- -- SpO2 Temp src Heart Rate Source Patient Position -- -- -- -- BP Location FiO2 (%) -- -- Physical Exam Vitals and nursing note reviewed. Constitutional: General: She is not in acute distress. Appearance: She is well-developed. HENT: Head: Normocephalic and atraumatic. Right Ear: External ear normal. Left Ear: External ear normal. Nose: Nose normal. No congestion or rhinorrhea. Mouth/Throat: Mouth: Mucous membranes are moist. Pharynx: Oropharynx is clear. Eyes: General: No scleral icterus. Right eye: No discharge. Left eye: No discharge. Extraocular Movements: Extraocular movements intact. Conjunctiva/sclera: Conjunctivae normal. Pupils: Pupils are equal, round, and reactive to light. Cardiovascular: Rate and Rhythm: Normal rate and regular rhythm. Heart sounds: No murmur heard. Pulmonary: Effort: Pulmonary effort is normal. No respiratory distress. Breath sounds: No stridor. Rhonchi present. No wheezing or rales. Abdominal: General: There is no distension. Palpations: Abdomen is soft. There is no mass. Tenderness: There is no abdominal tenderness. There is no guarding. Hernia: No hernia is present. Musculoskeletal: General: No swelling, tenderness, deformity or signs of injury. Cervical back: Neck supple. Right lower leg: No edema. Left lower leg: No edema. Comments: Some bruising present over sternum Skin: General: Skin is warm and dry. Capillary Refill: Capillary refill takes less than 2 seconds. Coloration: Skin is not cyanotic, jaundiced or pale. Findings: No bruising, ecchymosis, erythema, lesion or rash. Neurological: General: No focal deficit present. Mental Status: She is alert and oriented to person, place, and time. Mental status is at baseline. Cranial Nerves: No cranial nerve deficit. Sensory: No sensory deficit. Motor: No weakness. Coordination: Coordination normal. Gait: Gait normal. Psychiatric: Mood and Affect: Mood normal. Behavior: Behavior normal. Thought Content: Thought content normal. Judgment: Judgment normal. Procedures ED Course & [facility] ED Course as of 09/12/23 1534 SatSep 11, [id number] IMPRESSION: No evidence of acute cardiopulmonary process. Bilateral lower lobe, middle lobe and lingular atelectasis. [AE] ED Course User Index [AE] Johny Anna DO Diagnoses as of 09/12/23 1534 Choking, initial encounter Medical Decision Making patient is a 57-year-old female presents the ED after receiving CPR for being unresponsive when choking on steak, steak was removed, she is awake and alert and oriented, she is in a lot of pain, chest pain, has bruising to the chest, would obtain basic blood work, VBG, Trope, assess for myocardial contusion, rib fractures hemothorax, pulmonary contusion Risk Risk Details: 2022 Emergency Medicine Coding Guide from [employer]VFA on 09/12/2023 All calculations should be rechecked by clinician prior to use RESULT SUMMARY: 5 Estimated Level of Service Problems: Moderate (4) Risk: High (5) Data: Extensive (5) NARRATIVE MDM: This patient's problem complexity is Moderate as patient: has a new undiagnosed problem with uncertain prognosis but that could be serious. This patient's risk is High due to: overall presentation requiring evaluation for a potentially High-risk process. This patient's data complexity is Extensive due to: -multiple tests ordered/reviewed -independent interpretation of imaging or EKG -discussion of management/testing with external professional INPUTS: Number and Complexity -> 5 = 4: undiagnosed new problem, uncertain outcome (e (more content not included)... Normal [facility] TROPONIN Ion 09-11-2023 Troponin I.cardiac [Mass/Vol] 0.03 ng/mL Normal 0.00-0.04 [facility] Comment on above: Performed By: #### L [id number] #### [facility] ([facility]) [address] [place] [address] VENOUS BLOOD GAS WITH IONIZE D CALCIUMon 09-11-2023 Base excess Calc (BldV) [Moles/Vol] 2.2 mmol/L Normal [facility] Comment on above: Performed By: #### L [id number] #### [facility] [address] [place] [address] [place] CALCIUM IONIZED (MMOL/L) IN BLOOD 1.23 mmol/L Normal 1.15-1.33 [facility] Comment on above: Performed By: #### L [id number] #### [facility] [address] [place] [address] [place] CO2 (BldV) [Partial pressure] 54 mm[Hg] High 40-50 [facility] Comment on above: Performed By: #### L [id number] #### [facility]IR[facility] THERAP[facility] [address] [place] [address] [place] HCO3 (Bld) [Moles/Vol] 29.1 mmol/L Normal [facility] Comment on above: Performed By: #### L [id number] #### [facility] THERAP[facility] [address] [place] [address] [place] Oxygen (BldV) [Partial pressure] 58 mm[Hg] High 35-45 [facility] Comment on above: Performed By: #### L [id number] #### [facility]ER[facility] [address] [place] [address] [place] OXYGEN SATURATION (%) IN VENOUS BLOOD 88.0 % High 65.0-75.0 [facility] Comment on above: Performed By: #### L [id number] #### [facility]ERAP[facility] [address] [place] [address] [place] PH OF VENOUS BLOOD 7.34 Normal 7.31-7.41 [facility] Comment on above: Performed By: #### L [id number] #### [facility] THERAP[facility] [address] [place] [address] [place] CBC AND AUTO DIFFon 09-04-19 24 ABSOLUTE BASOPHIL 0.0 X10E9/L Normal 0.0-0.2 [facility] Comment on above: Performed By: #### C BCA, PINR, 83606-3, CMP, 3040-3, 13193-7, 5643-2, 1988-5, 09727-3, 29276-6, 2157-6, 42208-8, THYR #### [facility] ([id number]) [address] [place] [address], [place] [address] ABSOLUTE NEUTROPHIL 5.4 X10E9/L Normal 1.5-6.6 [facility] [place] Comment on above: Performed By: #### C BCA, PINR, 99377-1, CMP, 3040-3, 77875-9, 5643-2, 1987-, 58925-2, 21783-5, 2157-6, 60526-6, THYR #### [facility] ([id number]) [address] [place] [address] Basophils/100 WBC (Bld) 0.5 % Normal [facility] Comment on above: Performed By: #### C BCA, PINR, 63580-2, CMP, 3040-3, 16142-8, 5643-2, 1987-, 68193-4, 73920-5, 2157-6, 63862-4, THYR #### [facility] ([id number]) [address] [place] [address] Eosinophils (Bld) [#/Vol] 0.2 10*3/uL Normal 0.0-0.4 [facility] Comment on above: Performed By: #### C BCA, PINR, 37335-4, CMP, 3040-3, 07992-9, 5643-2, 1987-09, 88872-9, 60375-1, 215-6, 16475-0, THYR #### [facility] ([id number]) [address] [place] [address] Eosinophils/100 WBC (Bld) 2.1 % Normal [facility] Comment on above: Performed By: #### C BCA, PINR, 17251-7, CMP, 3040-3, 47677-2, 5643-2, 1987-, 14772-1, 09034-2, 215-6, 71428-9, THYR #### [facility] ([id number]) [address] [place] [address] [place] [address] Erythrocyte distribution width (RBC) [Ratio] 17.5 % High 11.5-15.0 [facility] Comment on above: Performed By: #### C BCA, PINR, 23542-5, CMP, 3040-3, 92313-0, 5643-2, 1987-, 79361-3, 37543-5, 2157-6, 30432-4, THYR #### [facility] ([id number]) [address] [place] [address] Hematocrit (Bld) [Volume fraction] 37.2 % Normal 35-47 [facility] Comment on above: Performed By: #### C BCA, PINR, 95537-9, CMP, 3040-3, 25682-1, 5643-2, 1987-, 58871-1, 50944-4, 215-6, 61843-9, THYR #### [facility] ([id number]) [address] [place] [address] Hemoglobin (Bld) [Mass/Vol] 12.4 g/dL Normal 11.7-15.5 [facility] Comment on above: Performed By: #### C BCA, PINR, 26473-0, CMP, 3040-3, 85544-6, 5643-2, 1987-, 07519-9, 92731-3, 215-6, 89660-2, THYR #### [facility] ([id number]) [address] [place] [address] Lymphocytes (Bld) [#/Vol] 2.0 10*3/uL Normal 1.0-3.5 [facility] Comment on above: Performed By: #### C BCA, PINR, 77247-2, CMP, 3040-3, 95280-7, 5643-2, 1987-, 15694-4, 58490-6, 215-6, 86907-4, THYR #### [facility] ([id number]) [address] [place] [address] Lymphocytes/100 WBC (Bld) 24.0 % Normal [facility] Comment on above: Performed By: #### C BCA, PINR, 97432-2, CMP, 3040-3, 19244-1, 5643-2, 1987-09, 99456-3, 09360-6, 215-6, 17643-1, THYR #### [facility] ([id number]) [address] [place] [address] MCH (RBC) [Entitic mass] 27.9 pg Normal 27-34 [facility] Comment on above: Performed By: #### C BCA, PINR, 43106-1, CMP, 3040-3, 04889-8, 5643-2, 1987-09, 51724-6, 05165-0, 215-6, 65290-7, THYR #### [facility] ([id number]) [address] [place] [address] MCHC (RBC) [Mass/Vol] 33.4 g/dL Normal 32-36 [facility] Comment on above: Performed By: #### C BCA, PINR, 33593-9, CMP, 3040-3, 54730-4, 5643-2, 1987-09, , 50568-3, 215-6, 46273-1, THYR #### [facility] ([id number]) [address] [place] [address] MCV (RBC) [Entitic vol] 84 fL Normal 80-100 [facility] Comment on above: Performed By: #### C BCA, PINR, 09426-0, CMP, 3040-3, 07263-7, 5643-2, 1987-09, 42523-9, 69108-6, 215-6, 14694-6, THYR #### [facility] ([id number]) [address] [place] [address] [place] [address] Monocytes (Bld) [#/Vol] 0.8 10*3/uL Normal 0-0.9 [facility] Comment on above: Performed By: #### C BCA, PINR, 60153-4, CMP, 3040-3, 53872-8, 5643-2, 1987-, 13292-0, 32297-3, 2157-6, 29359-2, THYR #### [facility] ([id number]) [address] [place] [address] [place] [address] Monocytes/100 WBC (Bld) 9.5 % Normal [facility] Comment on above: Performed By: #### C BCA, PINR, 87823-6, CMP, 3040-3, 40783-2, 5643-2, 1987-09, 42891-2, 77232-7, 2157-6, 40123-0, THYR #### [facility] ([id number]) [address] [place] [address] [place] [address] Neutrophils/100 WBC (Bld) 63.9 % Normal [facility] Comment on above: Performed By: #### C BCA, PINR, 38433-5, CMP, 3040-3, 65530-5, 5643-2, 1987-09, 47881-1, 38026-0, 2157-6, 12086-2, THYR #### [facility] ([id number]) [address] [place] [address] [place] [address] Platelet mean volume (Bld) [Entitic vol] 9.1 fL Normal 7-12 [facility] Comment on above: Performed By: #### C BCA, PINR, 15677-9, CMP, 3040-3, 33217-0, 5643-2, 1987-, 21897-5, 98934-9, 2157-6, 74240-7, THYR #### [facility] ([id number]) [address] [place] [address] [place] [address] Platelets (Bld) [#/Vol] 198 10*3/uL Normal 150-450 [facility] Comment on above: Performed By: #### C BCA, PINR, 47586-0, CMP, 3040-3, 01773-7, 5643-2, 1987-, 76697-3, 04574-8, 2157-6, 99213-1, THYR #### [facility] ([id number]) [address] [place] [address] [place] [address] RBC COUNT 4.46 X10E12/L Normal 3.80-5.20 [facility] Comment on above: Performed By: #### C BCA, PINR, 47551-3, CMP, 3040-3, 44316-6, 5643-2, 1987-, 02469-5, 03272-1, 2157-6, 34261-1, THYR #### [facility] ([id number]) [address] [place] [address] [place] [address] WBC (Bld) [#/Vol] 8.4 10*3/uL Normal 4.0-11.0 [facility] Comment on above: Performed By: #### C BCA, PINR, 21159-1, CMP, 3040-3, 11962-4, 5643-2, 1987-, 41590-1, 70749-4, 2157-6, 72886-1, THYR #### [facility] ([id number]) [address] [place] [address] [place] [address] COMPREHENSIVE METABOLIC PANE Virgil 09-04-2023 Albumin [Mass/Vol] 3.4 g/dL Normal 3.2-5.3 [facility] Comment on above: Performed By: #### C BCA, PINR, 18668-5, CMP, 3040-3, 79839-0, 5643-2, 1987-, 73801-7, 96152-4, 2157-6, 68481-6, THYR #### [facility] ([id number]) [address] [place] [address] [place] [address] ALP [Catalytic activity/Vol] 81 U/L Normal 39-130 [facility] Comment on above: Performed By: #### C BCA, PINR, 86657-9, CMP, 3040-3, 65091-8, 5643-2, 1987-, 56390-1, 76155-7, 2157-6, 62850-0, THYR #### [facility] ([id number]) [address] [place] [address] 06657 ALT [Catalytic activity/Vol] 17 U/L Normal 0-31 [facility] Comment on above: Performed By: #### C BCA, PINR, 79414-0, CMP, 3040-3, 86429-3, 5643-2, 1987-, 94312-1, 67204-6, 2157-6, 64219-2, THYR #### [facility] ([id number]) [address] [place] [address] 82538 Anion gap [Moles/Vol] 7 mmol/L Normal 5-15 [facility] Comment on above: Performed By: #### C BCA, PINR, 58078-7, CMP, 3040-3, 48163-3, 5643-2, 1987-, 67196-2, 24528-2, 2157-6, 93208-4, THYR #### [facility] ([id number]) [address] [place] [address] 90375 AST [Catalytic activity/Vol] 14 U/L Normal 0-41 [facility] Comment on above: Performed By: #### C BCA, PINR, 08332-5, CMP, 3040-3, 05724-8, 5643-2, 1987-, 59975-4, 72308-7, 215-6, 69786-1, THYR #### [facility] ([id number]) [address] [place] [address], [place] [address] Bilirubin [Mass/Vol] 0.5 mg/dL Normal 0.3-1.2 [facility] [place] Comment on above: Performed By: #### C BCA, PINR, 55990-1, CMP, 3040-3, 86544-1, 5643-2, 1987-, 49761-2, 82166-0, 2157-6, 84574-2, THYR #### [facility] ([id number]) [address] [place] [address] [place] [address] Calcium [Mass/Vol] 8.9 mg/dL Normal 8.5-10.5 [facility] Comment on above: Performed By: #### C BCA, PINR, 11339-8, CMP, 3040-3, 35771-4, 5643-2, 1987-, 15322-1, 95535-9, 215-6, 00959-5, THYR #### [facility] ([id number]) [address] [place] [address] 59019 Chloride [Moles/Vol] 106 mmol/L Normal 98-109 [facility] [place] Comment on above: Performed By: #### C BCA, PINR, 25517-6, CMP, 3040-3, 24145-6, 5643-2, 1987-09, 70016-9, 24637-1, 215-6, 47688-8, THYR #### [facility] ([id number]) [address] [place] [address] [place] [address] CO2 [Moles/Vol] 29 mmol/L Normal 22-32 [facility] Comment on above: Performed By: #### C BCA, PINR, 78704-8, CMP, 3040-3, 56426-2, 5643-2, 1987-, 48985-2, 81717-1, 2157-6, 25538-0, THYR #### [facility] ([id number]) [address] [place] [address], [place] [address] Creatinine [Mass/Vol] 0.84 mg/dL Normal 0.40-1.00 [facility] Comment on above: Result Comment: METH OD TRACEABLE TO IDMS STANDARD Performed By: #### C BCA, PINR, 89818-0, CMP, 3040-3, 19474-8, 5643-2, 1987-09, 38041-4, 02773-9, 2157-6, 89273-7, THYR #### [facility] ([id number]) [address] [place] [address]676 GFR/1.73 sq M.predicted among non-blacks MDRD (S/P/Bld) [Vol rate/Area] 82 mL/min/{1.73_m2} Normal >59 [facility] Comment on above: Result Comment: Reported eGFR is based on the CKD-EPI 2020 equation that does not use a race coefficient. Performed By: #### C JOSTIN, PINR, 39586-1, CMP, 3040-3, 07234-3, 5643-2, 1987-09, , 67178-8, 2156-6, 66940-2, THYR #### [facility] ([id number]) [address] [place] [address] 86974 Glucose [Mass/Vol] 91 mg/dL Normal 65-99 [facility] Comment on above: Performed By: #### C JOSTIN, PINR, 76470-3, CMP, 3040-3, 93933-7, 5643-2, 1987-09, 93839-1, 03674-3, 2157-6, 09168-8, THYR #### [facility] ([id number]) [address] [place] [address] 24242 Potassium [Moles/Vol] 4.0 mmol/L Normal 3.5-5.0 [facility] Comment on above: Performed By: #### C BCA, PINR, 03218-3, CMP, 3040-3, 55888-6, 5643-2, 1987-09, 89150-6, 09268-2, 2157-6, 08307-1, THYR #### [facility] ([id number]) [address] [place] [address] Protein [Mass/Vol] 6.4 g/dL Normal 6.0-8.0 [facility] Comment on above: Performed By: #### C BCA, PINR, 30434-8, CMP, 3040-3, 61755-2, 5643-2, 1987-, 27273-8, 10229-6, 215-6, 83201-6, THYR #### [facility] ([id number]) [address] [place] [address] 30694 Sodium [Moles/Vol] 142 mmol/L Normal 134-146 [facility] Comment on above: Performed By: #### C BCA, PINR, 02247-8, CMP, 3040-3, 76746-7, 5643-2, 1987-09, 75996-4, 12693-5, 2156-6, 29881-9, THYR #### [facility] ([id number]) [address] [place] [address] 64907 Urea nitrogen [Mass/Vol] 27 mg/dL High 5-23 [facility] Comment on above: Performed By: #### C BCA, PINR, 34249-6, CMP, 3040-3, 16773-6, 5643-2, 1987-09, 92654-0, 31148-5, 2156-6, 76019-7, THYR #### [facility] ([id number]) [address] [place] [address] 86939 Glucose Glucometer (BldC) [M ass/Vol]on 09-04-2023 Glucose [Mass/Vol] 97 mg/dL Normal 65-99 [facility] Glucose [Mass/Vol] 77 mg/dL Normal 65-99 [facility] Glucose [Mass/Vol] 74 mg/dL Normal 65-99 [facility] Glucose [Mass/Vol] 45 mg/dL Critically low 65-99 [facility] MAGNESIUMon 09-04-2023 Magnesium [Mass/Vol] 2.1 mg/dL Normal 1.8-2.6 [facility] [place] Comment on above: Performed By: #### C BCA, PINR, 69375-2, CMP, 3040-3, 54136-2, 5643-2, 1987-5, 97569-7, 93739-6, 2157-6, 38656-9, THYR #### [facility] ([id number]) [address] [place] [address] 51624 CBC AND AUTO DIFFon 09-03-19 24 ABSOLUTE BASOPHIL 0.1 X10E9/L Normal 0.0-0.2 [facility] Comment on above: Performed By: #### C BCA, CMP, ####[facility] ([id number])[address] [place] [address] 52756 ABSOLUTE NEUTROPHIL 6.4 X10E9/L Normal 1.5-6.6 [facility] Comment on above: Performed By: #### C BCA, CMP, ####[facility] ([id number])[address] [place] [address] 49433 Basophils/100 WBC (Bld) 0.6 % Normal [facility] Comment on above: Performed By: #### Siva BCA, CMP, ####[facility] ([id number])[address] [place] [address] 12797 Eosinophils (Bld) [#/Vol] 0.2 10*3/uL Normal 0.0-0.4 [facility] Comment on above: Performed By: #### C BCA, CMP, ####[facility] ([id number])[address] [place] [address] 93120 Eosinophils/100 WBC (Bld) 1.5 % Normal [facility] Comment on above: Performed By: #### Siva BCA, CMP, ####[facility] ([id number])[address] [place] [address] [place] [address] Erythrocyte distribution width (RBC) [Ratio] 17.4 % High 11.5-15.0 [facility] Comment on above: Performed By: #### Siva FRANKEL [facility], ####[facility] ([id number])[address] [place] [address] 46239 Hematocrit (Bld) [Volume fraction] 36.4 % Normal 35-47 [facility] Comment on above: Performed By: #### Siva FRANKEL [facility], ####[facility] ([id number])[address] [place] [address] 83479 Hemoglobin (Bld) [Mass/Vol] 12.2 g/dL Normal 11.7-15.5 [facility] Comment on above: Performed By: #### Siva FRANKEL [facility], ####[facility] ([id number])[address] [place] [address] 09626 Lymphocytes (Bld) [#/Vol] 2.7 10*3/uL Normal 1.0-3.5 [facility] Comment on above: Performed By: #### Siva FRANKEL [facility], ####[facility] ([id number])[address] [place] [address] 22914 Lymphocytes/100 WBC (Bld) 25.9 % Normal [facility] Comment on above: Performed By: #### Siva FRANKEL [facility], ####[facility] ([id number])[address] [place] [address] 56441 MCH (RBC) [Entitic mass] 28.1 pg Normal 27-34 [facility] Comment on above: Performed By: #### Siva FRANKEL CMP, ####[facility] ([id number])[address] [place] [address] 41567 MCHC (RBC) [Mass/Vol] 33.7 g/dL Normal 32-36 [facility] Comment on above: Performed By: #### Siva FRANKEL CMP, ####[facility] ([id number])[address] [place] [address] 60886 MCV (RBC) [Entitic vol] 84 fL Normal 80-100 [facility] Comment on above: Performed By: #### Siva FRANKEL CMP, ####[facility] ([id number])[address] [place] [address] 37869 Monocytes (Bld) [#/Vol] 1.1 10*3/uL High 0-0.9 [facility] Comment on above: Performed By: #### Siva FRANKEL CMP, ####[facility] ([id number])[address] [place] [address] 56243 Monocytes/100 WBC (Bld) 10.5 % Normal [facility] Comment on above: Performed By: #### Siva FRANKEL CMP, ####[facility] ([id number])[address] [place] [address] 50688 Neutrophils/100 WBC (Bld) 61.5 % Normal [facility] Comment on above: Performed By: #### Siva FRANKEL CMP, ####[facility] ([id number])[address] [place] [address] 61068 Platelet mean volume (Bld) [Entitic vol] 9.3 fL Normal 7-12 [facility] Comment on above: Performed By: #### Siva FRANKEL CMP, ####[facility] ([id number])[address] [place] [address] 64842 Platelets (Bld) [#/Vol] 194 10*3/uL Normal 150-450 [facility] Comment on above: Performed By: #### Siva FRANKEL CMP, ####[facility] ([id number])[address] [place] [address] 04416 RBC COUNT 4.35 X10E12/L Normal 3.80-5.20 [facility] Comment on above: Performed By: #### C BCA, CMP, ####[facility] ([id number])[address] [place] [address] 67516 WBC (Bld) [#/Vol] 10.4 10*3/uL Normal 4.0-11.0 [facility] Comment on above: Performed By: #### C BCA, CMP, ####[facility] ([id number])[address] [place] [address] 96114 COMPREHENSIVE METABOLIC PANE Virgil 09-03-2023 Albumin [Mass/Vol] 3.1 g/dL Low 3.2-5.3 [facility] Comment on above: Performed By: #### C BCA, CMP, ####[facility] ([id number])[address] [place] [address] 37656 ALP [Catalytic activity/Vol] 91 U/L Normal 39-130 [facility] Comment on above: Performed By: #### C BCA, CMP, ####[facility] ([id number])[address] [place] [address] 40256 ALT [Catalytic activity/Vol] 13 U/L Normal 0-31 [facility] Comment on above: Performed By: #### C BCA, CMP, ####[facility] ([id number])[address] [place] [address] 91863 Anion gap [Moles/Vol] 6 mmol/L Normal 5-15 [facility] Comment on above: Performed By: #### C BCA, CMP, ####[facility] ([id number])[address] [place] [address] [place] [address] AST [Catalytic activity/Vol] 11 U/L Normal 0-41 [facility] Comment on above: Performed By: #### C BCA CMP, 07623-5 ####[facility] ([id number])[address] [place] [address] 24319 Bilirubin [Mass/Vol] 0.4 mg/dL Normal 0.3-1.2 [facility] [place] Comment on above: Performed By: #### C JOSTIN, CMP, 75271-6 ####[facility] ([id number])[address] [place] [address] 61078 Calcium [Mass/Vol] 8.3 mg/dL Low 8.5-10.5 [facility] Comment on above: Performed By: #### C JOSTIN, CMP, ####[facility] ([id number])[address] [place] [address] [place] [address] Chloride [Moles/Vol] 103 mmol/L Normal 98-109 [facility] [place] Comment on above: Performed By: #### C BCA, CMP, 55410-2 ####[facility] ([id number])[address] [place] [address] [place] [address] CO2 [Moles/Vol] 22 mmol/L Normal 22-32 [facility] Comment on above: Performed By: #### C BCA, CMP, ####[facility] ([id number])[address] [place] [address] [place] [address] Creatinine [Mass/Vol] 1.72 mg/dL High 0.40-1.00 [facility] Comment on above: Result Comment: METH OD TRACEABLE TO IDMS STANDARD Performed By: #### C JOSTIN, CMP, 92470-7 ####[facility] ([id number])[address] [place] [address] [place] [address] GFR/1.73 sq M.predicted among non-blacks MDRD (S/P/Bld) [Vol rate/Area] 35 mL/min/{1.73_m2} Low >59 [facility] Comment on above: Result Comment: Reported eGFR is based on the CKD-EPI 2020 equation that does not use a race coefficient. Performed By: #### C VERNON FRANKEL, 27815-9 ####[facility] ([id number])[address] [place] [address] 02000 Glucose [Mass/Vol] 84 mg/dL Normal 65-99 [facility] Comment on above: Performed By: #### Siva FRANKEL CMP, ####[facility] ([id number])[address] [place] [address] 73801 Potassium [Moles/Vol] 3.8 mmol/L Normal 3.5-5.0 [facility] Comment on above: Performed By: #### Siva FRANKEL CMP, ####[facility] ([id number])[address] [place] [address] 40285 Protein [Mass/Vol] 6.0 g/dL Normal 6.0-8.0 [facility] Comment on above: Performed By: #### Siva FRANKEL CMP, 64411-4 ####[facility] ([id number])[address] [place] [address] 91161 Sodium [Moles/Vol] 131 mmol/L Low 134-146 [facility] Comment on above: Performed By: #### Siva FRANKEL CMP, 92966-5 ####[facility] ([id number])[address] [place] [address] 57917 Urea nitrogen [Mass/Vol] 71 mg/dL High 5-23 [facility] Comment on above: Performed By: #### Siva FRANKEL CMP, ####[facility] ([id number])[address] [place] [address] CT ABDOMEN AND PELVIS WO CON Ton 09-03-2023 CT ABDOMEN AND PELVIS WO CONT CT ABDOMEN AND PELVIS WO CONT CLINICAL INFORMATION: Sepsis. TECHNIQUE: CT Abdomen and Pelvis without intravenous contrast. All CT scans at this facility use dose modulation, iterative reconstruction, and/or weight based dosing when appropriate to reduce radiation dose to as low as reasonably achievable. COMPARISON: No relevant prior studies available. FINDINGS: Lung bases show no acute findings No free air No free fluid Abdominal parenchymal organs grossly show no acute findings No evidence for small bowel obstruction No abscess. IMPRESSION: No acute findings. Finalized by Srikanth Godinez MD on 09/03/2023 1:13 AM Normal [facility] Glucose Glucometer (BldC) [M ass/Vol]on 09-03-2023 Glucose [Mass/Vol] 188 mg/dL High 65-99 [facility] Glucose [Mass/Vol] 170 mg/dL High 65-99 [facility] Glucose [Mass/Vol] 122 mg/dL High 65-99 [facility] MAGNESIUMon 09-03-2023 Magnesium [Mass/Vol] 2.5 mg/dL Normal 1.8-2.6 [facility] [place] Comment on above: Performed By: #### [facility] 54960-1 ####[facility] ([id number])[address] [place] [address] 49412 XR CHEST 1 VWon 09-03-2023 XR CHEST 1 VW XR CHEST 1 VW HISTORY: Hypotension COMPARISON: Chest x-ray 03/04/2008 FINDINGS: Portable AP upright view of the chest was performed. Cardiac silhouette is within normal limits. No significant airspace consolidation or vascular congestion. No pleural effusion or pneumothorax. IMPRESSION: * No acute abnormality. Finalized by Albert Vines MD on 09/03/2023 12:01 AM Normal [facility] XR KNEE RT 3 VWSon 4 XR KNEE RT 3 VWS XR KNEE RT 3 VWS HISTORY: Pain COMPARISON: None FINDINGS: Multiple views right knee were obtained. Osseous structures are intact with normal alignment. Tricompartmental osteoarthritis. Small joint effusion. No significant soft tissue swelling. IMPRESSION: * No acute osseous abnormality. Finalized by Albert Vines MD on 09/03/2023 12:03 AM Normal [facility] BLOOD CULTUREon 09-02-2023 Bacteria identified Aer cx Nom (Bld) SPECIMEN NOTES LFORE CULTURE RESULTS NO GROWTH 5 DAYS Normal [facility] Comment on above: Performed By: #### C BCA, PINR, 05504-3, CMP, 3040-3, 47653-2, 5643-2, 1987-, 84286-4, 66327-3, 2157-6, 21605-2, THYR #### [facility] ([id number]) [address] [place] [address] 88309 Bacteria identified Aer cx Nom (Bld) CULTURE RESULTS NO GROWTH 5 DAYS Normal [facility] CBC AND AUTO DIFFon 09-02-19 24 ABSOLUTE BASOPHIL 0.1 X10E9/L Normal 0.0-0.2 [facility] Comment on above: Performed By: #### C BCA, PINR, 32052-1, CMP, 3040-3, 65540-2, 5643-2, 1987-, 89719-9, 38823-6, 2157-6, 48176-6, THYR #### [facility] ([id number]) [address] [place] [address] [place] [address] ABSOLUTE NEUTROPHIL 6.8 X10E9/L High 1.5-6.6 [facility] Comment on above: Performed By: #### C BCA, PINR, 52316-9, CMP, 3040-3, 01090-8, 5643-2, 1987-, 18182-8, 91324-1, 2157-6, 15907-6, THYR #### [facility] ([id number]) [address] [place] [address] 09608 Basophils/100 WBC (Bld) 0.5 % Normal [facility] Comment on above: Performed By: #### C BCA, PINR, 29860-1, CMP, 3040-3, 95368-5, 5643-2, 1987-, 92632-4, 27729-0, 215-6, 52076-0, THYR #### [facility] ([id number]) [address] [place] [address] 04327 Eosinophils (Bld) [#/Vol] 0.2 10*3/uL Normal 0.0-0.4 [facility] Comment on above: Performed By: #### C BCA, PINR, 00057-5, CMP, 3040-3, 92862-0, 5643-2, 1987-09, , 85920-7, 2156-6, 11826-8, THYR #### [facility] ([id number]) [address] [place] [address] 13333 Eosinophils/100 WBC (Bld) 1.6 % Normal [facility] Comment on above: Performed By: #### C BCA, PINR, 54365-9, CMP, 3040-3, 95760-8, 5643-2, 1987-, 81879-7, 63535-6, 215-6, 15461-6, THYR #### [facility] ([id number]) [address] [place] [address] [place] [address] Erythrocyte distribution width (RBC) [Ratio] 17.3 % High 11.5-15.0 [facility] Comment on above: Performed By: #### C BCA, PINR, 16519-6, CMP, 3040-3, 11215-2, 5643-2, 1987-, 71889-0, 47363-5, 215-6, 61552-8, THYR #### [facility] ([id number]) [address] [place] [address] 37484 Hematocrit (Bld) [Volume fraction] 38.5 % Normal 35-47 [facility] Comment on above: Performed By: #### C BCA, PINR, 14198-0, CMP, 3040-3, 21098-7, 5643-2, 1987-, 53872-3, 37448-8, 2157-6, 84772-2, THYR #### [facility] ([id number]) [address] [place] [address] 75053 Hemoglobin (Bld) [Mass/Vol] 12.8 g/dL Normal 11.7-15.5 [facility] Comment on above: Performed By: #### C BCA, PINR, 92885-7, CMP, 3040-3, 78353-0, 5643-2, 1987-09, , 52912-9, 215-6, 51711-3, THYR #### [facility] ([id number]) [address] [place] [address] 43065 Lymphocytes (Bld) [#/Vol] 3.4 10*3/uL Normal 1.0-3.5 [facility] Comment on above: Performed By: #### C BCA, PINR, 86643-5, CMP, 3040-3, 16493-9, 5643-2, 1987-09, , 99961-7, 215-6, 13750-9, THYR #### [facility] ([id number]) [address] [place] [address] 34041 Lymphocytes/100 WBC (Bld) 28.9 % Normal [facility] Comment on above: Performed By: #### C BCA, PINR, 31298-8, CMP, 3040-3, 02391-8, 5643-2, 1987-09, 19004-7, 64074-4, 215-6, 51304-8, THYR #### [facility] ([id number]) [address] [place] [address] 69397 MCH (RBC) [Entitic mass] 27.7 pg Normal 27-34 [facility] Comment on above: Performed By: #### C BCA, PINR, 48927-7, CMP, 3040-3, 23122-9, 5643-2, 1987-, 15348-3, 77421-4, 2156-10, 79790-0, THYR #### [facility] ([id number]) [address] [place] [address] 29331 MCHC (RBC) [Mass/Vol] 33.3 g/dL Normal 32-36 [facility] Comment on above: Performed By: #### C BCA, PINR, 22790-0, CMP, 3040-3, 84148-4, 5643-2, 1987-, , 82481-7, 2156-10, 03441-9, THYR #### [facility] ([id number]) [address] [place] [address] 76853 MCV (RBC) [Entitic vol] 83 fL Normal 80-100 [facility] Comment on above: Performed By: #### C BCA, PINR, 29615-4, CMP, 3040-3, 28902-8, 5643-2, 1987-, , 04816-5, 2156-10, 18283-8, THYR #### [facility] ([id number]) [address] [place] [address] 29683 Monocytes (Bld) [#/Vol] 1.2 10*3/uL High 0-0.9 [facility] Comment on above: Performed By: #### C BCA, PINR, 48269-4, CMP, 3040-3, 89124-9, 5643-2, 1987-, , 09536-6, 2156-10, 37647-4, THYR #### [facility] ([id number]) [address] [place] [address] 18193 Monocytes/100 WBC (Bld) 10.6 % Normal [facility] Comment on above: Performed By: #### C BCA, PINR, 04572-1, CMP, 3040-3, 08289-8, 5643-2, 1987-, 13470-8, 59549-1, 2157-6, 57516-4, THYR #### [facility] ([id number]) [address] [place] [address] 83040 Neutrophils/100 WBC (Bld) 58.4 % Normal [facility] Comment on above: Performed By: #### C BCA, PINR, 04219-6, CMP, 3040-3, 35224-7, 5643-2, 1987-, 50539-2, 16625-5, 215-6, 34599-7, THYR #### [facility] ([id number]) [address] [place] [address] 20881 Platelet mean volume (Bld) [Entitic vol] 9.5 fL Normal 7-12 [facility] Comment on above: Performed By: #### C BCA, PINR, 77626-2, CMP, 3040-3, 90505-2, 5643-2, 1987-09, 09125-9, 27060-1, 215-6, 12258-1, THYR #### [facility] ([id number]) [address] [place] [address] [place] [address] Platelets (Bld) [#/Vol] 243 10*3/uL Normal 150-450 [facility] Comment on above: Performed By: #### C BCA, PINR, 94606-0, CMP, 3040-3, 46194-7, 5643-2, 1987-, 88236-1, 75176-9, 215-6, 36012-5, THYR #### [facility] ([id number]) [address] [place] [address], [place] [address] RBC COUNT 4.63 X10E12/L Normal 3.80-5.20 [facility] Comment on above: Performed By: #### C BCA, PINR, 56686-4, CMP, 3040-3, 69132-4, 5643-2, 1987-, 02944-6, 33598-1, 2157-6, 42945-8, THYR #### [facility] ([id number]) [address] [place] [address] 19744 WBC (Bld) [#/Vol] 11.6 10*3/uL High 4.0-11.0 [facility] Comment on above: Performed By: #### C BCA, PINR, 64037-6, CMP, 3040-3, 83105-6, 5643-2, 1987-, 03762-7, 22202-7, 2157-6, 26939-9, THYR #### [facility] ([id number]) [address] [place] [address] 48157 CK [Catalytic activity/Vol]o n 09-02-2023 CPK 69 U/L Normal 24-170 [facility] Comment on above: Performed By: #### C BCA, PINR, 66639-7, CMP, 3040-3, 69054-0, 5643-2, 1987-09, 42207-1, 29182-7, 2157-6, 97692-3, THYR ####[facility] ([id number])[address] [place] [address]8560 COMPREHENSIVE METABOLIC PANE Virgil 09-02-2023 Albumin [Mass/Vol] 3.6 g/dL Normal 3.2-5.3 [facility] Comment on above: Performed By: #### C BCA, PINR, 46997-9, CMP, 3040-3, 29718-8, 5643-2, 1987-09, 55016-1, 80159-0, 2157-6, 05828-3, THYR #### [facility] ([id number]) [address] [place] [address] 13647 ALP [Catalytic activity/Vol] 106 U/L Normal 39-130 [facility] Comment on above: Performed By: #### C BCA, PINR, 55231-0, CMP, 3040-3, 42953-7, 5643-2, 1987-09, 96497-8, 53594-1, 2157-6, 10220-7, THYR #### [facility] ([id number]) [address] [place] [address] 57011 ALT [Catalytic activity/Vol] 16 U/L Normal 0-31 [facility] Comment on above: Performed By: #### C BCA, PINR, 39642-6, CMP, 3040-3, 55092-1, 5643-2, 1987-09, , 42254-5, 2156-6, 18446-8, THYR #### [facility] ([id number]) [address] [place] [address] 16602 Anion gap [Moles/Vol] 8 mmol/L Normal 5-15 [facility] Comment on above: Performed By: #### C BCA, PINR, 69727-6, CMP, 3040-3, 40591-6, 5643-2, 1987-09, 84145-0, 43946-4, 215-6, 84912-5, THYR #### [facility] ([id number]) [address] [place] [address] [place] [address] AST [Catalytic activity/Vol] 15 U/L Normal 0-41 [facility] Comment on above: Performed By: #### C BCA, PINR, 13219-9, CMP, 3040-3, 67912-9, 5643-2, 1987-09, 34384-9, 59529-7, 215-6, 28145-7, THYR #### [facility] ([id number]) [address] [place] [address] 72771 Bilirubin [Mass/Vol] 0.3 mg/dL Normal 0.3-1.2 [facility] Comment on above: Performed By: #### C BCA, PINR, 85171-4, CMP, 3040-3, 03971-9, 5643-2, 1987-09, , , 2156-10, 69805-8, THYR #### [facility] ([id number]) [address] [place] [address], [place] [address] Calcium [Mass/Vol] 8.6 mg/dL Normal 8.5-10.5 [facility] Comment on above: Performed By: #### C BCA, PINR, 16376-0, CMP, 3040-3, 34597-1, 5643-, 1987-09, , , 2156-10, 99498-7, THYR #### [facility] ([id number]) [address] [place] [address] [place] [address] Chloride [Moles/Vol] 101 mmol/L Normal 98-109 [facility] [place] Comment on above: Performed By: #### C BCA, PINR, 86546-8, CMP, 3040-3, 31875-5, 5643-, 1987-09, , , 2156-10, 05276-4, THYR #### [facility] ([id number]) [address] [place] [address], [place] [address] CO2 [Moles/Vol] 20 mmol/L Low 22-32 [facility] Comment on above: Performed By: #### C BCA, PINR, 44503-5, CMP, 3040-3, 17674-3, 5643-2, 1987-09, , , 2156-10, 94555-0, THYR #### [facility] ([id number]) [address] [place] [address], [place] [address] Creatinine [Mass/Vol] 2.05 mg/dL High 0.40-1.00 [facility] Comment on above: Result Comment: METH OD TRACEABLE TO IDMS STANDARD Performed By: #### C BCA, PINR, 17005-7, CMP, 3040-3, 93155-4, 5643-2, 1987-09, 45241-7, 38705-3, 2157-6, 35872-8, THYR #### [facility] ([id number]) [address] [place] [address] GFR/1.73 sq M.predicted among non-blacks MDRD (S/P/Bld) [Vol rate/Area] 28 mL/min/{1.73_m2} Low >59 [facility] Comment on above: Result Comment: Reported eGFR is based on the CKD-EPI 2020 equation that does not use a race coefficient. Performed By: #### C JOSTIN, PINR, 09730-5, CMP, 3040-3, 55054-6, 5643-, 1987-09, , 21565-1, 215-6, 18670-1, THYR #### [facility] ([id number]) [address] [place] [address] Glucose [Mass/Vol] 69 mg/dL Normal 65-99 [facility] Comment on above: Performed By: #### C JOSTIN, PINR, 19216-2, CMP, 3040-3, 12715-4, 5643-2, 1987-09, , 52045-9, 215-6, 14653-1, THYR #### [facility] ([id number]) [address] [place] [address] Potassium [Moles/Vol] 3.8 mmol/L Normal 3.5-5.0 [facility] Comment on above: Performed By: #### C BCA, PINR, 26447-8, CMP, 3040-3, 56117-7, 5643-2, 1987-09, 04198-4, 92395-4, 2157-6, 02932-7, THYR #### [facility] ([id number]) [address] [place] [address] Protein [Mass/Vol] 6.8 g/dL Normal 6.0-8.0 [facility] Comment on above: Performed By: #### C BCA, PINR, 67974-3, CMP, 3040-3, 12274-4, 5643-2, 1987-, 28148-3, 92122-4, 2156-6, 74311-6, THYR #### [facility] ([id number]) [address] [place] [address] Sodium [Moles/Vol] 129 mmol/L Low 134-146 [facility] Comment on above: Performed By: #### C BCA, PINR, 30894-4, CMP, 3040-3, 64421-1, 5643-2, 1987-09, , 81782-2, 2156-10, 10119-3, THYR #### [facility] ([id number]) [address] [place] [address] [place] [address] Urea nitrogen [Mass/Vol] 73 mg/dL High 5-23 [facility] Comment on above: Performed By: #### C BCA, PINR, 01369-1, CMP, 3040-3, 58923-5, 5643-2, 1987-, 76643-0, 42570-8, 2156-6, 21797-9, THYR #### [facility] ([id number]) [address] [place] [address], [place] [address] CRP [Mass/Vol]on 09-02-2023 C REACTIVE PROTEIN 1.1 mg/dL High 0.000-0.744 [facility] Comment on above: Performed By: #### C BCA, PINR, 31184-3, CMP, 3040-3, 50628-7, 5643-2, 1987-, 48102-7, 65607-6, 2156-6, 35992-7, THYR #### [facility] ([id number]) [address] [place] [address] ETHANOLon 09-02-2023 Ethanol [Mass/Vol] mg/dL Normal 0.00-0.08 [facility] Comment on above: Result Comment: This report is intended for use in clinical monitoring or management of patients. Performed By: #### C BCA, PINR, 88105-5, CMP, 3040-3, 42659-7, 5643-2, 1987-09, 80500-5, 22755-4, 2157-6, 67365-9, THYR #### [facility] ([id number]) [address] [place] [address] LIPASEon 09-02-2023 Lipase [Catalytic activity/Vol] 50 U/L High 17-40 [facility] Comment on above: Performed By: #### C BCA, PINR, 87121-6, CMP, 3040-3, 03278-8, 5643-, 1987-09, 71999-0, 01149-3, 215-6, 69614-6, THYR #### [facility] ([id number]) [address] [place] [address] Lactate (P brinda) [Moles/Vol]o n 09-02-2023 LACTATE W/REFLEX 1.4 mmol/L Normal 0.4-2.0 [facility] Comment on above: Result Comment: Result did not trigger repeat Lactate, re-order if needed. Performed By: #### C BCA, PINR, 72549-0, CMP, 3040-3, 57266-9, 5643-2, 1987-09, , 09257-7, 215-6, 00805-5, THYR #### [facility] ([id number]) [address] [place] [address] MAGNESIUMon 09-02-2023 Magnesium [Mass/Vol] 2.4 mg/dL Normal 1.8-2.6 [facility] [place] Comment on above: Performed By: #### C BCA, PINR, 36521-6, CMP, 3040-3, 51221-6, 5643-2, 1987-09, 93063-6, 40656-7, 2157-6, 58635-3, THYR ####[facility] ([id number])[address] [place] [address] PROTIME AND INRon 09-02-2023 INR Coag (PPP) [Relative time] 1.1 {INR} Normal 0.8-1.1 [facility] Comment on above: Performed By: #### C BCA, PINR, 57418-3, CMP, 3040-3, 17180-2, 5643-2, 1987-09, 67130-7, 08542-5, 2157-6, 21604-8, THYR #### [facility] ([id number]) [address] [place] [address] PT Coag (PPP) [Time] 13.3 s High 9.8-13.2 [facility] [place] Comment on above: Result Comment: NEW REFERENCE RANGE Performed By: #### C BCA, PINR, 81374-2, CMP, 3040-3, 49400-3, 5643-, 1987-09, 61301-3, 57602-1, 2157-6, 85256-5, THYR #### [facility] ([id number]) [address] [place] [address] [place] [address] Procalcitonin IA [Mass/Vol]o n 09-02-2023 PROCALCITONIN 0.10 ng/mL High <0.05 [facility] Comment on above: Result Comment: NOTE <0.50 ng/mL - Low risk of severe sepsis and/or septic shock. <2.00 ng/mL - Recommend retesting within 6-24 hours. >2.00 ng/mL - High risk of sepsis and/or septic shock. Performed By: #### C BCA, PINR, 61131-2, CMP, 3040-3, 84921-5, 5643-2, 1987-, 01705-4, 27597-0, 2157-6, 53853-3, THYR ####[facility] ([id number])[address] [place] [address] THYROID PROFILEon 09-02-2023 Free T4 [Mass/Vol] 0.67 ng/dL Normal 0.61-1.60 [facility] Comment on above: Performed By: #### C BCA, PINR, 71208-3, CMP, 3040-3, 50990-4, 5643-2, 1987-09, 18059-7, 96347-7, 215-6, 59240-7, THYR ####[facility] ([id number])[address] [place] [address]84 TSH 5.55 uIU/mL High 0.49-4.67 [facility] Comment on above: Performed By: #### C BCA, PINR, 62174-5, CMP, 3040-3, 37605-5, 5643-2, 1987-09, 30599-8, 91028-7, 215-6, 42907-5, THYR ####[facility] ([id number])[address] [place] [address] TROPONIN Ion 09-02-2023 Troponin I.cardiac [Mass/Vol] 0.03 ng/mL Normal 0.00-0.04 [facility] Comment on above: Performed By: #### C BCA, PINR, 57035-4, CMP, 3040-3, 42598-8, 5643-2, 1987-09, 78274-2, 28453-4, 215-6, 55087-4, THYR ####[facility] ([id number])[address] [place] [address] 10472 aPTT Coag (PPP) [Time]on aPTT Coag (Bld) [Time] 36 s Normal 26-37 [facility] Comment on above: Result Comment: NEW REFERENCE RANGE Performed By: #### C BCA, PINR, 20765-3, CMP, 3040-3, 95186-1, 5643-2, 1988-5, 56253-7, 98579-3, 2157-6, 96710-3, THYR #### [facility] ([id number]) [address] [facility] [place] [address] CBC auto differentialon 07-25 Basophils (Bld) [#/Vol] 0.1 10*3/uL [facility] Basophils/100 WBC (Bld) 1.0 % [facility] Eosinophils (Bld) [#/Vol] 0.2 10*3/uL [facility] Eosinophils/100 WBC (Bld) 2.0 % [facility] Erythrocyte distribution width (RBC) [Ratio] 16.7 % High 11.5 - 15.0 % [facility] Hematocrit (Bld) [Volume fraction] 36.9 % 35 - 47 % [facility] Hemoglobin (Bld) [Mass/Vol] 12.2 g/dL 11.7 - 15.5 g/dL [facility] Interpretation and review of laboratory results Abnormal [facility] Lymphocytes (Bld) [#/Vol] 2.7 10*3/uL [facility] Lymphocytes/100 WBC (Bld) 32.3 % [facility] MCH (RBC) [Entitic mass] 28.2 pg 27 - 34 pg [facility] MCHC (RBC) [Mass/Vol] 33.1 g/dL 32 - 36 g/dL [facility] MCV (RBC) [Entitic vol] 85 fL 80 - 100 fL [facility] Monocytes (Bld) [#/Vol] 0.9 10*3/uL [facility] Monocytes/100 WBC (Bld) 11.4 % [facility] Neutrophils (Bld) [#/Vol] 4.4 10*3/uL [facility] Neutrophils/100 WBC (Bld) 53.3 % [facility] Platelet mean volume (Bld) [Entitic vol] 9.2 fL 7 - 12 fL [facility] Platelets (Bld) [#/Vol] 204 10*3/uL [facility] RBC (Bld) [#/Vol] 4.33 10*6/uL [facility] WBC corrected for nucl RBC Auto (Bld) [#/Vol] 8.2 [facility] Cobalamin (Vitamin B12) [Mas s/Vol]on 08-07-2023 [facility] Comprehensive metabolic pane virgil 08-07-2023 Albumin [Mass/Vol] 3.5 g/dL 3.2 - 5.3 g/dL [facility] ALP [Catalytic activity/Vol] 89 U/L 39 - 130 U/L [facility] ALT No additional P-5'-P [Catalytic activity/Vol] 15 U/L 0 - 31 U/L [facility] Anion gap [Moles/Vol] 8 mmol/L 5 - 15 mmol/L [facility] AST [Catalytic activity/Vol] 15 U/L 0 - 41 U/L [facility] Bilirubin [Mass/Vol] 0.4 mg/dL 0.3 - 1 .2 mg/dL [facility] Calcium [Mass/Vol] 8.6 mg/dL 8.5 - 10. 5 mg/dL [facility] Chloride [Moles/Vol] 101 mmol/L 98 - 10 9 mmol/L [facility] CO2 [Moles/Vol] 30 mmol/L 22 - 32 mmol/L [facility] Creatinine [Mass/Vol] 0.79 mg/dL 0.40 - 1.00 mg/dL [facility] Comment on above: METHOD TRACEABLE TO IDCA STANDARD eGFR (CKD-EPI)non-race dependent 88 - PINF [facility] Comment on above: Reported eGFR is based on the CKD-EPI 2020 equation that does not use a race coefficient. Glucose [Mass/Vol] 118 mg/dL High 65 - 99 mg/dL [facility] Potassium [Moles/Vol] 3.7 mmol/L 3.5 - 5.0 mmol/L [facility] Protein [Mass/Vol] 6.3 g/dL 6.0 - 8.0 g/dL [facility] Sodium [Moles/Vol] 139 mmol/L 134 - 146 mmol/L [facility] Urea nitrogen [Mass/Vol] 14 mg/dL 5 - 23 mg/dL [facility] Lipid 1996 panelon Cholesterol [Mass/Vol] 161 mg/dL 150 - 200 mg/dL [facility] Cholesterol in HDL [Mass/Vol] 46 mg/dL 39 - PINF mg/dL [facility] Comment on above: HDL <40 mg/dL - High Risk HDL > or = 40mg/dL- Desirable HDL >60 mg/dL - Negative Risk Cholesterol in LDL [Mass/Vol] 65 mg/dL NINF - 130 mg/dL [facility] Comment on above: LDL <100 mg/dL - Desirable LDL >160 mg/dL - High Risk Cholesterol in VLDL [Mass/Vol] 50 mg/dL High 0 - 30 mg/dL [facility] Cholesterol.total/Chol esterol in HDL [Mass ratio] 3.5 {ratio} 1.0 - 5.0 [facility] Triglyceride [Mass/Vol] 249 mg/dL High 27 - 150 mg/dL [facility] No Panel Informationon 08-06 Interpretation and review of laboratory results Abnormal [facility] Thyroid profile includes TSH FT4on 08-07-2023 Free T4 [Mass/Vol] 0.69 ng/dL 0.61 - 1. 60 ng/dL [facility] TSH Qn 4.16 m[IU]/L [facility] Vitamin B12on 08-07-2023 Cobalamin (Vitamin B12) [Mass/Vol] 579 pg/mL 180 - 914 pg/mL [facility] Vital Signs Date Time Vital Sign Value Performing Clinician [facility] 03-12-2024 11:02-0400 Body height 172.7 cm Pmh 1 [facility] 03-12-2024 11:02-0400 Body mass index (BMI) [Ratio] 36.95 kg/m2 Pmh 1 [facility] 03-12-2024 11:02-0400 Body weight 110.22 kg Pmh 1 [facility] 03-03-2024 11:03-0400 Body height 172.7 cm 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 Work Phone: [facility] 03-03-2024 11:03-0400 Body mass index (BMI) [Ratio] 37.1 kg/m2 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 Work Phone: [facility] 03-03-2024 11:03-0400 Body weight 110.68 kg 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 Work Phone: [facility] 03-03-2024 11:03-0400 Diastolic blood pressure 80 mm[Hg] 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 Work Phone: [facility] 03-03-2024 11:03-0400 Heart rate 82 /min 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 Work Phone: [facility] 03-03-2024 11:03-0400 Systolic blood pressure 130 mm[Hg] 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 Work Phone: [facility] 08-16-2023 10:23-0400 Body height 172.7 cm Jose Greenwood DO Work Phone: [facility] 08-16-2023 10:23-0400 Body mass index (BMI) [Ratio] 38.04 kg/m2 Jose Greenwood DO Work Phone: [facility] 08-16-2023 10:23-0400 Body temperature 98.1 [degF] Jose Greenwood DO Work Phone: [facility] 08-16-2023 10:23-0400 Body weight 113.49 kg Jose Yuhas DO Work Phone: [facility] [employer] 08-16-2023 10:23-0400 Diastolic blood pressure 70 mm[Hg] Jose Haass DO Work Phone: [facility] [employer] 08-16-2023 10:23-0400 Heart rate 72 /min Jose Haass DO Work Phone: [facility] [employer] 08-16-2023 10:23-0400 Respiratory rate 18 /min Jose Haass DO Work Phone: [facility] [employer] [facility] 08-16-2023 10:23-0400 SaO2% (BldA) [Mass fraction] 93 % Jose Haass DO Work Phone: [facility] [employer] [facility] 08-16-2023 10:23-0400 Systolic blood pressure 142 mm[Hg] Jose Greenwood DO Work Phone: [facility] [employer] [facility] 08-07-2023 13:46-0400 Body height 172.7 cm Jose Haass DO Work Phone: [facility] [employer] 08-07-2023 13:46-0400 Body mass index (BMI) [Ratio] 38.73 kg/m2 Jose Haass DO Work Phone: [facility] 08-07-2023 13:46-0400 Body temperature 98.1 [degF] Jose Greenwood DO Work Phone: [facility] 08-07-2023 13:46-0400 Body weight 115.53 kg Jose Haass DO Work Phone: [facility] [employer] [facility] 08-07-2023 13:46-0400 Diastolic blood pressure 72 mm[Hg] Jose Haass DO Work Phone: [facility] 08-07-2023 13:46-0400 Heart rate 65 /min Jose Haass DO Work Phone: [facility] [employer] [facility] 08-07-2023 13:46-0400 SaO2% (BldA) [Mass fraction] 95 % Jose Greenwood DO Work Phone: [facility] 08-07-2023 13:46-0400 Systolic blood pressure 118 mm[Hg] Jose Greenwood DO Work Phone: [facility] Encounters Encounter Date Encounter Type Care Provider Facility Start: 03-13-2024 End: 03-17-2024 Telephone encounter Iris Oliveros A [facility] General Surgery Start: 03-12-2024 End: 03-12-2024 ambulatory [facility] Start: 03-03-2024 End: 03-03-2024 Office outpatient new 30 minutes 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 Work Phone: [facility] Comment on above: Positive colorectal cancer screening using Cologuard test (Primary Dx) Start: 03-03-2024 End: 03-03-2024 ambulatory [facility] Rj STEVENSON [facility] Start: 12-29-2023 End: 01-02-2024 Emergency department patient visit ELIEZER LY[facility] Start: 12-29-2023 End: 01-01-2024 Evaluation and management of inpatient [facility] Start: 10-16-2023 End: 10-17-2023 Emergency department patient visit DANNI [facility] Start: 09-11-2023 Emergency department patient visit J[facility] Start: 09-11-2023 Emergency department patient visit JACKSON [facility] Start: 09-11-2023 End: 09-12-2023 Evaluation and management of inpatient LYNNETTE ASAFANJUM [facility] Start: 09-03-2023 End: 09-05-2023 Emergency department patient visit RAINER Hope MADELYN [facility] Start: 09-02-2023 End: 09-05-2023 Emergency department patient visit RAINER oHpe MADELYN [facility] Start: 09-02-2023 End: 09-04-2023 Evaluation and management of inpatient NO PCP NO PCP [facility] Start: 08-20-2023 Refill Therese Roc [facility] Comment on above: Chronic diastolic CH F (congestive heart failure) ([facility]) (Primary Dx) Start: 08-16-2023 End: 08-16-2023 Office outpatient visit 25 minutes Jose Paulino Krystyna DO Work Phone: [facility] Comment on above: Type 2 diabetes sagar itus without complication, with long-term current use of insulin ([facility]) (Primary Dx); Chronic diastolic CHF (congestive heart failure) ([facility]); Persistent depressive disorder; Essential hypertension; ULCIA (obstructive sleep apnea) Start: 08-07-2023 End: 08-07-2023 Office outpatient new 45 minutes Jose Jefferson Greenwood DO Work Phone: [facility] Comment on above: Type 2 diabetes sagar itus without complication, with long-term current use of insulin ([facility]) (Primary Dx); Paroxysmal atrial fibrillation ([facility]); Essential hypertension; Hyperlipidemia, unspecified hyperlipidemia type; B12 deficiency; Chronic bilateral low back pain, unspecified whether sciatica present Procedures Date Procedure Procedure Detail Performing Clinician Start: 08-16-2023 Adult depression screening assessment Jose Greenwood DO Work Phone: Start: 08-07-2023 Adult depression screening assessment Jose Greenwood DO Work Phone: Plan of Treatment Date Care Activity Detail Author Start: 03-12-2025 Adult BMI Screening Adult BMI Screen [facility] Start: 03-12-2025 Tobacco Screening Tobacco Screening [facility] Start: 03-03-2025 Adult BMI Screening Adult BMI Screen ing [facility] Start: 03-03-2025 Tobacco Screening Tobacco Screening [facility] Start: 08-15-2024 Adult BMI Screening Adult BMI Screen ing [facility] Start: 08-15-2024 Depression Screening Depression Scre [facility] Start: 08-15-2024 Tobacco Screening Tobacco Screening [facility] Start: 08-06-2024 Adult BMI Screening Adult BMI Screen ing [facility] Start: 08-06-2024 Depression Screening Depression Scre [facility] Start: 03-20-2024 End: 03-20-2024 Admission to same day surgery center 03/20/2024 10:00 AM EDT - 03/20/2024 10:30 AM EDT Surgery [facility] [address] [place] [address] Dallas French MD [address] [place] [id number] COLONOSCOPY DIAGNOSTIC / SCREENING [28305 (CPT )] [facility] Comment on above: COLONOSCOPY DIAGNOST IC / SCREENING [70165 (CPT )] Start: 03-20-2024 End: 03-20-2024 Colonoscopy flx dx w/collj spec when pfrmd COLONOSCOPY DIAGNOSTIC / SCREENING positive cologuard 03/20/2024 10:00 AM EDT [facility] Start: 03-20-2024 Subsequent hospital visit by physician 03/20/2024 10:00 AM EDT Hospital Encounter [facility] [address] [place] [phone] Dallas French MD [address] [phone] [facility] Start: 03-12-2024 End: 03-12-2024 ambulatory 03/12/2024 2:00 PM EDT Support Visit [facility] - Pre Admit [address] [place] [id number] [facility] Pre Admit Start: 01-26-2024 Influenza vaccination Influenza Vacc ine [facility] Start: 09-17-2023 End: 09-17-2023 Patient encounter procedure 09/17/2023 9:00 AM EDT Office Visit [facility] [address] [place] [phone] Jose Greenwood, DO [address] [place] [address] [facility] Start: 01-25-2023 Influenza vaccination Influenza Vacc ine [facility] Start: 10-26-2017 Administration of varicella zoster vaccine Zoster (Shingles) Vaccine (1 of 2) [facility] Start: 10-26-1988 Screening for malign ant neoplasm of cervix Pap Smear [facility] Start: 10-26-1986 DTaP,Tdap and Td Vaccines (1 - Tdap) DTaP,Tdap and Td Vaccines (1 - Tdap) [facility] Start: 10-26-1985 Adult BMI Follow Up Plan Adult BMI Follow Up Plan [facility] Start: 10-26-1985 Diabetic foot examination Diabetic Foot Exam [facility] Start: 1979 Tobacco Screening Tobacco Screening [facility] Start: 1967 Glaucoma screening Diabetic Op hthalmology Exam [facility] Start: 1967 Urine screening for protein Urine Microalbumin [facility] End: 03-03-2025 Colonoscopy Colonoscopy GI Routine Positive colorectal cancer screening using Cologuard test 1 Occurrences starting 03/03/2024 until 03/03/2025 [employer] Work Phone: Comment on above: 1 Occurrences starti ng 03/03/2024 until 03/03/2025 End: 08-06-2024 Hemoglobin A1c/Hemoglobin.total in Blood Hemoglobin A1c Lab Routine Type 2 Diabetes Mellitus Without Complication, With Long-Term Current Use Of Insulin ([facility]) 1 Occurrences starting 08/07/2023 until 08/06/2024 [employer] Work Phone: Comment on above: 1 Occurrences starti ng 08/07/2023 until 08/06/2024 Hemoglobin A1c/Hemoglobin.total in Blood Hemoglobin A1c Lab Routine Type 2 diabetes mellitus without complication, with long-term current use of insulin ([facility]) 08/07/2023 10:40 PM EDT [facility] Payers Date Payer Category [facility] [employer] [id number] 2023 Unknown [id number] 2023 Private Health Insurance [id number] 2023 Unknown [id number] 1967 Unknown [id number] 2.16.840.1.516543.3.579. 2.1285 1967 Unknown [id number] 2.16.840.1.211081.3.579. 2.1285 1967 Unknown [id number] 2.16.840.1.049129.3.579. 2.1285 1967 Unknown [id number] 2.16.840.1.178977.3.579. 2.1285 1967 Unknown [id number] 2.16.840.1.752798.3.579. 2.1285 1967 Unknown [id number] 2.16.840.1.653500.3.579. 2.1285 1967 Unknown [id number] 2.16.840.1.285896.3.579. 2.1285 1967 Unknown [id number] 2.16.840.1.237599.3.579. 2.1285 1967 Unknown [id number] 2.16.840.1.388209.3.579. 2.1285 1967 Unknown [id number] 2.16.840.1.339206.3.579. 2.1286 Social History Date Type Detail Facility Start: 08-07-2023 End: 03-12-2024 Tobacco smoking status NHIS Ex-smoker [facility] Start: 05-27-1993 End: 05-27-2023 History of tobacco use Current smoker [facility] Start: 05-27-1993 End: 05-27-2023 History of tobacco use Cigarette Smoker [facility] Start: 08-07-2023 End: 12-29-2023 Cigarettes smoked current (pack per day) - Reported 1 [facility] Start: 08-07-2023 End: 03-12-2024 Tobacco use and exposure Smokeless tobacco non-user [facility] Start: 08-07-2023 End: 03-12-2024 Alcohol intake Ex-drinker (finding) [facility] Start: 08-07-2023 End: 12-29-2023 Tobacco use panel [facility] Adolescent depressio n screening assessment 0 [facility] Start: 1965 Sex Assigned At Not on file P [facility] Has the electric, [employer] s, oil, or water company threatened to shut off services in your home in past 12Mo No [facility] Start: 12-30-2014 Sex Female (finding) [facility] Medical Equipment Procedure Code Equipment Code Equipment Origin al Text Equipment Identifier Dates USE THREE TIMES DAILY DIRECTED [id number] Start: 08-05-2023 Goals Date Patient Goal Desired Activity /State Personal health goal Comment on above: Formatting of this n ote might be different from the original. Evaluation of progress towards goal: home and denies need for home services Clinical Notes 08-07-2023 to 03-13-2024 Telephone Encounter - Iris Oliveros, [facility] - 03/13/2024 1:54 PM EDTTelephone Encounter - Desi Keene, [facility] - 03/13/2024 1:54 PM PETETJames Stevenson [facility] - 03/03/2024 11:00 AM EDT Note Date & Type Note Facility 03-13-2024 Miscellaneous Notes Irma from [facility] Financial Department called to inform us that patient - Leah Chamberlain's insurance / [place] [facility]. Patient's surgery is 03/20/24 - colonoscopy with Dr. French. I called [facility] schedule coordinator and cancelled the procedure. I also called the patient to inform her that [facility] didn't accept her insurance. I also offered my assistance in finding another facility to which she could go. I called patient to see if she wanted to go to [facility] with Dr. Barrett since her insurance is not accepted by [facility]. Patient stated she has an appointment with someone in [place]. I told her if she needed anything else from our office to give us a call. Patient verbalized understanding. documented in this encounter [facility] 03-13-2024 Telephone encounter Note Irma from [facility] Financial Department called to inform us that patient - Leah Chamberlain's insurance / [place] was not accepted through [facility]. Patient's surgery is 03/20/24 - colonoscopy with Dr. French. I called [facility] schedule coordinator and cancelled the procedure. I also called the patient to inform her that [facility] didn't accept her insurance. I also offered my assistance in finding another facility to which she could go. [facility] 03-13-2024 Telephone encounter Note I called patient to see if she wanted to go to [facility] with Dr. Barrett since her insurance is not accepted by [facility]. Patient stated she has an appointment with someone in [place]. I told her if she needed anything else from our office to give us a call. Patient verbalized understanding. [facility] 03-12-2024 Miscellaneous Notes Preoperative Education Checklist- General Surgery date: 03/20/24 Surgery time: 1000 Arrival time: 0800 1. Bring a photo ID and your insurance card with you the day of surgery. You will check in at the main lobby of the [facility]- registration desk is straight ahead as soon as you walk in. Tell them you are here for surgery. 2. If you have a Living Will/Durable Power of Track Inspecting Supervisor for Health Care that is not on file here, please bring a copy the day of surgery. 3. Please shower/bathe the night before surgery with the provided soap or wipes. Do not shower the morning of surgery- you will do use wipes when you arrive here at the hospital before getting into your surgical gown. Do not shave the area of your procedure for 2 days prior to your surgery. 4. NO powder, lotion, perfume/cologne, aftershave, make-up, deodorant, or hair products after you have bathed. 5. NO nail fijian/acrylic on at least one finger. If you are having a hand, wrist or foot surgery then all nail fijian and artificial/acrylic nails must be removed from that hand or foot. 6. Avoid ALL Aspirin and non-steroidal anti-inflammatory drugs and certain vitamins (Ibuprofen, Advil, Aleve, Excedrin, Meloxicam, Celebrex, fish/krill oil, etc.) for 7 days prior to surgery as instructed by your surgeon and/or your prescribing doctor. Tylenol IS ALLOWED. If you are on Ticlid, Xarelto, Eliquis, Pradaxa, Plavix or Coumadin, please check with your prescribing doctor for instructions for when to stop them. 7. If you use an inhaler, continue to use it routinely. 8. Nothing to eat or drink (not even water, gum, mints, or hard candy!) AFTER midnight prior to your surgery. 9. Take only medications that you are instructed to on the morning of surgery with a TINY SIP OF WATER. 10. Choose a responsible adult that will be able to drive you home when you are discharged from your hospital stay for your surgery and can stay with you in your home for 24 hours after your procedure. You must NOT drive any vehicle or operate any machinery for 24 hours after surgery. 11. When you dress for your appointment, please wear loose fitting clothing that is appropriate to accommodate your surgical area procedure. BRING WITH YOU ANY DEVICES YOU MAY NEED: ROSA hose, ice machine, sling/swath, brace or special shoe, oversized zip-up or button up shirt, CPAP machine if staying overnight. 12. Do NOT wear jewelry, watches, or any piercings or metal for surgery- leave these valuables and money at home. 13. Do NOT wear contact lenses for surgery- glasses are okay if needed. 14. The anesthesiologist will talk with you the day of surgery and will ask you to sign a Consent Form. 15. Refrain from smoking or any type of tobacco use for at least 8 hours and marijuana for 24 hours prior to arrival for your surgery. 16. If a GREEN BLOOD band is given to you, please bring it with you for the day of surgery. 17. Notify your surgeon if you develop any illness before your surgery. 18. If you are staying overnight, please DO NOT BRING your home medications with you. 19. If you have any questions prior to surgery, please call the Preadmission Testing office at [phone], Mon.-Fri. 7 a.m.-3 p.m. Leave a voicemail if needed. Pre-Surgery Instructions: Medication Instructions ARIPiprazole (ABILIFY) 10 mg tablet Stop taking 0 days prior to procedure aspirin 81 mg chewable tablet Stop taking 1 week prior to procedure atorvastatin (LIPITOR) 20 mg tablet Stop taking 0 days prior to procedure cloNIDine (CATAPRES) 0.1 mg tablet Stop taking 0 days prior to procedure DULoxetine (CYMBALTA) 60 mg capsule Stop taking 0 days prior to procedure DULoxetine (CYMBALTA) 60 mg capsule Stop taking 0 days prior to procedure EASY TOUCH INSULIN SYRINGE 1 mL 30 gauge x 1/2 syringe Stop taking 0 days prior to procedure ELIQUIS 5 mg tablet Check with prescribing doctor for instructions FARXIGA 10 mg tablet Stop taking 3 days prior to procedure gabapentin (NEURONTIN) 300 mg capsule Stop taking 0 days prior to procedure insulin detemir U-100 (LEVEMIR U-100 INSULIN) 100 unit/mL injection Take last dose day before procedure- half of regular dose, 25 units insulin regular (HumuLIN R Regular U-100 Insuln) 100 unit/mL injection Stop taking 0 days prior to procedure ipratropium-albuteroL (DUONEB) 0.5 mg-3 mg(2.5 mg base)/3 mL nebulizer Stop taking 0 days prior to procedure lisinopriL (PRINIVIL,ZESTRIL) 40 mg tablet Stop taking 0 days prior to procedure metoprolol tartrate (LOPRESSOR) 100 mg tablet Take morning of procedure OXcarbazepine (TRILEPTAL) 300 mg tablet Take morning of procedure potassium chloride (KLOR-CON SPRINKLE) 10 MEQ CR capsule Stop taking 0 days prior to procedure sod sulf-pot chloride-mag sulf 1.479-0.188- 0.225 gram tablet Stop taking 0 days prior to procedure spironolactone (ALDACTONE) 25 mg tablet Stop taking 0 days prior to procedure TRULICITY 1.5 mg/0.5 mL pen injector Stop taking 1 week prior to procedure VENTOLIN HFA 90 mcg/actuation inhaler Stop taking 0 days prior to procedure documented in this encounter [employer] 03-12-2024 Nurse Note Preoperative Education Checklist- General Surgery date: 03/20/24 Surgery time: 1000 Arrival time: 0800 1. Bring a photo ID and your insurance card with you the day of surgery. You will check in at the main lobby of the [facility]- registration desk is straight ahead as soon as you walk in. Tell them you are here for surgery. 2. If you have a Living Will/Durable Power of Track Inspecting Supervisor for Health Care that is not on file here, please bring a copy the day of surgery. 3. Please shower/bathe the night before surgery with the provided soap or wipes. Do not shower the morning of surgery- you will do use wipes when you arrive here at the hospital before getting into your surgical gown. Do not shave the area of your procedure for 2 days prior to your surgery. 4. NO powder, lotion, perfume/cologne, aftershave, make-up, deodorant, or hair products after you have bathed. 5. NO nail fijian/acrylic on at least one finger. If you are having a hand, wrist or foot surgery then all nail fijian and artificial/acrylic nails must be removed from that hand or foot. 6. Avoid ALL Aspirin and non-steroidal anti-inflammatory drugs and certain vitamins (Ibuprofen, Advil, Aleve, Excedrin, Meloxicam, Celebrex, fish/krill oil, etc.) for 7 days prior to surgery as instructed by your surgeon and/or your prescribing doctor. Tylenol IS ALLOWED. If you are on Ticlid, Xarelto, Eliquis, Pradaxa, Plavix or Coumadin, please check with your prescribing doctor for instructions for when to stop them. 7. If you use an inhaler, continue to use it routinely. 8. Nothing to eat or drink (not even water, gum, mints, or hard candy!) AFTER midnight prior to your surgery. 9. Take only medications that you are instructed to on the morning of surgery with a TINY SIP OF WATER. 10. Choose a responsible adult that will be able to drive you home when you are discharged from your hospital stay for your surgery and can stay with you in your home for 24 hours after your procedure. You must NOT drive any vehicle or operate any machinery for 24 hours after surgery. 11. When you dress for your appointment, please wear loose fitting clothing that is appropriate to accommodate your surgical area procedure. BRING WITH YOU ANY DEVICES YOU MAY NEED: ROSA hose, ice machine, sling/swath, brace or special shoe, oversized zip-up or button up shirt, CPAP machine if staying overnight. 12. Do NOT wear jewelry, watches, or any piercings or metal for surgery- leave these valuables and money at home. 13. Do NOT wear contact lenses for surgery- glasses are okay if needed. 14. The anesthesiologist will talk with you the day of surgery and will ask you to sign a Consent Form. 15. Refrain from smoking or any type of tobacco use for at least 8 hours and marijuana for 24 hours prior to arrival for your surgery. 16. If a GREEN BLOOD band is given to you, please bring it with you for the day of surgery. 17. Notify your surgeon if you develop any illness before your surgery. 18. If you are staying overnight, please DO NOT BRING your home medications with you. 19. If you have any questions prior to surgery, please call the Preadmission Testing office at [phone], Mon.-Fri. 7 a.m.-3 p.m. Leave a voicemail if needed. Pre-Surgery Instructions: Medication Instructions ARIPiprazole (ABILIFY) 10 mg tablet Stop taking 0 days prior to procedure aspirin 81 mg chewable tablet Stop taking 1 week prior to procedure atorvastatin (LIPITOR) 20 mg tablet Stop taking 0 days prior to procedure cloNIDine (CATAPRES) 0.1 mg tablet Stop taking 0 days prior to procedure DULoxetine (CYMBALTA) 60 mg capsule Stop taking 0 days prior to procedure DULoxetine (CYMBALTA) 60 mg capsule Stop taking 0 days prior to procedure EASY TOUCH INSULIN SYRINGE 1 mL 30 gauge x 1/2 syringe Stop taking 0 days prior to procedure ELIQUIS 5 mg tablet Check with prescribing doctor for instructions FARXIGA 10 mg tablet Stop taking 3 days prior to procedure gabapentin (NEURONTIN) 300 mg capsule Stop taking 0 days prior to procedure insulin detemir U-100 (LEVEMIR U-100 INSULIN) 100 unit/mL injection Take last dose day before procedure- half of regular dose, 25 units insulin regular (HumuLIN R Regular U-100 Insuln) 100 unit/mL injection Stop taking 0 days prior to procedure ipratropium-albuteroL (DUONEB) 0.5 mg-3 mg(2.5 mg base)/3 mL nebulizer Stop taking 0 days prior to procedure lisinopriL (PRINIVIL,ZESTRIL) 40 mg tablet Stop taking 0 days prior to procedure metoprolol tartrate (LOPRESSOR) 100 mg tablet Take morning of procedure OXcarbazepine (TRILEPTAL) 300 mg tablet Take morning of procedure potassium chloride (KLOR-CON SPRINKLE) 10 MEQ CR capsule Stop taking 0 days prior to procedure sod sulf-pot chloride-mag sulf 1.479-0.188- 0.225 gram tablet Stop taking 0 days prior to procedure spironolactone (ALDACTONE) 25 mg tablet Stop taking 0 days prior to procedure TRULICITY 1.5 mg/0.5 mL pen injector Stop taking 1 week prior to procedure VENTOLIN HFA 90 mcg/actuation inhaler Stop taking 0 days prior to procedure [facility] 03-03-2024 History of Presen t illness Narrative Images from the original note were not included. Chief Complaint: Positive Cologuard History of Present Illness Leah Chamberlain is a 58 y.o. female who presents to the office for positive Cologuard. Her last colonoscopy was 10 years ago. She denies diarrhea, constipation, abdominal pain, melena, hematochezia, unexplained weight loss. There is no family history of colon cancer. She has a history of atrial fibrillation and is on Eliquis. Review of Systems Constitutional: Negative for fever and unexpected weight change. HENT: Negative for trouble swallowing. Respiratory: Negative for shortness of breath. Cardiovascular: Negative for chest pain. Gastrointestinal: Negative for nausea, vomiting, abdominal pain, diarrhea, constipation, blood in stool and black tarry stool. Genitourinary: Negative for dysuria and difficulty urinating. Musculoskeletal: Negative for gait problem. Skin: Negative for rash and wound. Neurological: Negative for dizziness, weakness and light-headedness. Hematological: Does not bruise/bleed easily. Psychiatric/Behavioral: Negative for confusion. Past Medical History: Diagnosis Date A-fib ([facility]) Arthritis Asthma Depression Dysthymic disorder Hyperlipidemia Hypertension Type 1 diabetes mellitus with diabetic polyneuropathy, with long-term current use of insulin ([facility]) Past Surgical History: Procedure Laterality Date ARTHROSCOPY KNEE Right BACK SURGERY BREAST LUMPECTOMY Right CARDIAC CATHETERIZATION 2019 CARPAL TUNNEL RELEASE Left SECTION CHOLECYSTECTOMY HYSTERECTOMY NECK SURGERY 2012 x2 OTHER SURGICAL HISTORY Throat Lumpectomy RECTAL PROLAPSE REPAIR SHOULDER ARTHROSCOPY Bilateral TONSILLECTOMY TUBAL LIGATION Allergies Allergen Reactions Sulfa (Sulfonamide Antibiotics) Hives Other reaction(s): Not available Current Outpatient Medications: ARIPiprazole (ABILIFY) 10 mg tablet, Take 0.5 tablets (5 mg total) by mouth in the morning., Disp: 15 tablet, Rfl: 0 atorvastatin (LIPITOR) 20 mg tablet, Take 1 tablet (20 mg total) by mouth nightly., Disp: , Rfl: cloNIDine (CATAPRES) 0.1 mg tablet, Take 1 tablet (0.1 mg total) by mouth in the morning and 1 tablet (0.1 mg total) at noon and 1 tablet (0.1 mg total) in the evening. Take before meals., Disp: , Rfl: DULoxetine (CYMBALTA) 60 mg capsule, Take 1 capsule (60 mg total) by mouth in the morning and 1 capsule (60 mg total) before bedtime., Disp: , Rfl: DULoxetine (CYMBALTA) 60 mg capsule, Take 1 capsule (60 mg total) by mouth in the morning., Disp: , Rfl: EASY TOUCH INSULIN SYRINGE 1 mL 30 gauge x 1/2 syringe, USE THREE TIMES DAILY DIRECTED, Disp: , Rfl: ELIQUIS 5 mg tablet, Take 1 tablet (5 mg total) by mouth in the morning and 1 tablet (5 mg total) before bedtime., Disp: , Rfl: FARXIGA 10 mg tablet, Take 1 tablet (10 mg total) by mouth in the morning., Disp: , Rfl: gabapentin (NEURONTIN) 300 mg capsule, Take 1 capsule (300 mg total) by mouth in the morning and at bedtime., Disp: , Rfl: insulin detemir U-100 (LEVEMIR U-100 INSULIN) 100 unit/mL injection, Inject 0.56 mL (56 Units total) under the skin in the morning and 0.56 mL (56 Units total) before bedtime., Disp: 10 mL, Rfl: 1 insulin regular (HumuLIN R Regular U-100 Insuln) 100 unit/mL injection, Inject 0.05 mL (5 Units total) under the skin in the morning and 0.05 mL (5 Units total) at noon and 0.05 mL (5 Units total) in the evening. Inject before meals., Disp: 10 mL, Rfl: 0 ipratropium-albuteroL (DUONEB) 0.5 mg-3 mg(2.5 mg base)/3 mL nebulizer, Inhale 3 mL by nebulization 4 (four) times a day as needed for shortness of breath., Disp: , Rfl: lisinopriL (PRINIVIL,ZESTRIL) 40 mg tablet, Take 1 tablet (40 mg total) by mouth in the morning., Disp: , Rfl: metoprolol tartrate (LOPRESSOR) 100 mg tablet, TAKE 1 TABLET BY MOUTH TWICE DAILY (Patient taking differently: Take 1 tablet (100 mg total) by mouth in the morning and 1 tablet (100 mg total) before bedtime. TAKE 1 TABLET BY MOUTH TWICE DAILY.), Disp: 180 tablet, Rfl: 0 OXcarbazepine (TRILEPTAL) 300 mg tablet, Take 1 tablet (300 mg total) by mouth in the morning., Disp: , Rfl: potassium chloride (KLOR-CON SPRINKLE) 10 MEQ CR capsule, Take 1 capsule (10 mEq total) by mouth in the morning and 1 capsule (10 mEq total) before bedtime., Disp: , Rfl: spironolactone (ALDACTONE) 25 mg tablet, Take 0.5 tablets (12.5 mg total) by mouth in the morning., Disp: 45 tablet, Rfl: 1 TRULICITY 1.5 mg/0.5 mL pen injector, , Disp: , Rfl: VENTOLIN HFA 90 mcg/actuation inhaler, Inhale 2 puffs 4 (four) times a day as needed for wheezing., Disp: 18 g, Rfl: 2 aspirin 81 mg chewable tablet, Chew 1 tablet (81 mg total) and swallow in the morning. (Patient not taking: Reported on 03/03/2024), Disp: , Rfl: sod sulf-pot chloride-mag sulf 1.479-0.188- 0.225 gram tablet, Please see instructional sheet given by physicians office., Disp: 24 tablet, Rfl: 0 Social History Socioeconomic History Marital status: Spouse name: Not on file Number of children: Not on file Years of education: Not on file Highest education level: Not on file Occupational History Not on file Tobacco Use Smoking status: Former Current packs/day: 0.00 Average packs/day: 1 pack/day for 30.0 years (30.0 ttl pk-yrs) Types: Cigarettes Start date: 05/27/1993 Quit date: 05/27/2023 Years since quittin.7 Smokeless tobacco: Never Vaping Use Vaping status: Never Used Substance and Sexual Activity Alcohol use: Not Currently Drug use: Yes Types: Marijuana Sexual activity: Yes Partners: Male control/protection: None Other Topics Concern Not on file Social History Narrative Not on file Social Determinants of Health Financial Resource Strain: Not on file Food Insecurity: No Food Insecurity (12/29/2023) Hunger Screening Food Insecurity - Worry: Never True Food Insecurity - Inability: Never True Transportation Needs: No Transportation Needs (12/29/2023) PRAPARE - Transportation Lack of Transportation (Medical): No Lack of Transportation (Non-Medical): No Physical Activity: Not on file Stress: Not on file Social Connections: Not on file Interpersonal Safety: Not At Risk (12/29/2023) Humiliation, Afraid, Rape, and Kick questionnaire Fear of Current or Ex-Partner: No Emotionally Abused: No Physically Abused: No Sexually Abused: No Housing Instability: Low Risk (12/29/2023) Housing Instability Housing Instability: No Family History Problem Relation Age of Onset Hypertension Mother Diabetes Mother Arthritis Mother Hodgkin's lymphoma Mother Hypertension Father Diabetes Father Heart failure Father Diabetes Sister Heart failure Sister Asthma Son Objective Physical Exam Constitutional: General: She is not in acute distress. Appearance: Normal appearance. She is not ill-appearing. HENT: Head: Normocephalic and atraumatic. Mouth/Throat: Mouth: Mucous membranes are moist. Eyes: Pupils: Pupils are equal, round, and reactive to light. Cardiovascular: Rate and Rhythm: Normal rate. Pulmonary: Effort: Pulmonary effort is normal. No respiratory distress. Abdominal: General: There is no distension. Musculoskeletal: General: Normal range of motion. Skin: General: Skin is warm and dry. Neurological: Mental Status: She is alert and oriented to person, place, and time. Mental status is at baseline. Vital Signs: Blood pressure 130/80, pulse 82, height 172.7 cm (5' 8 ), weight 110.7 kg (244 lb). Respiratory Source: No data recorded Admission Weight: Weight: 110.7 kg (244 lb) Labs Lab Results Component Value Date WBC 11.9 (H) 01/01/2024 HGB 12.9 01/01/2024 HCT 39.6 01/01/2024 MCV 86 01/01/2024 PLT 197 01/01/2024 Lab Results Component Value Date GLU 97 01/01/2024 CALCIUM 8.8 01/01/2024 K 3.6 01/01/2024 CO2 27 01/01/2024 CL 99 01/01/2024 BUN 15 01/01/2024 CREATININE 0.70 01/01/2024 No results found for: AMYLASE Lab Results Component Value Date LIPASE 47 (H) 12/29/2023 Lab Results Component Value Date ALT 19 01/01/2024 AST 16 01/01/2024 ALKPHOS 94 01/01/2024 Lab Results Component Value Date INR 1.1 09/02/2023 PROTIME 13.3 (H) 09/02/2023 Assessment Leah Chamberlain is a 58 y.o.female with positive Cologuard. Plan Colonoscopy with possible biopsy and/or polypectomy. Risks, benefits, and alternatives discussed with patient. Educated on bowel evacuation preparation. Patient verbalizes understanding and wishes to proceed. Hold Eliqus 2 days prior. Evaluation included: Preparing to see the patient (e.g., review of tests) Obtaining and/or reviewing separately obtained history Performing a medically appropriate examination and/or evaluation Counseling and educating the patient/family/caregiver Referring and communicating with other health manager medicare Positive colorectal cancer screening using Cologuard test [R19.5] JUDY MARTINEZ [facility] General Surgery [place] This note was created with the assistance of a speech recognition program. While intending to generate a timely document that accurately reflects the content of the visit, no guarantee can be provided that every grammatical or spelling mistake has been or will be identified or corrected. Thank you for your understanding. JUDY Martinez 03/03/24 1128 documented in this encounter [facility] 10-16-2023 Note XR CHEST 2 VWS Procedure: Chest x-ray performed Number of views:PA and lateral History:Pain Comparison:09/02/2023 Findings: The heart and lungs show no acute findings, and the mediastinum and valeria are grossly negative . Impression: No acute change. Finalized by Dulce Maria Caro DO on 10/16/2023 12:34 PM [facility] 09-12-2023 Note Hospital Medicine Discharge Summary Final Discharge Diagnosis: Choking due to food in larynx, initial encounter Admission Diagnosis: Choking due to food in larynx, initial encounter [T17.320A, [id number]] Hospital course: 57 y.o. female who came from community following choking episode at [facility]. Patient reportedly received CPR for being unresponsive when choking on steak, steak was removed via Heimlich and patient reportedly unresponsive immediately after. CPR was then initiated. Upon presentation to the ED, patient was alert and oriented however endorsed a great deal of pain, chest pain, and has bruising to the chest. Patient worked up for myocardial contusion, rib fractures, hemothorax, and pulmonary contusion. ED workup shows VBG with venous pH 7.34, venous pCO2 54, venous pO2 58, and venous O2 sat 88%. Auto WBC 15.76. Troponin 0.03, unremarkable. BMP unremarkable with exception of mildly elevated glucose 146. ECG shows normal sinus rhythm. CT chest negative for acute cardiopulmonary process. Bilateral lower lobe, middle lobe and lingular atelectasis. Upon my assessment, patient is lethargic/somnolent but awakens to verbal stimuli. She reports continued musculoskeletal pain across chest, denies shortness of breath/dyspnea. Patient fell asleep numerous times through assessment. Heart sounds linden, lungs CTA bilaterally with exception of wheezing noted in right upper lobe. No edema in bilateral lower extremities. Patient does not appear to be in any immediate distress and satting in 90s on O2 via nasal cannula. Patient held for observation due to hypoxia. # Choking due to food in larynx. # Hypoxia, resolved. # Musculoskeletal chest pain due to CPR: - CT chest showed no ribs fractures. - EKG and trops are negative. - Pain control. # Paroxysmal A.fib, currently in NSR: - Resume Eliquis. # IDDM2, on Lantus. # HTN: - Continue clonidine and lisinopril. Dear TATYANA Lundy Jill is advised to follow up with you within 1-2 weeks. Follow-up with: None Scheduled appointments: No future appointments. Your medication list START taking these medications Instructions Last Dose Given Next Dose Due HYDROcodone-acetaminophen 5-325 mg tablet Commonly known as: [facility] Take 1-2 tablets by mouth every 6 (six) hours if needed for severe pain (8-10 pain score) or moderate pain (4-7 pain score) for up to 5 days. CONTINUE taking these medications Instructions Last Dose Given Next Dose Due albuterol 90 mcg/actuation inhaler apixaban 5 mg tablet Commonly known as: Eliquis ARIPiprazole 10 mg tablet Commonly known as: Abilify aspirin 81 mg EC tablet atorvastatin 20 mg tablet Commonly known as: Lipitor cloNIDine 0.1 mg tablet Commonly known as: Catapres DULoxetine [address] capsule Commonly known as: Cymbalta empagliflozin 10 mg Commonly known as: Jardiance gabapentin 300 mg capsule Commonly known as: Neurontin insulin glargine 100 unit/mL injection vial Commonly known as: Lantus ipratropium-albuteroL 0.5-2.5 mg/3 mL nebulizer solution Commonly known as: Duo-Neb lansoprazole [address] capsule Commonly known as: Prevacid lisinopril 40 mg tablet metoprolol tartrate 100 mg tablet Commonly known as: Lopressor OXcarbazepine 300 mg tablet Commonly known as: Trileptal potassium chloride CR 10 mEq ER tablet Commonly known as: Klor-Con M10 spironolactone 25 mg tablet Commonly known as: Aldactone Where to Get Your Medications These medications were sent to [facility] - [address] [place] [address] [place] [address], [facility] [address] HYDROcodone-acetaminophen 5-325 mg tablet Leah is allergic to sulfa (sulfonamide antibiotics). Disposition: Home or Self Care () Discharge Condition: Stable Code Status: Prior Diagnostic Results Hematology: Results from last 7 days Lab Units 09/11/231913 WBC AUTO 10*3/uL 15.76* HEMOGLOBIN g/dL 12.7 HEMATOCRIT % 38.9 MCV fL 85.5 PLATELETS AUTO 10*3/uL 194 Chemistry: Results from last 7 days Lab Units 09/11/231913 SODIUM mmol/L 139 POTASSIUM mmol/L 3.9 CHLORIDE mmol/L 102 CO2 mmol/L 24 BUN mg/dL 17 CREATININE mg/dL 0.71 GLUCOSE mg/dL 146* CALCIUM mg/dL 8.7 No lab exists for component: AFIO2 , APHT , APCOT , APOT , ATCO2 , CK , ALB , IBILI Test Results Pending At Discharge: Diet at the time of discharge: cardiac diet and diabetic diet Nutrition Screen Activity: Normal activity as tolerated Objective Blood pressure 174/81, pulse 85, temperature 36.7 ???C (98.1 ???F), temperature source Oral, resp. rate 16, height 1.727 m (5' 8 ), weight 110 kg (243 lb), SpO2 96 %. General: Alert and oriented x3. Cardiology: Normal rate, regular rhythm. Lungs: Clear to auscultation, no wheezes, rales or rhonchi, symmetric air entry. Abdomen: Soft, non tender, non distended. Total t (more content not included)... [facility] 09-12-2023 Note Hospital Medicine History and Physical 09/11/2023 10:48 PM THE HOSPITALIST TEAM PREFERS TO USE [employer] FOR COMMUNICATION 7AM-7PM. IF I DO NOT RESPOND WITHIN 15 MINUTES, PLEASE PAGE ME/CALL THROUGH THE MECHANICAL DESIGN ENGINEER FACILITIES. FROM 7PM-7AM, PLEASE PAGE [phone](COVR) Chief Complaint Chief Complaint Patient presents with Choking Pt presents to ED from home s/p choking on food. Family reports pt passed out and 2 min of CPR was performed by family. Pt arrives to ED drowsy but oriented x4 and c/o CP s/p chest compressions History of Present Illness Leah Chamberlain is an 57 y.o. female who came from community following choking episode at [facility]. Patient reportedly received CPR for being unresponsive when choking on steak, steak was removed via Heimlich and patient reportedly unresponsive immediately after. CPR was then initiated. Upon presentation to the ED, patient was alert and oriented however endorsed a great deal of pain, chest pain, and has bruising to the chest. Patient worked up for myocardial contusion, rib fractures, hemothorax, and pulmonary contusion. ED workup shows VBG with venous pH 7.34, venous pCO2 54, venous pO2 58, and venous O2 sat 88%. Auto WBC 15.76. Troponin 0.03, unremarkable. BMP unremarkable with exception of mildly elevated glucose 146. ECG shows normal sinus rhythm. CT chest negative for acute cardiopulmonary process. Bilateral lower lobe, middle lobe and lingular atelectasis. Upon my assessment, patient is lethargic/somnolent but awakens to verbal stimuli. She reports continued musculoskeletal pain across chest, denies shortness of breath/dyspnea. Patient fell asleep numerous times through assessment. Heart sounds education director, lungs CTA bilaterally with exception of wheezing noted in right upper lobe. No edema in bilateral lower extremities. Patient does not appear to be in any immediate distress and satting in 90s on O2 via nasal cannula. Patient held for observation due to hypoxia. Review of System and Physical Exam Temp: [36.7 ???C (98.1 ???F)] 36.7 ???C (98.1 ???F) Heart Rate: [70-80] 70 Resp: [11-15] 14 BP: (130-174)/(63-89) 152/75 Physical Exam Vitals and nursing note reviewed. Constitutional: General: She is not in acute distress. Appearance: She is obese. She is not ill-appearing or diaphoretic. HENT: Head: Normocephalic. Nose: Nose normal. Mouth/Throat: Mouth: Mucous membranes are moist. Pharynx: Oropharynx is clear. Cardiovascular: Rate and Rhythm: Normal rate and regular rhythm. Pulses: Normal pulses. Heart sounds: Normal heart sounds. Pulmonary: Effort: Pulmonary effort is normal. Breath sounds: Wheezing present. Abdominal: General: Bowel sounds are normal. Palpations: Abdomen is soft. Musculoskeletal: Cervical back: Normal range of motion and neck supple. Right lower leg: No edema. Left lower leg: No edema. Skin: General: Skin is warm and dry. Capillary Refill: Capillary refill takes less than 2 seconds. Neurological: Comments: Somnolent/lethargic. Review of Systems Constitutional: Negative for activity change and appetite change. HENT: Negative. Negative for congestion. Eyes: Negative. Respiratory: Positive for cough, choking and shortness of breath. Gastrointestinal: Negative for nausea and vomiting. Endocrine: Negative. Genitourinary: Negative. Musculoskeletal: Negative. Musculoskeletal Chest Pain Skin: Negative. Allergic/Immunologic: Negative. Neurological: Negative. Psychiatric/Behavioral: Negative. Problem List Patient Active Problem List Diagnosis Date Noted Choking due to food in larynx, initial encounter 09/11/2023 Assessment and Plan Choking due to food in larynx Hypoxia -VBG's show pCO2 54, pO2 58, O2 sat 88%, on O2 via nasal cannula at this time. Repeat VBG or ABG in a.m. -CT chest negative for acute cardiopulmonary process -Bilateral lower lobe, middle lobe and lingular atelectasis -Chloraseptic throat spray as needed Musculoskeletal chest pain -Lidocaine patch applied in ED -IcyHot rub to chest as needed - Tylenol as needed pain VTE Prophylaxis: On blood thinners ----- Focus of this inpatient stay will remain on problems that need acute care setting for care. We will review available studies and will order additional labs, imaging and other studies as appropriate. As needed medicines are ordered as appropriate. VTE Prophylaxis will be ordered as appropriate. Please see above for management plan for individual hospital problems. Home medications are reviewed and will be continued as appropriate. Patient will be continued to be followed during this hospital stay by a member of [facility]. Past Medical History History reviewed. No pertinent past medical history. Past Surgical History No past surgical history on file. Social History Social History Socioeconomic History Marital status: Single Spouse name: Not on file Number (more content not included)... [facility] 08-16-2023 History of Presen t illness Narrative IM PROGRESS NOTE Patient - Leah Chamberlain Age - 57 y.o. - 1965 ASSESSMENT & PLAN 1. Type 2 diabetes mellitus without complication, with long-term current use of insulin ([facility] -I reviewed the results of the recent A1c at 9.1% with the patient. -need to make adjustments to her insulin, knowing her fear of hypoglycemia. -increase Lantus to 56 units twice daily -continue Novolin R only if pre meal glucose > 200 mg/dL -will be adding empagliflozin 10 mg daily for her systolic heart failure. This should also help with glucose control. 2. Chronic diastolic CHF (congestive heart failure) ([facility] -reviewed the results of recent echocardiogram with the patient. LVEF 45-55%. -will adjust her medical regimen for improved compliance with GDMT: -start empagliflozin 10 mg daily. Samples given. And if tolerated, will continue on a regular basis. -continue metoprolol 100 mg daily -continue lisinopril 40 mg daily -start spironolactone 12.5 mg daily - empagliflozin (JARDIANCE) 10 mg tablet tablet; Take 1 tablet (10 mg total) by mouth in the morning. Dispense: 14 tablet; Refill: 0 - spironolactone (ALDACTONE) 25 mg tablet; Take 0.5 tablets (12.5 mg total) by mouth in the morning. Dispense: 45 tablet; Refill: 1 3. Persistent depressive disorder -this is a [facility] claim, but patient needs treatment/refill sent does not have a current [facility] provider in [place] -refill Abilify 10 mg daily -referral to [facility]'s counseling to initiate mental health follow-up was made today - ARIPiprazole (ABILIFY) 10 mg tablet; Take 1 tablet (10 mg total) by mouth in the morning. Dispense: 90 tablet; Refill: 0 - Ambulatory referral to Mental Health Counselor ([facility]); Future 4. Essential hypertension -current regimen includes clonidine, lisinopril and metoprolol -clonidine only causing depression to be worse, along with numerous side effects. Will begin the process of weaning off clonidine. Will decrease clonidine to 0.1 mg b.i.d. today, and will slowly wean off over the next 1-2 months. -continue lisinopril and metoprolol the same. 5. Chronic pain/fibromyalgia -is on oxcarbazepine as well as gabapentin, without any real relief in her discomfort -has been on oxcarbazepine for nearly 30 years. Will start the process of weaning off. -decreased oxy carbamazepine to 150 mg a.m. and 300 mg at HS. Will decrease by 150 mg increments over the next several months until off. -continue gabapentin the same -continue duloxetine 60 mg daily the same. Subjective 57-year-old female presents for follow-up visit after recent lab work, and review of old records from [place] and recent hospitalization at [facility]. She currently feels no different from previous. She does need some refills on medications. She still has not found a new psychiatrist. - recent lab work obtained here shows an A1c of 9.1%. She reports that fingerstick blood sugars at home range from 150-250 mg/ dL in the morning. She currently is taking Lantus 50 units twice daily, but rarely uses her Novolin R coverage. She will only take it with a meal if her blood sugar is above 200 mg/dL. She is very afraid of hypoglycemic reactions. - review of lab work and imaging done both at [facility] and in [place] for hospitalizations relating to her breathing show a borderline to slightly depressed LVEF anywhere from 45%- 55%. She also was having problems with uncontrolled atrial fibrillation, had been started on Pacerone. - she needs a refill on Abilify. This is not currently on her medicine list. She was receiving it from worker's comp claim. She has a bottle of Abilify 10 mg daily. She says she has been on this for many years. - as for her blood pressure, she rarely checks it at home. She has been on clonidine for many years, taking it t.I.d.. In addition, she is taking metoprolol and lisinopril. -for her chronic pain, again related to her [facility] claim, she has been on oxycarbamazepine for nearly 30 years. She never felt like it really helped with her pain. Since that time, she has had gabapentin 300 mg t.i.d. added. She feels that neither these medications is helping much with her pain control, and is making her feel sleepy and tired. She is never tried to be weaned off or had the medications adjusted. -she has had at least 4 admission to the hospital over the past several months. A review of systems was negative except for the following: General: fatigue, sleep disturbance, and weight gain Psychiatric: depression Respiratory: intermittent coughing. Has untreated sleep apnea per her choice. Cardiovascular: dyspnea on exertion Musculoskeletal: joint pain, joint stiffness, muscle pain, muscular weakness, and noted diffusely Neurological: numbness/tingling and weakness. Exam BP 142/70 (BP Site: Left Arm, BP Postition: Sitting) Pulse 72 Temp 36.7 C (98.1 F) (Oral) Resp 18 Ht 172.7 cm (5' 8 ) Wt 113.5 kg (250 lb 3.2 oz) SpO2 93% BMI 38.04 kg/m Physical Exam Vitals reviewed. Constitutional: General: She is not in acute distress. Appearance: She is well-developed. She is obese. She is not toxic-appearing. HENT: Head: Normocephalic and atraumatic. Right Ear: External ear normal. Left Ear: External ear normal. Nose: Nose normal. No congestion. Eyes: General: No scleral icterus. Conjunctiva/sclera: Conjunctivae normal. Neck: Vascular: No carotid bruit. Cardiovascular: Rate and Rhythm: Normal rate and regular rhythm. Heart sounds: No murmur heard. No gallop. Pulmonary: Effort: Pulmonary effort is normal. Breath sounds: No wheezing or rales. Abdominal: Palpations: Abdomen is soft. Musculoskeletal: General: Deformity: .. Right lower leg: Edema (Trace) present. Left lower leg: Edema (Trace) present. Lymphadenopathy: Cervical: No cervical adenopathy. Skin: General: Skin is warm and dry. Coloration: Skin is not jaundiced. Findings: No bruising. Neurological: Mental Status: She is alert and oriented to person, place, and time. Sensory: Sensory deficit (Unable to feel vibratory sensation bilateral feet, ankles hands and wrists) present. Motor: No weakness. Coordination: Coordination normal. Deep Tendon Reflexes: Reflexes are normal and symmetric. Psychiatric: Mood and Affect: Mood normal. Behavior: Behavior normal. Comments: Flat affect Meds Current Outpatient Medications: albuterol (PROVENTIL HFA;VENTOLIN HFA) 90 mcg/actuation inhaler, INHALE 1 TO 2 PUFFS BY MOUTH EVERY 4 HOURS NEEDED, Disp: , Rfl: amiodarone (PACERONE) 200 mg tablet, Take 1 tablet (200 mg total) by mouth in the morning., Disp: , Rfl: atorvastatin (LIPITOR) 20 mg tablet, TAKE ONE TABLET BY MOUTH DAILY, Disp: , Rfl: cloNIDine (CATAPRES) 0.1 mg tablet, Take 1 tablet (0.1 mg total) by mouth in the morning and 1 tablet (0.1 mg total) before bedtime., Disp: , Rfl: DULoxetine (CYMBALTA) 60 mg capsule, TAKE ONE CAPSULE BY MOUTH TWICE DAILY, Disp: , Rfl: EASY TOUCH INSULIN SYRINGE 1 mL 30 gauge x 1/2 syringe, USE THREE TIMES DAILY DIRECTED, Disp: , Rfl: ELIQUIS 5 mg tablet, TAKE 1 TABLET BY MOUTH TWICE DAILY, Disp: , Rfl: gabapentin (NEURONTIN) 300 mg capsule, TAKE 1 CAPSULE BY MOUTH TWICE DAILY, Disp: , Rfl: ipratropium-albuteroL (DUONEB) 0.5 mg-3 mg(2.5 mg base)/3 mL nebulizer, INHALE 1 VIAL VIA NEBULIZER FOUR TIMES DAILY FOR 30 DAYS NEEDED FOR SHORTNESS OF BREATH OR WHEEZING, Disp: , Rfl: lansoprazole (PREVACID) 30 mg capsule, TAKE 1 CAPSULE BY MOUTH DAILY, Disp: , Rfl: LANTUS U-100 INSULIN 100 unit/mL injection, Inject 0.56 mL (56 Units total) under the skin in the morning and 0.56 mL (56 Units total) before bedtime., Disp: , Rfl: lisinopriL (PRINIVIL,ZESTRIL) 40 mg tablet, TAKE 1 TABLET BY MOUTH DAILY, Disp: , Rfl: metoprolol tartrate (LOPRESSOR) 100 mg tablet, TAKE 1 TABLET BY MOUTH TWICE DAILY, Disp: , Rfl: NovoLIN R Regular U100 Insulin 100 unit/mL injection, ADMINISTER 60 UNITS UNDER THE SKIN DAILY PER SLIDING SCALE, Disp: , Rfl: OXcarbazepine (TRILEPTAL) 300 mg tablet, Take 1 tablet (300 mg total) by mouth See Admin Instructions. 1/2 tab in morning and 1 tab in evening, Disp: , Rfl: potassium chloride (K-TAB,KLOR-CON) 10 MEQ CR tablet, TAKE 1 TO 2 TABLETS BY MOUTH DAILY, Disp: , Rfl: ARIPiprazole (ABILIFY) 10 mg tablet, Take 1 tablet (10 mg total) by mouth in the morning., Disp: 90 tablet, Rfl: 0 empagliflozin (JARDIANCE) 10 mg tablet tablet, Take 1 tablet (10 mg total) by mouth in the morning., Disp: 14 tablet, Rfl: 0 spironolactone (ALDACTONE) 25 mg tablet, Take 0.5 tablets (12.5 mg total) by mouth in the morning., Disp: 45 tablet, Rfl: 1 Lab Results Hospital Outpatient Visit on 08/07/2023 Component Date Value Ref Range Status White Blood Cells 08/07/2023 8.2 4.0 - 11.0 X10E9/L Final RBC count 08/07/2023 4.33 3.80 - 5.20 X10E12/L Final Hemoglobin 08/07/2023 12.2 11.7 - 15.5 g/dL Final Hematocrit 08/07/2023 36.9 35 - 47 % Final MCV 08/07/2023 85 80 - 100 fL Final MCH 08/07/2023 28.2 27 - 34 pg Final MCHC 08/07/2023 33.1 32 - 36 g/dL Final RDW 08/07/2023 16.7 (H) 11.5 - 15.0 % Final Platelets 08/07/2023 204 150 - 450 X10E9/L Final MPV 08/07/2023 9.2 7 - 12 fL Final % neutrophils 08/07/2023 53.3 % Final % lymphocytes 08/07/2023 32.3 % Final % monocytes 08/07/2023 11.4 % Final % eosinophils 08/07/2023 2.0 % Final % Basophils 08/07/2023 1.0 % Final Neutrophils Absolute (A) 08/07/2023 4.4 1.5 - 6.6 X10E9/L Final Lymphocytes Absolute 08/07/2023 2.7 1.0 - 3.5 X10E9/L Final Monocytes Absolute 08/07/2023 0.9 0 - 0.9 X10E9/L Final Eosinophils Absolute 08/07/2023 0.2 0.0 - 0.4 X10E9/L Final Basophils Absolute 08/07/2023 0.1 0.0 - 0.2 X10E9/L Final Sodium 08/07/2023 139 134 - 146 mmol/L Final Potassium, Bld 08/07/2023 3.7 3.5 - 5.0 mmol/L Final Chloride 08/07/2023 101 98 - 109 mmol/L Final CO2 08/07/2023 30 22 - 32 mmol/L Final Anion gap 08/07/2023 8 5 - 15 mmol/L Final BUN 08/07/2023 14 5 - 23 mg/dL Final Creatinine 08/07/2023 0.79 0.40 - 1.00 mg/dL Final Glucose 08/07/2023 118 (H) 65 - 99 mg/dL Final Calcium 08/07/2023 8.6 8.5 - 10.5 mg/dL Final Total Protein 08/07/2023 6.3 6.0 - 8.0 g/dL Final Albumin 08/07/2023 3.5 3.2 - 5.3 g/dL Final Alkaline Phosphatase 08/07/2023 89 39 - 130 U/L Final AST 08/07/2023 15 0 - 41 U/L Final ALT 08/07/2023 15 0 - 31 U/L Final Total bilirubin 08/07/2023 0.4 0.3 - 1.2 mg/dL Final eGFR (CKD-EPI)non-race dependent 08/07/2023 88 >59 ml/min/1.73sq.m Final Cholesterol 08/07/2023 161 150 - 200 mg/dL Final Triglycerides 08/07/2023 249 (H) 27 - 150 mg/dL Final HDL Cholesterol 08/07/2023 46 >39 mg/dL Final VLDL 08/07/2023 50 (H) 0 - 30 mg/dL Final LDL (calc) 08/07/2023 65 <130 mg/dL Final Cholesterol:HDL Ratio 08/07/2023 3.5 1.0 - 5.0 Final TSH 08/07/2023 4.16 0.49 - 4.67 uIU/mL Final T4, free 08/07/2023 0.69 0.61 - 1.60 ng/dL Final Vitamin B-12 08/07/2023 579 180 - 914 pg/mL Final Hemoglobin A1C 08/07/2023 9.0 (H) 4.4 - 5.6 % Final Average glucose 08/07/2023 212 mg/dL Final Other Testing No results found. Jose Greenwood DO., [facility] Office: [phone] documented in this encounter [facility] 08-07-2023 History of Presen t illness Narrative IM PROGRESS NOTE Patient - Leah Reich Age - 57 y.o. - 1965 ASSESSMENT & PLAN 1. Type 2 diabetes mellitus without complication, with long-term current use of insulin ([facility]) -reported control fair in the past -currently Lantus 50 units b.i.d. along with Novolin R sliding scale meals -repeat A1c to assess efficacy of current treatment, and potentially adjust dosing - CBC auto differential; Future - Hemoglobin A1c; Future 2. Paroxysmal atrial fibrillation ([facility]) -numerous episodes over the past several months to year. -will obtain old records from recent hospitalization and her infrastructure engineer in [place] to review LV function and underlying issues associated with her atrial fib -currently is amiodarone 200 mg daily -check thyroid function - Thyroid profile includes TSH FT4; Future -if not evaluated in the past, needs sleep study 3. Essential hypertension -goals of treatment reviewed with patient. -current readings are at goal -current medications include lisinopril, metoprolol, clonidine, 4. Hyperlipidemia, unspecified hyperlipidemia type -currently atorvastatin 20 mg daily -repeat lipid panel to assess efficacy of treatment - Comprehensive metabolic panel; Future - Lipid profile; Future 5. B12 deficiency Abnormal vibratory sensation noted bilaterally in the hands and feet -will start evaluation underlying causes - Vitamin B12; Future 6. Chronic bilateral low back pain, unspecified whether sciatica present -longstanding problem due to worker's injury many years ago -referred to Pain Management - Ambulatory referral to Pain Management ([facility]); Future Subjective 57-year-old female presents for new patient visit. Recently moved back to the area from [place]. Had been living down there for the past 10 years. Originally lived in [place] and [place]. 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 Currently allowable condition is low back and depression. However she does state she has neck problems as well. -she has had multiple medical problems that have cropped up over the past number of years, but in the last year, has been hospitalized several times in [place], and recently in [facility] because of problems with her heart and lungs, including recurrent atrial fibrillation, pneumonia. -has had diabetes since she was 20 years old,. Has been on insulin for this time, although someone tried adding metformin at 1 time which caused her significant gastrointestinal symptomatology. -patient is ex-smoker, having quit cigarettes last year. Does still smoke marijuana and uses medical marijuana. -was being seen by pain management in [place], in wants to get established pain management clinic locally. A review of systems was negative except for the following: General: sleep disturbance and weight gain Psychiatric: depression ENT: hearing change and nasal congestion Endocrine: Most recent A1c 7.8% Respiratory: cough and shortness of breath Cardiovascular: dyspnea on exertion, edema, and irregular heartbeat. Says she has had 3 cardiac catheterizations the most recent 1 being in 2021. All were normal . Has never required or intervention. Genito-Urinary: urinary frequency/urgency Musculoskeletal: joint pain, joint stiffness, joint swelling, and pain in low back and hips. Exam BP 118/72 (BP Site: Left Arm, BP Postition: Sitting) Pulse 65 Temp 36.7 C (98.1 F) (Tympanic) Ht 172.7 cm (5' 8 ) Wt 115.5 kg (254 lb 11.2 oz) SpO2 95% BMI 38.73 kg/m Physical Exam Vitals reviewed. Constitutional: General: She is not in acute distress. Appearance: She is well-developed. She is obese. She is not toxic-appearing. HENT: Head: Normocephalic and atraumatic. Right Ear: Ear canal and external ear normal. Left Ear: Ear canal and external ear normal. Nose: Nose normal. No congestion. Eyes: General: No scleral icterus. Conjunctiva/sclera: Conjunctivae normal. Neck: Vascular: No carotid bruit. Cardiovascular: Rate and Rhythm: Normal rate and regular rhythm. Heart sounds: No murmur heard. No gallop. Pulmonary: Effort: Pulmonary effort is normal. Breath sounds: No wheezing or rales. Abdominal: Palpations: Abdomen is soft. Musculoskeletal: General: No swelling (in the past.) or deformity (.). Lymphadenopathy: Cervical: No cervical adenopathy. Skin: General: Skin is warm and dry. Coloration: Skin is not jaundiced. Findings: No bruising. Neurological: Mental Status: She is alert and oriented to person, place, and time. Sensory: Sensory deficit (Unable to feel vibratory sensation bilateral feet, ankles hands and wrists) present. Motor: No weakness. Coordination: Coordination normal. Deep Tendon Reflexes: Reflexes are normal and symmetric. Psychiatric: Mood and Affect: Mood normal. Behavior: Behavior normal. Meds Current Outpatient Medications: albuterol (PROVENTIL HFA;VENTOLIN HFA) 90 mcg/actuation inhaler, INHALE 1 TO 2 PUFFS BY MOUTH EVERY 4 HOURS NEEDED, Disp: , Rfl: amiodarone (PACERONE) 200 mg tablet, Take 1 tablet (200 mg total) by mouth in the morning., Disp: , Rfl: atorvastatin (LIPITOR) 20 mg tablet, TAKE ONE TABLET BY MOUTH DAILY, Disp: , Rfl: cloNIDine (CATAPRES) 0.1 mg tablet, TAKE ONE TABLET BY MOUTH THREE TIMES A DAY, Disp: , Rfl: DULoxetine (CYMBALTA) 60 mg capsule, TAKE ONE CAPSULE BY MOUTH TWICE DAILY, Disp: , Rfl: EASY TOUCH INSULIN SYRINGE 1 mL 30 gauge x 1/2 syringe, USE THREE TIMES DAILY DIRECTED, Disp: , Rfl: ELIQUIS 5 mg tablet, TAKE 1 TABLET BY MOUTH TWICE DAILY, Disp: , Rfl: gabapentin (NEURONTIN) 300 mg capsule, TAKE 1 CAPSULE BY MOUTH TWICE DAILY, Disp: , Rfl: ipratropium-albuteroL (DUONEB) 0.5 mg-3 mg(2.5 mg base)/3 mL nebulizer, INHALE 1 VIAL VIA NEBULIZER FOUR TIMES DAILY FOR 30 DAYS NEEDED FOR SHORTNESS OF BREATH OR WHEEZING, Disp: , Rfl: lansoprazole (PREVACID) 30 mg capsule, TAKE 1 CAPSULE BY MOUTH DAILY, Disp: , Rfl: LANTUS U-100 INSULIN 100 unit/mL injection, INJECT 50 UNITS UNDER THE SKIN TWICE DAILY, Disp: , Rfl: levoFLOXacin (LEVAQUIN) 500 mg tablet, TAKE 1 TABLET BY MOUTH DAILY FOR 7 DAYS, Disp: , Rfl: lisinopriL (PRINIVIL,ZESTRIL) 40 mg tablet, TAKE 1 TABLET BY MOUTH DAILY, Disp: , Rfl: metoprolol tartrate (LOPRESSOR) 100 mg tablet, TAKE 1 TABLET BY MOUTH TWICE DAILY, Disp: , Rfl: NovoLIN R Regular U100 Insulin 100 unit/mL injection, ADMINISTER 60 UNITS UNDER THE SKIN DAILY PER SLIDING SCALE, Disp: , Rfl: OXcarbazepine (TRILEPTAL) 300 mg tablet, TAKE ONE TABLET BY MOUTH TWICE A DAY, Disp: , Rfl: potassium chloride (K-TAB,KLOR-CON) 10 MEQ CR tablet, TAKE 1 TO 2 TABLETS BY MOUTH DAILY, Disp: , Rfl: Lab Results No visits with results within 1 Month(s) from this visit. Latest known visit with results is: No results found for any previous visit. Other Testing No results found. Jose Greenwood DO., [facility] Office: [phone] documented in this encounter [facility] Evaluation note Diagnosis Type 2 diabetes mellitus without complication, with long-term current use of insulin ([facility] Primary Paroxysmal atrial fibrillation ([facility]) Atrial fibrillation Essential hypertension Unspecified essential hypertension Hyperlipidemia, unspecified hyperlipidemia type B12 deficiency Chronic bilateral low back pain, unspecified whether sciatica present [facility] Diagnosis Type 2 diabetes mellitus without complication, with long-term current use of insulin ([facility])- Primary Chronic diastolic CHF (congestive heart failure) ([facility]) Persistent depressive disorder Essential hypertension Unspecified essential hypertension LUCIA (obstructive sleep apnea) Obstructive sleep apnea (adult) (pediatric) documented in this encounter [facility]* Diagnosis Chronic diastolic CHF (congestive heart failure) ([facility])- Primary [facility] Diagnosis Positive colorectal cancer screening using Cologuard test- Primary [facility] filedocumented in this encounter [facility] filedocumented in this encounter [facility] filedocumented in this encounter [facility] on filedocumented in this encounter [facility] SystemInstructionsNot on filedocumented in this encounter [facility] Consultation (Routine) - Pending Review Specialty Diagnoses / Procedures Referred By Holden sesay Referred To Contact Pain Medicine Diagnoses Chronic bilateral low back pain, unspecified whether sciatica present Jose Greenwood DO [address] [place] [address] Hitesh Cramer MD [address] [place] [address] Referral ID Status Reason Start Date Expiration Date V isits Requested Visits Authorized [id number] Pending Review 08/07/2023 08/06/2024 1 1 [facility] Consultation (Routine) - Pending Review Specialty Diagnoses / Procedures Referred By Contac t Referred To Contact Diagnoses Persistent depressive disorder Jose Greenwood DO [address] [place] [address] Referral ID Status Reason Start Date Expiration Date V isits Requested Visits Authorized [id number] Pending Review 08/16/2023 08/15/2024 1 1 [facility] Summary Purpose Family History No Family History Records FoundNo Family History Records FoundNo Family History Records Found Advance Directives Date Activated Date Inactivated Comments 12/29/2023 12:11 PM 01/01/2024 1:33 PM Date Activated Date Inactivated Comments 09/03/2023 2:32 AM 09/04/2023 1:23 PM Additional Source Comments Reason for Visit (unrecogniz ed section and content) Reason Comments New Patient Reason Comments dicuss blood work Reason Onset Date Comments Med Refill 08/20/2023 Care Teams (unrecognized sec tion and content) 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 Relationship Specialty Start Date End Date Jose Greenwood DO [address] [place] [address] PCP - General Internal Medicine 08/08/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 Relationship Specialty Start Date End Date Jose Greenwood DO [address] [place] [address] PCP - General Internal Medicine 08/08/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 Relationship Specialty Start Date End Date [facility] [address] PCP - General Family Medicine 12/29/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 Relationship Specialty Start Date End Date [facility] [address] PCP - General Family Medicine 12/29/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 Relationship Specialty Start Date End Date [facility] [address] PCP - General Family Medicine 12/29/23 INFORMATION SOURCE (unrecogn ized section and content) DATE CREATED AUTHOR 09/15/2023 [facility] DATE CREATED AUTHOR AUTHOR'S ORGANIZ ATION 03/05/2024 [facility] DATE CREATED AUTHOR AUTHOR'S ORGANIZ ATION 03/14/2024 [facility] FOR RECORDS PERTAINING TO PATIENTS WHO ARE OR HAVE BEEN ENROLLED IN A CHEMICAL DEPENDENCY/SUBSTANCEABUSE PROGRAM, SOME INFORMATION MAY BE OMITTED. This clinical summary was aggregated from multiple sources. Caution should be exercised in using it in the provision of clinical care. This summary normalizes information from multiple sources, and as a consequence, information in this document may materially change the coding, format and clinical context of patient data. In addition, data may be omitted in some cases. CLINICAL DECISIONS SHOULD BE BASED ON THE PRIMARY CLINICAL RECORDS. [facility]. provides no warranty or guarantee of the accuracy or completeness of information in this document.
== END 2024-03-24 15:00 | disposition home or self-care (01) ==
LOC: PST 14:59
PROVIDERS: Visit Provider Surgery
DX: Z01.818 Encounter for other preprocedural examination (principal); R19.5 Other fecal abnormalities

== ENCOUNTER 2024-04-01 07:46 | Day surgery (SDC) | payer OTHER, SELFPAY ==
--- OUTSIDE RECORDS SUMMARY | 2024-04-01 07:56 | XMS_ITS | CCD ---
Author Organization [facility] Care Team Providers Care Infusion Nurse Name Role Phone Unavailable Primary Care Provider UnavailJose Wisdom DO Primary Care Provider JACKSON HOLDEN Referring Unavailable JACKSON HOLDEN Referring Unavailable LYNNETTE AVILES Admitting Unavailable LYNNETTE AVILES Attending Unavailable JAMES STEVENSON Attending Unavailable SERVICES, [facility] Primary Care Unava ilable Services, [facility] Primary Care Provider NO PCP, NO PCP Primary Care Unavailable RAINER JOSHI Attending Unavailable HOMAR MARCUS Admitting Unavailable RAINER JOSHI Attending Unavailable RAINER JOSHI Referring Unavailable NO PCP, NO PCP Primary Care Unavailable RAINER JOSHI Attending Unavailable RAINER JOSHI Referring Unavailable NO PCP, NO PCP Primary Care Unavailable DANYEL ASHER Attending Unavailable NO PCP, NO PCP Primary Care Unavailable DANNI MC Attending Unavailable DANNI MC Referring Unavailable NO PCP, NO PCP Primary Care Unavailable SERVICES, [facility] Primary Care Unava ilable ELIEZER LYONS Attending Unavailable CAROLEE MADERA Admitting Unavailable ELIEZER LYONS Attending Unavailable ELIEZER LYONS Referring Unavailable SERVICES[facility] Care Unava ilable SERVICES, [facility] Primary Care Unava ilable Allergies Allergy Classification Reported Allergen(s) Allergy Type Date of Onset Reaction(s) Facility (9 sources) Sulfonamides (Antibiotic); Translations: [SULFA (SULFONAMIDE ANTIBIOTICS)] Propensity to adverse reactions to drug 4 [facility] Medications Current Medications Medication Drug Class(es) Dates Sig (Normalized) Sig (Original) [id number] 200 actuat albuterol 0.09 mg/actuat metered dose inhaler (6 sources) beta2-Adrenergic Agonist Start: 08-21-2023 take 2 puff(s) by inhalation four times daily as needed for wheezing VENTOLIN HFA 90 mcg/actuation inhaler Indications: Chronic obstructive pulmonary disease, unspecified COPD type ([facility]) Inhale 2 puffs 4 (four) times a [...] complication, with long-term current use of insulin ([facility]) Inject 0.56 mL (56 Units total) under [...] complication, with long-term current use of insulin ([facility]) Inject 0.05 mL (5 Units total) under [...] Indications: Chronic diastolic CHF (congestive heart failure) ([facility]) Take 1 tablet (10 mg total) by [...] Start: 05-29-2023 take 1 capsule by mo [facility] once daily lansoprazole (PREVACID) 30 mg capsule [...] 24 ABSOLUTE BASOPHIL 0.1 X10E9/L Normal 0.0-0.2 [facility] Comment on above: Performed By: #### C BCA, CMP, 09001-5 ####[facility] ([id number])[address] [place] [address] 50655 ABSOLUTE NEUTROPHIL 6.5 X10E9/L Normal 1.5-6.6 [facility] Comment on above: Performed By: #### C BCA, CMP, 17950-6 ####[facility] ([id number])[address] [place] [address] 90568 Basophils/100 WBC (Bld) 0.8 % Normal [facility] Comment on above: Performed By: #### C BCA, CMP, 46097-6 ####[facility] ([id number])[address] [place] [address] 28106 Eosinophils (Bld) [#/Vol] 0.0 10*3/uL Normal 0.0-0.4 [facility] Comment on above: Performed By: #### Siva FRANKEL [facility], ####[facility] ([id number])[address] [place] [address] 20598 Eosinophils/100 WBC (Bld) 0.2 % Normal [facility] Comment on above: Performed By: #### Siva FRANKEL [facility], ####[facility] ([id number])[address] [place] [address] 18840 Erythrocyte distribution width (RBC) [Ratio] 15.8 % High 11.5-15.0 [facility] Comment on above: Performed By: #### Siva FRANKEL [facility], ####[facility] ([id number])[address] [place] [address] 80794 Hematocrit (Bld) [Volume fraction] 39.6 % Normal 35-47 [facility] Comment on above: Performed By: #### Siva FRANKEL [facility], ####[facility] ([id number])[address] [place] [address] 04338 Hemoglobin (Bld) [Mass/Vol] 12.9 g/dL Normal 11.7-15.5 [facility] Comment on above: Performed By: #### Siva FRANKEL [facility], ####[facility] ([id number])[address] [place] [address] 05676 Lymphocytes (Bld) [#/Vol] 3.9 10*3/uL High 1.0-3.5 [facility] Comment on above: Performed By: #### Siva FRANKEL [facility], ####[facility] ([id number])[address] [place] [address] 78963 Lymphocytes/100 WBC (Bld) 33.3 % Normal [facility] Comment on above: Performed By: #### Siva FRANKEL CMP, ####[facility] ([id number])[address] [place] [address] 02113 MCH (RBC) [Entitic mass] 28.0 pg Normal 27-34 [facility] Comment on above: Performed By: #### Siva FRANKEL CMP, ####[facility] ([id number])[address] [place] [address] 74407 MCHC (RBC) [Mass/Vol] 32.7 g/dL Normal 32-36 [facility] Comment on above: Performed By: #### Siva FRANKEL CMP, ####[facility] ([id number])[address] [place] [address] 74374 MCV (RBC) [Entitic vol] 86 fL Normal 80-100 [facility] Comment on above: Performed By: #### Siva FRANKEL CMP, ####[facility] ([id number])[address] [place] [address] 75310 Monocytes (Bld) [#/Vol] 1.3 10*3/uL High 0-0.9 [facility] Comment on above: Performed By: #### Siva FRANKEL CMP, ####[facility] ([id number])[address] [place] [address] 09259 Monocytes/100 WBC (Bld) 11.1 % Normal [facility] Comment on above: Performed By: #### Siva FRANKEL CMP, ####[facility] ([id number])[address] [place] [address] 44398 Neutrophils/100 WBC (Bld) 54.6 % Normal [facility] Comment on above: Performed By: #### Siva FRANKEL CMP, ####[facility] ([id number])[address] [place] [address] 37227 Platelet mean volume (Bld) [Entitic vol] 8.8 fL Normal 7-12 [facility] Comment on above: Performed By: #### C JOSTIN, CMP, ####[facility] ([id number])[address] [place] [address] 28637 Platelets (Bld) [#/Vol] 197 10*3/uL Normal 150-450 [facility] Comment on above: Performed By: #### C JOSTIN, CMP, ####[facility] ([id number])[address] [place] [address] 37629 RBC COUNT 4.62 X10E12/L Normal 3.80-5.20 [facility] Comment on above: Performed By: #### C JOSTIN, CMP, ####[facility] ([id number])[address] [place] [address] 71870 WBC (Bld) [#/Vol] 11.9 10*3/uL High 4.0-11.0 [facility] Comment on above: Performed By: #### C JOSTIN, CMP, ####[facility] ([id number])[address] [place] [address] 56350 COMPREHENSIVE METABOLIC PANE Virgil 01-01-2024 Albumin [Mass/Vol] 3.3 g/dL Normal 3.2-5.3 [facility] Comment on above: Performed By: #### C BCA, CMP, ####[facility] ([id number])[address] [place] [address] 08416 ALP [Catalytic activity/Vol] 94 U/L Normal 39-130 [facility] Comment on above: Performed By: #### C BCA, CMP, ####[facility] ([id number])[address] [place] [address], [place] [address] ALT [Catalytic activity/Vol] 19 U/L Normal 0-31 [facility] Comment on above: Performed By: #### C BCA, CMP, 21345-2 ####[facility] ([id number])[address] [place] [address], [place] [address] Anion gap [Moles/Vol] 8 mmol/L Normal 5-15 [facility] Comment on above: Performed By: #### C BCA, CMP, 69585-3 ####[facility] ([id number])[address] [place] [address], [place] [address] AST [Catalytic activity/Vol] 16 U/L Normal 0-41 [facility] Comment on above: Performed By: #### C BCA, CMP, ####[facility] ([id number])[address] [place] [address], [place] [address] Bilirubin [Mass/Vol] 0.7 mg/dL Normal 0.3-1.2 [facility] Comment on above: Performed By: #### C BCA, CMP, 84788-6 ####[facility] ([id number])[address] [place] [address], [place] [address] Calcium [Mass/Vol] 8.8 mg/dL Normal 8.5-10.5 [facility] Comment on above: Performed By: #### C BCA, CMP, 13301-4 ####[facility] ([id number])[address] [place] [address], [place] [address] Chloride [Moles/Vol] 99 mmol/L Normal 98-109 [facility] Comment on above: Performed By: #### C BCA, CMP, 67762-8 ####[facility] ([id number])[address] [place] [address], [place] [address] CO2 [Moles/Vol] 27 mmol/L Normal 22-32 [facility] Comment on above: Performed By: #### C JOSTIN [facility], 80558-0 ####[facility] ([id number])[address] [place] [address] 92111 Creatinine [Mass/Vol] 0.70 mg/dL Normal 0.40-1.00 [facility] Comment on above: Result Comment: METH OD TRACEABLE TO IDMS STANDARD Performed By: #### C VERNON FRANKEL, ####[facility] ([id number])[address] [place] [address] 88059 eGFR (CKD-EPI) NON-RACE DEPENDENT >90 Normal >59 [facility] Comment on above: Result Comment: Reported eGFR is based on the CKD-EPI 2020 equation that does not use a race coefficient. Performed By: #### C VERNON FRANKEL, ####[facility] ([id number])[address] [place] [address] 65610 Glucose [Mass/Vol] 97 mg/dL Normal 65-99 [facility] Comment on above: Performed By: #### C JOSTIN [facility], 26006-7 ####[facility] ([id number])[address] [place] [address] 32154 Potassium [Moles/Vol] 3.6 mmol/L Normal 3.5-5.0 [facility] Comment on above: Performed By: #### C VERNON FRANKEL, 19405-7 ####[facility] ([id number])[address] [place] [address] 43185 Protein [Mass/Vol] 6.6 g/dL Normal 6.0-8.0 [facility] Comment on above: Performed By: #### C VERNON FRANKEL, 57175-8 ####[facility] ([id number])[address] [place] [address] 54837 Sodium [Moles/Vol] 134 mmol/L Normal 134-146 [facility] Comment on above: Performed By: #### C BCA, CMP, 84051-5 ####[facility] ([id number])[address] [place] [address] 12993 Urea nitrogen [Mass/Vol] 15 mg/dL Normal 5-23 [facility] Comment on above: Performed By: #### C BCA, CMP, 08019-5 ####[facility] ([id number])[address] [place] [address] 97793 MAGNESIUMon 01-01-2024 Magnesium [Mass/Vol] 2.1 mg/dL Normal 1.8-2.6 [facility] Comment on above: Performed By: #### C BCA, CMP, ####[facility] ([id number])[address] [place] [address] 81473 CBC AND AUTO DIFFon 12-31-19 24 Band form neutrophils/100 WBC (Bld) 1.0 % Normal [facility] Comment on above: Performed By: #### C BCA, PINR, 27231-7, CMP, 3040-3, 47918-7, 5643-2, 1987-09, , 77315-3, 215-6, 08899-1, THYR #### [facility] ([id number]) [address] [place] [address] 55941 Erythrocyte distribution width (RBC) [Ratio] 16.1 % High 11.5-15.0 [facility] Comment on above: Performed By: #### C BCA, PINR, 04301-1, CMP, 3040-3, 14831-7, 5643-2, 1987-09, 09205-9, 10544-6, 2157-6, 89044-6, THYR #### [facility] ([id number]) [address] [place] [address] 60356 Hematocrit (Bld) [Volume fraction] 38.0 % Normal 35-47 [facility] Comment on above: Performed By: #### C BCA, PINR, 04279-2, CMP, 3040-3, 94165-0, 5643-2, 1987-09, 47080-1, 51273-2, 2157-6, 32510-5, THYR #### [facility] ([id number]) [address] [place] [address] 26874 Hemoglobin (Bld) [Mass/Vol] 12.5 g/dL Normal 11.7-15.5 [facility] Comment on above: Performed By: #### C BCA, PINR, 53784-6, CMP, 3040-3, 29499-7, 5643-, 1987-09, , 35058-7, 2157-6, 80346-5, THYR #### [facility] ([id number]) [address] [place] [address] 02295 LYMPHOCYTE, ATYPICAL 1.9 % Normal [facility] Comment on above: Performed By: #### C BCA, PINR, 38435-9, CMP, 3040-3, 61918-1, 5643-2, 1987-09, 93996-4, 46665-0, 215-6, 13825-2, THYR #### [facility] ([id number]) [address] [place] [address] 08146 Lymphocytes (Bld) [#/Vol] 3.2 10*3/uL Normal 1.0-3.5 [facility] Comment on above: Performed By: #### C BCA, PINR, 17852-7, CMP, 3040-3, 76713-7, 5643-2, 1987-09, 66147-4, 21728-6, 2157-6, 14318-3, THYR #### [facility] ([id number]) [address] [place] [address] 06803 Lymphocytes/100 WBC (Bld) 14.3 % Normal [facility] Comment on above: Performed By: #### C BCA, PINR, 38879-3, CMP, 3040-3, 72625-9, 5643-2, 1987-09, , 62917-2, 215-6, 93445-7, THYR #### [facility] ([id number]) [address] [place] [address] 58337 MCH (RBC) [Entitic mass] 28.3 pg Normal 27-34 [facility] Comment on above: Performed By: #### C BCA, PINR, 55007-2, CMP, 3040-3, 25381-1, 5643-2, 1987-09, 26309-9, 67715-9, 2156-6, 39703-5, THYR #### [facility] ([id number]) [address] [place] [address] 91690 MCHC (RBC) [Mass/Vol] 32.8 g/dL Normal 32-36 [facility] Comment on above: Performed By: #### C BCA, PINR, 76748-0, CMP, 3040-3, 06604-9, 5643-, 1987-09, , 66556-3, 2156, 76083-5, THYR #### [facility] ([id number]) [address] [place] [address] [place] [address] MCV (RBC) [Entitic vol] 86 fL Normal 80-100 [facility] Comment on above: Performed By: #### C BCA, PINR, 65113-2, CMP, 3040-3, 14913-5, 5643-2, 1987-09, 33172-3, 07392-8, 2156-6, 50553-3, THYR #### [facility] ([id number]) [address] [place] [address] 01418 Monocytes (Bld) [#/Vol] 0.7 10*3/uL Normal 0-0.9 [facility] Comment on above: Performed By: #### C BCA, PINR, 23814-1, CMP, 3040-3, 80564-7, 5643-2, 1987-09, 11595-1, 07603-6, 215-6, 77451-3, THYR #### [facility] ([id number]) [address] [place] [address] 19911 Monocytes/100 WBC (Bld) 3.8 % Normal [facility] Comment on above: Performed By: #### C BCA, PINR, 57702-1, CMP, 3040-3, 06627-9, 5643-2, 1987-09, , 14812-7, 215-6, 83505-7, THYR #### [facility] ([id number]) [address] [place] [address] [place] [address] MYELOCYTE 1.0 % Normal [facility] Comment on above: Performed By: #### C BCA, PINR, 23649-4, CMP, 3040-3, 23311-6, 5643-2, 1987-09, 88321-3, 76177-4, 215-6, 47823-1, THYR #### [facility] ([id number]) [address] [place] [address] 46350 Neutrophils (Bld) [#/Vol] 15.6 10*3/uL High 1.5-6.6 [facility] Comment on above: Performed By: #### C BCA, PINR, 93630-5, CMP, 3040-3, 02180-0, 5643-2, 1987-09, 45998-0, 07896-2, 215-6, 82713-4, THYR #### [facility] ([id number]) [address] [place] [address] [place] [address] Platelet mean volume (Bld) [Entitic vol] 9.2 fL Normal 7-12 [facility] Comment on above: Performed By: #### C BCA, PINR, 31786-4, CMP, 3040-3, 77851-9, 5643-2, 1987-, 47083-5, 13173-5, 2157-6, 07051-9, THYR #### [facility] ([id number]) [address] [place] [address] 84602 Platelets (Bld) [#/Vol] 213 10*3/uL Normal 150-450 [facility] Comment on above: Performed By: #### C BCA, PINR, 12576-5, CMP, 3040-3, 92045-2, 5643-2, 1987-09, 45126-0, 54322-1, 2157-6, 82819-7, THYR #### [facility] ([id number]) [address] [place] [address] [place] [address] RBC COUNT 4.41 X10E12/L Normal 3.80-5.20 [facility] Comment on above: Performed By: #### C BCA, PINR, 82631-4, CMP, 3040-3, 75381-2, 5643-2, 1987-09, 78452-1, 27650-1, 2157-6, 63488-5, THYR #### [facility] ([id number]) [address] [place] [address] [place] [address] SEG NEUTROPHIL 78.0 % Normal [facility] Comment on above: Performed By: #### C BCA, PINR, 32356-7, CMP, 3040-3, 87365-7, 5643-2, 1987-09, 52186-6, 52366-6, 2157-6, 31696-1, THYR #### [facility] ([id number]) [address] [place] [address] [place] [address] WBC (Bld) [#/Vol] 19.7 10*3/uL High 4.0-11.0 [facility] Comment on above: Performed By: #### C BCA, PINR, 05388-0, CMP, 3040-3, 65273-2, 5643-2, 1987-, 00817-4, 33605-1, 2157-6, 34218-5, THYR #### [facility] ([id number]) [address] [place] [address] 77024 COMPREHENSIVE METABOLIC PANE Virgil 12-31-2023 Albumin [Mass/Vol] 3.3 g/dL Normal 3.2-5.3 [facility] Comment on above: Performed By: #### C BCA, PINR, 77867-8, CMP, 3040-3, 29451-4, 5643-2, 1987-09, 46502-7, 30557-9, 2157-6, 57130-9, THYR #### [facility] ([id number]) [address] [place] [address] 29728 ALP [Catalytic activity/Vol] 100 U/L Normal 39-130 [facility] Comment on above: Performed By: #### C BCA, PINR, 11538-5, CMP, 3040-3, 72953-9, 5643-2, 1987-, 36184-0, 88277-8, 2157-6, 61610-7, THYR #### [facility] ([id number]) [address] [place] [address] 00158 ALT [Catalytic activity/Vol] 17 U/L Normal 0-31 [facility] Comment on above: Performed By: #### C BCA, PINR, 90068-0, CMP, 3040-3, 90639-8, 5643-2, 1987-, 11830-1, 67173-0, 2157-6, 02097-2, THYR #### [facility] ([id number]) [address] [place] [address] 25552 Anion gap [Moles/Vol] 7 mmol/L Normal 5-15 [facility] Comment on above: Performed By: #### C BCA, PINR, 77630-1, CMP, 3040-3, 82046-1, 5643-2, 1987-, 47121-2, 54019-6, 215-6, 40759-9, THYR #### [facility] ([id number]) [address] [place] [address] [place] [address] AST [Catalytic activity/Vol] 16 U/L Normal 0-41 [facility] Comment on above: Performed By: #### C BCA, PINR, 69492-0, CMP, 3040-3, 12383-9, 5643-2, 1987-, 86333-2, 15213-2, 2156-6, 21970-9, THYR #### [facility] ([id number]) [address] [place] [address] 62428 Bilirubin [Mass/Vol] 0.8 mg/dL Normal 0.3-1.2 [facility] Comment on above: Performed By: #### C BCA, PINR, 93671-5, CMP, 3040-3, 74112-2, 5643-2, 1987-, 26382-1, 30606-5, 215-6, 21829-1, THYR #### [facility] ([id number]) [address] [place] [address] 11798 Calcium [Mass/Vol] 8.7 mg/dL Normal 8.5-10.5 [facility] Comment on above: Performed By: #### C BCA, PINR, 98597-9, CMP, 3040-3, 81529-8, 5643-2, 1987-, 01147-4, 36868-5, 2156-6, 94007-6, THYR #### [facility] ([id number]) [address] [place] [address] [place] [address] Chloride [Moles/Vol] 100 mmol/L Normal 98-109 [facility] Comment on above: Performed By: #### C BCA, PINR, 55415-6, CMP, 3040-3, 34083-2, 5643-2, 1987-09, 13499-8, 02592-8, 2157-6, 38778-2, THYR #### [facility] ([id number]) [address] [place] [address] 59393 CO2 [Moles/Vol] 27 mmol/L Normal 22-32 [facility] Comment on above: Performed By: #### C BCA, PINR, 17607-5, CMP, 3040-3, 63931-2, 5643-2, 1987-09, 38728-0, 50604-6, 215-6, 65221-6, THYR #### [facility] ([id number]) [address] [place] [address] 52181 Creatinine [Mass/Vol] 0.69 mg/dL Normal 0.40-1.00 [facility] Comment on above: Result Comment: METH OD TRACEABLE TO IDMS STANDARD Performed By: #### C BCA, PINR, 27525-0, CMP, 3040-3, 58390-8, 5643-2, 1987-09, , 49770-7, 215-6, 91860-9, THYR #### [facility] ([id number]) [address] [place] [address] [place] [address] eGFR (CKD-EPI) NON-RACE DEPENDENT >90 Normal >59 [facility] Comment on above: Result Comment: Reported eGFR is based on the CKD-EPI 2020 equation that does not use a race coefficient. Performed By: #### C BCA, PINR, 08507-5, CMP, 3040-3, 07606-7, 5643-2, 1987-09, , 94379-3, 2157-6, 30721-8, THYR #### [facility] ([id number]) [address] [place] [address] 19494 Glucose [Mass/Vol] 167 mg/dL High 65-99 [facility] Comment on above: Performed By: #### C BCA, PINR, 58933-3, CMP, 3040-3, 71442-1, 5643-2, 1987-, 75408-4, 65750-3, 2157-6, 14951-4, THYR #### [facility] ([id number]) [address] [place] [address] 72047 Potassium [Moles/Vol] 3.6 mmol/L Normal 3.5-5.0 [facility] Comment on above: Performed By: #### C BCA, PINR, 10205-0, CMP, 3040-3, 98746-6, 5643-2, 1987-09, 93700-7, 08338-9, 2157-6, 91387-4, THYR #### [facility] ([id number]) [address] [place] [address] [place] [address] Protein [Mass/Vol] 6.5 g/dL Normal 6.0-8.0 [facility] Comment on above: Performed By: #### C BCA, PINR, 80370-7, CMP, 3040-3, 09461-4, 5643-2, 1987-09, 34221-0, 57529-4, 2157-6, 13816-4, THYR #### [facility] ([id number]) [address] [place] [address] [place] [address] Sodium [Moles/Vol] 134 mmol/L Normal 134-146 [facility] Comment on above: Performed By: #### C BCA, PINR, 08703-7, CMP, 3040-3, 91393-0, 5643-2, 1987-09, 24594-0, 86437-7, 215-6, 55299-1, THYR #### [facility] ([id number]) [address] [place] [address] [place] [address] Urea nitrogen [Mass/Vol] 14 mg/dL Normal 5-23 [facility] Comment on above: Performed By: #### C BCA, PINR, 26250-0, CMP, 3040-3, 08645-6, 5643-2, 1987-5, 67306-5, 82955-1, 2157-6, 75519-9, THYR #### [facility] ([id number]) [address] [place] [address] [place] [address] ELECTROLYTESon 12-31-2023 Anion gap [Moles/Vol] 9 mmol/L Normal 5-15 [facility] Comment on above: Performed By: #### E LEC ####[facility] ([id number])[address] [place] [address] Chloride [Moles/Vol] 99 mmol/L Normal 98-109 [facility] Comment on above: Performed By: #### E LEC ####[facility] ([id number])[address] [place] [address] [place] [address] CO2 [Moles/Vol] 25 mmol/L Normal 22-32 [facility] Comment on above: Performed By: #### E LEC ####[facility] ([id number])[address] [place] [address] Potassium [Moles/Vol] 3.8 mmol/L Normal 3.5-5.0 [facility] Comment on above: Performed By: #### E LEC ####[facility] ([id number])[address] [place] [address] [place] [address] Sodium [Moles/Vol] 133 mmol/L Low 134-146 [facility] Comment on above: Performed By: #### E LEC ####[facility] ([id number])[address] [place] [address] [place] [address] Anion gap [Moles/Vol] 5 mmol/L Normal 5-15 [facility] Comment on above: Performed By: #### C BCA, PINR, 65664-3, CMP, 3040-3, 24357-2, 5643-2, 1987-09, 83157-8, 24669-8, 2156-6, 07021-5, THYR #### [facility] ([id number]) [address] [place] [address], [place] [address] Chloride [Moles/Vol] 97 mmol/L Low 98-109 [facility] Comment on above: Performed By: #### C BCA, PINR, 32844-5, CMP, 3040-3, 47423-7, 5643-2, 1987-09, 76349-6, 32365-3, 2156-, 23883-5, THYR #### [facility] ([id number]) [address] [place] [address], [place] [address] CO2 [Moles/Vol] 28 mmol/L Normal 22-32 [facility] Comment on above: Performed By: #### C BCA, PINR, 73420-9, CMP, 3040-3, 14557-2, 5643-2, 1987-09, 32118-3, 65582-9, 2156-, 07541-9, THYR #### [facility] ([id number]) [address] [place] [address], [place] [address] Potassium [Moles/Vol] 3.9 mmol/L Normal 3.5-5.0 [facility] Comment on above: Performed By: #### C BCA, PINR, 31909-7, CMP, 3040-3, 56175-0, 5643-2, 1987-09, 36722-7, 33273-3, 2156-6, 39939-4, THYR #### [facility] ([id number]) [address] [place] [address], [place] [address] Sodium [Moles/Vol] 130 mmol/L Low 134-146 [facility] Comment on above: Performed By: #### C BCA, PINR, 61453-0, CMP, 3040-3, 63539-7, 5643-2, 1987-09, 15094-4, 58332-2, 2157-6, 54698-0, THYR #### [facility] ([id number]) [address] [place] [address] [place] [address] Anion gap [Moles/Vol] 8 mmol/L Normal 5-15 [facility] Comment on above: Performed By: #### C BCA, PINR, 95912-5, CMP, 3040-3, 26023-6, 5643-2, 1987-09, 33471-7, 47481-3, 2157-6, 46181-5, THYR #### [facility] ([id number]) [address] [place] [address] [place] [address] Chloride [Moles/Vol] 99 mmol/L Normal 98-109 [facility] Comment on above: Performed By: #### C BCA, PINR, 69770-6, CMP, 3040-3, 01367-5, 5643-2, 1987-09, 97373-2, 66877-7, 2157-6, 80958-6, THYR #### [facility] ([id number]) [address] [place] [address] [place] [address] CO2 [Moles/Vol] 25 mmol/L Normal 22-32 [facility] Comment on above: Performed By: #### C BCA, PINR, 02927-6, CMP, 3040-3, 18421-1, 5643-2, 1987-09, , 81155-3, 215-6, 29411-1, THYR #### [facility] ([id number]) [address] [place] [address] [place] [address] Potassium [Moles/Vol] 4.3 mmol/L Normal 3.5-5.0 [facility] Comment on above: Performed By: #### C BCA, PINR, 86603-8, CMP, 3040-3, 11434-4, 5643-2, 1987-09, 88226-5, 21774-6, 2157-6, 09156-7, THYR #### [facility] ([id number]) [address] [place] [address], [place] [address] Sodium [Moles/Vol] 132 mmol/L Low 134-146 [facility] Comment on above: Performed By: #### C BCA, PINR, 21678-9, CMP, 3040-3, 99510-3, 5643-, 1987-09, , 94450-9, 2157-6, 84850-2, THYR #### [facility] ([id number]) [address] [place] [address], [place] [address] Anion gap [Moles/Vol] 8 mmol/L Normal 5-15 [facility] Comment on above: Performed By: #### C BCA, PINR, 31635-6, CMP, 3040-3, 52596-0, 5643-, 1987-09, , 69175-2, 2157-6, 59171-2, THYR #### [facility] ([id number]) [address] [place] [address], [place] [address] Chloride [Moles/Vol] 99 mmol/L Normal 98-109 [facility] Comment on above: Performed By: #### C BCA, PINR, 36970-8, CMP, 3040-3, 35313-0, 5643-, 1987-09, , 06788-8, 215-6, 70496-7, THYR #### [facility] ([id number]) [address] [place] [address], [place] [address] CO2 [Moles/Vol] 25 mmol/L Normal 22-32 [facility] Comment on above: Performed By: #### C BCA, PINR, 10954-2, CMP, 3040-3, 01461-5, 5643-, 1987-09, 47390-6, 91898-4, 2157-6, 27453-7, THYR #### [facility] ([id number]) [address] [place] [address] Potassium [Moles/Vol] 3.6 mmol/L Normal 3.5-5.0 [facility] Comment on above: Performed By: #### C BCA, PINR, 15327-2, CMP, 3040-3, 14181-5, 5643-2, 1987-09, , 50105-5, 2156-10, 46461-3, THYR #### [facility] ([id number]) [address] [place] [address] Sodium [Moles/Vol] 132 mmol/L Low 134-146 [facility] Comment on above: Performed By: #### C BCA, PINR, 36429-0, CMP, 3040-3, 20468-4, 5643-, 1987-09, , , 2156-10, 44791-7, THYR #### [facility] ([id number]) [address] [place] [address] [place] [address] Anion gap [Moles/Vol] 7 mmol/L Normal 5-15 [facility] Comment on above: Performed By: #### C BCA, PINR, 13454-6, CMP, 3040-3, 55367-1, 5643-, 1987-09, , , 2156-10, 49880-7, THYR #### [facility] ([id number]) [address] [place] [address], [place] [address] Chloride [Moles/Vol] 101 mmol/L Normal 98-109 [facility] Comment on above: Performed By: #### C BCA, PINR, 64464-6, CMP, 3040-3, 86072-3, 5643-2, 1987-09, , 53488-8, 2156-10, 28305-9, THYR #### [facility] ([id number]) [address] [place] [address] CO2 [Moles/Vol] 27 mmol/L Normal 22-32 [facility] Comment on above: Performed By: #### C BCA, PINR, 51983-6, CMP, 3040-3, 13482-9, 5643-2, 1987-, 75469-0, 98888-3, 2156-6, 60709-2, THYR #### [facility] ([id number]) [address] [place] [address] Potassium [Moles/Vol] 3.8 mmol/L Normal 3.5-5.0 [facility] Comment on above: Performed By: #### C BCA, PINR, 96489-0, CMP, 3040-3, 02906-5, 5643-2, 1987-09, , 65046-3, 2156-6, 25498-0, THYR #### [facility] ([id number]) [address] [place] [address] Sodium [Moles/Vol] 135 mmol/L Normal 134-146 [facility] Comment on above: Performed By: #### C BCA, PINR, 02106-0, CMP, 3040-3, 74594-3, 5643-2, 1987-09, , 87243-5, 2156-6, 31753-6, THYR #### [facility] ([id number]) [address] [place] [address] Glucose Glucometer (dC) [M ass/Vol]on 12-31-2023 Glucose [Mass/Vol] 153 mg/dL High 65-99 [facility] Glucose [Mass/Vol] 203 mg/dL High 65-99 [facility] Glucose [Mass/Vol] 226 mg/dL High 65-99 [facility] MAGNESIUMon 08-06-2024 Magnesium [Mass/Vol] 2.3 mg/dL Normal 1.8-2.6 [facility] Comment on above: Performed By: #### E LEC, ####[facility] ([id number])[address] [place] [address] Magnesium [Mass/Vol] 1.8 mg/dL Normal 1.8-2.6 [facility] Comment on above: Performed By: #### C BCA, PINR, 21955-5, CMP, 3040-3, 26788-2, 5643-2, 1987-09, , , 2156-, 65568-2, THYR #### [facility] ([id number]) [address] [place] [address] XR ABDOMEN AP AND ERECT ONLY on [...] Rodriguez MD on 12/31/2023 3:12 PM Normal [facility] Beta hydroxybutyrate [Moles/ Vol]on 12-30-2023 BetaHydroxybutyrate <0.05 Normal 0.02-0.27 [facility] Comment on above: Performed By: #### C BCA, PINR, 78978-9, CMP, 3040-3, 74826-2, 5643-2, 1987-09, , 29392-3, 2156-6, 35498-6, THYR #### [facility] ([id number]) [address] [place] [address] BetaHydroxybutyrate 0.40 mmol/L High 0.02-0.27 [facility] Comment on above: Performed By: #### C JOSTIN, PINR, 29218-3, CMP, 3040-3, 87899-1, 5643-2, 1987-, 00592-3, 13315-4, 2157-6, 88506-3, THYR #### [facility] ([id number]) [address] [place] [address] CBC AND AUTO DIFFon 12-30-19 Erythrocyte distribution width (RBC) [Ratio] 15.7 % High 11.5-15.0 [facility] Comment on above: Performed By: #### C JOSTIN, PINR, 12534-3, CMP, 3040-3, 14440-8, 5643-2, 1987-09, 49582-9, 53160-2, 2157-6, 52029-7, THYR #### [facility] ([id number]) [address] [place] [address] Hematocrit (Bld) [Volume fraction] 42.6 % Normal 35-47 [facility] Comment on above: Performed By: #### C JOSTIN, PINR, 98864-8, CMP, 3040-3, 14820-0, 5643-2, 1987-, 89390-0, 55223-6, 2157-6, 96577-9, THYR #### [facility] ([id number]) [address] [place] [address] Hemoglobin (Bld) [Mass/Vol] 13.7 g/dL Normal 11.7-15.5 [facility] Comment on above: Performed By: #### C BCA, PINR, 40773-6, CMP, 3040-3, 06283-5, 5643-2, 1987-, 17716-1, 25356-7, 2157-6, 05182-4, THYR #### [facility] ([id number]) [address] [place] [address] LYMPHOCYTE, ATYPICAL 1.0 % Normal [facility] Comment on above: Performed By: #### C BCA, PINR, 80715-0, CMP, 3040-3, 48273-8, 5643-2, 1987-, 30898-7, 89674-9, 2157-6, 94824-2, THYR #### [facility] ([id number]) [address] [place] [address] Lymphocytes (Bld) [#/Vol] 1.2 10*3/uL Normal 1.0-3.5 [facility] Comment on above: Performed By: #### C BCA, PINR, 64221-4, CMP, 3040-3, 59038-7, 5643-2, 1987-09, 90679-2, 22887-0, 2157-6, 85798-8, THYR #### [facility] ([id number]) [address] [place] [address] 73563 Lymphocytes/100 WBC (Bld) 4.0 % Normal [facility] Comment on above: Performed By: #### C BCA, PINR, 53972-3, CMP, 3040-3, 86121-8, 5643-2, 1987-09, 57366-1, 79316-1, 2157-6, 61779-6, THYR #### [facility] ([id number]) [address] [place] [address] [place] [address] MCH (RBC) [Entitic mass] 27.8 pg Normal 27-34 [facility] Comment on above: Performed By: #### C BCA, PINR, 00940-0, CMP, 3040-3, 94546-2, 5643-2, 1987-, 60514-1, 35421-8, 2157-6, 15419-6, THYR #### [facility] ([id number]) [address] [place] [address] MCHC (RBC) [Mass/Vol] 32.2 g/dL Normal 32-36 [facility] Comment on above: Performed By: #### C BCA, PINR, 71232-1, CMP, 3040-3, 93125-0, 5643-2, 1987-09, 13027-9, 28451-3, 2157-6, 56260-8, THYR #### [facility] ([id number]) [address] [place] [address] 99785 MCV (RBC) [Entitic vol] 86 fL Normal 80-100 [facility] Comment on above: Performed By: #### C BCA, PINR, 34709-6, CMP, 3040-3, 48215-9, 5643-2, 1987-09, 44684-8, 30030-7, 2157-6, 83911-0, THYR #### [facility] ([id number]) [address] [place] [address] 35899 Monocytes (Bld) [#/Vol] 2.5 10*3/uL High 0-0.9 [facility] Comment on above: Performed By: #### C BCA, PINR, 95403-4, CMP, 3040-3, 94753-4, 5643-, 1987-09, 13463-3, 29920-2, 2157-6, 05426-4, THYR #### [facility] ([id number]) [address] [place] [address] 73325 Monocytes/100 WBC (Bld) 10.0 % Normal [facility] Comment on above: Performed By: #### C BCA, PINR, 52919-1, CMP, 3040-3, 18568-8, 5643-2, 1987-09, 81308-9, 73864-3, 2157-6, 33655-9, THYR #### [facility] ([id number]) [address] [place] [address] 35016 Neutrophils (Bld) [#/Vol] 20.9 10*3/uL High 1.5-6.6 [facility] Comment on above: Performed By: #### C JOSTIN, PINR, 62326-7, CMP, 3040-3, 60919-3, 5643-2, 1987-, 85744-2, 76978-3, 2157-6, 92011-6, THYR #### [facility] ([id number]) [address] [place] [address] 21424 Platelet mean volume (Bld) [Entitic vol] 9.7 fL Normal 7-12 [facility] Comment on above: Performed By: #### C JOSTIN, PINR, 52994-5, CMP, 3040-3, 27222-9, 5643-2, 1987-09, 84981-0, 79107-1, 2157-6, 97468-0, THYR #### [facility] ([id number]) [address] [place] [address] 08760 Platelets (Bld) [#/Vol] 238 10*3/uL Normal 150-450 [facility] Comment on above: Performed By: #### C BCA, PINR, 57731-5, CMP, 3040-3, 14055-3, 5643-2, 1987-09, 74296-9, 00887-2, 2157-6, 46973-3, THYR #### [facility] ([id number]) [address] [place] [address] 90528 RBC COUNT 4.95 X10E12/L Normal 3.80-5.20 [facility] Comment on above: Performed By: #### C JOSTIN, PINR, 11238-0, CMP, 3040-3, 41162-3, 5643-2, 1987-09, 90532-7, 15622-3, 2157-6, 85207-6, THYR #### [facility] ([id number]) [address] [place] [address] 91397 RBC morphology finding Nom (Bld) NORMAL Normal [facility] Comment on above: Performed By: #### C BCA, PINR, 14670-7, CMP, 3040-3, 34902-8, 5643-2, 1987-, 07009-8, 06911-6, 2157-6, 38474-8, THYR #### [facility] ([id number]) [address] [place] [address] 29031 SEG NEUTROPHIL 85.0 % Normal [facility] Comment on above: Performed By: #### C BCA, PINR, 83806-9, CMP, 3040-3, 60088-2, 5643-2, 1987-, 36676-6, 08616-3, 2157-6, 61444-3, THYR #### [facility] ([id number]) [address] [place] [address] 07192 WBC (Bld) [#/Vol] 24.6 10*3/uL High 4.0-11.0 [facility] Comment on above: Performed By: #### C BCA, PINR, 57894-8, CMP, 3040-3, 63798-2, 5643-2, 1987-, 32345-8, 52207-0, 2157-6, 30894-1, THYR #### [facility] ([id number]) [address] [place] [address]3780 COMPREHENSIVE METABOLIC PANE Virgil 12-30-2023 Albumin [Mass/Vol] 3.5 g/dL Normal 3.2-5.3 [facility] Comment on above: Performed By: #### C BCA, PINR, 37709-1, CMP, 3040-3, 09673-5, 5643-2, 1987-09, 47670-7, 17217-1, 2157-6, 77553-5, THYR #### [facility] ([id number]) [address] [place] [address] 88959 ALP [Catalytic activity/Vol] 106 U/L Normal 39-130 [facility] Comment on above: Performed By: #### C BCA, PINR, 79683-2, CMP, 3040-3, 03408-6, 5643-2, 1987-, 01386-2, 97729-6, 2157-6, 35770-5, THYR #### [facility] ([id number]) [address] [place] [address] 99235 AST [Catalytic activity/Vol] 20 U/L Normal 0-41 [facility] Comment on above: Performed By: #### C BCA, PINR, 04178-6, CMP, 3040-3, 99758-5, 5643-2, 1987-, 27384-6, 40977-3, 2157-6, 96272-9, THYR #### [facility] ([id number]) [address] [place] [address] 14608 Bilirubin [Mass/Vol] 0.6 mg/dL Normal 0.3-1.2 [facility] Comment on above: Performed By: #### C BCA, PINR, 82227-8, CMP, 3040-3, 98604-9, 5643-2, 1987-09, 13864-2, 72326-3, 2157-6, 77677-6, THYR #### [facility] ([id number]) [address] [place] [address] 06730 CO2 [Moles/Vol] 26 mmol/L Normal 22-32 [facility] Comment on above: Performed By: #### C BCA, PINR, 12033-5, CMP, 3040-3, 55942-8, 5643-2, 1987-09, 05659-7, 20830-0, 2157-6, 69820-4, THYR #### [facility] ([id number]) [address] [place] [address] 02466 Creatinine [Mass/Vol] 0.86 mg/dL Normal 0.40-1.00 [facility] Comment on above: Result Comment: METH OD TRACEABLE TO IDMS STANDARD Performed By: #### C JOSTIN, PINR, 80216-4, CMP, 3040-3, 69619-3, 5643-2, 1987-09, 35117-4, 75029-2, 2157-6, 65309-5, THYR #### [facility] ([id number]) [address] [place] [address] 29549 GFR/1.73 sq M.predicted among non-blacks MDRD (S/P/Bld) [Vol rate/Area] 79 mL/min/{1.73_m2} Normal >59 [facility] Comment on above: Result Comment: Reported eGFR is based on the CKD-EPI 2020 equation that does not use a race coefficient. Performed By: #### C JOSTIN, PINR, 15107-3, CMP, 3040-3, 92987-5, 5643-, 1987-09, 97572-1, 77741-5, 2157-6, 85356-4, THYR #### [facility] ([id number]) [address] [place] [address] 27323 Glucose [Mass/Vol] 86 mg/dL Normal 65-99 [facility] Comment on above: Performed By: #### C BCA, PINR, 20914-8, CMP, 3040-3, 35313-1, 5643-, 1987-09, 77731-0, 67266-7, 2157-6, 32198-4, THYR #### [facility] ([id number]) [address] [place] [address] 17738 Protein [Mass/Vol] 6.9 g/dL Normal 6.0-8.0 [facility] Comment on above: Performed By: #### C BCA, PINR, 72563-9, CMP, 3040-3, 25613-3, 5643-2, 1987-09, 61363-5, 12893-4, 2157-6, 44398-5, THYR #### [facility] ([id number]) [address] [place] [address] 12946 Sodium [Moles/Vol] 137 mmol/L Normal 134-146 [facility] Comment on above: Performed By: #### C BCA, PINR, 10922-2, CMP, 3040-3, 71491-9, 5643-2, 1987-09, 16682-8, 19557-2, 215-6, 04333-0, THYR #### [facility] ([id number]) [address] [place] [address] 35138 Urea nitrogen [Mass/Vol] 16 mg/dL Normal 5-23 [facility] Comment on above: Performed By: #### C BCA, PINR, 18075-5, CMP, 3040-3, 19207-1, 5643-, 1987-09, 27484-4, 66779-7, 215-6, 58331-0, THYR #### [facility] ([id number]) [address] [place] [address] [place] [address] Albumin [Mass/Vol] 3.4 g/dL Normal 3.2-5.3 [facility] Comment on above: Performed By: #### C BCA, PINR, 66432-5, CMP, 3040-3, 67592-8, 5643-, 1987-09, 70836-3, 07501-1, 215-6, 64045-6, THYR #### [facility] ([id number]) [address] [place] [address] 60967 ALP [Catalytic activity/Vol] 108 U/L Normal 39-130 [facility] Comment on above: Performed By: #### C BCA, PINR, 48300-3, CMP, 3040-3, 67244-4, 5643-2, 1987-09, 53249-9, 27580-1, 2157-6, 81974-3, THYR #### [facility] ([id number]) [address] [place] [address] ALT [Catalytic activity/Vol] 18 U/L Normal 0-31 [facility] Comment on above: Performed By: #### C BCA, PINR, 72696-4, CMP, 3040-3, 11205-9, 5643-2, 1987-, 92752-1, 40548-6, 2157-6, 77665-8, THYR #### [facility] ([id number]) [address] [place] [address] 11562 Result Comment: SPEC IMEN HEMOLYZED, RESULTS INCREASED Anion gap [Moles/Vol] 10 mmol/L Normal 5-15 [facility] Comment on above: Performed By: #### C BCA, PINR, 11190-2, CMP, 3040-3, 21371-0, 5643-2, 1987-09, 98251-3, 45326-4, 2157-6, 74943-7, THYR #### [facility] ([id number]) [address] [place] [address] [place] [address] AST [Catalytic activity/Vol] 27 U/L Normal 0-41 [facility] Comment on above: Result Comment: SPEC IMEN HEMOLYZED, RESULTS INCREASED Performed By: #### C BCA, PINR, 11538-5, CMP, 3040-3, 42255-9, 5643-2, 1987-09, 29962-7, 08054-3, 2157-6, 02864-3, THYR #### [facility] ([id number]) [address] [place] [address] [place] [address] Bilirubin [Mass/Vol] 1.0 mg/dL Normal 0.3-1.2 [facility] Comment on above: Result Comment: RESU LTS QUESTIONABLE DUE TO HEMOLYSIS Performed By: #### C BCA, PINR, 82230-9, CMP, 3040-3, 18084-3, 5643-2, 1987-09, 31391-9, 30536-7, 2157-6, 70268-9, THYR #### [facility] ([id number]) [address] [place] [address] [place] [address] Calcium [Mass/Vol] 8.6 mg/dL Normal 8.5-10.5 [facility] Comment on above: Performed By: #### C BCA, PINR, 97267-8, CMP, 3040-3, 54336-7, 5643-2, 1987-09, 80870-0, 54682-9, 2157-6, 44452-8, THYR #### [facility] ([id number]) [address] [place] [address] [place] [address] Chloride [Moles/Vol] 105 mmol/L Normal 98-109 [facility] Comment on above: Performed By: #### C BCA, PINR, 13510-0, CMP, 3040-3, 84439-5, 5643-, 1987-09, 57985-9, 33657-9, 2157-6, 24272-9, THYR #### [facility] ([id number]) [address] [place] [address] [place] [address] CO2 [Moles/Vol] 20 mmol/L Low 22-32 [facility] Comment on above: Performed By: #### C BCA, PINR, 48362-8, CMP, 3040-3, 76938-8, 5643-2, 1987-09, 42722-0, 22723-6, 2157-6, 99215-6, THYR #### [facility] ([id number]) [address] [place] [address] [place] [address] Creatinine [Mass/Vol] 0.85 mg/dL Normal 0.40-1.00 [facility] Comment on above: Result Comment: METH OD TRACEABLE TO IDMS STANDARD Performed By: #### C BCA, PINR, 94097-0, CMP, 3040-3, 04616-8, 5643-, 1987-09, 85113-1, 38650-9, 2157-6, 79332-1, THYR #### [facility] ([id number]) [address] [place] [address] 84132 GFR/1.73 sq M.predicted among non-blacks MDRD (S/P/Bld) [Vol rate/Area] 80 mL/min/{1.73_m2} Normal >59 [facility] Comment on above: Result Comment: Reported eGFR is based on the CKD-EPI 2020 equation that does not use a race coefficient. Performed By: #### C JOSTIN, PINR, 84229-8, CMP, 3040-3, 11455-9, 43-, 1987-09, , 27193-6, 2156-6, 17010-6, THYR #### [facility] ([id number]) [address] [place] [address] 53557 Glucose [Mass/Vol] 113 mg/dL High 65-99 [facility] Comment on above: Performed By: #### C BCA, PINR, 64568-6, CMP, 3040-3, 61787-2, 5643-, 1987-09, , 54976-1, 2156-6, 23400-0, THYR #### [facility] ([id number]) [address] [place] [address] 62763 Potassium [Moles/Vol] 4.8 mmol/L Normal 3.5-5.0 [facility] Comment on above: Result Comment: SPEC IMEN HEMOLYZED, RESULTS INCREASED Performed By: #### C BCA, PINR, 84857-0, CMP, 3040-3, 94757-4, 5643-2, 1987-09, , 05817-5, 215-6, 33653-3, THYR #### [facility] ([id number]) [address] [place] [address] Protein [Mass/Vol] 7.0 g/dL Normal 6.0-8.0 [facility] Comment on above: Performed By: #### C BCA, PINR, 29331-9, CMP, 3040-3, 81667-6, 5643-2, 1987-09, 49007-2, 54180-9, 2157-6, 02592-0, THYR #### [facility] ([id number]) [address] [place] [address] [place] [address] Sodium [Moles/Vol] 135 mmol/L Normal 134-146 [facility] Comment on above: Performed By: #### C BCA, PINR, 44568-8, CMP, 3040-3, 80024-6, 5643-, 1987-09, 40553-8, 82327-1, 2157-6, 86858-3, THYR #### [facility] ([id number]) [address] [place] [address] [place] [address] Urea nitrogen [Mass/Vol] 24 mg/dL High 5-23 [facility] Comment on above: Performed By: #### C BCA, PINR, 84793-6, CMP, 3040-3, 48769-4, 5643-2, 1987-09, 74591-0, 58921-1, 2157-6, 24647-0, THYR #### [facility] ([id number]) [address] [place] [address] [place] [address] Potassium [Moles/Vol] 3.9 mmol/L Normal 3.5-5.0 [facility] Comment on above: Performed By: #### C BCA, PINR, 90700-3, CMP, 3040-3, 70385-1, 5643-2, 1987-09, 09673-5, 97889-1, 2157-6, 89311-7, THYR #### [facility] ([id number]) [address] [place] [address] [place] [address] ELECTROLYTESon 12-30-2023 Anion gap [Moles/Vol] 7 mmol/L Normal 5-15 [facility] Comment on above: Performed By: #### C BCA, PINR, 79243-4, CMP, 3040-3, 16151-8, 5643-2, 1987-09, 66231-3, 92730-8, 2157-6, 45168-6, THYR #### [facility] ([id number]) [address] [place] [address], [place] [address] Chloride [Moles/Vol] 102 mmol/L Normal 98-109 [facility] Comment on above: Performed By: #### C BCA, PINR, 09492-7, CMP, 3040-3, 78672-2, 5643-, 1987-09, , 32140-1, 2157-6, 60909-2, THYR #### [facility] ([id number]) [address] [place] [address], [place] [address] CO2 [Moles/Vol] 24 mmol/L Normal 22-32 [facility] Comment on above: Performed By: #### C BCA, PINR, 75778-0, CMP, 3040-3, 89553-7, 5643-2, 1987-09, , 50276-8, 2157-6, 77141-9, THYR #### [facility] ([id number]) [address] [place] [address], [place] [address] Potassium [Moles/Vol] 3.7 mmol/L Normal 3.5-5.0 [facility] Comment on above: Performed By: #### C BCA, PINR, 08014-9, CMP, 3040-3, 07487-7, 5643-2, 1987-09, , 15128-4, 2157-6, 51603-3, THYR #### [facility] ([id number]) [address] [place] [address], [place] [address] Sodium [Moles/Vol] 133 mmol/L Low 134-146 [facility] Comment on above: Performed By: #### C BCA, PINR, 28624-7, CMP, 3040-3, 85503-9, 5643-2, 1987-, 20492-7, 27994-2, 2156-6, 13793-8, THYR #### [facility] ([id number]) [address] [place] [address] [place] [address] Anion gap [Moles/Vol] 5 mmol/L Normal 5-15 [facility] Comment on above: Performed By: #### C BCA, PINR, 91156-4, CMP, 3040-3, 53740-9, 5643-, 1987-09, , 56485-3, 2156-6, 19984-5, THYR #### [facility] ([id number]) [address] [place] [address] [place] [address] Chloride [Moles/Vol] 104 mmol/L Normal 98-109 [facility] Comment on above: Performed By: #### C BCA, PINR, 84809-7, CMP, 3040-3, 27234-1, 5643-2, 1987-09, , 48263-0, 2156-6, 54682-2, THYR #### [facility] ([id number]) [address] [place] [address] [place] [address] CO2 [Moles/Vol] 25 mmol/L Normal 22-32 [facility] Comment on above: Performed By: #### C BCA, PINR, 11613-5, CMP, 3040-3, 18400-8, 5643-2, 1987-09, , 11796-9, 2156-, 92487-8, THYR #### [facility] ([id number]) [address] [place] [address] [place] [address] Potassium [Moles/Vol] 4.0 mmol/L Normal 3.5-5.0 [facility] Comment on above: Performed By: #### C BCA, PINR, 77929-2, CMP, 3040-3, 17386-5, 5643-2, 1987-09, 09224-9, 78087-0, 2156-6, 05582-4, THYR #### [facility] ([id number]) [address] [place] [address], [place] [address] Sodium [Moles/Vol] 134 mmol/L Normal 134-146 [facility] Comment on above: Performed By: #### C BCA, PINR, 31072-3, CMP, 3040-3, 76405-6, 5643-2, 1987-09, , 39251-0, 2156-6, 54437-3, THYR #### [facility] ([id number]) [address] [place] [address] [place] [address] Anion gap [Moles/Vol] 3 mmol/L Low 5-15 [facility] Comment on above: Performed By: #### C BCA, PINR, 01132-4, CMP, 3040-3, 48721-0, 5643-, 1987-09, , 90038-2, 2156-6, 65109-8, THYR #### [facility] ([id number]) [address] [place] [address], [place] [address] Sodium [Moles/Vol] 130 mmol/L Low 134-146 [facility] Comment on above: Performed By: #### C BCA, PINR, 13781-1, CMP, 3040-3, 33632-5, 5643-2, 1987-09, , 87715-2, 6, 67664-4, THYR #### [facility] ([id number]) [address] [place] [address], [place] [address] Anion gap [Moles/Vol] 6 mmol/L Normal 5-15 [facility] Comment on above: Performed By: #### C BCA, PINR, 24907-0, CMP, 3040-3, 30189-0, 5643-2, 1987-09, 61942-1, 16419-7, 215-6, 27749-5, THYR #### [facility] ([id number]) [address] [place] [address] Chloride [Moles/Vol] 103 mmol/L Normal 98-109 [facility] Comment on above: Performed By: #### C BCA, PINR, 49156-4, CMP, 3040-3, 19054-4, 5643-2, 1987-09, , 71158-5, 2156-6, 30018-8, THYR #### [facility] ([id number]) [address] [place] [address] CO2 [Moles/Vol] 25 mmol/L Normal 22-32 [facility] Comment on above: Performed By: #### C BCA, PINR, 09587-7, CMP, 3040-3, 76807-9, 5643-2, 1987-09, 63485-9, 65432-6, 215-6, 59869-3, THYR #### [facility] ([id number]) [address] [place] [address] [place] [address] Sodium [Moles/Vol] 134 mmol/L Normal 134-146 [facility] Comment on above: Performed By: #### C BCA, PINR, 14166-8, CMP, 3040-3, 65116-0, 5643-2, 1987-09, 69576-7, 43092-5, 2156-6, 58483-2, THYR #### [facility] ([id number]) [address] [place], [place] [address] [place] [address] Glucose Glucometer (BldC) [M ass/Vol]on 12-30-2023 Glucose [Mass/Vol] 170 mg/dL High 65-99 [facility] Glucose [Mass/Vol] 130 mg/dL High 65-99 [facility] Glucose [Mass/Vol] 109 mg/dL High 65-99 [facility] Glucose [Mass/Vol] 138 mg/dL High 65-99 [facility] Glucose [Mass/Vol] 113 mg/dL High 65-99 [facility] Glucose [Mass/Vol] 88 mg/dL Normal 65-99 [facility] Glucose [Mass/Vol] 164 mg/dL High 65-99 [facility] Glucose [Mass/Vol] 209 mg/dL High 65-99 [facility] Glucose [Mass/Vol] 210 mg/dL High 65-99 [facility] Glucose [Mass/Vol] 237 mg/dL High 65-99 [facility] Glucose [Mass/Vol] 180 mg/dL High 65-99 [facility] Glucose [Mass/Vol] 135 mg/dL High 65-99 [facility] Glucose [Mass/Vol] 117 mg/dL High 65-99 [facility] Glucose [Mass/Vol] 91 mg/dL Normal 65-99 [facility] Glucose [Mass/Vol] 114 mg/dL High 65-99 [facility] MAGNESIUMon 12-30-2023 Magnesium [Mass/Vol] 2.0 mg/dL Normal 1.8-2.6 [facility] Comment on above: Result Comment: SPEC IMEN HEMOLYZED, RESULTS INCREASED Performed By: #### C JOSTIN, PINR, 04739-6, CMP, 3040-3, 58308-4, 5643-2, 1987-5, 22247-6, 02618-5, 2157-6, 86581-0, THYR #### [facility] ([id number]) [address] [place] [address], [place] [address] BASIC METABOLIC PANLon 12-28 Anion gap [Moles/Vol] 16 mmol/L High 5-15 [facility] Comment on above: Performed By: #### C BCA, PINR, 42376-2, CMP, 3040-3, 19544-5, 5643-2, 1987-, 67347-6, 61812-5, 2157-6, 92414-7, THYR #### [facility] ([id number]) [address] [place] [address] Calcium [Mass/Vol] 9.5 mg/dL Normal 8.5-10.5 [facility] Comment on above: Performed By: #### C BCA, PINR, 41193-6, CMP, 3040-3, 43834-6, 5643-2, 1987-09, 20551-4, 43462-4, 2157-6, 44902-1, THYR #### [facility] ([id number]) [address] [place] [address] Chloride [Moles/Vol] 88 mmol/L Low 98-109 [facility] Comment on above: Performed By: #### C BCA, PINR, 34242-2, CMP, 3040-3, 37042-8, 5643-2, 1987-09, 77607-8, 77521-4, 2157-6, 08237-2, THYR #### [facility] ([id number]) [address] [place] [address] [place] [address] CO2 [Moles/Vol] 23 mmol/L Normal 22-32 [facility] Comment on above: Performed By: #### C BCA, PINR, 14800-6, CMP, 3040-3, 95722-8, 5643-2, 1987-09, 69399-7, 51639-7, 2157-6, 57207-9, THYR #### [facility] ([id number]) [address] [place] [address] [place] [address] Creatinine [Mass/Vol] 1.56 mg/dL High 0.40-1.00 [facility] Comment on above: Result Comment: METH OD TRACEABLE TO IDMS STANDARD Performed By: #### C BCA, PINR, 24152-2, CMP, 3040-3, 59107-7, 5643-2, 1987-09, 42305-9, 31406-5, 2157-6, 19264-9, THYR #### [facility] ([id number]) [address] [place] [address] GFR/1.73 sq M.predicted among non-blacks MDRD (S/P/Bld) [Vol rate/Area] 39 mL/min/{1.73_m2} Low >59 [facility] Comment on above: Result Comment: Reported eGFR is based on the CKD-EPI 2020 equation that does not use a race coefficient. Performed By: #### C TAWNY FRANKELR, 89959-1, CMP, 3040-3, 21264-6, 5643-, 1987-09, , , 2156-, 79731-3, THYR #### [facility] ([id number]) [address] [place] [address] Glucose [Mass/Vol] 596 mg/dL Critically high 65-99 [facility] Comment on above: Performed By: #### C JOSTIN PINR, 92884-2, [facility], 3040-3, 73557-7, 5643-2, 1987-09, 71398-5, 79891-8, 2156-6, 15388-0, THYR #### [facility] ([id number]) [address] [place] [address] Potassium [Moles/Vol] 4.2 mmol/L Normal 3.5-5.0 [facility] Comment on above: Performed By: #### C JOSTIN, PINR, 97543-1, CMP, 3040-3, 06915-4, 5643-2, 1987-09, 21813-8, 38243-4, 215-6, 48693-4, THYR #### [facility] ([id number]) [address] [place] [address] 40274 Sodium [Moles/Vol] 127 mmol/L Low 134-146 [facility] Comment on above: Performed By: #### C BCA, PINR, 21826-1, CMP, 3040-3, 81455-5, 5643-2, 1987-09, 40260-4, 71052-6, 215-6, 21966-3, THYR #### [facility] ([id number]) [address] [place] [address] Urea nitrogen [Mass/Vol] 28 mg/dL High 5-23 [facility] Comment on above: Performed By: #### C BCA, PINR, 34713-0, CMP, 3040-3, 54183-9, 5643-, 1987-09, , 17637-7, 2156-6, 33959-0, THYR #### [facility] ([id number]) [address] [place] [address] BLOOD CULTUREon 12-29-2023 Bacteria identified Aer cx Nom (Bld) SPECIMEN NOTES SUBOPTIMAL VOLUME OF BLOOD COLLECTED, RESULTS MAY BE AFFECTED. CULTURE RESULTS NO GROWTH 5 DAYS Normal [facility] Comment on above: Performed By: #### C BCA, PINR, 28444-8, CMP, 3040-3, 49438-8, 5643-, 1987-09, , 38826-0, 2156-6, 19391-5, THYR #### [facility] ([id number]) [address] [place] [address] Bacteria identified Aer cx Nom (Bld) CULTURE RESULTS NO GROWTH 5 DAYS Normal [facility] Beta hydroxybutyrate [Moles/ Vol]on 12-29-2023 BetaHydroxybutyrate 0.62 mmol/L High 0.02-0.27 [facility] Comment on above: Performed By: #### C BCA, PINR, 39975-3, CMP, 3040-3, 89333-1, 5643-2, 1987-09, 17976-1, 44954-9, 2157-6, 71179-4, THYR #### [facility] ([id number]) [address] [place] [address]11[address] CBC AND AUTO DIFFon 12-29-19 24 ABSOLUTE BASOPHIL 0.1 X10E9/L Normal 0.0-0.2 [facility] Comment on above: Performed By: #### C BCA, PINR, 13688-8, CMP, 3040-3, 57929-3, 5643-2, 1987-09, 73281-3, 54393-8, 2157-6, 24054-7, THYR #### [facility] ([id number]) [address] [place] [address] [place] [address] ABSOLUTE NEUTROPHIL 18.6 X10E9/L High 1.5-6.6 [facility] Comment on above: Performed By: #### C BCA, PINR, 31582-3, CMP, 3040-3, 49066-0, 5643-2, 1987-09, 90726-9, 92104-6, 2157-6, 52789-2, THYR #### [facility] ([id number]) [address] [place] [address] [place] [address] Basophils/100 WBC (Bld) 0.3 % Normal [facility] Comment on above: Performed By: #### C BCA, PINR, 22129-0, CMP, 3040-3, 36376-9, 5643-2, 1987-09, 68911-5, 76811-1, 2157-6, 07931-4, THYR #### [facility] ([id number]) [address] [place] [address] 259[address] Eosinophils (Bld) [#/Vol] 0.1 10*3/uL Normal 0.0-0.4 [facility] Comment on above: Performed By: #### C BCA, PINR, 81736-8, CMP, 3040-3, 89797-5, 5643-2, 1987-09, 44413-4, 12632-5, 2157-6, 32683-6, THYR #### [facility] ([id number]) [address] [place] [address]9621 Eosinophils/100 WBC (Bld) 0.3 % Normal [facility] Comment on above: Performed By: #### C BCA, PINR, 93453-6, CMP, 3040-3, 05081-7, 5643-, 1987-09, 52929-1, 61196-2, 2157-6, 12588-6, THYR #### [facility] ([id number]) [address] [place] [address] Erythrocyte distribution width (RBC) [Ratio] 15.9 % High 11.5-15.0 [facility] Comment on above: Performed By: #### C BCA, PINR, 35820-4, CMP, 3040-3, 35940-3, 5643-, 1987-09, 92585-2, 37492-5, 2157-6, 54151-8, THYR #### [facility] ([id number]) [address] [place] [address] Hematocrit (Bld) [Volume fraction] 47.4 % High 35-47 [facility] Comment on above: Performed By: #### C BCA, PINR, 33656-2, CMP, 3040-3, 60521-2, 5643-2, 1987-09, 01947-9, 86460-2, 2157-6, 82165-8, THYR #### [facility] ([id number]) [address] [place] [address] 72436 Hemoglobin (Bld) [Mass/Vol] 15.5 g/dL Normal 11.7-15.5 [facility] Comment on above: Performed By: #### C BCA, PINR, 87362-5, CMP, 3040-3, 45509-6, 5643-, 1987-09, 22739-6, 85707-9, 2157-6, 71112-9, THYR #### [facility] ([id number]) [address] [place] [address]5217 Lymphocytes (Bld) [#/Vol] 1.3 10*3/uL Normal 1.0-3.5 [facility] Comment on above: Performed By: #### C BCA, PINR, 15792-6, CMP, 3040-3, 31752-8, 5643-2, 1987-09, 61044-6, 45162-1, 2157-6, 97496-2, THYR #### [facility] ([id number]) [address] [place] [address] 14125 Lymphocytes/100 WBC (Bld) 5.9 % Normal [facility] Comment on above: Performed By: #### C BCA, PINR, 96256-3, CMP, 3040-3, 34654-3, 5643-, 1987-09, 65624-8, 40084-8, 2157-6, 50797-1, THYR #### [facility] ([id number]) [address] [place] [address] [place] [address] MCH (RBC) [Entitic mass] 28.3 pg Normal 27-34 [facility] Comment on above: Performed By: #### C BCA, PINR, 44100-5, CMP, 3040-3, 70952-1, 5643-2, 1987-09, 51985-6, 65677-2, 2157-6, 34314-2, THYR #### [facility] ([id number]) [address] [place] [address] 06766 MCHC (RBC) [Mass/Vol] 32.7 g/dL Normal 32-36 [facility] Comment on above: Performed By: #### C BCA, PINR, 37809-5, CMP, 3040-3, 81166-7, 5643-2, 1987-09, 18063-7, 91791-8, 2157-6, 80598-6, THYR #### [facility] ([id number]) [address] [place] [address] 19805 MCV (RBC) [Entitic vol] 87 fL Normal 80-100 [facility] Comment on above: Performed By: #### C BCA, PINR, 28229-5, CMP, 3040-3, 53152-8, 5643-2, 1987-09, 07922-6, 24121-2, 2157-6, 82374-1, THYR #### [facility] ([id number]) [address] [place] [address] 78444 Monocytes (Bld) [#/Vol] 1.4 10*3/uL High 0-0.9 [facility] Comment on above: Performed By: #### C BCA, PINR, 54123-4, CMP, 3040-3, 69280-3, 5643-, 1987-09, 87037-5, 29488-0, 2157-6, 25942-6, THYR #### [facility] ([id number]) [address] [place] [address] 87075 Monocytes/100 WBC (Bld) 6.5 % Normal [facility] Comment on above: Performed By: #### C BCA, PINR, 59374-1, CMP, 3040-3, 34228-2, 5643-, 1987-09, 97402-3, 33716-7, 2157-6, 43776-0, THYR #### [facility] ([id number]) [address] [place] [address] [place] [address] Neutrophils/100 WBC (Bld) 87.0 % Normal [facility] Comment on above: Performed By: #### C BCA, PINR, 17003-7, CMP, 3040-3, 01279-3, 5643-, 1987-09, 41490-2, 97630-4, 2157-6, 56458-2, THYR #### [facility] ([id number]) [address] [place] [address] 41069 Platelet mean volume (Bld) [Entitic vol] 9.3 fL Normal 7-12 [facility] Comment on above: Performed By: #### C JOSTIN, PINR, 61803-0, CMP, 3040-3, 75873-2, 5643-2, 1987-, 47448-8, 86153-0, 2157-6, 81876-6, THYR #### [facility] ([id number]) [address] [place] [address] 14767 Platelets (Bld) [#/Vol] 306 10*3/uL Normal 150-450 [facility] Comment on above: Performed By: #### C JOSTIN, PINR, 55060-4, CMP, 3040-3, 48235-2, 5643-2, 1987-09, , 24590-2, 2157-6, 68711-0, THYR #### [facility] ([id number]) [address] [place] [address] [place] [address] RBC COUNT 5.48 X10E12/L High 3.80-5.20 [facility] Comment on above: Performed By: #### C JOSTIN, PINR, 87404-4, CMP, 3040-3, 96048-2, 5643-2, 1987-09, 22702-9, 10769-2, 2157-6, 00590-6, THYR #### [facility] ([id number]) [address] [place] [address] 51743 WBC (Bld) [#/Vol] 21.4 10*3/uL High 4.0-11.0 [facility] Comment on above: Performed By: #### C BCA, PINR, 72264-1, CMP, 3040-3, 73569-2, 5643-2, 1987-09, 34765-6, 26110-7, 2157-6, 27580-8, THYR #### [facility] ([id number]) [address] [place] [address] 09398 DRUG SCREEN, URINEon 024 AMPHETAMINE/METHAMP Negative Normal NEG [facility] Comment on above: Result Comment: AMPH /METH screening cut off = 1000 ng/mL Performed By: #### C BCA, PINR, 82098-7, CMP, 3040-3, 09615-1, 5643-2, 1987-09, 52026-3, 98397-1, 2157-6, 75217-6, THYR #### [facility] ([id number]) [address] [place] [address] 67006 BARBITURATES Negative Normal NEG [facility] Comment on above: Result Comment: Kylah iturates screening cut off value = 200 ng/mL Performed By: #### C BCA, PINR, 52578-1, CMP, 3040-3, 37759-5, 5643-, 1987-09, 69280-8, 91770-8, 215-6, 82573-9, THYR #### [facility] ([id number]) [address] [place] [address] 72424 BENZODIAZEPINES Negative Normal NEG [facility] Comment on above: Result Comment: Portillo odiazepines screening cut off value = 200 ng/mL Performed By: #### C BCA, PINR, 32721-6, CMP, 3040-3, 75825-0, 5643-2, 1987-09, 61650-9, 99307-5, 215-6, 89149-6, THYR #### [facility] ([id number]) [address] [place] [address] [place] [address] CANNABINOIDS Positive Abnormal NEG [facility] Comment on above: Result Comment: Conf irmation available upon request. Cannabinoids/THC screening cut off value = 50 ng/mL Performed By: #### C BCA, PINR, 16227-2, CMP, 3040-3, 38633-4, 5643-2, 1987-09, 02593-1, 72916-2, 215-6, 68067-0, THYR #### [facility] ([id number]) [address] [place] [address] 71051 COCAINE METABOLITE Negative Normal NEG [facility] Comment on above: Result Comment: Coca ine screening cut off value = 300 ng/mL Performed By: #### C BCA, PINR, 26915-3, CMP, 3040-3, 61428-0, 5643-2, 1987-09, , 08989-4, 215-6, 64510-4, THYR #### [facility] ([id number]) [address] [place] [address] 14688 ECSTASY Negative Normal NEG [facility] Comment on above: Result Comment: Ecst asy screening cut off value = 500 ng/mL This report is intended for use in clinical monitoring or management of patients. Performed By: #### C BCA, PINR, 39381-0, CMP, 3040-3, 79224-8, 5643-2, 1987-09, , 25330-2, 215-6, 73368-8, THYR #### [facility] ([id number]) [address] [place] [address] [place] [address] METHADONE Negative Normal NEG [facility] Comment on above: Result Comment: Meth adone screening cut off value = 300 ng/mL. Performed By: #### C BCA, PINR, 84474-4, CMP, 3040-3, 39060-9, 5643-2, 1987-09, , , 215-6, 26680-1, THYR #### [facility] ([id number]) [address] [place] [address] 85694 OPIATES Negative Normal NEG [facility] Comment on above: Result Comment: Opia fidel screening cut off value = 300 ng/mL NOTE: This test is used for the detection of codeine, hydrocodone (>1000 ng/mL), morphine and hydromorphone (>900 ng/mL) in urine. Performed By: #### C BCA, PINR, 13827-9, CMP, 3040-3, 17179-1, 5643-2, 1987-09, 82117-9, 64471-6, 2157-6, 26776-7, THYR #### [facility] ([id number]) [address] [place] [address] 71120 OXYCODONE Negative Normal NEG [facility] Comment on above: Result Comment: Oxyc odone screening cut off value = 300 ng/mL NOTE: This test is used for the detection of oxycodone and oxymorphone in urine. Performed By: #### C BCA, PINR, 02005-0, CMP, 3040-3, 76023-7, 5643-, 1987-09, , 42085-1, 215-6, 69873-3, THYR #### [facility] ([id number]) [address] [place] [address] 94769 PHENCYCLIDINE Negative Normal NEG [facility] Comment on above: Result Comment: Phen cyclidine screening cut off value = 25 ng/mL Performed By: #### C BCA, PINR, 02196-2, CMP, 3040-3, 21113-2, 5643-2, 1987-09, , 49818-3, 2157-6, 01102-0, THYR #### [facility] ([id number]) [address] [place] [address] 47243 ELECTROLYTESon 12-29-2023 Anion gap [Moles/Vol] 8 mmol/L Normal 5-15 [facility] Comment on above: Performed By: #### C BCA, PINR, 95145-3, CMP, 3040-3, 08419-9, 5643-2, 1987-09, , 19647-1, 215-6, 28340-7, THYR #### [facility] ([id number]) [address] [place] [address], [place] [address] Chloride [Moles/Vol] 98 mmol/L Normal 98-109 [facility] Comment on above: Performed By: #### C BCA, PINR, 84429-4, CMP, 3040-3, 13557-3, 5643-2, 1987-09, , 95786-3, 215-6, 43505-4, THYR #### [facility] ([id number]) [address] [place] [address], [place] [address] CO2 [Moles/Vol] 25 mmol/L Normal 22-32 [facility] Comment on above: Performed By: #### C BCA, PINR, 13955-1, CMP, 3040-3, 24842-9, 5643-2, 1987-09, , 77845-5, 2156-6, 36287-6, THYR #### [facility] ([id number]) [address] [place] [address], [place] [address] Potassium [Moles/Vol] 4.6 mmol/L Normal 3.5-5.0 [facility] Comment on above: Result Comment: SPEC IMEN HEMOLYZED, RESULTS INCREASED Performed By: #### C BCA, PINR, 48071-3, CMP, 3040-3, 80281-2, 5643-2, 1987-09, , 90558-4, 215-6, 65035-1, THYR #### [facility] ([id number]) [address] [place] [address], [place] [address] Sodium [Moles/Vol] 131 mmol/L Low 134-146 [facility] Comment on above: Performed By: #### C BCA, PINR, 07977-0, CMP, 3040-3, 68883-4, 5643-2, 1987-09, , 17542-5, 215-6, 80674-9, THYR #### [facility] ([id number]) [address] [place] [address] [place] [address] Anion gap [Moles/Vol] 9 mmol/L Normal 5-15 [facility] Comment on above: Performed By: #### C BCA, PINR, 78027-8, CMP, 3040-3, 08077-8, 5643-2, 1987-09, , 31803-1, 2156-6, 36195-4, THYR #### [facility] ([id number]) [address] [place] [address] [place] [address] Chloride [Moles/Vol] 95 mmol/L Low 98-109 [facility] Comment on above: Performed By: #### C BCA, PINR, 65095-2, CMP, 3040-3, 67735-5, 5643-, 1987-09, , 51225-1, 2156-6, 42727-7, THYR #### [facility] ([id number]) [address] [place] [address] [place] [address] CO2 [Moles/Vol] 26 mmol/L Normal 22-32 [facility] Comment on above: Performed By: #### C BCA, PINR, 75070-9, CMP, 3040-3, 88842-8, 5643-, 1987-09, , 13087-8, 2156-6, 12113-7, THYR #### [facility] ([id number]) [address] [place] [address] [place] [address] Potassium [Moles/Vol] 4.0 mmol/L Normal 3.5-5.0 [facility] Comment on above: Performed By: #### C BCA, PINR, 46442-6, CMP, 3040-3, 43619-2, 5643-2, 1987-09, 53794-8, 57451-3, 2157-6, 19459-4, THYR #### [facility] ([id number]) [address] [place] [address] 65880 Sodium [Moles/Vol] 130 mmol/L Low 134-146 [facility] Comment on above: Performed By: #### C BCA, PINR, 98246-3, CMP, 3040-3, 46756-3, 5643-2, 1987-09, , 97187-4, 215-6, 93124-8, THYR #### [facility] ([id number]) [address] [place] [address] [place] [address] Anion gap [Moles/Vol] 9 mmol/L Normal 5-15 [facility] Comment on above: Performed By: #### C BCA, PINR, 80551-7, CMP, 3040-3, 91722-3, 5643-, 1987-09, , 48469-6, 2156-6, 21591-2, THYR #### [facility] ([id number]) [address] [place] [address] [place] [address] Chloride [Moles/Vol] 94 mmol/L Low 98-109 [facility] Comment on above: Performed By: #### C BCA, PINR, 80366-3, CMP, 3040-3, 37076-7, 5643-2, 1987-09, , 24057-2, 2156-6, 88442-2, THYR #### [facility] ([id number]) [address] [place] [address], [place] [address] CO2 [Moles/Vol] 27 mmol/L Normal 22-32 [facility] Comment on above: Performed By: #### C BCA, PINR, 35021-8, CMP, 3040-3, 55784-2, 5643-2, 1987-09, , 69737-4, 215-6, 13657-9, THYR #### [facility] ([id number]) [address] [place] [address] 20889 Potassium [Moles/Vol] 3.8 mmol/L Normal 3.5-5.0 [facility] Comment on above: Performed By: #### C BCA, PINR, 83714-2, CMP, 3040-3, 03383-8, 5643-2, 1987-09, 39883-8, 74757-6, 215-6, 03235-7, THYR #### [facility] ([id number]) [address] [place] [address], [place] [address] Sodium [Moles/Vol] 130 mmol/L Low 134-146 [facility] Comment on above: Performed By: #### C BCA, PINR, 15093-8, CMP, 3040-3, 09021-8, 5643-, 1987-09, , 07901-0, 2156-6, 09524-3, THYR #### [facility] ([id number]) [address] [place] [address] 75[address] Anion gap [Moles/Vol] 10 mmol/L Normal 5-15 [facility] Comment on above: Performed By: #### C BCA, PINR, 74098-4, CMP, 3040-3, 51261-7, 5643-2, 1987-09, , 41481-4, 215-6, 55247-8, THYR #### [facility] ([id number]) [address] [place] [address] 923[address] Chloride [Moles/Vol] 92 mmol/L Low 98-109 [facility] Comment on above: Performed By: #### C BCA, PINR, 37034-1, CMP, 3040-3, 67919-7, 5643-2, 1987-09, 31474-6, 18007-8, 2157-6, 57362-5, THYR #### [facility] ([id number]) [address] [place] [address] CO2 [Moles/Vol] 26 mmol/L Normal 22-32 [facility] Comment on above: Performed By: #### C BCA, PINR, 22452-0, CMP, 3040-3, 04216-1, 5643-2, 1987-, 35856-7, 43386-6, 2156-6, 42469-9, THYR #### [facility] ([id number]) [address] [place] [address] Potassium [Moles/Vol] 3.9 mmol/L Normal 3.5-5.0 [facility] Comment on above: Performed By: #### C BCA, PINR, 58822-5, CMP, 3040-3, 68519-0, 5643-2, 1987-09, 48720-7, 67788-1, 215-6, 23542-9, THYR #### [facility] ([id number]) [address] [place] [address] Sodium [Moles/Vol] 128 mmol/L Low 134-146 [facility] Comment on above: Performed By: #### C BCA, PINR, 72570-9, CMP, 3040-3, 20373-7, 5643-2, 1987-, 42637-2, 94111-7, 2156-6, 67789-1, THYR #### [facility] ([id number]) [address] [place] [address] [place] [address] Glucose Glucometer (dC) [M ass/Vol]on 12-29-2023 Glucose [Mass/Vol] 145 mg/dL High 65-99 [facility] Glucose [Mass/Vol] 150 mg/dL High 65-99 [facility] Glucose [Mass/Vol] 177 mg/dL High 65-99 [facility] Glucose [Mass/Vol] 172 mg/dL High 65-99 [facility] Glucose [Mass/Vol] 213 mg/dL High 65-99 [facility] Glucose [Mass/Vol] 254 mg/dL High 65-99 [facility] Glucose [Mass/Vol] 296 mg/dL High 65-99 [facility] Glucose [Mass/Vol] 309 mg/dL High 65-99 [facility] Glucose [Mass/Vol] 297 mg/dL High 65-99 [facility] Glucose [Mass/Vol] 285 mg/dL High 65-99 [facility] Glucose [Mass/Vol] 343 mg/dL High 65-99 [facility] Glucose [Mass/Vol] 477 mg/dL Critically high 65-99 [facility] BEDSIDE GLUCOSE LAB >500 Critically high 65-99 [facility] Comment on above: Result Comment: SEE LAB RESULTS FOR CONFIRMATION LIPASEon 12-29-2023 Lipase [Catalytic activity/Vol] 47 U/L High 17-40 [facility] Comment on above: Performed By: #### C JOSTIN, PINR, 28862-0, CMP, 3040-3, 52682-6, 5643-2, 1987-, 74762-6, 63168-8, 2157-6, 52354-1, THYR #### [facility] ([id number]) [address] [place] [address] LIVER PANELon 12-29-2023 Albumin [Mass/Vol] 4.1 g/dL Normal 3.2-5.3 [facility] Comment on above: Performed By: #### C BCA, PINR, 90880-7, CMP, 3040-3, 18137-4, 5643-2, 1987-, 71007-9, 39745-2, 2157-6, 89144-3, THYR #### [facility] ([id number]) [address] [place] [address] ALP [Catalytic activity/Vol] 142 U/L High 39-130 [facility] Comment on above: Performed By: #### C BCA, PINR, 90923-7, CMP, 3040-3, 85305-8, 5643-2, 1987-, 11762-7, 65057-5, 2157-6, 80329-6, THYR #### [facility] ([id number]) [address] [place] [address] [place] [address] ALT [Catalytic activity/Vol] 23 U/L Normal 0-31 [facility] Comment on above: Performed By: #### C BCA, PINR, 09857-3, CMP, 3040-3, 40871-0, 5643-2, 1987-, 21759-9, 30126-0, 2157-6, 22497-9, THYR #### [facility] ([id number]) [address] [place] [address] AST [Catalytic activity/Vol] 19 U/L Normal 0-41 [facility] Comment on above: Performed By: #### C BCA, PINR, 88321-1, CMP, 3040-3, 25367-8, 5643-2, 1987-, 55376-4, 80837-0, 2157-6, 89168-2, THYR #### [facility] ([id number]) [address] [place] [address] [place] [address] Bilirubin [Mass/Vol] 1.0 mg/dL Normal 0.3-1.2 [facility] Comment on above: Performed By: #### C BCA, PINR, 08356-1, CMP, 3040-3, 23898-4, 5643-2, 1987-, 36589-7, 07667-1, 2157-6, 99010-2, THYR #### [facility] ([id number]) [address] [place] [address] [place] [address] Bilirubin.direct [Mass/Vol] 0.2 mg/dL Normal 0.0-0.4 [facility] Comment on above: Performed By: #### C BCA, PINR, 29282-7, CMP, 3040-3, 61774-1, 5643-2, 1987-, 71319-0, 26264-9, 2157-6, 10100-6, THYR #### [facility] ([id number]) [address] [place] [address] Protein [Mass/Vol] 8.3 g/dL High 6.0-8.0 [facility] Comment on above: Performed By: #### C BCA, PINR, 34570-9, CMP, 3040-3, 06317-9, 5643-2, 1985-09, , 38977-7, 2156-6, 02336-6, THYR #### [facility] ([id number]) [address] [place] [address] Lactate (P brinda) [Moles/Vol]o n 12-29-2023 LACTATE W/REFLEX 1.3 mmol/L Normal 0.4-2.0 [facility] Comment on above: Result Comment: Result did not trigger repeat Lactate, re-order if needed. Performed By: #### C BCA, PINR, 11150-6, CMP, 3040-3, 09375-7, 5643-2, 1987-09, 43368-6, 54716-2, 2156-6, 34485-9, THYR #### [facility] ([id number]) [address] [place] [address] Lactate [Moles/Vol] 2.8 mmol/L High 0.4-2.0 [facility] Comment on above: Performed By: #### C BCA, PINR, 32320-7, CMP, 3040-3, 84642-8, 5643-2, 1987-09, 12465-5, 47323-0, 215-6, 90121-0, THYR #### [facility] ([id number]) [address] [place] [address]697 LACTATE W/REFLEX 3.8 mmol/L High 0.4-2.0 [facility] Comment on above: Performed By: #### C BCA, PINR, 92966-8, CMP, 3040-3, 53110-8, 5643-2, 1987-, 81976-0, 87229-7, 2157-6, 30595-9, THYR #### [facility] ([id number]) [address] [place] [address] MAGNESIUMon 12-29-2023 Magnesium [Mass/Vol] 1.8 mg/dL Normal 1.8-2.6 [facility] Comment on above: Performed By: #### C BCA, PINR, 44271-0, CMP, 3040-3, 82115-6, 5643-2, 1987-, 93639-3, 72406-3, 2157-6, 11102-3, THYR #### [facility] ([id number]) [address] [place] [address] SARS/FLU A+B/RSV by NAAT/Mol ecularon 12-29-2023 SARS/FLU [...] operators who are performing tests using either [employer] or [employer] systems and is limited to laboratories that [...] repeat. Fact Sheet for Healthcare Providers: https://www.fda.gov/m edia/508166/download Fact Sheet for Patients: https://www.fda.gov/m edia/703182/download Normal [facility] Comment on above: Performed By: #### C BCA, PINR, 60563-9, CMP, 3040-3, 17332-2, 5643-2, 1988-5, 47138-7, 50852-9, 2157-6, 85705-5, THYR #### [facility] ([id number]) [address] [place] [address], [place] [address] Troponin I.cardiac High sens itivity method [Mass/Vol]on 12-29-2023 1 HOUR TROP I, HIGH SENSITIVITY 24 ng/L High <16 [facility] Comment on above: Result Comment: Elevations of hs-Troponin may be due to causes other than myocardial ischemia. Recommend serial hs-Troponin testing be performed. For the initial evaluation and management of chest pain patients, refer to the algorithms linked below. Emergency Patient: [email or web address] Inpatient: [email or web address] [email or web address] Performed By: #### C BCA, PINR, 01262-9, CMP, 3040-3, 92435-1, 5643-2, 1987-09, 49765-9, 10720-4, 215-6, 71700-6, THYR #### [facility] ([id number]) [address] [place] [address] TROPONIN I, HIGH SENSITIVITY 29 ng/L High <16 [facility] Comment on above: Result Comment: Elevations of hs-Troponin may be due to causes other than myocardial ischemia. Recommend serial hs-Troponin testing be performed. For the initial evaluation and management of chest pain patients, refer to the algorithms linked below. Emergency Patient: [email or web address] [email or web address] Inpatient: [email or web address] uh=[email or web address] Performed By: #### C BCA, PINR, 93107-7, CMP, 3040-3, 31988-7, 5643-2, 1987-09, 73327-5, 22298-3, 2156-6, 94978-8, THYR #### [facility] ([id number]) [address] [place] [address] URN MACROSCOPIC NURon 2023 BILIRUBIN MAO Negative Normal NEG [facility] Comment on above: Performed By: #### C BCA, PINR, 89156-0, CMP, 3040-3, 51162-8, 5643-2, 1987-, 43711-4, 82157-7, 2156-6, 08880-5, THYR #### [facility] ([id number]) [address] [place] [address] BLOOD/HGB MAO Small Abnormal NEG [facility] Comment on above: Performed By: #### C BCA, PINR, 40822-1, CMP, 3040-3, 70116-0, 5643-2, 1987-09, 11186-6, 20391-7, 2157-6, 38135-1, THYR #### [facility] ([id number]) [address] [place] [address] GLUCOSE MAO >=1000 Abnormal NEG [facility] Comment on above: Performed By: #### C BCA, PINR, 95872-3, CMP, 3040-3, 75454-2, 5643-2, 1987-09, 47756-6, 18429-3, 2157-6, 78425-5, THYR #### [facility] ([id number]) [address] [place] [address] [place] [address] KETONES MAO Trace Abnormal NEG [facility] Comment on above: Performed By: #### C BCA, PINR, 38766-6, CMP, 3040-3, 89190-2, 5643-2, 1987-09, 83311-2, 09184-4, 2157-6, 74752-6, THYR #### [facility] ([id number]) [address] [place] [address] LEUKOCYTE ESTERASE MAO Negative Normal NEG [facility] Comment on above: Performed By: #### C BCA, PINR, 28174-4, CMP, 3040-3, 57110-9, 5643-2, 1987-09, 80136-2, 10160-4, 2157-6, 80607-9, THYR #### [facility] ([id number]) [address] [place] [address] NITRITE MAO Negative Normal NEG [facility] Comment on above: Performed By: #### C BCA, PINR, 96089-0, CMP, 3040-3, 20547-2, 5643-2, 1987-09, 38213-5, 09786-6, 2157-6, 76343-0, THYR #### [facility] ([id number]) [address] [place] [address] 29[address] PH MAO 5.5 Normal 5.0-8.5 [facility] Comment on above: Performed By: #### C BCA, PINR, 50602-2, CMP, 3040-3, 54320-1, 5643-2, 1987-09, 09315-4, 42979-3, 215-6, 68583-0, THYR #### [facility] ([id number]) [address] [place] [address] PROTEIN MAO Trace Abnormal NEG [facility] Comment on above: Performed By: #### C BCA, PINR, 52136-8, CMP, 3040-3, 88849-2, 5643-2, 1987-09, 25854-9, 51339-3, 2156-10, 11036-9, THYR #### [facility] ([id number]) [address] [place] [address] SPECIFIC GRAVITY MAO 1.010 Normal 1.003-1.035 [facility] Comment on above: Performed By: #### C BCA, PINR, 20730-4, CMP, 3040-3, 58074-9, 5643-2, 1987-09, , 50115-9, 2156-6, 91057-3, THYR #### [facility] ([id number]) [address] [place] [address] [place] [address] UROBILINOGEN MAO 0.2 eu/dL Normal <1.1 [facility] Comment on above: Performed By: #### C BCA, PINR, 29754-9, CMP, 3040-3, 33285-0, 5643-2, 1987-, 69260-0, 19570-9, 2157-6, 79120-6, THYR #### [facility] ([id number]) [address] [place] [address]64[address] VENOUS BLOOD GASon 4 DONALD'S TEST Normal [facility] Comment on above: Performed By: #### C BCA, PINR, 57996-0, CMP, 3040-3, 71651-1, 5643-2, 1987-, 67210-1, 21699-0, 2157-6, 81605-1, THYR #### [facility] ([id number]) [address] [place] [address] 24275 Base excess Calc (Bld) [Moles/Vol] 0.0 mmol/L Normal 0.0-2.0 [facility] Comment on above: Performed By: #### C BCA, PINR, 12350-1, CMP, 3040-3, 30597-9, 5643-, 1987-09, , 03411-0, 215-6, 68773-6, THYR #### [facility] ([id number]) [address] [place] [address] [place] [address] Body temperature 98.6 [degF] Normal 37.0 [facility] Comment on above: Performed By: #### C BCA, PINR, 33103-5, CMP, 3040-3, 94781-2, 5643-2, 1987-09, 35342-8, 34612-4, 215-6, 26400-8, THYR #### [facility] ([id number]) [address] [place] [address] 14186 HCO3 (Bld) [Moles/Vol] 23.4 mmol/L Normal 20.0-24.0 [facility] Comment on above: Performed By: #### C BCA, PINR, 47633-4, CMP, 3040-3, 60887-9, 5643-2, 1987-09, 26619-8, 83282-7, 2157-6, 66560-7, THYR #### [facility] ([id number]) [address] [place] [address] [place] [address] INSP. O2 CONC. 21 % Normal [facility] Comment on above: Performed By: #### C BCA, PINR, 29747-1, CMP, 3040-3, 64429-1, 5643-2, 1987-09, 18705-2, 98956-5, 2157-6, 42202-8, THYR #### [facility] ([id number]) [address] [place] [address] [place] [address] Oxygen saturation in Blood 88.0 % Normal >80.0 [facility] Comment on above: Performed By: #### C BCA, PINR, 93889-8, CMP, 3040-3, 94048-7, 5643-2, 1987-09, 11454-7, 20656-9, 2157-6, 46805-9, THYR #### [facility] ([id number]) [address] [place] [address] [place] [address] OXYGEN SOURCE [facility] Comment on above: Performed By: #### C BCA, PINR, 39859-9, CMP, 3040-3, 23982-1, 5643-2, 1987-09, 32915-6, 98894-6, 2157-6, 38723-3, THYR #### [facility] ([id number]) [address] [place] [address] [place] [address] PCO2, VENOUS 33.5 MMHG Low 35-50 [facility] Comment on above: Performed By: #### C BCA, PINR, 16192-8, CMP, 3040-3, 46489-3, 5643-2, 1987-09, 38647-3, 48944-2, 2157-6, 37615-4, THYR #### [facility] ([id number]) [address] [place] [address] [place] [address] PH, VENOUS 7.452 High 7.320-7.420 [facility] Comment on above: Performed By: #### C BCA, PINR, 32310-8, CMP, 3040-3, 93146-9, 5643-2, 1987-, 02068-2, 06503-9, 2157-6, 90766-9, THYR #### [facility] ([id number]) [address] [place] [address] 88113 PO2, VENOUS 52 MMHG High 30-50 [facility] Comment on above: Performed By: #### C BCA, PINR, 48570-5, CMP, 3040-3, 34612-5, 5643-2, 1987-, 91811-9, 13909-5, 2157-6, 72361-4, THYR #### [facility] ([id number]) [address] [place] [address] SAMPLE SITE N/A Normal [facility] Comment on above: Performed By: #### C BCA, PINR, 31120-1, CMP, 3040-3, 31378-4, 5643-2, 1987-, 11655-3, 58354-2, 2157-6, 32641-1, THYR #### [facility] ([id number]) [address] [place] [address] [place] [address] SAMPLE TYPE VENOUS Normal [facility] Comment on above: Performed By: #### C BCA, PINR, 39950-3, CMP, 3040-3, 72775-3, 5643-2, 1987-09, 07707-6, 11712-8, 2157-6, 67454-4, THYR #### [facility] ([id number]) [address] [place] [address]885 XR CHEST 1 VWon 12-29-2023 XR CHEST 1 VW XR CHEST 1 VW CLINICAL INFORMATION: Hyperglycemia. Nausea. Diaphoresis. COMPARISON: Chest radiograph dated 10/16/2023. VIEWS: 1. FINDINGS: Cardiac and mediastinal shadows are normal. No infiltrates. No effusions. No pneumothorax. No free air below the diaphragm. IMPRESSION: No acute cardiopulmonary disease. Finalized by Alissa Harris MD on 12/29/2023 10:14 AM Normal [facility] BASIC METABOLIC PANELon 04- Anion gap [Moles/Vol] 17 mmol/L Normal 7-20 [facility] Comment on above: Performed By: #### L [id number] #### [facility] ([facility]) [address] [place] [address] Calcium [Mass/Vol] 8.7 mg/dL Normal 8.6-10.3 [facility] Comment on above: Performed By: #### L [id number] #### [facility] ([facility]) [address] [place] [address] Chloride [Moles/Vol] 102 mmol/L Normal 98-107 [facility] Comment on above: Performed By: #### L [id number] #### [facility] ([facility]) [address] [place] [address] CO2 [Moles/Vol] 24 mmol/L Normal 21-31 [facility] Comment on above: Performed By: #### L [id number] #### [facility] ([facility]) [address] [place] [address] Creatinine [Mass/Vol] 0.71 mg/dL Normal 0.60-1.20 [facility] Comment on above: Performed By: #### L [id number] #### [facility] ([facility]) [address] [place] [address] GLOMERULAR FILTRATION RATE ML/MIN/1.73 SQ M.PREDICTED 100.4 mL/min/1.73m*2 Normal >60.0 [facility] Comment on above: Result Comment: The [facility]???s estimated glomerular filtration rate (eGFR) will no [...] individuals. Performed By: #### L [id number] #### [facility] ([facility]) [address] [place] [address] Glucose [Mass/Vol] 146 mg/dL High 70-100 [facility] Comment on above: Performed By: #### L [id number] #### [facility] ([facility]) [address] [place] [address] Potassium [Moles/Vol] 3.9 mmol/L Normal 3.5-5.1 [facility] Comment on above: Performed By: #### L [id number] #### [facility] ([facility]) [address] [place] [address] Sodium [Moles/Vol] 139 mmol/L Normal 136-145 [facility] Comment on above: Performed By: #### L [id number] #### [facility] ([facility]) [address] [facility] [place] [address] Urea nitrogen [Mass/Vol] 17 mg/dL Normal 7-25 [facility] Comment on above: Performed By: #### L [id number] #### [facility] ([facility]) [address] [place] [address] UREA NITROGEN/CREATININE (MASS RATIO) IN SER/PLAS 23.9 Normal [facility] Comment on above: Performed By: #### L [id number] #### [facility] ([facility]) [address] [place] [address] CBC WITH AUTO DIFFERENTIALon 09-11-2023 Basophils (Bld) [#/Vol] 0.07 10*3/uL Normal 0.00-0.20 [facility] Comment on above: Performed By: #### L [id number] #### [facility] ([facility]) [address] [place] [address] Basophils/100 WBC (Bld) 0.4 % Normal 0.0-1.0 [facility] Comment on above: Performed By: #### L [id number] #### [facility] ([facility]) [address] [place] [address] Eosinophils (Bld) [#/Vol] 0.50 10*3/uL Normal 0.00-0.50 [facility] Comment on above: Performed By: #### L [id number] #### [facility] ([facility]) [address] [place] [address] Eosinophils/100 WBC (Bld) 3.2 % Normal 0.0-6.0 [facility] Comment on above: Performed By: #### L [id number] #### [facility] [address] [place] [address] Erythrocyte distribution width (RBC) [Ratio] 16.8 % High 11.5-15.0 [facility] Comment on above: Performed By: #### L [id number] #### [facility] ([facility]) [address] [place] [address] ERYTHROCYTE MEAN CORPUSCULAR HEMOGLOBIN CONCENTRATION (G/DL) BY AUTOMATED 32.6 g/dL Normal 32.0-35.0 [facility] Comment on above: Performed By: #### L [id number] #### [facility] ([facility]) [address] [place] [address] Hematocrit (Bld) [Volume fraction] 38.9 % Normal 36.0-48.0 [facility] Comment on above: Performed By: #### L [id number] #### [facility] ([facility]) [address] [place] [address] Hemoglobin (Bld) [Mass/Vol] 12.7 g/dL Normal 12.0-15.0 [facility] Comment on above: Performed By: #### L [id number] #### [facility] ([facility]) [address] [place] [address] Immature granulocytes (Bld) [#/Vol] 0.36 10*3/uL High 0.00-0.20 [facility] Comment on above: Performed By: #### L [id number] #### [facility] [address] [place] [address] Immature granulocytes/100 WBC (Bld) 2.3 % High 0.0-1.0 [facility] Comment on above: Performed By: #### L [id number] #### [facility] [address] [place] [address] Lymphocytes (Bld) [#/Vol] 3.31 10*3/uL Normal 1.20-4.00 [facility] Comment on above: Performed By: #### L [id number] #### [facility] ([facility]) [address] [place] [address] Lymphocytes/100 WBC (Bld) 21.0 % Normal 20.0-45.0 [facility] Comment on above: Performed By: #### L [id number] #### [facility] ([facility]) [address] [place] [address] MCH (RBC) [Entitic mass] 27.9 pg Normal 27.0-33.0 [facility] Comment on above: Performed By: #### L [id number] #### [facility] [address] [place] [address] MCV (RBC) [Entitic vol] 85.5 fL Normal 82.0-98.0 [facility] Comment on above: Performed By: #### L [id number] #### [facility] [address] [address] Monocytes (Bld) [#/Vol] 1.12 10*3/uL High 0.10-1.00 [facility] Comment on above: Performed By: #### L [id number] #### [facility] ([facility]) [address] [place] [address] Monocytes/100 WBC (Bld) 7.1 % Normal 5.0-12.0 [facility] Comment on above: Performed By: #### L [id number] #### [facility] ([facility]) [address] [place] [address] Neutrophils (Bld) [#/Vol] 10.40 10*3/uL High 1.60-7.60 [facility] Comment on above: Performed By: #### L [id number] #### [facility] ([facility]) [address] [place] [address] Neutrophils/100 WBC (Bld) 66.0 % Normal 40.0-72.0 [facility] Comment on above: Performed By: #### L [id number] #### [facility] ([facility]) [address] [place] [address] NRBC (PER 100 WBCS) BY AUTOMATED COUNT 0.0 % Normal 0 [facility] Comment on above: Performed By: #### L [id number] #### [facility] ([facility]) [address] [place] [address] PLATELETS (10*3/UL) IN BLOOD AUTOMATED COUNT 194 10*3/uL Normal 150-400 [facility] Comment on above: Performed By: #### L [id number] #### [facility] ([facility]) [address] [place] [address] RBC (Bld) [#/Vol] 4.55 10*6/uL Normal 3.80-5.00 [facility] Comment on above: Performed By: #### L [id number] #### [facility] ([facility]) [address] [place] [address] WBC (Bld) [#/Vol] 15.76 10*3/uL High 4.00-10.60 [facility] Comment on above: Performed By: #### L [id number] #### [facility] ([facility]) [address] [place] [address] CT CHEST W IV CONTRASTon CT CHEST [...] Manan Randolph. Not Vldtd Invalid Interpretation Code [facility] EDPROVon 09-11-2023 EDPROV HPI Chief Complaint Patient [...] for evaluation of choking, She was at [facility] whenever she was eating a steak, she [...] pain, already given 75 mcg of fentanyl. [place] Coma Scale Score: 14 Patient History History [...] Judgment: Judgment normal. Procedures ED Course & [facility] ED Course as of 09/12/23 1534 SatSep [...] Details: 2022 Emergency Medicine Coding Guide from [email or web address] on 09/12/2023 All calculations should be rechecked [...] outcome (e (more content not included)... Normal [facility] TROPONIN Ion 09-11-2023 Troponin I.cardiac [Mass/Vol] 0.03 ng/mL Normal 0.00-0.04 [facility] Comment on above: Performed By: #### L [id number] #### [facility] ([facility]) [address] [place] [address] VENOUS BLOOD GAS WITH IONIZE D CALCIUMon 09-11-2023 Base excess Calc (BldV) [Moles/Vol] 2.2 mmol/L Normal [facility] Comment on above: Performed By: #### L [id number] #### [facility] [address] [place] [address] [place] CALCIUM IONIZED (MMOL/L) IN BLOOD 1.23 mmol/L Normal 1.15-1.33 [facility] Comment on above: Performed By: #### L [id number] #### [facility] [address] [place] [address] [place] CO2 (BldV) [Partial pressure] 54 mm[Hg] High 40-50 [facility] Comment on above: Performed By: #### L [id number] #### [facility] [address] [place] [address] [place] HCO3 (Bld) [Moles/Vol] 29.1 mmol/L Normal U [facility] Comment on above: Performed By: #### L [id number] #### [facility] [address] [place] [address] [place] Oxygen (BldV) [Partial pressure] 58 mm[Hg] High 35-45 [facility] Comment on above: Performed By: #### L [id number] #### [facility] [address] [place] [address] [place] OXYGEN SATURATION (%) IN VENOUS BLOOD 88.0 % High 65.0-75.0 [facility] Comment on above: Performed By: #### L [id number] #### [facility] [address] [place] [address] [place] PH OF VENOUS BLOOD 7.34 Normal 7.31-7.41 [facility] Comment on above: Performed By: #### L [id number] #### [facility] [address] [place] [address] [place] CBC AND AUTO DIFFon 09-04-19 24 ABSOLUTE BASOPHIL 0.0 X10E9/L Normal 0.0-0.2 [facility] Comment on above: Performed By: #### C BCA, PINR, 10909-8, CMP, 3040-3, 17516-7, 5643-2, 1988-5, 38606-7, 35738-5, 2157-6, 70568-9, THYR #### [facility] ([id number]) [address] [place] [address], [place] [address] ABSOLUTE NEUTROPHIL 5.4 X10E9/L Normal 1.5-6.6 [facility] Comment on above: Performed By: #### C BCA, PINR, 99129-2, CMP, 3040-3, 97932-9, 5643-2, 1987-, 89097-0, 04919-9, 2157-6, 09569-9, THYR #### [facility] ([id number]) [address] [place] [address] Basophils/100 WBC (Bld) 0.5 % Normal [facility] Comment on above: Performed By: #### C BCA, PINR, 83004-6, CMP, 3040-3, 11319-3, 5643-2, 1987-, 61770-6, 31628-4, 2157-6, 53989-6, THYR #### [facility] ([id number]) [address] [place] [address] Eosinophils (Bld) [#/Vol] 0.2 10*3/uL Normal 0.0-0.4 [facility] Comment on above: Performed By: #### C BCA, PINR, 74240-8, CMP, 3040-3, 25704-1, 5643-2, 1987-09, 44781-7, 34046-3, 215-6, 94743-1, THYR #### [facility] ([id number]) [address] [place] [address] Eosinophils/100 WBC (Bld) 2.1 % Normal [facility] Comment on above: Performed By: #### C BCA, PINR, 03512-5, CMP, 3040-3, 92170-7, 5643-2, 1987-, 79041-0, 74030-7, 215-6, 79255-8, THYR #### [facility] ([id number]) [address] [place] [address] [place] [address] Erythrocyte distribution width (RBC) [Ratio] 17.5 % High 11.5-15.0 [facility] Comment on above: Performed By: #### C BCA, PINR, 99855-3, CMP, 3040-3, 36997-1, 5643-2, 1987-, 30291-1, 01877-1, 2157-6, 65590-0, THYR #### [facility] ([id number]) [address] [place] [address] Hematocrit (Bld) [Volume fraction] 37.2 % Normal 35-47 [facility] Comment on above: Performed By: #### C BCA, PINR, 10934-4, CMP, 3040-3, 55852-6, 5643-2, 1987-, 60325-9, 85981-9, 215-6, 83208-2, THYR #### [facility] ([id number]) [address] [place] [address] Hemoglobin (Bld) [Mass/Vol] 12.4 g/dL Normal 11.7-15.5 [facility] Comment on above: Performed By: #### C BCA, PINR, 46078-8, CMP, 3040-3, 96155-1, 5643-2, 1987-, 32449-1, 76003-0, 215-6, 80012-6, THYR #### [facility] ([id number]) [address] [place] [address] Lymphocytes (Bld) [#/Vol] 2.0 10*3/uL Normal 1.0-3.5 [facility] Comment on above: Performed By: #### C BCA, PINR, 36098-9, CMP, 3040-3, 52987-0, 5643-2, 1987-, 26751-8, 32188-1, 215-6, 30655-6, THYR #### [facility] ([id number]) [address] [place] [address] Lymphocytes/100 WBC (Bld) 24.0 % Normal [facility] Comment on above: Performed By: #### C BCA, PINR, 50877-1, CMP, 3040-3, 29571-8, 5643-2, 1987-09, 52136-6, 75934-8, 215-6, 02388-4, THYR #### [facility] ([id number]) [address] [place] [address] MCH (RBC) [Entitic mass] 27.9 pg Normal 27-34 [facility] Comment on above: Performed By: #### C BCA, PINR, 79026-4, CMP, 3040-3, 41468-2, 5643-2, 1987-09, 36238-4, 01702-5, 215-6, 95607-3, THYR #### [facility] ([id number]) [address] [place] [address]7521 MCHC (RBC) [Mass/Vol] 33.4 g/dL Normal 32-36 [facility] Comment on above: Performed By: #### C BCA, PINR, 41593-4, CMP, 3040-3, 28288-1, 5643-2, 1987-09, , 65465-2, 215-6, 60946-0, THYR #### [facility]. [facility] ([id number]) [address] [place] [address] 10631 MCV (RBC) [Entitic vol] 84 fL Normal 80-100 [facility] Comment on above: Performed By: #### C BCA, PINR, 16456-4, CMP, 3040-3, 83861-2, 5643-2, 1987-09, 29765-6, 37420-2, 215-6, 04943-2, THYR #### [facility] ([id number]) [address] [place] [address] [place] [address] Monocytes (Bld) [#/Vol] 0.8 10*3/uL Normal 0-0.9 [facility] Comment on above: Performed By: #### C BCA, PINR, 82239-0, CMP, 3040-3, 57130-5, 5643-2, 1987-, 91143-4, 84093-9, 2157-6, 72877-5, THYR #### [facility] ([id number]) [address] [place] [address] [place] [address] Monocytes/100 WBC (Bld) 9.5 % Normal [facility] Comment on above: Performed By: #### C BCA, PINR, 62249-0, CMP, 3040-3, 51316-9, 5643-2, 1987-09, 24602-1, 28010-6, 2157-6, 35006-9, THYR #### [facility] ([id number]) [address] [place] [address] [place] [address] Neutrophils/100 WBC (Bld) 63.9 % Normal [facility] Comment on above: Performed By: #### C BCA, PINR, 35300-7, CMP, 3040-3, 63625-7, 5643-2, 1987-09, 83564-1, 48465-4, 2157-6, 92003-1, THYR #### [facility] ([id number]) [address] [place] [address] [place] [address] Platelet mean volume (Bld) [Entitic vol] 9.1 fL Normal 7-12 [facility] Comment on above: Performed By: #### C BCA, PINR, 17929-3, CMP, 3040-3, 52094-2, 5643-2, 1987-, 10539-7, 84635-9, 2157-6, 20774-4, THYR #### [facility] ([id number]) [address] [place] [address] [place] [address] Platelets (Bld) [#/Vol] 198 10*3/uL Normal 150-450 [facility] Comment on above: Performed By: #### C BCA, PINR, 28875-6, CMP, 3040-3, 08172-5, 5643-2, 1987-, 13261-3, 19456-9, 2157-6, 91521-4, THYR #### [facility] ([id number]) [address] [place] [address] [place] [address] RBC COUNT 4.46 X10E12/L Normal 3.80-5.20 [facility] Comment on above: Performed By: #### C BCA, PINR, 02284-5, CMP, 3040-3, 56906-3, 5643-2, 1987-, 43182-1, 67544-3, 2157-6, 08795-2, THYR #### [facility] ([id number]) [address] [place] [address] [place] [address] WBC (Bld) [#/Vol] 8.4 10*3/uL Normal 4.0-11.0 [facility] Comment on above: Performed By: #### C BCA, PINR, 80834-7, CMP, 3040-3, 15297-1, 5643-2, 1987-, 34623-2, 77268-1, 2157-6, 69757-2, THYR #### [facility] ([id number]) [address] [place] [address] [place] [address] COMPREHENSIVE METABOLIC PANE Virgil 09-04-2023 Albumin [Mass/Vol] 3.4 g/dL Normal 3.2-5.3 [facility] Comment on above: Performed By: #### C BCA, PINR, 18699-9, CMP, 3040-3, 31736-6, 5643-2, 1987-, 61095-4, 86891-5, 2157-6, 39172-2, THYR #### [facility] ([id number]) [address] [place] [address] [place] [address] ALP [Catalytic activity/Vol] 81 U/L Normal 39-130 [facility] Comment on above: Performed By: #### C BCA, PINR, 23228-7, CMP, 3040-3, 91500-5, 5643-2, 1987-, 23463-2, 38304-3, 2157-6, 10005-4, THYR #### [facility] ([id number]) [address] [place] [address] 91316 ALT [Catalytic activity/Vol] 17 U/L Normal 0-31 [facility] Comment on above: Performed By: #### C BCA, PINR, 54529-3, CMP, 3040-3, 51966-7, 5643-2, 1987-, 85495-2, 23578-1, 2157-6, 28642-9, THYR #### [facility] ([id number]) [address] [place] [address] 82273 Anion gap [Moles/Vol] 7 mmol/L Normal 5-15 [facility] Comment on above: Performed By: #### C BCA, PINR, 11023-6, CMP, 3040-3, 26368-7, 5643-2, 1987-, 16589-2, 59480-9, 2157-6, 39455-8, THYR #### [facility] ([id number]) [address] [place] [address] 76860 AST [Catalytic activity/Vol] 14 U/L Normal 0-41 [facility] Comment on above: Performed By: #### C BCA, PINR, 98547-5, CMP, 3040-3, 92590-9, 5643-2, 1987-, 67879-0, 85397-5, 215-6, 01039-9, THYR #### [facility] ([id number]) [address] [place] [address], [place] [address] Bilirubin [Mass/Vol] 0.5 mg/dL Normal 0.3-1.2 [facility] Comment on above: Performed By: #### C BCA, PINR, 20112-8, CMP, 3040-3, 59604-8, 5643-2, 1987-, 42188-6, 66664-6, 2157-6, 50277-1, THYR #### [facility] ([id number]) [address] [place] [address] [place] [address] Calcium [Mass/Vol] 8.9 mg/dL Normal 8.5-10.5 [facility] Comment on above: Performed By: #### C BCA, PINR, 15636-3, CMP, 3040-3, 70528-3, 5643-2, 1987-, 61342-2, 98251-3, 215-6, 79246-2, THYR #### [facility] ([id number]) [address] [place] [address] 36360 Chloride [Moles/Vol] 106 mmol/L Normal 98-109 [facility] Comment on above: Performed By: #### C BCA, PINR, 05619-3, CMP, 3040-3, 62324-7, 5643-2, 1987-09, 06505-7, 00163-4, 215-6, 91693-9, THYR #### [facility] ([id number]) [address] [place] [address] [place] [address] CO2 [Moles/Vol] 29 mmol/L Normal 22-32 [facility] Comment on above: Performed By: #### C BCA, PINR, 18492-1, CMP, 3040-3, 02383-5, 5643-2, 1987-, 78626-4, 12452-3, 2157-6, 95868-8, THYR #### [facility] ([id number]) [address] [place] [address], [place] [address] Creatinine [Mass/Vol] 0.84 mg/dL Normal 0.40-1.00 [facility] Comment on above: Result Comment: METH OD TRACEABLE TO IDMS STANDARD Performed By: #### C BCA, PINR, 53554-5, CMP, 3040-3, 56566-8, 5643-2, 1987-09, 04815-0, 04768-3, 2157-6, 07612-0, THYR #### [facility] ([id number]) [address] [place] [address] 21930 GFR/1.73 sq M.predicted among non-blacks MDRD (S/P/Bld) [Vol rate/Area] 82 mL/min/{1.73_m2} Normal >59 [facility] Comment on above: Result Comment: Reported eGFR is based on the CKD-EPI 2020 equation that does not use a race coefficient. Performed By: #### C JOSTIN, PINR, 84406-8, CMP, 3040-3, 85049-1, 5643-2, 1987-09, , 03659-3, 2156-6, 84897-5, THYR #### [facility] ([id number]) [address] [place] [address] 56111 Glucose [Mass/Vol] 91 mg/dL Normal 65-99 [facility] Comment on above: Performed By: #### C JOSTIN, PINR, 90097-4, CMP, 3040-3, 89445-3, 5643-2, 1987-09, 62466-0, 59248-7, 2157-6, 49141-3, THYR #### [facility] ([id number]) [address] [place] [address] 11780 Potassium [Moles/Vol] 4.0 mmol/L Normal 3.5-5.0 [facility] Comment on above: Performed By: #### C BCA, PINR, 86023-1, CMP, 3040-3, 44896-2, 5643-2, 1987-09, 21844-6, 01185-1, 2157-6, 88637-7, THYR #### [facility] ([id number]) [address] [place] [address] Protein [Mass/Vol] 6.4 g/dL Normal 6.0-8.0 [facility] Comment on above: Performed By: #### C BCA, PINR, 75808-2, CMP, 3040-3, 89312-9, 5643-2, 1987-, 69205-9, 54044-6, 215-6, 86042-2, THYR #### [facility] ([id number]) [address] [place] [address] 69584 Sodium [Moles/Vol] 142 mmol/L Normal 134-146 [facility] Comment on above: Performed By: #### C BCA, PINR, 30638-5, CMP, 3040-3, 31451-5, 5643-2, 1987-09, 62690-3, 20951-7, 2156-6, 11211-0, THYR #### [facility] ([id number]) [address] [place] [address] 18592 Urea nitrogen [Mass/Vol] 27 mg/dL High 5-23 [facility] Comment on above: Performed By: #### C BCA, PINR, 48250-7, CMP, 3040-3, 39739-2, 5643-2, 1987-09, 76751-6, 30107-2, 2156-6, 37921-9, THYR #### [facility] ([id number]) [address] [place] [address] 17071 Glucose Glucometer (BldC) [M ass/Vol]on 09-04-2023 Glucose [Mass/Vol] 97 mg/dL Normal 65-99 [facility] Glucose [Mass/Vol] 77 mg/dL Normal 65-99 [facility] Glucose [Mass/Vol] 74 mg/dL Normal 65-99 [facility] Glucose [Mass/Vol] 45 mg/dL Critically low 65-99 [facility] MAGNESIUMon 09-04-2023 Magnesium [Mass/Vol] 2.1 mg/dL Normal 1.8-2.6 [facility] Comment on above: Performed By: #### C BCA, PINR, 55669-1, CMP, 3040-3, 88018-5, 5643-2, 1987-5, 52745-5, 90457-8, 2157-6, 88047-9, THYR #### [facility] ([id number]) [address] [place] [address] 33526 CBC AND AUTO DIFFon 09-03-19 24 ABSOLUTE BASOPHIL 0.1 X10E9/L Normal 0.0-0.2 [facility] Comment on above: Performed By: #### C BCA, CMP, ####[facility] ([id number])[address] [place] [address] 76267 ABSOLUTE NEUTROPHIL 6.4 X10E9/L Normal 1.5-6.6 [facility] Comment on above: Performed By: #### C BCA, CMP, ####[facility] ([id number])[address] [place] [address] 14260 Basophils/100 WBC (Bld) 0.6 % Normal [facility] Comment on above: Performed By: #### Siva BCA, CMP, ####[facility] ([id number])[address] [place] [address] 93823 Eosinophils (Bld) [#/Vol] 0.2 10*3/uL Normal 0.0-0.4 [facility] Comment on above: Performed By: #### C BCA, CMP, ####[facility] ([id number])[address] [place] [address] 96055 Eosinophils/100 WBC (Bld) 1.5 % Normal [facility] Comment on above: Performed By: #### Siva BCA, CMP, ####[facility] ([id number])[address] [place] [address] [place] [address] Erythrocyte distribution width (RBC) [Ratio] 17.4 % High 11.5-15.0 [facility] Comment on above: Performed By: #### Siva [facility]ANKEL [facility], ####[facility] ([id number])[address] [place] [address] 74410 Hematocrit (Bld) [Volume fraction] 36.4 % Normal 35-47 [facility] Comment on above: Performed By: #### Siva [facility]EL [facility], ####[facility] ([id number])[address] [place] [address] 04876 Hemoglobin (Bld) [Mass/Vol] 12.2 g/dL Normal 11.7-15.5 [facility] Comment on above: Performed By: #### Siva [facility]EL [facility], ####[facility] ([id number])[address] [place] [address] 89261 Lymphocytes (Bld) [#/Vol] 2.7 10*3/uL Normal 1.0-3.5 [facility] Comment on above: Performed By: #### Siva [facility]EL [facility], ####[facility] ([id number])[address] [place] [address] 92080 Lymphocytes/100 WBC (Bld) 25.9 % Normal [facility] Comment on above: Performed By: #### Siva [facility]EL [facility], ####[facility] ([id number])[address] [place] [address] 60585 MCH (RBC) [Entitic mass] 28.1 pg Normal 27-34 [facility] Comment on above: Performed By: #### Siva FRANKEL CMP, ####[facility] ([id number])[address] [place] [address] 85806 MCHC (RBC) [Mass/Vol] 33.7 g/dL Normal 32-36 [facility] Comment on above: Performed By: #### Siva FRANKEL CMP, ####[facility] ([id number])[address] [place] [address] 01734 MCV (RBC) [Entitic vol] 84 fL Normal 80-100 [facility] Comment on above: Performed By: #### Siva FRANKEL CMP, ####[facility] ([id number])[address] [place] [address] 95229 Monocytes (Bld) [#/Vol] 1.1 10*3/uL High 0-0.9 [facility] Comment on above: Performed By: #### Siva FRANKEL CMP, ####[facility] ([id number])[address] [place] [address] 31301 Monocytes/100 WBC (Bld) 10.5 % Normal [facility] Comment on above: Performed By: #### Svia FRANKEL CMP, ####[facility] ([id number])[address] [place] [address] 36949 Neutrophils/100 WBC (Bld) 61.5 % Normal [facility] Comment on above: Performed By: #### Siva FRANKEL CMP, ####[facility] ([id number])[address] [place] [address] 39517 Platelet mean volume (Bld) [Entitic vol] 9.3 fL Normal 7-12 [facility] Comment on above: Performed By: #### Siva FRANKEL CMP, ####[facility] ([id number])[address] [place] [address] 20320 Platelets (Bld) [#/Vol] 194 10*3/uL Normal 150-450 [facility] Comment on above: Performed By: #### Siva FRANKEL CMP, ####[facility] ([id number])[address] [place] [address] 95788 RBC COUNT 4.35 X10E12/L Normal 3.80-5.20 [facility] Comment on above: Performed By: #### C BCA, CMP, ####[facility] ([id number])[address] [place] [address] 16053 WBC (Bld) [#/Vol] 10.4 10*3/uL Normal 4.0-11.0 [facility] Comment on above: Performed By: #### C BCA, CMP, ####[facility] ([id number])[address] [place] [address] 81122 COMPREHENSIVE METABOLIC PANE Virgil 09-03-2023 Albumin [Mass/Vol] 3.1 g/dL Low 3.2-5.3 [facility] Comment on above: Performed By: #### C BCA, CMP, ####[facility] ([id number])[address] [place] [address] 00304 ALP [Catalytic activity/Vol] 91 U/L Normal 39-130 [facility] Comment on above: Performed By: #### C BCA, CMP, ####[facility] ([id number])[address] [place] [address] 64593 ALT [Catalytic activity/Vol] 13 U/L Normal 0-31 [facility] Comment on above: Performed By: #### C BCA, CMP, ####[facility] ([id number])[address] [place] [address] 83789 Anion gap [Moles/Vol] 6 mmol/L Normal 5-15 [facility] Comment on above: Performed By: #### C BCA, CMP, ####[facility] ([id number])[address] [place] [address] [place] [address] AST [Catalytic activity/Vol] 11 U/L Normal 0-41 [facility] Comment on above: Performed By: #### C BCA CMP, 60585-5 ####[facility] ([id number])[address] [place] [address] 39343 Bilirubin [Mass/Vol] 0.4 mg/dL Normal 0.3-1.2 [facility] Comment on above: Performed By: #### C JOSTIN, CMP, 44499-8 ####[facility] ([id number])[address] [place] [address] 24172 Calcium [Mass/Vol] 8.3 mg/dL Low 8.5-10.5 [facility] Comment on above: Performed By: #### C JOSTIN, CMP, ####[facility] ([id number])[address] [place] [address] [place] [address] Chloride [Moles/Vol] 103 mmol/L Normal 98-109 [facility] Comment on above: Performed By: #### C BCA, CMP, 55588-1 ####[facility] ([id number])[address] [place] [address] [place] [address] CO2 [Moles/Vol] 22 mmol/L Normal 22-32 [facility] Comment on above: Performed By: #### C BCA, CMP, ####[facility] ([id number])[address] [place] [address] [place] [address] Creatinine [Mass/Vol] 1.72 mg/dL High 0.40-1.00 [facility] Comment on above: Result Comment: METH OD TRACEABLE TO IDMS STANDARD Performed By: #### C JOSTIN, CMP, 97669-7 ####[facility] ([id number])[address] [place] [address] [place] [address] GFR/1.73 sq M.predicted among non-blacks MDRD (S/P/Bld) [Vol rate/Area] 35 mL/min/{1.73_m2} Low >59 [facility] Comment on above: Result Comment: Reported eGFR is based on the CKD-EPI 2020 equation that does not use a race coefficient. Performed By: #### C VERNON FRANKEL, 82740-6 ####[facility] ([id number])[address] [place] [address] 55694 Glucose [Mass/Vol] 84 mg/dL Normal 65-99 [facility] Comment on above: Performed By: #### Siva FRANKEL CMP, ####[facility] ([id number])[address] [place] [address] 06190 Potassium [Moles/Vol] 3.8 mmol/L Normal 3.5-5.0 [facility] Comment on above: Performed By: #### Siva FRANKEL CMP, ####[facility] ([id number])[address] [place] [address] 09936 Protein [Mass/Vol] 6.0 g/dL Normal 6.0-8.0 [facility] Comment on above: Performed By: #### Siva FRANKEL CMP, 13245-0 ####[facility] ([id number])[address] [place] [address] 40984 Sodium [Moles/Vol] 131 mmol/L Low 134-146 [facility] Comment on above: Performed By: #### Siva FRANKEL CMP, 51967-9 ####[facility] ([id number])[address] [place] [address] 59024 Urea nitrogen [Mass/Vol] 71 mg/dL High 5-23 [facility] Comment on above: Performed By: #### Siva FRANKEL CMP, ####[facility] ([id number])[address] [place] [address] CT ABDOMEN AND PELVIS WO CON Ton [...] Godinez MD on 09/03/2023 1:13 AM Normal [facility] Glucose Glucometer (BldC) [M ass/Vol]on 09-03-2023 Glucose [Mass/Vol] 188 mg/dL High 65-99 [facility] Glucose [Mass/Vol] 170 mg/dL High 65-99 [facility] Glucose [Mass/Vol] 122 mg/dL High 65-99 [facility] MAGNESIUMon 09-03-2023 Magnesium [Mass/Vol] 2.5 mg/dL Normal 1.8-2.6 [facility] Comment on above: Performed By: #### [facility] 63296-[facility] ####[facility] ([id number])[address] [place] [address] 76469 XR CHEST 1 VWon 09-03-2023 XR CHEST 1 VW XR CHEST 1 VW HISTORY: Hypotension COMPARISON: Chest x-ray 03/04/2008 FINDINGS: Portable AP upright view of the chest was performed. Cardiac silhouette is within normal limits. No significant airspace consolidation or vascular congestion. No pleural effusion or pneumothorax. IMPRESSION: * No acute abnormality. Finalized by Albert Vines MD on 09/03/2023 12:01 AM Normal [facility] XR KNEE RT 3 VWSon 4 XR KNEE RT 3 VWS XR KNEE RT 3 VWS HISTORY: Pain COMPARISON: None FINDINGS: Multiple views right knee were obtained. Osseous structures are intact with normal alignment. Tricompartmental osteoarthritis. Small joint effusion. No significant soft tissue swelling. IMPRESSION: * No acute osseous abnormality. Finalized by Albert Vines MD on 09/03/2023 12:03 AM Normal [facility] BLOOD CULTUREon 09-02-2023 Bacteria identified Aer cx Nom (Bld) SPECIMEN NOTES LFORE CULTURE RESULTS NO GROWTH 5 DAYS Normal [facility] Comment on above: Performed By: #### C BCA, PINR, 79635-1, CMP, 3040-3, 12042-3, 5643-2, 1987-, 76236-6, 57082-2, 2157-6, 36456-5, THYR #### [facility] ([id number]) [address] [place] [address] 97239 Bacteria identified Aer cx Nom (Bld) CULTURE RESULTS NO GROWTH 5 DAYS Normal [facility] CBC AND AUTO DIFFon 09-02-19 24 ABSOLUTE BASOPHIL 0.1 X10E9/L Normal 0.0-0.2 [facility] Comment on above: Performed By: #### C BCA, PINR, 93755-9, CMP, 3040-3, 83031-0, 5643-2, 1987-, 02114-2, 78799-3, 2157-6, 60703-4, THYR #### [facility] ([id number]) [address] [place] [address] [place] [address] ABSOLUTE NEUTROPHIL 6.8 X10E9/L High 1.5-6.6 [facility] Comment on above: Performed By: #### C BCA, PINR, 53245-1, CMP, 3040-3, 97160-8, 5643-2, 1987-, 31174-5, 63015-8, 2157-6, 96527-9, THYR #### [facility] ([id number]) [address] [place] [address] 55471 Basophils/100 WBC (Bld) 0.5 % Normal [facility] Comment on above: Performed By: #### C BCA, PINR, 70695-2, CMP, 3040-3, 54492-5, 5643-2, 1987-, 76020-6, 28487-8, 215-6, 17321-8, THYR #### [facility] ([id number]) [address] [place] [address] 62089 Eosinophils (Bld) [#/Vol] 0.2 10*3/uL Normal 0.0-0.4 [facility] Comment on above: Performed By: #### C BCA, PINR, 26295-8, CMP, 3040-3, 80733-3, 5643-2, 1987-09, , 50041-0, 2156-6, 66948-1, THYR #### [facility] ([id number]) [address] [place] [address] 94451 Eosinophils/100 WBC (Bld) 1.6 % Normal [facility] Comment on above: Performed By: #### C BCA, PINR, 99027-6, CMP, 3040-3, 42750-3, 5643-2, 1987-, 08809-0, 96768-1, 215-6, 51999-4, THYR #### [facility] ([id number]) [address] [place] [address] [place] [address] Erythrocyte distribution width (RBC) [Ratio] 17.3 % High 11.5-15.0 [facility] Comment on above: Performed By: #### C BCA, PINR, 32323-9, CMP, 3040-3, 96437-9, 5643-2, 1987-, 21350-1, 64068-5, 215-6, 45066-1, THYR #### [facility] ([id number]) [address] [place] [address] 21366 Hematocrit (Bld) [Volume fraction] 38.5 % Normal 35-47 [facility] Comment on above: Performed By: #### C BCA, PINR, 01178-3, CMP, 3040-3, 24218-7, 5643-2, 1987-, 74101-3, 59944-6, 2157-6, 25321-8, THYR #### [facility] ([id number]) [address] [place] [address] 94872 Hemoglobin (Bld) [Mass/Vol] 12.8 g/dL Normal 11.7-15.5 [facility] Comment on above: Performed By: #### C BCA, PINR, 40223-4, CMP, 3040-3, 04440-0, 5643-2, 1987-09, , 02713-4, 215-6, 31302-1, THYR #### [facility] ([id number]) [address] [place] [address] 95085 Lymphocytes (Bld) [#/Vol] 3.4 10*3/uL Normal 1.0-3.5 [facility] Comment on above: Performed By: #### C BCA, PINR, 34526-7, CMP, 3040-3, 92057-7, 5643-2, 1987-09, , 91198-8, 215-6, 11972-4, THYR #### [facility] ([id number]) [address] [place] [address] 05976 Lymphocytes/100 WBC (Bld) 28.9 % Normal [facility] Comment on above: Performed By: #### C BCA, PINR, 89406-9, CMP, 3040-3, 71080-0, 5643-2, 1987-09, 58523-2, 85305-7, 215-6, 13566-3, THYR #### [facility] ([id number]) [address] [place] [address] 32668 MCH (RBC) [Entitic mass] 27.7 pg Normal 27-34 [facility] Comment on above: Performed By: #### C BCA, PINR, 00182-2, CMP, 3040-3, 94728-1, 5643-2, 1987-, 85965-3, 30753-5, 2156-10, 06498-6, THYR #### [facility] ([id number]) [address] [place] [address] 78491 MCHC (RBC) [Mass/Vol] 33.3 g/dL Normal 32-36 [facility] Comment on above: Performed By: #### C BCA, PINR, 96291-6, CMP, 3040-3, 14082-0, 5643-2, 1987-, , 44710-0, 2156-10, 98776-4, THYR #### [facility] ([id number]) [address] [place] [address] 16679 MCV (RBC) [Entitic vol] 83 fL Normal 80-100 [facility] Comment on above: Performed By: #### C BCA, PINR, 29372-1, CMP, 3040-3, 54378-4, 5643-2, 1987-, , 75062-2, 2156-10, 19345-8, THYR #### [facility] ([id number]) [address] [place] [address] 31065 Monocytes (Bld) [#/Vol] 1.2 10*3/uL High 0-0.9 [facility] Comment on above: Performed By: #### C BCA, PINR, 50116-2, CMP, 3040-3, 88332-0, 5643-2, 1987-, , 97851-7, 2156-10, 92420-0, THYR #### [facility] ([id number]) [address] [place] [address] 01941 Monocytes/100 WBC (Bld) 10.6 % Normal [facility] Comment on above: Performed By: #### C BCA, PINR, 22703-5, CMP, 3040-3, 98607-6, 5643-2, 1987-, 73924-8, 34492-1, 2157-6, 09473-4, THYR #### [facility] ([id number]) [address] [place] [address] 89602 Neutrophils/100 WBC (Bld) 58.4 % Normal [facility] Comment on above: Performed By: #### C BCA, PINR, 55366-5, CMP, 3040-3, 89969-5, 5643-2, 1987-, 82640-0, 58905-5, 215-6, 78339-5, THYR #### [facility] ([id number]) [address] [place] [address] 22697 Platelet mean volume (Bld) [Entitic vol] 9.5 fL Normal 7-12 [facility] Comment on above: Performed By: #### C BCA, PINR, 68540-1, CMP, 3040-3, 76399-3, 5643-2, 1987-09, 73613-2, 20091-2, 215-6, 67551-6, THYR #### [facility] ([id number]) [address] [place] [address] [place] [address] Platelets (Bld) [#/Vol] 243 10*3/uL Normal 150-450 [facility] Comment on above: Performed By: #### C BCA, PINR, 63931-5, CMP, 3040-3, 36326-0, 5643-2, 1987-, 25203-0, 29872-4, 215-6, 84198-5, THYR #### [facility] ([id number]) [address] [place] [address], [place] [address] RBC COUNT 4.63 X10E12/L Normal 3.80-5.20 [facility] Comment on above: Performed By: #### C BCA, PINR, 29187-2, CMP, 3040-3, 67103-4, 5643-2, 1987-, 76457-1, 39455-9, 2157-6, 79069-5, THYR #### [facility] ([id number]) [address] [place] [address] 50759 WBC (Bld) [#/Vol] 11.6 10*3/uL High 4.0-11.0 [facility] Comment on above: Performed By: #### C BCA, PINR, 15465-2, CMP, 3040-3, 80831-2, 5643-2, 1987-, 56782-2, 08457-5, 2157-6, 50333-4, THYR #### [facility] ([id number]) [address] [place] [address]143 CK [Catalytic activity/Vol]o n 09-02-2023 CPK 69 U/L Normal 24-170 [facility] Comment on above: Performed By: #### C BCA, PINR, 41993-5, CMP, 3040-3, 25731-2, 5643-2, 1987-09, 66849-7, 31368-8, 2157-6, 59268-9, THYR ####[facility] ([id number])[address] [place] [address]50 COMPREHENSIVE METABOLIC PANE [place] 09-02-2023 Albumin [Mass/Vol] 3.6 g/dL Normal 3.2-5.3 [facility] Comment on above: Performed By: #### C BCA, PINR, 66256-8, CMP, 3040-3, 62331-3, 5643-2, 1987-09, 85386-7, 73610-2, 2157-6, 37653-1, THYR #### [facility] ([id number]) [address] [place] [address] ALP [Catalytic activity/Vol] 106 U/L Normal 39-130 [facility] Comment on above: Performed By: #### C BCA, PINR, 85841-4, CMP, 3040-3, 36877-2, 5643-2, 1987-09, 72198-1, 33730-7, 2157-6, 11096-2, THYR #### [facility] ([id number]) [address] [place] [address] 08366 ALT [Catalytic activity/Vol] 16 U/L Normal 0-31 [facility] Comment on above: Performed By: #### C BCA, PINR, 62387-8, CMP, 3040-3, 39182-4, 5643-2, 1987-09, , 71296-3, 2156-6, 05886-7, THYR #### [facility] ([id number]) [address] [place] [address] Anion gap [Moles/Vol] 8 mmol/L Normal 5-15 [facility] Comment on above: Performed By: #### C BCA, PINR, 12719-2, CMP, 3040-3, 34906-9, 5643-2, 1987-09, 60292-4, 67588-6, 215-6, 96015-8, THYR #### [facility] ([id number]) [address] [place] [address] [place] [address] AST [Catalytic activity/Vol] 15 U/L Normal 0-41 [facility] Comment on above: Performed By: #### C BCA, PINR, 25407-8, CMP, 3040-3, 29794-7, 5643-2, 1987-09, 76253-1, 83121-8, 215-6, 11563-3, THYR #### [facility] ([id number]) [address] [place] [address]25 Bilirubin [Mass/Vol] 0.3 mg/dL Normal 0.3-1.2 [facility] Comment on above: Performed By: #### C BCA, PINR, 44868-0, CMP, 3040-3, 55767-9, 5643-2, 1987-09, , , 2156-10, 62963-7, THYR #### [facility] ([id number]) [address] [place] [address], [place] [address] Calcium [Mass/Vol] 8.6 mg/dL Normal 8.5-10.5 [facility] Comment on above: Performed By: #### C BCA, PINR, 15421-2, CMP, 3040-3, 11266-7, 5643-, 1987-09, , , 2156-10, 18303-8, THYR #### [facility] ([id number]) [address] [place] [address] [place] [address] Chloride [Moles/Vol] 101 mmol/L Normal 98-109 [facility] Comment on above: Performed By: #### C BCA, PINR, 98590-1, CMP, 3040-3, 49922-0, 5643-, 1987-09, , , 2156-10, 29161-6, THYR #### [facility] ([id number]) [address] [place] [address], [place] [address] CO2 [Moles/Vol] 20 mmol/L Low 22-32 [facility] Comment on above: Performed By: #### C BCA, PINR, 74078-6, CMP, 3040-3, 45161-5, 5643-2, 1987-09, , , 2156-10, 20685-5, THYR #### [facility] ([id number]) [address] [place] [address], [place] [address] Creatinine [Mass/Vol] 2.05 mg/dL High 0.40-1.00 [facility] Comment on above: Result Comment: METH OD TRACEABLE TO IDMS STANDARD Performed By: #### C BCA, PINR, 47561-7, CMP, 3040-3, 60420-8, 5643-2, 1987-09, 23175-1, 87066-2, 2157-6, 42266-7, THYR #### [facility] ([id number]) [address] [place] [address] GFR/1.73 sq M.predicted among non-blacks MDRD (S/P/Bld) [Vol rate/Area] 28 mL/min/{1.73_m2} Low >59 [facility] Comment on above: Result Comment: Reported eGFR is based on the CKD-EPI 2020 equation that does not use a race coefficient. Performed By: #### C JOSTIN, PINR, 72772-7, CMP, 3040-3, 28385-0, 5643-, 1987-09, , 25285-3, 215-6, 73814-1, THYR #### [facility] ([id number]) [address] [place] [address]167 Glucose [Mass/Vol] 69 mg/dL Normal 65-99 [facility] Comment on above: Performed By: #### C JOSTIN, PINR, 15146-9, CMP, 3040-3, 40763-8, 5643-2, 1987-09, , 65071-8, 215-6, 52418-2, THYR #### [facility] ([id number]) [address] [place] [address] Potassium [Moles/Vol] 3.8 mmol/L Normal 3.5-5.0 [facility] Comment on above: Performed By: #### C BCA, PINR, 88730-9, CMP, 3040-3, 65625-5, 5643-2, 1987-09, 30579-2, 99418-6, 2157-6, 88207-2, THYR #### [facility] ([id number]) [address] [place] [address] Protein [Mass/Vol] 6.8 g/dL Normal 6.0-8.0 [facility] Comment on above: Performed By: #### C BCA, PINR, 35581-9, CMP, 3040-3, 38341-4, 5643-2, 1987-, 79467-2, 50546-3, 2156-6, 23021-5, THYR #### [facility] ([id number]) [address] [facility] [address] Sodium [Moles/Vol] 129 mmol/L Low 134-146 [facility] Comment on above: Performed By: #### C BCA, PINR, 97022-4, CMP, 3040-3, 48646-1, 5643-2, 1987-09, , 75097-4, 2156-10, 19148-7, THYR #### [facility] ([id number]) [address] [place] [address] [place] [address] Urea nitrogen [Mass/Vol] 73 mg/dL High 5-23 [facility] Comment on above: Performed By: #### C BCA, PINR, 30090-8, CMP, 3040-3, 65687-2, 5643-2, 1987-, 96661-3, 81308-4, 2156-6, 69285-0, THYR #### [facility] ([id number]) [address] [place] [address], [place] [address] CRP [Mass/Vol]on 09-02-2023 C REACTIVE PROTEIN 1.1 mg/dL High 0.000-0.744 [facility] Comment on above: Performed By: #### C BCA, PINR, 16729-7, CMP, 3040-3, 49623-5, 5643-2, 1987-, 56022-2, 50503-5, 2156-6, 75875-6, THYR #### [facility] ([id number]) [address] [place] [address] 76[address] ETHANOLon 09-02-2023 Ethanol [Mass/Vol] mg/dL Normal 0.00-0.08 [facility] Comment on above: Result Comment: This report is intended for use in clinical monitoring or management of patients. Performed By: #### C BCA, PINR, 94762-8, CMP, 3040-3, 69312-0, 5643-2, 1987-09, 67880-8, 96678-4, 2157-6, 96370-0, THYR #### [facility] ([id number]) [address] [place] [address] LIPASEon 09-02-2023 Lipase [Catalytic activity/Vol] 50 U/L High 17-40 [facility] Comment on above: Performed By: #### C BCA, PINR, 13956-3, CMP, 3040-3, 78171-1, 5643-, 1987-09, 14721-4, 30678-7, 215-6, 98242-5, THYR #### [facility] ([id number]) [address] [place] [address] 69694 Lactate (P brinda) [Moles/Vol]o n 09-02-2023 LACTATE W/REFLEX 1.4 mmol/L Normal 0.4-2.0 [facility] Comment on above: Result Comment: Result did not trigger repeat Lactate, re-order if needed. Performed By: #### C BCA, PINR, 28339-6, CMP, 3040-3, 05355-3, 5643-2, 1987-09, , 94325-9, 215-6, 02110-2, THYR #### [facility] ([id number]) [address] [place] [address] MAGNESIUMon 09-02-2023 Magnesium [Mass/Vol] 2.4 mg/dL Normal 1.8-2.6 [facility] Comment on above: Performed By: #### C BCA, PINR, 39484-9, CMP, 3040-3, 72697-9, 5643-2, 1987-09, 76535-2, 35225-9, 2157-6, 60102-0, THYR ####[facility] ([id number])[address] [place] [address] 36569 PROTIME AND INRon 09-02-2023 INR Coag (PPP) [Relative time] 1.1 {INR} Normal 0.8-1.1 [facility] Comment on above: Performed By: #### C BCA, PINR, 91630-0, CMP, 3040-3, 89129-4, 5643-2, 1987-09, 98065-6, 52046-8, 2157-6, 88297-6, THYR #### [facility] ([id number]) [address] [place] [address] 49898 PT Coag (PPP) [Time] 13.3 s High 9.8-13.2 [facility] Comment on above: Result Comment: NEW REFERENCE RANGE Performed By: #### C BCA, PINR, 10319-5, CMP, 3040-3, 11723-7, 5643-, 1987-09, 38603-9, 22553-3, 2157-6, 03372-5, THYR #### [facility] ([id number]) [address] [place] [address] [place] [address] Procalcitonin IA [Mass/Vol]o n 09-02-2023 PROCALCITONIN 0.10 ng/mL High <0.05 [facility] Comment on above: Result Comment: NOTE <0.50 ng/mL - Low risk of severe sepsis and/or septic shock. <2.00 ng/mL - Recommend retesting within 6-24 hours. >2.00 ng/mL - High risk of sepsis and/or septic shock. Performed By: #### C BCA, PINR, 69398-8, CMP, 3040-3, 73096-4, 5643-2, 1987-, 28329-3, 33336-8, 2157-6, 68457-4, THYR ####[facility] ([id number])[address] [place] [address] 18575 THYROID PROFILEon 09-02-2023 Free T4 [Mass/Vol] 0.67 ng/dL Normal 0.61-1.60 [facility] Comment on above: Performed By: #### C BCA, PINR, 10859-6, CMP, 3040-3, 62182-4, 5643-2, 1987-09, 44136-7, 85591-0, 215-6, 16320-2, THYR ####[facility] ([id number])[address] [place] [address] 707[address] TSH 5.55 uIU/mL High 0.49-4.67 [facility] Comment on above: Performed By: #### C BCA, PINR, 56867-9, CMP, 3040-3, 31234-9, 5643-2, 1987-09, 88122-6, 31698-7, 215-6, 20085-8, THYR ####[facility] ([id number])[address] [place] [address] 26803 TROPONIN Ion 09-02-2023 Troponin I.cardiac [Mass/Vol] 0.03 ng/mL Normal 0.00-0.04 [facility] Comment on above: Performed By: #### C BCA, PINR, 50402-8, CMP, 3040-3, 01220-9, 5643-2, 1987-09, 80360-3, 70183-6, 215-6, 15097-6, THYR ####[facility] ([id number])[address] [place] [address] 16981 aPTT Coag (PPP) [Time]on aPTT Coag (Bld) [Time] 36 s Normal 26-37 [facility] Comment on above: Result Comment: NEW REFERENCE RANGE Performed By: #### C BCA, PINR, 87275-4, CMP, 3040-3, 39303-4, 5643-2, 1988-5, 64497-1, 67204-4, 2157-6, 86662-0, THYR #### [facility] ([id number]) [address] [facility] [place] [address] CBC auto differentialon 07-25 Basophils (Bld) [#/Vol] 0.1 10*3/uL [facility] Basophils/100 WBC (Bld) 1.0 % [facility] Eosinophils (Bld) [#/Vol] 0.2 10*3/uL [facility] Eosinophils/100 WBC (Bld) 2.0 % [facility] Erythrocyte distribution width (RBC) [Ratio] 16.7 % High 11.5 - 15.0 % [facility] Hematocrit (Bld) [Volume fraction] 36.9 % 35 - 47 % [facility] Hemoglobin (Bld) [Mass/Vol] 12.2 g/dL 11.7 - 15.5 g/dL [facility] Interpretation and review of laboratory results Abnormal [facility] Lymphocytes (Bld) [#/Vol] 2.7 10*3/uL [facility] Lymphocytes/100 WBC (Bld) 32.3 % [facility] MCH (RBC) [Entitic mass] 28.2 pg 27 - 34 pg [facility] MCHC (RBC) [Mass/Vol] 33.1 g/dL 32 - 36 g/dL P [facility] MCV (RBC) [Entitic vol] 85 fL 80 - 100 fL [facility] Monocytes (Bld) [#/Vol] 0.9 10*3/uL [facility] Monocytes/100 WBC (Bld) 11.4 % [facility] Neutrophils (Bld) [#/Vol] 4.4 10*3/uL [facility] Neutrophils/100 WBC (Bld) 53.3 % [facility] Platelet mean volume (Bld) [Entitic vol] 9.2 fL 7 - 12 fL [facility] Platelets (Bld) [#/Vol] 204 10*3/uL [facility] RBC (Bld) [#/Vol] 4.33 10*6/uL [facility] WBC corrected for nucl RBC Auto (Bld) [#/Vol] 8.2 [facility] Cobalamin (Vitamin B12) [Mas s/Vol]on 08-07-2023 [facility] Comprehensive metabolic pane virgil 08-07-2023 Albumin [Mass/Vol] 3.5 g/dL 3.2 - 5.3 g/dL [facility] ALP [Catalytic activity/Vol] 89 U/L 39 - 130 U/L [facility] ALT No additional P-5'-P [Catalytic activity/Vol] 15 U/L 0 - 31 U/L [facility] Anion gap [Moles/Vol] 8 mmol/L 5 - 15 mmol/L [facility] AST [Catalytic activity/Vol] 15 U/L 0 - 41 U/L [facility] Bilirubin [Mass/Vol] 0.4 mg/dL 0.3 - 1 .2 mg/dL [facility] Calcium [Mass/Vol] 8.6 mg/dL 8.5 - 10. 5 mg/dL [facility] Chloride [Moles/Vol] 101 mmol/L 98 - 10 9 mmol/L [facility] CO2 [Moles/Vol] 30 mmol/L 22 - 32 mmol/L [facility] Creatinine [Mass/Vol] 0.79 mg/dL 0.40 - 1.00 mg/dL [facility] Comment on above: METHOD TRACEABLE TO IDSD STANDARD eGFR (CKD-EPI)non-race dependent 88 - PINF [facility] Comment on above: Reported eGFR is based on the CKD-EPI 2020 equation that does not use a race coefficient. Glucose [Mass/Vol] 118 mg/dL High 65 - 99 mg/dL [facility] Potassium [Moles/Vol] 3.7 mmol/L 3.5 - 5.0 mmol/L [facility] Protein [Mass/Vol] 6.3 g/dL 6.0 - 8.0 g/dL [facility] Sodium [Moles/Vol] 139 mmol/L 134 - 146 mmol/L [facility] Urea nitrogen [Mass/Vol] 14 mg/dL 5 - 23 mg/dL [facility] Lipid 1996 panelon Cholesterol [Mass/Vol] 161 mg/dL 150 - 200 mg/dL [facility] Cholesterol in HDL [Mass/Vol] 46 mg/dL 39 - PINF mg/dL [facility] Comment on above: HDL <40 mg/dL - High Risk HDL > or = 40mg/dL- Desirable HDL >60 mg/dL - Negative Risk Cholesterol in LDL [Mass/Vol] 65 mg/dL NINF - 130 mg/dL [facility] Comment on above: LDL <100 mg/dL - Desirable LDL >160 mg/dL - High Risk Cholesterol in VLDL [Mass/Vol] 50 mg/dL High 0 - 30 mg/dL [facility] Cholesterol.total/Chol esterol in HDL [Mass ratio] 3.5 {ratio} 1.0 - 5.0 [facility] Triglyceride [Mass/Vol] 249 mg/dL High 27 - 150 mg/dL [facility] No Panel Informationon 08-06 Interpretation and review of laboratory results Abnormal [facility] Thyroid profile includes TSH FT4on 08-07-2023 Free T4 [Mass/Vol] 0.69 ng/dL 0.61 - 1. 60 ng/dL [facility] TSH Qn 4.16 m[IU]/L [facility] Vitamin B12on 08-07-2023 Cobalamin (Vitamin B12) [Mass/Vol] 579 pg/mL 180 - 914 pg/mL [facility] Vital Signs Date Time Vital Sign Value Performing Clinician [facility] 03-12-2024 11:02-0400 Body height 172.7 cm Pmh 1 [facility] 03-12-2024 11:02-0400 Body mass index (BMI) [Ratio] 36.95 kg/m2 Pmh 1 [facility] 03-12-2024 11:02-0400 Body weight 110.22 kg Pmh 1 [facility] 03-03-2024 11:03-0400 Body height 172.7 cm James Stevenson [employer]ODUCT MARKETING ENGINEER[employer]BUMBOATER Work Phone: [facility] 03-03-2024 11:03-0400 Body mass index (BMI) [Ratio] 37.1 kg/m2 James Stevenson PRODUCT MARKETING ENGINEER-BUMBOATER Work Phone: [facility] 03-03-2024 11:03-0400 Body weight 110.68 kg James Stevenson PRODUCT MARKETING ENGINEER-BUMBOATER Work Phone: [facility] 03-03-2024 11:03-0400 Diastolic blood pressure 80 mm[Hg] James Stevenson PRODUCT MARKETING ENGINEER-BUMBOATER Work Phone: [facility] 03-03-2024 11:03-0400 Heart rate 82 /min James Stevenson PRODUCT MARKETING ENGINEER-BUMBOATER Work Phone: [facility] 03-03-2024 11:03-0400 Systolic blood pressure 130 mm[Hg] James Stevenson PRODUCT MARKETING ENGINEER-BUMBOATER Work Phone: [facility] 08-16-2023 10:23-0400 Body height 172.7 cm Jose Greenwood DO Work Phone: [facility] 08-16-2023 10:23-0400 Body mass index (BMI) [Ratio] 38.04 kg/m2 Jose Greenwood DO Work Phone: [facility] 08-16-2023 10:23-0400 Body temperature 98.1 [degF] Jose Greenwood DO Work Phone: [facility] 08-16-2023 10:23-0400 Body weight 113.49 kg Jose Yuhas DO Work Phone: [facility] 08-16-2023 10:23-0400 Diastolic blood pressure 70 mm[Hg] Jose Haass DO Work Phone: [facility] 08-16-2023 10:23-0400 Heart rate 72 /min Jose Haass DO Work Phone: [facility] 08-16-2023 10:23-0400 Respiratory rate 18 /min Jose Haass DO Work Phone: [facility] 08-16-2023 10:23-0400 SaO2% (BldA) [Mass fraction] 93 % Jose Haass DO Work Phone: [facility] [employer] [facility] 08-16-2023 10:23-0400 Systolic blood pressure 142 mm[Hg] Jose Greenwood DO Work Phone: [facility] [facility] 08-07-2023 13:46-0400 Body height 172.7 cm Jose Haass DO Work Phone: [facility] 08-07-2023 13:46-0400 Body mass index (BMI) [Ratio] 38.73 kg/m2 Jose Haass DO Work Phone: [facility] 08-07-2023 13:46-0400 Body temperature 98.1 [degF] Jose Greenwood DO Work Phone: [facility] 08-07-2023 13:46-0400 Body weight 115.53 kg Jose Haass DO Work Phone: [facility] [facility] 08-07-2023 13:46-0400 Diastolic blood pressure 72 mm[Hg] Jose Haass DO Work Phone: [facility] 08-07-2023 13:46-0400 Heart rate 65 /min Jose Haass DO Work Phone: [facility] [employer] [facility] 08-07-2023 13:46-0400 SaO2% (BldA) [Mass fraction] 95 % Jose Greenwood DO Work Phone: [facility] 08-07-2023 13:46-0400 Systolic blood pressure 118 mm[Hg] Jose Greenwood DO Work Phone: [facility] Encounters Encounter Date Encounter Type Care Provider Facility Start: 03-13-2024 End: 03-17-2024 Telephone encounter Iris Oliveros A [facility] General Surgery Start: 03-12-2024 End: 03-12-2024 ambulatory [facility] Start: 03-03-2024 End: 03-03-2024 Office outpatient new 30 minutes James Stevenson PRODUCT MARKETING ENGINEER-BUMBOATER Work Phone: [facility] Comment on above: Positive colorectal cancer screening using Cologuard test (Primary Dx) Start: 03-03-2024 End: 03-03-2024 ambulatory [facility] Rj STEVENSON [facility] Start: 12-29-2023 End: 01-02-2024 Emergency department patient visit ELIEZER LYONS [facility] Start: 12-29-2023 End: 01-01-2024 Evaluation and management of inpatient [facility] Start: 10-16-2023 End: 10-17-2023 Emergency department patient visit DANNI MC [facility] Start: 09-11-2023 Emergency department patient visit JACKSON [facility] Start: 09-11-2023 Emergency department patient visit JACKSON [facility] Start: 09-11-2023 End: 09-12-2023 Evaluation and management of inpatient LYNNETTE ASAFANJUM [facility] Start: 09-03-2023 End: 09-05-2023 Emergency department patient visit RAINER Hope MADELYN [facility] Start: 09-02-2023 End: 09-05-2023 Emergency department patient visit RAINER Hope MADELYN [facility] Start: 09-02-2023 End: 09-04-2023 Evaluation and management of inpatient NO PCP NO PCP [facility] Start: 08-20-2023 Refill Therese Roc [facility] Comment on above: Chronic diastolic CH F (congestive heart failure) ([facility]) (Primary Dx) Start: 08-16-2023 End: 08-16-2023 Office outpatient visit 25 minutes Jose Paulino Krystyna DO Work Phone: [facility] Comment on above: Type 2 diabetes sagar itus without complication, with long-term current use of insulin ([facility]) (Primary Dx); Chronic diastolic CHF (congestive heart failure) ([facility]); Persistent depressive disorder; Essential hypertension; LUCIA (obstructive sleep apnea) Start: 08-07-2023 End: 08-07-2023 Office outpatient new 45 minutes Jose Jefferson Greenwood DO Work Phone: [facility] Comment on above: Type 2 diabetes sagar itus without complication, with long-term current use of insulin ([facility]) (Primary Dx); Paroxysmal atrial fibrillation ([facility]); Essential hypertension; Hyperlipidemia, unspecified hyperlipidemia type; B12 deficiency; Chronic bilateral low back pain, unspecified whether sciatica present Procedures Date Procedure Procedure Detail Performing Clinician Start: 08-16-2023 Adult depression screening assessment Jose Greenwood DO Work Phone: Start: 08-07-2023 Adult depression screening assessment Jose Greenwood DO Work Phone: Plan of Treatment Date Care Activity Detail Author Start: 03-12-2025 Adult BMI Screening Adult BMI Screen [facility] Start: 03-12-2025 Tobacco Screening Tobacco Screening [facility] Start: 03-03-2025 Adult BMI Screening Adult BMI Screen ing [facility] Start: 03-03-2025 Tobacco Screening Tobacco Screening [facility] Start: 08-15-2024 Adult BMI Screening Adult BMI Screen ing [facility] Start: 08-15-2024 Depression Screening Depression Scre [facility] Start: 08-15-2024 Tobacco Screening Tobacco Screening [facility] Start: 08-06-2024 Adult BMI Screening Adult BMI Screen ing [facility] Start: 08-06-2024 Depression Screening Depression Scre [facility] Start: 03-20-2024 End: 03-20-2024 Admission to same day surgery center 03/20/2024 10:00 AM EDT - 03/20/2024 10:30 AM EDT Surgery [facility] [address] [place] [phone] Dallas French MD [address] [place] [phone] COLONOSCOPY DIAGNOSTIC / SCREENING [67968 (CPT )] [facility] Comment on above: COLONOSCOPY DIAGNOST IC / SCREENING [16744 (CPT )] Start: 03-20-2024 End: 03-20-2024 Colonoscopy flx dx w/collj spec when pfrmd COLONOSCOPY DIAGNOSTIC / SCREENING positive cologuard 03/20/2024 10:00 AM EDT [facility] Start: 03-20-2024 Subsequent hospital visit by physician 03/20/2024 10:00 AM EDT Hospital Encounter [facility] [address] [place] [phone] Dallas French MD [address] [place] [phone] [facility] Start: 03-12-2024 End: 03-12-2024 ambulatory 03/12/2024 2:00 PM EDT Support Visit [facility] - Pre Admit [address] [place] [phone] [facility] Pre Admit Start: 01-26-2024 Influenza vaccination Influenza Vacc ine [facility] Start: 09-17-2023 End: 09-17-2023 Patient encounter procedure 09/17/2023 9:00 AM EDT Office Visit [facility] [address] [place] [phone] Jose Greenwood, DO [address] [place] [address] [facility] Start: 01-25-2023 Influenza vaccination Influenza Vacc ine [facility] Start: 10-26-2017 Administration of varicella zoster vaccine Zoster (Shingles) Vaccine (1 of 2) [facility] Start: 10-26-1988 Screening for malign ant neoplasm of cervix Pap Smear [facility] Start: 10-26-1986 DTaP,Tdap and Td Vaccines (1 - Tdap) DTaP,Tdap and Td Vaccines (1 - Tdap) [facility] Start: 10-26-1985 Adult BMI Follow Up Plan Adult BMI Follow Up Plan [facility] Start: 10-26-1985 Diabetic foot examination Diabetic Foot Exam [facility] Start: 1979 Tobacco Screening Tobacco Screening [facility] Start: 1967 Glaucoma screening Diabetic Op hthalmology Exam [facility] Start: 1967 Urine screening for protein Urine Microalbumin [facility] End: 03-03-2025 Colonoscopy Colonoscopy GI Routine Positive colorectal cancer screening using Cologuard test 1 Occurrences starting 03/03/2024 until 03/03/2025 [employer] Work Phone: Comment on above: 1 Occurrences starti ng 03/03/2024 until 03/03/2025 End: 08-06-2024 Hemoglobin A1c/Hemoglobin.total in Blood Hemoglobin A1c Lab Routine Type 2 Diabetes Mellitus Without Complication, With Long-Term Current Use Of Insulin ([facility] 1 Occurrences starting 08/07/2023 until 08/06/2024 [employer] Work Phone: Comment on above: 1 Occurrences starti ng 08/07/2023 until 08/06/2024 Hemoglobin A1c/Hemoglobin.total in Blood Hemoglobin A1c Lab Routine Type 2 diabetes mellitus without complication, with long-term current use of insulin ([facility] [place] 08/07/2023 10:40 PM EDT [facility] Payers Date Payer Category [facility] [employer] [id number] 2023 Unknown [id number] 2023 Private Health Insurance [id number] 2023 Unknown [id number] 1967 Unknown [id number] 1967 Unknown [id number] 1967 Unknown [id number] [id number] 1965 Unknown [id number] 2.1285 1965 Unknown [id number]. 2.1285 1965 Unknown [id number]. 2.1285 1965 Unknown [id number]. 2.1285 1965 Unknown [id number]. 2.1285 1965 Unknown [id number]. 2.1285 1965 Unknown [id number] 2.1286 Social History Date Type Detail Facility Start: 08-07-2023 End: 03-12-2024 Tobacco smoking status NHIS Ex-smoker [facility] Start: 05-27-1993 End: 05-27-2023 History of tobacco use Current smoker [facility] Start: 05-27-1993 End: 05-27-2023 History of tobacco use Cigarette Smoker [facility] Start: 08-07-2023 End: 12-29-2023 Cigarettes smoked current (pack per day) - Reported 1 [facility] Start: 08-07-2023 End: 03-12-2024 Tobacco use and exposure Smokeless tobacco non-user [facility] Start: 08-07-2023 End: 03-12-2024 Alcohol intake Ex-drinker (finding) [facility] Start: 08-07-2023 End: 12-29-2023 Tobacco use panel [facility] Adolescent depressio n screening assessment 0 [facility] Start: 1965 Sex Assigned At Not on file P [facility] Has the electric, [employer] s, oil, or water company threatened to shut off services in your home in past 12Mo No [facility] Start: 12-30-2014 Sex Female (finding) [facility] Medical Equipment Procedure Code Equipment Code Equipment Origin al Text Equipment Identifier Dates USE THREE TIMES DAILY DIRECTED [id number] Start: 08-05-2023 Goals Date Patient Goal Desired Activity /State Personal health goal Comment on above: Formatting of this n ote might be different from the original. Evaluation of progress towards goal: home and denies need for home services Clinical Notes 08-07-2023 to 03-13-2024 Telephone Encounter - Iris Oliveros, [facility] - 03/13/2024 1:54 PM EDTTelephone Encounter - Desi Keene, [facility] - 03/13/2024 1:54 PM PETETJames Stevenson APRN-[facility] - 03/03/2024 11:00 AM EDT Note Date & Type Note Facility 03-13-2024 Miscellaneous Notes Irma from [facility] Financial Department called to inform us that patient - Leah Chamberlain's insurance / [place] was not accepted through [facility]. Patient's surgery is 03/20/24 - colonoscopy with Dr. French. I called [facility] schedule coordinator and cancelled the procedure. I also called the patient to inform her that [facility] didn't accept her insurance. I also offered my assistance in finding another facility to which she could go. I called patient to see if she wanted to go to [facility] with Dr. Barrett since her insurance is not accepted by [facility]. Patient stated she has an appointment with someone in [place]. I told her if she needed anything else from our office to give us a call. Patient verbalized understanding. documented in this encounter [facility] 03-13-2024 Telephone encounter Note Irma from [facility] Financial Department called to inform us that patient - Leah Chamberlain's insurance / [employer] was not accepted through [facility]. Patient's surgery is 03/20/24 - colonoscopy with Dr. French. I called [facility] schedule coordinator and cancelled the procedure. I also called the patient to inform her that [facility] didn't accept her insurance. I also offered my assistance in finding another facility to which she could go. [facility] 03-13-2024 Telephone encounter Note I called patient to see if she wanted to go to [facility] with Dr. Barrett since her insurance is not accepted by [facility]. Patient stated she has an appointment with someone in [place]. I told her if she needed anything else from our office to give us a call. Patient verbalized understanding. [facility] 03-12-2024 Miscellaneous Notes Preoperative Education Checklist- General Surgery date: 03/20/24 Surgery time: 1000 Arrival time: 0800 1. Bring a photo ID and your insurance card with you the day of surgery. You will check in at the main lobby of the [facility]- registration desk is straight ahead as soon as you walk in. Tell them you are here for surgery. 2. If you have a Living Will/Durable Power of Trapeze Performer for Health Care that is not on [...] after you have bathed. 5. NO nail andorran/acrylic on at least one finger. If you are having a hand, wrist or foot surgery then all nail andorran and artificial/acrylic nails must be removed from [...] please call the Preadmission Testing office at [phone], Mon.-Fri. 7 a.m.-3 p.m. Leave a voicemail [...] prior to procedure documented in this encounter [facility] 03-12-2024 Nurse Note Preoperative Education Checklist- General Surgery date: 03/20/24 Surgery time: 1000 Arrival time: 0800 1. Bring a photo ID and your insurance card with you the day of surgery. You will check in at the main lobby of the [facility]- registration desk is straight ahead as soon as you walk in. Tell them you are here for surgery. 2. If you have a Living Will/Durable Power of Trapeze Performer for Health Care that is not on [...] after you have bathed. 5. NO nail andorran/acrylic on at least one finger. If you are having a hand, wrist or foot surgery then all nail andorran and artificial/acrylic nails must be removed from [...] please call the Preadmission Testing office at [phone], Mon.-Fri. 7 a.m.-3 p.m. Leave a voicemail [...] Stop taking 0 days prior to procedure [facility] 03-03-2024 History of Presen t illness Narrative [...] confusion. Past Medical History: Diagnosis Date A-fib ([facility]) Arthritis Asthma Depression Dysthymic disorder Hyperlipidemia Hypertension Type 1 diabetes mellitus with diabetic polyneuropathy, with long-term current use of insulin ([facility]) Past Surgical History: Procedure Laterality Date ARTHROSCOPY [...] patient/family/caregiver Referring and communicating with other health healthcare network pricing consultant Positive colorectal cancer screening using Cologuard test [R19.5] JUDY MARTINEZ [facility] Physicians General Surgery [place] This note was created with the assistance of a speech recognition program. While intending to generate a timely document that accurately reflects the content of the visit, no guarantee can be provided that every grammatical or spelling mistake has been or will be identified or corrected. Thank you for your understanding. JUDY Martinez 03/03/24 1128 documented in this encounter [facility] 10-16-2023 Note XR CHEST 2 VWS Procedure: Chest x-ray performed Number of views:PA and lateral History:Pain Comparison:09/02/2023 Findings: The heart and lungs show no acute findings, and the mediastinum and valeria are grossly negative . Impression: No acute change. Finalized by Dulce Maria Caro DO on 10/16/2023 12:34 PM [facility] 09-12-2023 Note Hospital Medicine Discharge Summary Final Discharge Diagnosis: Choking due to food in larynx, initial encounter Admission Diagnosis: Choking due to food in larynx, initial encounter [T17.320A, W44.F3XA] Hospital course: 57 y.o. female who came from community following choking episode at [facility]. Patient reportedly received CPR for being unresponsive [...] HYDROcodone-acetaminophen 5-325 mg tablet Commonly known as: [place] Take 1-2 tablets by mouth every 6 [...] Medications These medications were sent to [facility] - [address] [place] [address] [address] [facility] [place] [address], [facility] [address] HYDROcodone-acetaminophen 5-325 mg tablet Leah is allergic [...] distended. Total t (more content not included)... [facility] 09-12-2023 Note Hospital Medicine History and Physical 09/11/2023 10:48 PM THE HOSPITALIST TEAM PREFERS TO USE [employer] FOR COMMUNICATION 7AM-7PM. IF I DO NOT RESPOND WITHIN 15 MINUTES, PLEASE PAGE ME/CALL THROUGH THE CITY LETTER CARRIER. FROM 7PM-7AM, PLEASE PAGE [phone](COVR) Chief Complaint Chief Complaint Patient presents with [...] came from community following choking episode at [facility]. Patient reportedly received CPR for being unresponsive [...] asleep numerous times through assessment. 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 Past Medical History History reviewed. No pertinent past medical history. Past Surgical History No past surgical history on file. Social History Social History Socioeconomic History Marital status: Single Spouse name: Not on file Number (more content not included)... [facility] 08-16-2023 History of Presen t illness Narrative IM PROGRESS NOTE Patient - Leah Chamberlain Age - 57 y.o. - 1965 ASSESSMENT & PLAN 1. Type 2 diabetes mellitus without complication, with long-term current use of insulin ([facility]) -I reviewed the results of the recent [...] 2. Chronic diastolic CHF (congestive heart failure) ([facility]) -reviewed the results of recent echocardiogram with [...] 3. Persistent depressive disorder -this is a [facility] claim, but patient needs treatment/refill sent does not have a current [facility] provider in [place] -refill Abilify 10 mg daily -referral to [facility]'s counseling to initiate mental health follow-up was [...] work, and review of old records from [place] and recent hospitalization at [facility]. She currently feels no different from previous. [...] lab work and imaging done both at [facility] and in [place] for hospitalizations relating to her breathing show [...] her chronic pain, again related to her [facility] claim, she has been on oxycarbamazepine [...] Testing No results found. Jose Greenwood DO., [facility] Office: [phone] documented in this encounter [facility] 08-07-2023 History of Presen t illness Narrative IM PROGRESS NOTE Patient - Leah Reich Age - 57 y.o. - 1965 ASSESSMENT & PLAN 1. Type 2 diabetes mellitus without complication, with long-term current use of insulin ([facility]) -reported control fair in the past -currently Lantus 50 units b.i.d. along with Novolin R sliding scale meals -repeat A1c to assess efficacy of current treatment, and potentially adjust dosing - CBC auto differential; Future - Hemoglobin A1c; Future 2. Paroxysmal atrial fibrillation ([facility]) -numerous episodes over the past several months to year. 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 Had been living down there for the past 10 years. Originally lived in [place] and [place]. 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 Currently allowable condition is low back and depression. However she does state she has neck problems as well. -she has had multiple medical problems that have cropped up over the past number of years, but in the last year, has been hospitalized several times in [place], and recently in [facility] because of problems with her heart and [...] -was being seen by pain management in [place], in wants to get established pain management [...] Testing No results found. Jose Greenwood DO., [facility] Office: [phone] documented in this encounter [facility] Evaluation note Diagnosis Type 2 diabetes mellitus without complication, with long-term current use of insulin ([facility])- Primary Paroxysmal atrial fibrillation ([facility]) Atrial fibrillation Essential hypertension Unspecified essential hypertension Hyperlipidemia, unspecified hyperlipidemia type B12 deficiency Chronic bilateral low back pain, unspecified whether sciatica present [facility] Diagnosis Type 2 diabetes mellitus without complication, with long-term current use of insulin ([facility])- Primary Chronic diastolic CHF (congestive heart failure) ([facility]) Persistent depressive disorder Essential hypertension Unspecified essential hypertension LUCIA (obstructive sleep apnea) Obstructive sleep apnea (adult) (pediatric) [facility] Diagnosis Chronic diastolic CHF (congestive heart failure) ([facility] Primary [facility] Diagnosis Positive colorectal cancer screening using Cologuard test- Primary documented [facility] this [facility] in [facility] on filedocumented in this encounter [facility] on filedocumented in this encounter [facility] on filedocumented in this encounter [facility] on filedocumented in this encounter [facility] on filedocumented in this encounter [facility] Consultation (Routine) - Pending Review Specialty Diagnoses / Procedures Referred By Holden sesay Referred To Contact Pain Medicine Diagnoses Chronic bilateral low back pain, unspecified whether sciatica present Jose Greenwood DO [address] [place] [address] Hitesh Cramer MD [address] [place] [address] Referral ID Status Reason Start Date Expiration Date V isits Requested Visits Authorized [id number] Pending Review 08/07/2023 08/06/2024 1 1 [facility] ([facility] Consultation (Routine) - Pending Review Specialty Diagnoses / Procedures Referred By Contac t Referred To Contact Diagnoses Persistent depressive disorder Jose Greenwood DO [address] [place] [address] Referral ID Status Reason Start Date Expiration Date V isits Requested Visits Authorized [id number] Pending Review 08/16/2023 08/15/2024 1 1 [facility] Summary Purpose Family History No Family History [...] Care Teams (unrecognized sec tion and content) Infusion Nurse Relationship Specialty Start Date End Date Jose Greenwood DO [address] [place] [address] PCP - General Internal Medicine 08/08/23 Infusion Nurse Relationship Specialty Start Date End Date Jose Greenwood DO [address] [place] [address] PCP - General Internal Medicine 08/08/23 Infusion Nurse Relationship Specialty Start Date End Date [facility] [address] PCP - General Family Medicine 12/29/23 Infusion Nurse Relationship Specialty Start Date End Date [facility] [address] PCP - General Family Medicine 12/29/23 Infusion Nurse Relationship Specialty Start Date End Date [facility] [address] PCP - General Family Medicine 12/29/23 INFORMATION SOURCE (unrecogn ized section and content) DATE CREATED AUTHOR 09/15/2023 [facility] DATE CREATED AUTHOR AUTHOR'S ORGANIZ ATION 03/05/2024 [facility] DATE CREATED AUTHOR AUTHOR'S ORGANIZ ATION 03/14/2024 [facility] FOR RECORDS PERTAINING TO PATIENTS WHO ARE [...] BE BASED ON THE PRIMARY CLINICAL RECORDS. [facility]. provides no warranty or guarantee of the accuracy or completeness of information in this document.
[2024-04-01 08:00] VITALS: BP 145/77; PULSE 136; TEMP 35.4; O2SAT 98; BMI 37.0
[2024-04-01 08:19] LABS: HCG Qualitative NEGATIVE (NEGATIVE); Internal Control Within Normal Limits
[2024-04-01] MEDS: 0.9 % SODIUM CHLORIDE 500 ML 50 ML IV (08:27)
--- NOTE | 2024-04-01 09:03 | PM.GSPRC ---
Date of procedure: 04/01/24 Indications for Procedure: Positive Cologuard Pre-op diagnosis: Positive Cologuard Post-op diagnosis: other (Sigmoid colon polyp 1 cm at 25 cm from anal verge/polyp splenic flexure) Procedure: colonoscopy with hot snare sigmoid colon polyp 25 cm and hot snare splenic flexure with tattooing of sigmoid colon Findings: Colon polyps Anesthesia: MAC Surgeon: Manan Barrett Procedure Summary: PROCEDURE: The patient was taken to the Endoscopy Suite, placed in the left lateral recumbent position, given IV sedation as above. A rectal digital exam was performed. The sphincter tone was found to be normal. No rectal masses were appreciated. The Olympus video colonoscope was advanced under direct visualization to the rectum, sigmoid colon, descending colon, transverse colon and ascending colon to the ileocecal valve. The underside of the valve was seen. I could not visualize the appendiceal lumen due to stool. Nothing large was noted. The scope was slowly withdrawn with air being desufflated as it was withdrawn. Bowel prep was only good enough to see polyps greater than 5 mm. No gross tumors or diverticula were seen. There was a large polyp on a stalk in the sigmoid colon which was snared piecemeal and removed and was greater than a centimeter in size and then there was another polyp in the splenic flexure which was hot snared and removed hemostasis was maintained. The patient tolerated the procedure well and went to the Recovery Area in satisfactory condition. I recommend the patient use a bulk laxative on a regular basis and follow up as needed. I would recommend patient return in 1 year for surveillance depending on pathology. Estimated blood loss (mL): 0 Specimens: Colon polyps sigmoid colon and splenic flexure Complications: No Condition: stable Disposition: PACU
[2024-04-01 09:13] LABS: Glucometer 232 mg/dL (74-106)
[2024-04-01] MEDS: LACTATED RINGER'S SOLUTION 1,000 ML 1000 ML IV (09:50)
[2024-04-01 10:03] VITALS: BP 88/63; PULSE 97; O2SAT 92
[2024-04-01 10:18] VITALS: BP 152/108; PULSE 98; O2SAT 95
[2024-04-01 10:33] VITALS: BP 228/137; PULSE 104; O2SAT 100
--- NOTE | 2024-04-01 12:20 | PC.NURSE ---
1030 PT 'S BP REMAINS ELEVATED. NO SYMPTOMS. INSTRUCTED TO TAKE BP MEDS SOON SHE GETS HOME AND RECHECK BP 2 HOURS AFTER. IF BP REMAINS ELEVATED GO TO ER OR CALL FAMILY HASN'T TAKEN MEDS IN 3 DAYS. Yaima MORROW RN
== END 2024-04-01 10:40 | disposition home or self-care (01) ==
PROVIDERS: Anesthesiology; Visit Provider Surgery
PROC: (CPT 45381; principal; 2024-04-01 08:40)
DX: R19.5 Other fecal abnormalities (principal); D12.5 Benign neoplasm of sigmoid colon; D17.79 Benign lipomatous neoplasm of other sites; I48.91 Unspecified atrial fibrillation; Z79.01 Long term (current) use of anticoagulants; E10.42 Type 1 diabetes mellitus with diabetic polyneuropathy; Z79.4 Long term (current) use of insulin; Z90.49 Acquired absence of other specified parts of digestive tract; Z90.710 Acquired absence of both cervix and uterus; Z98.51 Tubal ligation status; Z87.891 Personal history of nicotine dependence; E78.5 Hyperlipidemia, unspecified
CPT/HCPCS: 45381; 45385; 36415; 82948; 84703; J1290; J2704

== ENCOUNTER 2025-01-13 11:22 | Outpatient (OUT) | payer OTHER, SELFPAY ==
--- OUTSIDE RECORDS SUMMARY | 2025-01-13 11:24 | XMS_ITS | Encounter Summary ---
Author Organization [employer] Address [id number] [address] [place] [address] Care Team Providers Care Rough Rice Tender Name Role Phone Services, [facility] Primary Care Provider Encounter Details Date Type Department Care Team (Late st Contact Info) Description 08/20/2023 Telephone [facility] Internal Medicine - Family Medicine [address] [place] [id number] Mari Bray CMA Social History Tobacco Use Types Packs/Day Years Used Date Smoking Tobacco: Former Cigarettes 1 30 0 05/27/1993 - 05/27/2023 Smokeless Tobacco: Never Alcohol Use Standard Drinks/Week Comments Not Currently 0 (1 standard drink = 0.6 oz pur e alcohol) PHQ-2 Answer Date Recorded Total Score 0 08/16/2023 Childcare Answer Date Recorded Childcare Unknown 11/05/2018 Employment Answer Date Recorded Employment Unknown 11/05/2018 Hunger Screening Answer Date Recorded Within the past 12 months we worried whether our food would run out before we got money to buy more. Never True 08/16/2023 Within the past 12 months th e food we bought just didn't last and we didn't have money to get more. Never True 08/16/2023 Comments Unknown Sex and Gender Information Value Date Recorded Sex Assigned at Not on file Legal Sex Female 11:52 AM EDT Gender Identity Not on file Sexual Orientation Not on file documented as of this encounter Miscellaneous Notes * Telephone Encounter - Mari Bray CMA - 08/20/2023 4:58 PM EDT Patient called and stated that her inhaler is the ventolin not albuterol. Can you send a new order in for this * Telephone Encounter - Jose Greenwood DO - 08/20/2023 4:58 PM EDT Message noted. Ventolin is albuterol. Albuterol is Ventolin. There was no difference between the 2 inhalers. * Telephone Encounter - Domenica Almonte CMA - 08/20/2023 4:58 PM EDT Spoke with the patient and she said the generic does not work for her. She would like you to send in the Ventolin and MARY it. * Telephone Encounter - Jose Greenwood DO - 08/20/2023 4:58 PM EDT Message noted. Hopefully her insurance will pay for it. Prescription for Ventolin MDI (MARY) sent to her pharmacy documented in this encounter Plan of Treatment Not on file documented as of this encounter Visit Diagnoses Not on filedocumented in this encounter Additional Health Concerns Assessment Noted Time PHQ-9 Depression Total Score: 0 08/16/19 10:30 AM EDT documented as of this encounter Care Teams Rough Rice Tender Relationship Specialty Start Date End Date [facility] [address] [place], [place] PCP - General Family Medicine 12/29/23 documented as of this encounter
--- OUTSIDE RECORDS SUMMARY | 2025-01-13 11:24 | XMS_ITS | Encounter Summary ---
Author Organization [employer] Address [facility]-[id number] [address] [place] [address] Care Team Providers Care General Merchandise Salesperson Name Role Phone Services, [facility] Primary Care Provider Reason for Visit * Reason Comments Med Refill Encounter Details Date Type Department Care Team (Late st Contact Info) Description 11/27/2023 Refill [facility] - Family Medicine [address] [place] [phone] Jose Greenwood, DO [address] [place] [address] Gastroesophageal reflux disease, unspecified whether esophagitis present Social History Tobacco Use Types Packs/Day Years Used Date Smoking Tobacco: Former Cigarettes 1 30 0 05/27/1993 - 05/27/2023 Smokeless Tobacco: Never Alcohol Use Standard Drinks/Week Comments Not Currently 0 (1 standard drink = 0.6 oz pur e alcohol) [facility] Utilities Answer Date Recorded In the past 12 months has [place], gas, oil, or water [employer] threatened to shut off services in your home? No 09/03/2023 PHQ-2 Answer Date Recorded Total Score 0 08/16/2023 PRAPARE - Transportation Answer Date Re corded In the past 12 months, has l ack of transportation kept you from medical appointments or from getting medications? No 01/2024 In the past 12 months, has l ack of transportation kept you from meetings, work, or from getting things needed for daily living? No 09/03/2023 Housing Instability Answer Date Recorde d Are you worried or concerned that in the next two months you may not have stable housing that you own, rent or stay in as a part of a household? No 09/03/2023 Childcare Answer Date Recorded Childcare Unknown 11/05/2018 Employment Answer Date Recorded Employment Unknown 11/05/2018 Hunger Screening Answer Date Recorded Within the past 12 months we worried whether our food would run out before we got money to buy more. Never True 09/03/2023 Within the past 12 months th e food we bought just didn't last and we didn't have money to get more. Never True 09/03/2023 Comments Unknown Sex and Gender Information Value Date Recorded Sex Assigned at Not on file Legal Sex Female 11:52 AM EDT Gender Identity Not on file Sexual Orientation Not on file documented as of this encounter Plan of Treatment Not on file documented as of this encounter Goals Goal Patient Goal Type Associated Problems Recent Progress Patient-Stated? Author home General Yes Meg No, RN Note: Evaluation of progress towards goal: home and denies need for home services documented as of this encounter Visit Diagnoses Diagnosis Gastroesophageal reflux disease, unspecified whether esophagitis present documented in this encounter Additional Health Concerns Assessment Noted Time PHQ-9 Depression Total Score: 0 08/16/19 24 10:30 AM EDT documented as of this encounter Care Teams General Merchandise Salesperson Relationship Specialty Start Date End Date Services, [facility] [address] [place] PCP - General Family Medicine 12/29/23 documented as of this encounter
--- OUTSIDE RECORDS SUMMARY | 2025-01-13 11:25 | XMS_ITS | Clinical Summary ---
Author Organization [employer] Address [id number] [address] [place] [address] Care Team Providers Care Air Plant Engineer Name Role Phone Services, Count Includes [facility] Primary Care Provider Allergies Active Allergy Reactions Criticality Noted Date Comments Sulfa (Sulfonamide Antibiotics) Hives 08/07/2023 Other reaction(s): Not available Medications ELIQUIS 5 mg tablet Take 1 tablet (5 mg total) by mouth in the morning and 1 tablet (5 mg total) before bedtime. 4 Active atorvastatin (LIPITOR) 20 mg tablet Take 1 tablet (20 mg total) by mouth nightly. 4 Active cloNIDine (CATAPRES) 0.1 mg tablet Take 1 tablet (0.1 mg total) by mouth in the morning and 1 tablet (0.1 mg total) at noon and 1 tablet (0.1 mg total) in the evening. Take before meals. 3 Active DULoxetine (CYMBALTA) 60 mg capsule Take 1 capsule (60 mg total) by mouth in the morning and 1 capsule (60 mg total) before bedtime. 4 Active gabapentin (NEURONTIN) 300 mg capsule Take 1 capsule (300 mg total) by mouth in the morning and at bedtime. 4 Active ipratropium-alb uteroL (DUONEB) 0.5 mg-3 mg(2.5 mg base)/3 mL nebulizer Inhale 3 mL by nebulization 4 (four) times a day as needed for shortness of breath. 4 Active lisinopriL (PRINIVIL,ZESTR IL) 40 mg tablet Take 1 tablet (40 mg total) by mouth in the morning. 4 Active OXcarbazepine (TRILEPTAL) 300 mg tablet Take 1 tablet (300 mg total) by mouth in the morning. 4 Active EASY TOUCH INSULIN SYRINGE 1 mL 30 gauge x 1/2 syringe USE THREE TIMES DAILY DIRECTED 4 Active spironolactone (ALDACTONE) 25 mg tabletIndicatio ns:Chronic diastolic CHF (congestive heart failure) ([facility]) Take 0.5 tablets (12.5 mg total) by mouth in the morning. 45 tablet 1 4 Active metoprolol tartrate (LOPRESSOR) 100 mg tabletIndicatio ns:Chronic diastolic CHF (congestive heart failure) ([facility]) TAKE 1 TABLET BY MOUTH TWICE DAILY 180 tablet 4 Active Additional Information Patient taking differently: 100 mg oral 2 times daily, TAKE 1 TABLET BY MOUTH TWICE DAILY, Reported on 09/03/2023 VENTOLIN HFA 90 mcg/actuation inhalerIndicati ons:Chronic obstructive pulmonary disease, unspecified COPD type ([facility]) Inhale 2 puffs 4 (four) times a day as needed for wheezing. 18 g 2 4 Active aspirin 81 mg chewable tablet Chew 1 tablet (81 mg total) and swallow in the morning. Active ARIPiprazole (ABILIFY) 10 mg tabletIndicatio ns:Persistent depressive disorder Take 0.5 tablets (5 mg total) by mouth in the morning. 15 tablet 4 Active insulin regular (HumuLIN R Regular U-100 Insuln) 100 unit/mL injectionIndica tions:Type 2 diabetes mellitus without complication, with long-term current use of insulin ([facility]) Inject 0.05 mL (5 Units total) under the skin in the morning and 0.05 mL (5 Units total) at noon and 0.05 mL (5 Units total) in the evening. Inject before meals. 10 mL 4 Active insulin detemir U-100 (LEVEMIR U-100 INSULIN) 100 unit/mL injectionIndica tions:Type 2 diabetes mellitus without complication, with long-term current use of insulin ([facility]) Inject 0.56 mL (56 Units total) under the skin in the morning and 0.56 mL (56 Units total) before bedtime. 10 mL 1 4 Active FARXIGA 10 mg tablet Take 1 tablet (10 mg total) by mouth in the morning. 4 Active TRULICITY 1.5 mg/0.5 mL pen injector once a week. Saturday 4 Active potassium chloride (KLOR-CON SPRINKLE) 10 MEQ CR capsule Take 1 capsule (10 mEq total) by mouth in the morning and 1 capsule (10 mEq total) before bedtime. 4 Active DULoxetine (CYMBALTA) 60 mg capsule Take 1 capsule (60 mg total) by mouth in the morning. Active sod sulf-pot chloride-mag sulf 1.479-0.188- 0.225 gram tabletIndicatio ns:Positive colorectal cancer screening using Cologuard test Please see instructional sheet given by physicians office. 24 tablet 4 Active Active Problems Problem Noted Date Diagnosed Date Elevated random blood glucose level 12/29/2023 Type 1 diabetes mellitus with hyperglycemia 08/2023 Diabetic ketoacidosis withou t coma associated with type 1 diabetes mellitus 12/29/2023 Chronic pain syndrome 09/04/2023 ALFONZO (acute kidney injury) 09/03/2023 Right knee pain 09/03/2023 Type 1 diabetes mellitus wit h diabetic polyneuropathy, with long-term current use of insulin 08/07/2023 Paroxysmal atrial fibrillation 08/07/2023 Hyperlipidemia Hypertension Family History Medical History Relation Name Comments Diabetes Father Heart failure Father Hypertension Father Arthritis Mother Diabetes Mother Hodgkin's lymphoma Mother Hypertension Mother Diabetes Sister Heart failure Sister Asthma Son Relation Name Status Comments Father Mother Sister Son Alive Social History Tobacco Use Types Packs/Day Years Used Date Smoking Tobacco: Former Cigarettes 1 30 0 05/27/1993 - 05/27/2023 Smokeless Tobacco: Never Tobacco Cessation:Counseling Given: Not Answered Alcohol Use Standard Drinks/Week Comments Not Currently 0 (1 standard drink = 0.6 oz pur e alcohol) [facility] Utilities Answer Date Recorded In the past 12 months has e electric, gas, oil, or water company threatened to shut off services in your home? No 12/29/2023 PHQ-2 Answer Date Recorded Total Score 0 08/16/2023 PRAPARE - Transportation Answer Date Re corded In the past 12 months, has l ack of transportation kept you from medical appointments or from getting medications? No 08/2023 In the past 12 months, has l ack of transportation kept you from meetings, work, or from getting things needed for daily living? No 12/29/2023 Housing Instability Answer Date Recorde d Are you worried or concerned that in the next two months you may not have stable housing that you own, rent or stay in as a part of a household? No 12/29/2023 Childcare Answer Date Recorded Childcare Unknown 11/05/2018 Employment Answer Date Recorded Employment Unknown 11/05/2018 Hunger Screening Answer Date Recorded Within the past 12 months we worried whether our food would run out before we got money to buy more. Never True 12/29/2023 Within the past 12 months th e food we bought just didn't last and we didn't have money to get more. Never True 12/29/2023 Comments No Sex and Gender Information Value Date Recorded Sex Assigned at Not on file Legal Sex Female 11:52 AM EDT Gender Identity Not on file Sexual Orientation Not on file Last Filed Vital Signs Vital Sign Reading Time Taken Comments Blood Pressure 130/80 03/03/2024 11:03 AM EDT Pulse 82 03/03/2024 11:03 AM EDT Temperature 36.4 C (97.6 F) 01/01/2024 7:28 AM EDT Respiratory Rate 16 01/01/2024 7:28 AM EDT Oxygen Saturation 93% 01/01/2024 7:28 AM EDT Inhaled Oxygen Concentration - - Weight 110.2 kg (243 lb) 03/12/2024 11:02 AM EDT Height 172.7 cm (5' 8 ) 03/12/2024 11:02 AM EDT Body Mass Index 36.95 03/12/2024 11:02 AM EDT Plan of Treatment Health Maintenance Due Date Last Done Comments Diabetic Ophthalmology Exam 1965 Statin Use: Diabetic 1965 Adult BMI Follow Up Plan 10/26/1985 Diabetic Foot Exam 10/26/1985 DTaP,Tdap and Td Vaccines (1 - Tdap) 10/26/1986 Zoster (Shingles) Vaccine (1 of 2) 10/26/2017 Depression Screening 08/15/2024 08/16/2023 Influenza Vaccine 01/25/2025 Adult BMI Screening 03/12/2025 03/12/2024 Tobacco Screening 03/12/2025 03/12/2024 Colonoscopy 04/01/2025 04/01/2024 Goals Goal Patient Goal Type Associated Problems Recent Progress Patient-Stated? Author home General Yes Meg No, RN Note: Evaluation of progress towards goal: home and denies need for home services Medical Devices Not on file Procedures Procedure Name Priority Date/Time Associated Diagnosis Comments COLONOSCOPY Routine 04/01/2024 Positive colorectal cancer screening using Cologuard test from Last 3 Months or Most Recently Relevant to Health Maintenance Results * Colonoscopy (04/01/2024) us Samanta Mcgrath PIPE ORGAN TECHNICIAN-SKIVER S[employer]INGS GI PROCEDURE ORDERABL ES Final Result MANUALLY TRANSCRIBED RESULTS from Last 3 Months or Most Recently Relevant to Health Maintenance Insurance [employer] Advance Directives * Full Code (Latest Code Status on File) Date Activated Date Inactivated Comments 12/29/2023 12:11 PM 01/01/2024 1:33 PM * Full Code Date Activated Date Inactivated Comments 09/03/2023 2:32 AM 09/04/2023 1:23 PM Care Teams Air Plant Engineer Relationship Specialty Start Date End Date Services, [address] [place], [place] PCP - General Family Medicine 12/29/23
--- OUTSIDE RECORDS SUMMARY | 2025-01-13 11:25 | XMS_ITS | Encounter Summary ---
Author Organization [employer] Address [facility]-[id number] [address] [place] [address] Care Team Providers Care New Order Clerk Name Role Phone Services, [facility] Primary Care Provider Reason for Visit * Reason Comments Med Refill Encounter Details Date Type Department Care Team (Late st Contact Info) Description 11/27/2023 Refill [facility] - Family Medicine [address] [place] [phone] Jose Greenwood, DO [address] [place] [address] Gastroesophageal reflux disease, unspecified whether esophagitis present Social History Tobacco Use Types Packs/Day Years Used Date Smoking Tobacco: Former Cigarettes 1 30 0 05/27/1993 - 05/27/2023 Smokeless Tobacco: Never Alcohol Use Standard Drinks/Week Comments Not Currently 0 (1 standard drink = 0.6 oz pur e alcohol) [facility] Utilities Answer Date Recorded In the past 12 months has [place], gas, oil, or water [employer] threatened to shut off services in your [...] documented as of this encounter Care Teams New Order Clerk Relationship Specialty Start Date End Date Services, [facility] [address] [place] PCP - General Family Medicine 12/29/23 documented as of this encounter
--- OUTSIDE RECORDS SUMMARY | 2025-01-13 11:25 | XMS_ITS | Encounter Summary ---
Author Organization [facility] Address [facility] [id number] [address] [place] [address] Care Team Providers Care Hose Tender Name Role Phone Services, [facility] Primary Care Provider Encounter Details Date Type Department Care Team (Late st Contact Info) Description 08/21/2023 Orders Only [facility] - Family Medicine [address] [place] [phone] Jose Greenwood, [address] [place] [address] Chronic obstructive pulmonary disease, unspecified COPD type ([facility]) (Primary Dx) Social History Tobacco Use Types Packs/Day Years [...] as of this encounter Visit Diagnoses Diagnosis Chronic obstructive pulmonary disease, unspecified COPD type ([facility]-H[facility])- Primary documented in this encounter Additional Health Concerns Assessment Noted Time PHQ-9 Depression Total Score: 0 08/16/19 10:30 AM EDT documented as of this encounter Care Teams Hose Tender Relationship Specialty Start Date End Date Services, [facility] [address] [place], [place] PCP - General Family Medicine 12/29/23 documented as of this encounter
--- OUTSIDE RECORDS SUMMARY | 2025-01-13 11:25 | XMS_ITS | Encounter Summary ---
Author Organization [facility] Address [facility] [id number] [address] [place] [address] Care Team Providers Care Advertising Dispatch Clerks Supervisor Name Role Phone Services, [facility] Primary Care Provider Encounter Details Date Type Department Care Team (Late st Contact Info) Description 10/16/2023 Orders Only [facility] - Family Medicine [address] [place] [phone] Jose Greenwood, DO [address] [place] [address] Type 2 diabetes mellitus without complication, with long-term current use of insulin ([facility]) (Primary Dx) Social History Tobacco Use Types Packs/Day Years Used Date Smoking Tobacco: Former Cigarettes 1 30 0 05/27/1993 - 05/27/2023 Smokeless Tobacco: Never Alcohol Use Standard Drinks/Week Comments Not Currently 0 (1 standard drink = 0.6 oz pur e alcohol) [facility] Utilities Answer Date Recorded In the past 12 months has [employer], gas, oil, or water [employer] threatened to shut off services in your [...] as of this encounter Visit Diagnoses Diagnosis Type 2 diabetes mellitus without complication, with long-term current use of insulin ([facility])- Primary documented in this encounter Additional Health Concerns Assessment Noted Time PHQ-9 Depression Total Score: 0 08/16/19 24 10:30 AM EDT documented as of this encounter Care Teams Advertising Dispatch Clerks Supervisor Relationship Specialty Start Date End Date Services, [facility] [address] [place] PCP - General Family Medicine 12/29/23 documented as of this encounter
--- OUTSIDE RECORDS SUMMARY | 2025-01-13 11:25 | XMS_ITS | Encounter Summary ---
Author Organization [facility] Address [facility] [place]-[id number] [address] [place] [address] Care Team Providers Care Spring Clipper Name Role Phone Services, [facility] Primary Care Provider Encounter Details Date Type Department Care Team (Late st Contact Info) Description 10/10/2023 Orders Only [facility] - Family Medicine [address] [place] [phone] Jose Greenwood, DO [address] [place] [address] Type 2 diabetes mellitus without complication, with long-term current use of insulin ([facility]) (Primary Dx) Social History Tobacco Use Types Packs/Day Years Used Date Smoking Tobacco: Former Cigarettes 1 30 0 05/27/1993 - 05/27/2023 Smokeless Tobacco: Never Alcohol Use Standard Drinks/Week Comments Not Currently 0 (1 standard drink = 0.6 oz pur e alcohol) [facility] Utilities Answer Date Recorded In the past 12 months has [employer], gas, oil, or water [employer] threatened to shut off services in your [...] complication, with long-term current use of insulin ([facility])- Primary documented in this encounter Additional Health Concerns Assessment Noted Time PHQ-9 Depression Total Score: 0 08/16/19 24 10:30 AM EDT documented as of this encounter Care Teams Spring Clipper Relationship Specialty Start Date End Date Services, [facility] [address] [place] PCP - General Family Medicine 12/29/23 documented as of this encounter
--- OUTSIDE RECORDS SUMMARY | 2025-01-13 11:25 | XMS_ITS | Encounter Summary ---
Author Organization [employer] Address [facility]-[id number] [address] [place] [address] Care Team Providers Care Pen Or Pencil Assembly Machine Operator Name Role Phone Services, [facility] Primary Care Provider Encounter Details Date Type Department Care Team (Late st Contact Info) Description 10/15/2023 Telephone [facility] - Family Medicine [address] [place] [phone] Roc, Therese, MILLINERY BLOCKER Social History Tobacco Use Types Packs/Day Years Used Date Smoking Tobacco: Former Cigarettes 1 30 0 05/27/1993 - 05/27/2023 Smokeless Tobacco: Never Alcohol Use Standard Drinks/Week Comments Not Currently 0 (1 standard drink = 0.6 oz pur e alcohol) [place] Utilities Answer Date Recorded In the past [...] encounter Miscellaneous Notes * Telephone Encounter - Therese Brian CMA - 10/15/2023 10:11 AM EDT [facility] called to let you know that the PA was denied for lantus Reference # [id number] * Telephone Encounter - Jose Greenwood DO - 10/15/2023 10:11 AM EDT Message noted. documented in this encounter Plan of Treatment [...] documented as of this encounter Care Teams Pen Or Pencil Assembly Machine Operator Relationship Specialty Start Date End Date Services, [facility] [address] [place] PCP - General Family Medicine 12/29/23 documented as of this encounter
--- OUTSIDE RECORDS SUMMARY | 2025-01-13 11:25 | XMS_ITS | Clinical Summary ---
Author Organization [facility] Address [address] [place] [address] Care Team Providers Care Swine Genetics Researcher Name Role Phone Self, Referred Primary Care Provider Unavailabl e Allergies Active Allergy Reactions Criticality Noted Date Comments Sulfa (Sulfonamide Antibiotics) Hives 08/07/2023 Other reaction(s): Not available Medications albuterol 90 mcg/actuation inhaler Inhale 2 puffs every 6 (six) hours if needed for wheezing. Active apixaban (Eliquis) 5 mg tablet Take 5 mg by mouth in the morning and at bedtime. Active lansoprazole (Prevacid) [address] capsule Take 30 mg by mouth before breakfast. Do not crush or chew. Active metoprolol tartrate (Lopressor) 100 mg tablet Take 100 mg by mouth in the morning and at bedtime. Active empagliflozin (Jardiance) 10 mg Take 10 mg by mouth in the morning. Active lisinopril 40 mg tablet Take 40 mg by mouth in the morning. Active spironolactone (Aldactone) 25 mg tablet Take 12.5 mg by mouth in the morning. Active atorvastatin (Lipitor) 20 mg tablet Take 20 mg by mouth in the morning. Active aspirin 81 mg EC tablet Take 81 mg by mouth in the morning. Active ARIPiprazole (Abilify) 10 mg tablet Take 5 mg by mouth in the morning. Active insulin glargine (Lantus) 100 unit/mL injection vial Inject under the skin in the morning and at bedtime. 56 units Active cloNIDine (Catapres) 0.1 mg tablet Take 0.1 mg by mouth in the morning and at bedtime. Active OXcarbazepine (Trileptal) 300 mg tablet Take 300 mg by mouth in the morning and at bedtime. Active gabapentin (Neurontin) 300 mg capsule Take 300 mg by mouth in the morning and at bedtime. Active DULoxetine (Cymbalta) [address] capsule Take 60 mg by mouth in the morning and at bedtime. Do not crush or chew. Active ipratropium-alb uteroL (Duo-Neb) 0.5-2.5 mg/3 mL nebulizer solution Take 3 mL by nebulization every 6 (six) hours. Active potassium chloride CR (Klor-Con M10) 10 mEq ER tablet Take 10 mEq by mouth in the morning. Do not crush or chew. Active Active Problems Problem Noted Date Diagnosed Date Chest pain, musculoskeletal 09/12/2023 Hypoxia 09/12/2023 Choking due to food in larynx, initial encounter 09/11/2023 Encounters Date Type Department Care Team Description 12/24/2024 Telephone [facility] [address] [place] [address] [place] [phone] Marlena Flores RN from Last 3 Months Social History Tobacco Use Types Packs/Day Years Used Date Smoking Tobacco: Never Assessed OK Safety & Environment Answer Date Rec orded Fear of Current or Ex-Partner Not on file Emotionally Abused Not on file 07/18/2023 Physically Abused Not on file 07/18/2023 Sexually Abused Not on file 07/18/2023 Physically or Sexually Abused Not on file Comments No Sex and Gender Information Value Date Recorded Sex Assigned at Not on file Legal Sex Female 9:25 PM EDT Gender Identity Not on file Sexual Orientation Not on file Last Filed Vital Signs Vital Sign Reading Time Taken Comments Blood Pressure 174/81 09/12/2023 9:42 AM EDT Pulse 85 09/12/2023 9:42 AM EDT Temperature 36.7 C (98.1 F) 09/11/2023 6:58 PM EDT Respiratory Rate 16 09/12/2023 9:42 AM EDT Oxygen Saturation 96% 09/12/2023 9:42 AM EDT Inhaled Oxygen Concentration - - Weight 110 kg (243 lb) 09/11/2023 6:58 PM EDT Height 172.7 cm (5' 8 ) 09/11/2023 6:58 PM EDT Body Mass Index 36.95 09/11/2023 6:58 PM EDT Plan of Treatment Upcoming Encounters Date Type Department Care Team (Late st Contact Info) Description 01/15/2025 10:20 AM EDT Office Visit [facility] Pain Medicine [address] [place] [address] [place] [phone] James Cintron MD [address] [place] [address] Health Maintenance Due Date Last Done Comments CT Colonography 1967 Colonoscopy 1965 Diabetes: Hemoglobin A1C 1967 FOBT 1965 Sigmoidoscopy 1967 Diabetes: Retinopathy Screening 10/26/1977 Depression Screening 1979 Diabetes: Urine Protein Screening 10/26/1986 Hepatitis B Vaccines (1 of 3 - 19+ 3-dose series) 10/26/1986 Pneumococcal Vaccine: Pediat rics (0 to 5 Years) and At-Risk Patients (6 to 64 Years) (1 of 2 - PCV) 10/26/1986 Pap Smear 10/26/1988 Adult Tetanus 10/26/1989 Cervical Cancer Screening 10/26/1997 HPV/Cotest 10/26/1997 Mammogram 2007 Zoster Vaccines (1 of 2) 10/26/2017 COVID-19 Vaccine (2023-2 5 season) 2024 Influenza Vaccine (#1) 2025 FIT 02/11/2025 02/12/2024 Colorectal Cancer Screening 02/11/2027 FIT-DNA 02/11/2027 02/12/2024 HIB Vaccines Aged Out No longer eligi ble based on patient's age to complete this topic HPV Vaccines Aged Out No longer eligi ble based on patient's age to complete this topic IPV Vaccines Aged Out No longer eligi ble based on patient's age to complete this topic Meningococcal B Vaccine Aged Out No l onger eligible based on patient's age to complete this topic Meningococcal Vaccine Aged Out No filemon rogers eligible based on patient's age to complete this topic Rotavirus Vaccines Aged Out No longer eligible based on patient's age to complete this topic Insurance [facility] Advance Directives * Full Code (Latest Code Status on File) Date Activated Date Inactivated Comments 09/11/2023 10:29 PM 09/12/2023 11:51 AM Care Teams Swine Genetics Researcher Relationship Specialty Start Date End Date SELF, REFERRED [address] PCP - General 09/11/23
--- OUTSIDE RECORDS SUMMARY | 2025-01-13 11:25 | XMS_ITS | Encounter Summary ---
Author Organization [email or web address] Sys [employer] Address [id number] [address] [place] [address] Care Team Providers Care Drill Operator Pneumatic Name Role Phone Services, [facility] Primary Care Provider Reason for Visit * Reason Comments Med Refill Encounter Details Date Type Department Care Team (Late st Contact Info) Description 01/03/2024 Refill [facility] Internal [facility] - Family Medicine [address] [place] [id number] Jose Greenwood, DO [address] [place] [address] Persistent depressive disorder Social History Tobacco Use Types Packs/Day Years Used Date Smoking Tobacco: Former Cigarettes 1 30 0 05/27/1993 - 05/27/2023 Smokeless Tobacco: Never Alcohol Use Standard Drinks/Week Comments Not Currently 0 (1 standard drink = 0.6 oz pur e alcohol) [facility] Utilities Answer Date Recorded In the past [address] [facility] [employer], gas, oil, or water [employer] threatened to shut off services in your [...] as of this encounter Visit Diagnoses Diagnosis Persistent depressive disorder documented in this encounter Additional Health Concerns Assessment Noted Time PHQ-9 Depression Total Score: 0 08/16/19 24 10:30 AM EDT documented as of this encounter Care Teams Drill Operator Pneumatic Relationship Specialty Start Date End Date Services, [facility] [address] [place] PCP - General Family Medicine 12/29/23 documented as of this encounter
--- OUTSIDE RECORDS SUMMARY | 2025-01-13 11:25 | XMS_ITS | Clinical Summary ---
Author Organization [facility] Address [address] [place] [address] Care Team Providers Care Slip Cover Maker Name Role Phone Gale Hunt MD Primary Care Provider [phone] Social History Tobacco Use Types Packs/Day Years Used Date Smoking Tobacco: Never Assessed Comments Unknown Sex and Gender Information Value Date Recorded Sex Assigned at Not on file Legal Sex Female 7:20 PM EDT Gender Identity Not on file Sexual Orientation Not on file Plan of Treatment Not on file Insurance [address] [place] [address] [email or web address] Care Teams Slip Cover Maker Relationship Specialty Start Date End Date Gale Hunt MD [address] [place] [id number] PCP - General Internal Medicine 06/08/24
--- OUTSIDE RECORDS SUMMARY | 2025-01-13 11:25 | XMS_ITS | Encounter Summary ---
Author Organization [employer] Sys [employer] Address [id number] [address] [place] [address] Care Team Providers Care Infant Childcare Provider Name Role Phone Services, [facility] Primary Care Provider Reason for Visit * Reason Comments Med Refill Encounter Details Date Type Department Care Team (Late st Contact Info) Description 12/19/2023 Refill [facility] - Family Medicine [address] [place] [phone] Jose Greenwood, DO [address] [place] [address] Type 2 diabetes mellitus without complication, with long-term current use of insulin ([facility]) Social History Tobacco Use Types Packs/Day Years Used Date Smoking Tobacco: Former Cigarettes 1 30 0 05/27/1993 - 05/27/2023 Smokeless Tobacco: Never Alcohol Use Standard Drinks/Week Comments Not Currently 0 (1 standard drink = 0.6 oz pur e alcohol) [facility] Utilities Answer Date Recorded In the past 12 months has [employer], gas, oil, or water [employer] threatened to shut off services in your [...] complication, with long-term current use of insulin ([facility]) documented in this encounter Additional Health Concerns Assessment Noted Time PHQ-9 Depression Total Score: 0 08/16/19 24 10:30 AM EDT documented as of this encounter Care Teams Infant Childcare Provider Relationship Specialty Start Date End Date Services, [facility] [address] [place] PCP - General Family Medicine 12/29/23 documented as of this encounter
--- NOTE | 2025-01-13 11:26 | MM_ITS ---
Patient Name: SUSSY BLOUNT MR#: [id number] : 1965 Exam Date: 01/13/2025 Ordering Doctor: [facility] REPORT PROCEDURE: MM TOMOSYNTHESIS SCREENING BI COMPARISON: MG MAMM PHILOMENA DIAG W CAD DIG, 01/15/2013. INDICATIONS: screening Calculator Name NCI Breast Cancer Risk Assessment Tool 5 Year Breast Cancer Risk 1.20% Lifetime Breast Cancer Risk 7.60% Personal Breast Cancer No Personal Ovarian Cancer No Treatments None Family Cancers None LOCATION: [facility] BREAST COMPOSITION: The breasts are almost entirely fatty. FINDINGS: RIGHT BREAST: No significant suspicious finding. LEFT BREAST: No significant suspicious finding. DIAGNOSTIC CATEGORY 1--NEGATIVE. RECOMMENDATIONS: ROUTINE MAMMOGRAM AND CLINICAL EVALUATION IN 12 MONTHS. PLEASE NOTE: A NORMAL MAMMOGRAM DOES NOT EXCLUDE THE POSSIBILITY OF BREAST CANCER. A CLINICALLY SUSPICIOUS PALPABLE LUMP SHOULD BE BIOPSIED. Dictated by: Kalpesh Childress MD on 01/13/2025 at 14:25 Approved by: Kalpesh Childress MD on 01/13/2025 at 14:27
--- OUTSIDE RECORDS SUMMARY | 2025-01-13 11:28 | XMS_ITS | CCD ---
Author Organization [facility] Care Team Providers Care Transitional Care Liaison Name Role Phone STEENHOFF, JACKSON Referring Unavailable STEENHOFF, JACKSON Referring Unavailable HORANI, LYNNETTE Admitting Unavailable HORANI, LYNNETTE Attending Unavailable JAMES STEVENSON Attending Unavailable SERVICES, [facility] Primary Care Unava ilable NO PCP, NO PCP Primary Care Unavailable [...] PCP Primary Care Unavailable SERVICES, [facility] Primary Care Unava ilable ELIEZER LYONS Attending Unavailable CAROLEE MADERA Admitting Unavailable ELIEZER LYONS Attending Unavailable ELIEZER LYONS Referring Unavailable SERVICES, [facility] Primary Care Unava ilable SERVICES, [facility] Primary Care Unava ilable DO Manan Barrett Attending Provider Services, [facility] Primary Care Provider Manan Barrett Attending Unavailable Manan Barrett Admitting Unavailable Gale Hunt MD Primary Care Provider Allergies Allergy Classification Reported Allergen(s) Allergy Type Date of Onset Reaction(s) Facility (4 sources) Sulfonamides (Antibiotic); Translations: [SULFA (SULFONAMIDE ANTIBIOTICS)] Propensity to adverse reactions to drug (disorder) 4 [facility] Repository Medications Current Medications Medication Drug Class(es) Dates Sig (Normalized) Sig (Original) [id number] 200 actuat albuterol 0.09 mg/actuat metered dose inhaler (1 source) beta2-Adrenergic Agonist Start: 08-21-2023 take 2 puff(s) by inhalation four times daily as needed for wheezing VENTOLIN HFA 90 mcg/actuation inhaler Indications: Chronic obstructive pulmonary disease, unspecified COPD type ([facility]) Inhale 2 puffs 4 (four) times a day as needed for wheezing. 18 g 2 08/21/2023 Active albuterol 0.833 mg/ml / ipratropium bromide 0.167 mg/ml inhalation solution (1 source) Anticholinergic, beta2-Adrenergic Agonist Start: 07-16-2023 take 3 mL by inhalation four times daily as needed ipratropium-albuter oL (DUONEB) 0.5 mg-3 mg(2.5 mg base)/3 mL nebulizer Inhale 3 mL by nebulization 4 (four) times a day as needed for shortness of breath. 07/16/2023 Active apixaban 5 mg oral tablet (1 source) Factor Xa Inhibitor Start: 07-19-2023 take 1 tablet by mouth in the morning, then take 1 tablet by mouth at bedtime ELIQUIS 5 mg tablet Take 1 tablet (5 mg total) by mouth in the morning and 1 tablet (5 mg total) before bedtime. 07/19/2023 Active ARIPiprazole 10 mg oral tablet (1 source) Atypical Antipsychotic Start: 09-04-2023 take 0.5 tablet by mouth in the morning ARIPiprazole (ABILIFY) 10 mg tablet Indications: Persistent depressive disorder Take 0.5 tablets (5 mg total) by mouth in the morning. 15 tablet 09/04/2023 Active aspirin 81 mg chewable tablet (1 source) Platelet Aggregation Inhibitor, Nonsteroidal Anti-inflammatory Drug aspirin 81 mg chewable tablet Chew 1 tablet (81 mg total) and swallow in the morning. Active atorvastatin 20 mg oral tablet (1 source) HMG-CoA Reductase Inhibitor Start: 06-16-2023 take 1 tablet by mouth once daily atorvastatin (LIPITOR) 20 mg tablet Take 1 tablet (20 mg total) by mouth nightly. 06/16/2023 Active cloNIDine hydrochloride 0.1 mg oral tablet (1 source) Central alpha-2 Adrenergic Agonist Start: 05-19-2023 cloNIDine (CATAPRES) 0.1 mg tablet Take 1 tablet (0.1 mg total) by mouth in the morning and 1 tablet (0.1 mg total) at noon and 1 tablet (0.1 mg total) in the evening. Take before meals. 05/19/2023 Active dapagliflozin 10 mg oral tablet (1 source) Sodium-Glucose Cotransporter 2 Inhibitor Start: 02-04-2024 take 1 tablet by mouth in the morning FARXIGA 10 mg tablet Take 1 tablet (10 mg total) by mouth in the morning. 02/04/2024 Active 0.5 ml dulaglutide 3 mg/ml auto-injector (1 source) GLP-1 Receptor Agonist Start: 02-26-2024 TRULICITY 1.5 mg/0.5 mL pen injector once a week. Saturday02/26/2024 Active DULoxetine 60 mg delayed release oral capsule (2 sources) Serotonin and Norepinephrine Reuptake Inhibitor Start: 05-29-2023 take 1 capsule by mouth in the morning, then take 1 capsule by mouth at bedtime DULoxetine (CYMBALTA) 60 mg capsule Take 1 capsule (60 mg total) by mouth in the morning and 1 capsule (60 mg total) before bedtime. 05/29/2023 Active gabapentin 300 mg oral capsule (1 source) Anti-epileptic Agent Start: 06-24-2023 take 1 capsule by mouth at bedtime gabapentin (NEURONTIN) 300 mg capsule Take 1 capsule (300 mg total) by mouth in the morning and at bedtime. 06/24/2023 Active insulin detemir 100 unt/ml injectable solution (1 source) Insulin Analog Start: 10-16-2023 inject 0.56 mL by subcutaneous injection in the morning insulin detemir U-100 (LEVEMIR U-100 INSULIN) 100 unit/mL injection Indications: Type 2 diabetes mellitus without complication, with long-term current use of insulin ([facility]) Inject 0.56 mL (56 Units total) under the skin in the morning and 0.56 mL (56 Units total) before bedtime. 10 mL 1 10/16/2023 Active insulin, regular, human 100 unt/ml injectable solution (1 source) Insulin Start: 10-10-2023 insulin regular (HumuLIN R Regular U-100 Insuln) 100 unit/mL injection Indications: Type 2 diabetes mellitus without complication, with long-term current use of insulin ([facility]) Inject 0.05 mL (5 Units total) under the skin in the morning and 0.05 mL (5 Units total) at noon and 0.05 mL (5 Units total) in the evening. Inject before meals. 10 mL 10/10/2023 Active lisinopril 40 mg oral tablet (1 source) Angiotensin Converting Enzyme Inhibitor Start: 05-29-2023 take 1 tablet by mouth in the morning lisinopriL (PRINIVIL,ZESTRIL) 40 mg tablet Take 1 tablet (40 mg total) by mouth in the morning. 05/29/2023 Active metoprolol tartrate 100 mg oral tablet (1 source) beta-Adrenergic Hailey Start: 08-20-2023 take 1 tablet by mouth twice daily metoprolol tartrate (LOPRESSOR) 100 mg tablet Indications: Chronic diastolic CHF (congestive heart failure) (CMS-HCC) TAKE 1 TABLET BY MOUTH TWICE DAILY 180 tablet 08/20/2023 Active OXcarbazepine 300 mg oral tablet (1 source) Anti-epileptic Agent Start: 06-03-2023 take 1 tablet by mouth in the morning OXcarbazepine (TRILEPTAL) 300 mg tablet Take 1 tablet (300 mg total) by mouth in the morning. 06/03/2023 Active potassium chloride 10 meq extended release oral capsule (1 source) Start: 02-17-2024 take 1 capsule by mouth in the morning potassium chloride (KLOR-CON SPRINKLE) 10 MEQ CR capsule Take 1 capsule (10 mEq total) by mouth in the morning and 1 capsule (10 mEq total) before bedtime. 02/17/2024 Active sod sulf-pot chloride-mag sulf 1.479-0.188- 0.225 gram tablet (1 source) Start: 03-03-2024 sod sulf-pot chloride-mag sulf 1.479-0.188- 0.225 gram tablet Indications: Positive colorectal cancer screening using Cologuard test Please see instructional sheet given by physicians office. 24 tablet 03/03/2024 Active spironolactone 25 mg oral tablet (1 source) Aldosterone Antagonist Start: 08-16-2023 take 0.5 tablet by mouth in the morning spironolactone (ALDACTONE) 25 mg tablet Indications: Chronic diastolic CHF (congestive heart failure) (CMS-HCC) Take 0.5 tablets (12.5 mg total) by mouth in the morning. 45 tablet 1 08/16/2023 Active Problems Active Problems Problem Classification Problem Date Documented Da te Episodic/Chronic Cardiac dysrhythmias (1 source) Paroxysmal atrial fibrillation; Translations: [Paroxysmal atrial fibrillation] Onset: 08-07-2023 12-29-2023 Chronic Diabetes mellitus with complications (5 sources) Type 1 diabetes mellitus with ketoacidosis without coma; Translations: [Type 1 diabetes mellitus with diabetic polyneuropathy] Onset: 08-07-2023 12-29-2023 Chronic Diseases of white blood cells (1 source) Elevated white blood cell count, unspecified; Translations: [Elevated white blood cell count, unspecified] Onset: 12-29-2023 Chronic Disorders of lipid metabolism (1 source) Hyperlipidemia; Translations: [Hyperlipidemia, unspecified] 12-29-2023 Chronic Essential hypertension (1 source) Hypertensive disorder; Translations: [Essential (primary) hypertension] 12-29-2023 Chronic Mood disorders (1 source) Dysthymic disorder; Translations: [Dysthymic disorder] Onset: 09-02-2023 Chronic Other gastrointestinal disorders (1 source) Other fecal abnormalities; Translations: [Other fecal abnormalities] Onset: 03-03-2024 Episodic Other injuries and conditions due to external causes (2 sources) Unspecified foreign body in larynx causing other injury, initial encounter; Translations: [Unspecified foreign body in larynx causing other injury, initial encounter] Onset: 09-11-2023 Episodic Other nervous system disorders (1 source) Chronic pain syndrome; Translations: [Chronic pain syndrome] Onset: 09-04-2023 Chronic Other nervous system disorders (1 source) Chronic pain syndrome; Translations: [Chronic pain syndrome] Onset: 09-04-2023 09-04-2023 Chronic Other screening for suspected conditions (not mental disorders or infectious disease) (1 source) Other specified abnormal findings of blood chemistry; Translations: [Other specified abnormal findings of blood chemistry] Onset: 12-29-2023 Episodic Unclassified (1 source) High Blood Sugar - Symptomatic Onset: 12-29-2023 Unclassified (1 source) Pleuritic Chest Pain - Adult Onset: 10-16-2023 Unclassified (1 source) weakness, pain rt knee Onset: 09-02-2023 Past or Other Problems Problem Classification Problem Date Documented Da te Episodic/Chronic Acute and unspecified renal failure (2 sources) Acute kidney failure, unspecified; Translations: [Acute renal failure syndrome] Onset: 09-03-2023 12-29-2023 Episodic Diabetes mellitus without complication (3 sources) Other abnormal glucose; Translations: [Hyperglycemia, unspecified] Onset: 12-29-2023 12-29-2023 Episodic Malaise and fatigue (1 source) Weakness; Translations: [Weakness] Onset: 09-02-2023 Episodic Mood disorders (1 source) Mood disorders Onset: 08-16-2023 08-16-2023 Nonspecific chest pain (4 sources) Other chest pain; Translations: [Chest pain, unspecified] Onset: 09-11-2023 Episodic Other non-traumatic joint disorders (1 source) Knee pain Onset: 09-02-2023 Episodic Other non-traumatic joint disorders (1 source) Pain in right knee; Translations: [Pain in joint, lower leg] Onset: 09-03-2023 09-03-2023 Episodic Results Test Name Value Interpretation Reference Range Facility Surgical PathologyOrdered By : Desi Keene on 04-02-2024 [facility] Pathology Request for Lab Co rpon 04-01-2024 Pathology Request for Lab Gavino Normal [facility] Comment on above: Order Comment: PATHO LOGY GI SPECIMEN Result Comment: See report. Scanned copy available in EMR. PERFORMED BY: [place] [address] PATHOLOGIST FIREBREAK CUTTER ARNOLDO BURCH M.D. Performed By: #### P ATH TO [facility] #### [address] CBC AND AUTO DIFFon 01-01-20 24 ABSOLUTE BASOPHIL 0.1 X10E9/L Normal 0.0-0.2 [facility] Comment on above: Performed By: #### C JOSTIN CMP, ####[facility] ([id number])[address] [place] [address] ABSOLUTE NEUTROPHIL 6.5 X10E9/L Normal 1.5-6.6 [facility] Comment on above: Performed By: #### C JOSTIN CMP, ####[facility] ([id number])[address] [place] [address] 17952 Basophils/100 WBC (Bld) 0.8 % Normal [facility] Comment on above: Performed By: #### Siva FRANKEL CMP, ####[facility] ([id number])[address] [place] [address] 76977 Eosinophils (Bld) [#/Vol] 0.0 10*3/uL Normal 0.0-0.4 [facility] Comment on above: Performed By: #### Siva FRANKEL CMP, ####[facility] ([id number])[address] [place] [address] 77733 Eosinophils/100 WBC (Bld) 0.2 % Normal [facility] Comment on above: Performed By: #### Siva FRANKEL CMP, ####[facility] ([id number])[address] [place] [address] 60070 Erythrocyte distribution width (RBC) [Ratio] 15.8 % High 11.5-15.0 [facility] Comment on above: Performed By: #### Siva FRANKEL CMP, ####[facility] ([id number])[address] [place] [address] 35875 Hematocrit (Bld) [Volume fraction] 39.6 % Normal 35-47 [facility] Comment on above: Performed By: #### Siva FRANKEL CMP, ####[facility] ([id number])[address] [place] [address] 79157 Hemoglobin (Bld) [Mass/Vol] 12.9 g/dL Normal 11.7-15.5 [facility] Comment on above: Performed By: #### Siva FRANKEL CMP, ####[facility] ([id number])[address] [place] [address] 21540 Lymphocytes (Bld) [#/Vol] 3.9 10*3/uL High 1.0-3.5 [facility] Comment on above: Performed By: #### Siva FRANKEL [facility], ####[facility] ([id number])[address] [place] [address] 71266 Lymphocytes/100 WBC (Bld) 33.3 % Normal [facility] Comment on above: Performed By: #### Siva FRANKEL [facility], ####[facility] ([id number])[address] [place] [address] 32886 MCH (RBC) [Entitic mass] 28.0 pg Normal 27-34 [facility] Comment on above: Performed By: #### Siva FRANKEL CMP, ####[facility] ([id number])[address] [place] [address] 16735 MCHC (RBC) [Mass/Vol] 32.7 g/dL Normal 32-36 [facility] Comment on above: Performed By: #### Siva FRANKEL [facility], ####[facility] ([id number])[address] [place] [address] 05039 MCV (RBC) [Entitic vol] 86 fL Normal 80-100 [facility] Comment on above: Performed By: #### Siva FRANKEL [facility], ####[facility] ([id number])[address] [place] [address] 02404 Monocytes (Bld) [#/Vol] 1.3 10*3/uL High 0-0.9 [facility] Comment on above: Performed By: #### Siva FRANKEL CMP, ####[facility] ([id number])[address] [place] [address] 53471 Monocytes/100 WBC (Bld) 11.1 % Normal [facility] Comment on above: Performed By: #### C JOSTIN CMP, 18805-3 ####[facility] ([id number])[address] [place] [address] 43836 Neutrophils/100 WBC (Bld) 54.6 % Normal [facility] Comment on above: Performed By: #### Siva FRANKEL, CMP, ####[facility] ([id number])[address] [place] [address] 36290 Platelet mean volume (Bld) [Entitic vol] 8.8 fL Normal 7-12 [facility] Comment on above: Performed By: #### Siva FRANKEL CMP, ####[facility] ([id number])[address] [place] [address] 68174 Platelets (Bld) [#/Vol] 197 10*3/uL Normal 150-450 [facility] Comment on above: Performed By: #### Siva FRANKEL, CMP, ####[facility] ([id number])[address] [place] [address] 20603 RBC COUNT 4.62 X10E12/L Normal 3.80-5.20 [facility] Comment on above: Performed By: #### Siva FRANKEL CMP, 66741-6 ####[facility] ([id number])[address] [place] [address] 23575 WBC (Bld) [#/Vol] 11.9 10*3/uL High 4.0-11.0 [facility] Comment on above: Performed By: #### Siva FRANKEL, CMP, ####[facility] ([id number])[address] [place] [address] 69719 COMPREHENSIVE METABOLIC PANE Virgil 01-01-2024 Albumin [Mass/Vol] 3.3 g/dL Normal 3.2-5.3 [facility] Comment on above: Performed By: #### C JOSTIN, CMP, ####[facility] ([id number])[address] [place] [address] [place] [address] ALP [Catalytic activity/Vol] 94 U/L Normal 39-130 [facility] Comment on above: Performed By: #### C BCA, CMP, ####[facility] ([id number])[address] [place] [address] 54779 ALT [Catalytic activity/Vol] 19 U/L Normal 0-31 [facility] Comment on above: Performed By: #### C BCA, CMP, ####[facility] ([id number])[address] [place] [address] 07675 Anion gap [Moles/Vol] 8 mmol/L Normal 5-15 [facility] Comment on above: Performed By: #### C BCA, CMP, ####[facility] ([id number])[address] [place] [address] 60004 AST [Catalytic activity/Vol] 16 U/L Normal 0-41 [facility] Comment on above: Performed By: #### C BCA, CMP, ####[facility] ([id number])[address] [place] [address] [place] [address] Bilirubin [Mass/Vol] 0.7 mg/dL Normal 0.3-1.2 [facility] Comment on above: Performed By: #### C BCA, CMP, ####[facility] ([id number])[address] [place] [address] [place] [address] Calcium [Mass/Vol] 8.8 mg/dL Normal 8.5-10.5 [facility] Comment on above: Performed By: #### C BCA, CMP, ####[facility] ([id number])[address] [place] [address] [place] [address] Chloride [Moles/Vol] 99 mmol/L Normal 98-109 [facility] Comment on above: Performed By: #### C VERNON FRANKEL, 21211-4 ####[facility] ([id number])[address] [place] [address] 41526 CO2 [Moles/Vol] 27 mmol/L Normal 22-32 [facility] Comment on above: Performed By: #### C VERNON FRANKEL, ####[facility] ([id number])[address] [place] [address] 16633 Creatinine [Mass/Vol] 0.70 mg/dL Normal 0.40-1.00 [facility] Comment on above: Result Comment: METH OD TRACEABLE TO IDMS STANDARD Performed By: #### C VERNON FRANKEL, ####[facility] ([id number])[address] [place] [address] [place] [address] eGFR (CKD-EPI) NON-RACE DEPENDENT >90 Normal >59 [facility] Comment on above: Result Comment: Reported eGFR is based on the CKD-EPI 2020 equation that does not use a race coefficient. Performed By: #### C VERNON FRANKEL, ####[facility] ([id number])[address] [place] [address] 90729 Glucose [Mass/Vol] 97 mg/dL Normal 65-99 [facility] Comment on above: Performed By: #### C VERNON FRANKEL, 62501-1 ####[facility] ([id number])[address] [place] [address] 76147 Potassium [Moles/Vol] 3.6 mmol/L Normal 3.5-5.0 [facility] Comment on above: Performed By: #### C VERNON FRANKEL, ####[facility] ([id number])[address] [place] [address] 39176 Protein [Mass/Vol] 6.6 g/dL Normal 6.0-8.0 [facility] Comment on above: Performed By: #### C VERNON FRANKEL, 37933-2 ####[facility] ([id number])[address] [place] [address] 46554 Sodium [Moles/Vol] 134 mmol/L Normal 134-146 [facility] Comment on above: Performed By: #### C JOSTIN CMP, ####[facility] ([id number])[address] [place] [address] 42720 Urea nitrogen [Mass/Vol] 15 mg/dL Normal 5-23 [facility] Comment on above: Performed By: #### C JOSTIN CMP, 27344-6 ####[facility] ([id number])[address] [place] [address] 65037 MAGNESIUMon 01-01-2024 Magnesium [Mass/Vol] 2.1 mg/dL Normal 1.8-2.6 [facility] Comment on above: Performed By: #### C VERNON FRANKEL, 89825-7 ####[facility] ([id number])[address] [place] [address] 52209 CBC AND AUTO DIFFon 12-31-19 24 Band form neutrophils/100 WBC (Bld) 1.0 % Normal [facility] Comment on above: Performed By: #### C BCA, PINR, 35819-2, CMP, 3040-3, 58825-7, 5643-2, 1988-5, 77312-8, 27828-6, 2157-6, 26260-5, THYR #### [facility] ([id number]) [address] [place] [address] 45922 Erythrocyte distribution width (RBC) [Ratio] 16.1 % High 11.5-15.0 [facility] Comment on above: Performed By: #### C BCA, PINR, 53834-6, CMP, 3040-3, 69293-6, 5643-2, 1987-09, 73757-7, 03211-5, 2157-6, 29239-7, THYR #### [facility] ([id number]) [address] [place] [address] 30931 Hematocrit (Bld) [Volume fraction] 38.0 % Normal 35-47 [facility] Comment on above: Performed By: #### C BCA, PINR, 00204-2, CMP, 3040-3, 12959-1, 5643-2, 1987-, 35779-2, 21592-8, 2157-6, 29500-5, THYR #### [facility] ([id number]) [address] [place] [address] 19350 Hemoglobin (Bld) [Mass/Vol] 12.5 g/dL Normal 11.7-15.5 [facility] Comment on above: Performed By: #### C BCA, PINR, 88630-0, CMP, 3040-3, 94731-6, 5643-2, 1987-09, 91905-1, 09764-8, 2157-6, 17444-0, THYR #### [facility] ([id number]) [address] [place] [address] [place] [address] LYMPHOCYTE, ATYPICAL 1.9 % Normal [facility] Comment on above: Performed By: #### C BCA, PINR, 76705-1, CMP, 3040-3, 52521-9, 5643-2, 1987-09, 39211-0, 65667-3, 2157-6, 28567-6, THYR #### [facility] ([id number]) [address] [place] [address] [place] [address] Lymphocytes (Bld) [#/Vol] 3.2 10*3/uL Normal 1.0-3.5 [facility] Comment on above: Performed By: #### C BCA, PINR, 79299-2, CMP, 3040-3, 83503-0, 5643-2, 1987-09, 91222-8, 57073-2, 2157-6, 27402-8, THYR #### [facility] ([id number]) [address] [place] [address] 13839 Lymphocytes/100 WBC (Bld) 14.3 % Normal [facility] Comment on above: Performed By: #### C BCA, PINR, 26184-4, CMP, 3040-3, 48655-8, 5643-2, 1987-09, 78216-0, 42633-1, 215-6, 41985-7, THYR #### [facility] ([id number]) [address] [place] [address] 94974 MCH (RBC) [Entitic mass] 28.3 pg Normal 27-34 [facility] Comment on above: Performed By: #### C BCA, PINR, 67609-0, CMP, 3040-3, 83833-3, 5643-2, 1987-09, 99281-4, 44342-0, 215-6, 71522-2, THYR #### [facility] ([id number]) [address] [place] [address] 48638 MCHC (RBC) [Mass/Vol] 32.8 g/dL Normal 32-36 [facility] Comment on above: Performed By: #### C BCA, PINR, 63890-6, CMP, 3040-3, 09477-5, 5643-2, 1987-09, 78511-6, 82120-4, 215-6, 84580-0, THYR #### [facility] ([id number]) [address] [place] [address] 36764 MCV (RBC) [Entitic vol] 86 fL Normal 80-100 [facility] Comment on above: Performed By: #### C BCA, PINR, 49183-3, CMP, 3040-3, 49405-8, 5643-2, 1987-09, 22267-3, 83640-6, 2157-6, 51179-4, THYR #### [facility] ([id number]) [address] [place] [address] 11899 Monocytes (Bld) [#/Vol] 0.7 10*3/uL Normal 0-0.9 [facility] Comment on above: Performed By: #### C BCA, PINR, 69666-5, CMP, 3040-3, 69270-3, 5643-, 1987-09, 87077-9, 24006-3, 2157-6, 50797-6, THYR #### [facility] ([id number]) [address] [place] [address] 76822 Monocytes/100 WBC (Bld) 3.8 % Normal [facility] Comment on above: Performed By: #### C BCA, PINR, 65474-6, CMP, 3040-3, 50324-5, 5643-, 1987-09, 47617-9, 67228-7, 2157-6, 55514-9, THYR #### [facility] ([id number]) [address] [place] [address] [place] [address] MYELOCYTE 1.0 % Normal [facility] Comment on above: Performed By: #### C BCA, PINR, 26516-9, CMP, 3040-3, 43731-7, 5643-2, 1987-09, 74882-8, 55943-4, 2157-6, 21295-0, THYR #### [facility] ([id number]) [address] [place] [address] 01939 Neutrophils (Bld) [#/Vol] 15.6 10*3/uL High 1.5-6.6 [facility] Comment on above: Performed By: #### C BCA, PINR, 22252-2, CMP, 3040-3, 58928-3, 5643-2, 1987-09, 33258-4, 47816-4, 2157-6, 05896-4, THYR #### [facility] ([id number]) [address] [place] [address] 82755 Platelet mean volume (Bld) [Entitic vol] 9.2 fL Normal 7-12 [facility] Comment on above: Performed By: #### C BCA, PINR, 34307-2, CMP, 3040-3, 69194-3, 5643-2, 1987-09, 90032-3, 12342-1, 2157-6, 31082-3, THYR #### [facility] ([id number]) [address] [place] [address] 36289 Platelets (Bld) [#/Vol] 213 10*3/uL Normal 150-450 [facility] Comment on above: Performed By: #### C BCA, PINR, 01440-6, CMP, 3040-3, 83519-0, 5643-2, 1987-09, 47273-6, 25043-1, 2157-6, 38483-5, THYR #### [facility] ([id number]) [address] [place] [address] [place] [address] RBC COUNT 4.41 X10E12/L Normal 3.80-5.20 [facility] Comment on above: Performed By: #### C BCA, PINR, 92717-4, CMP, 3040-3, 14811-4, 5643-2, 1987-09, 62855-5, 10626-4, 2157-6, 77417-8, THYR #### [facility] ([id number]) [address] [place] [address] 86723 SEG NEUTROPHIL 78.0 % Normal [facility] Comment on above: Performed By: #### C BCA, PINR, 99884-1, CMP, 3040-3, 27391-4, 5643-2, 1987-09, 31736-6, 03252-6, 2157-6, 62290-4, THYR #### [facility] ([id number]) [address] [place] [address] 73349 WBC (Bld) [#/Vol] 19.7 10*3/uL High 4.0-11.0 [facility] Comment on above: Performed By: #### C BCA, PINR, 92818-1, CMP, 3040-3, 04789-0, 5643-2, 1987-, 31583-4, 55899-1, 2157-6, 28707-3, THYR #### [facility] ([id number]) [address] [place] [address] 28950 COMPREHENSIVE METABOLIC PANE Virgil 12-31-2023 Albumin [Mass/Vol] 3.3 g/dL Normal 3.2-5.3 [facility] Comment on above: Performed By: #### C BCA, PINR, 45333-2, CMP, 3040-3, 50118-3, 5643-2, 1987-09, 36477-2, 56207-0, 2157-6, 50978-4, THYR #### [facility] ([id number]) [address] [place] [address] [place] [address] ALP [Catalytic activity/Vol] 100 U/L Normal 39-130 [facility] Comment on above: Performed By: #### C BCA, PINR, 42682-4, CMP, 3040-3, 12203-0, 5643-2, 1987-09, 99400-3, 61438-1, 2157-6, 75059-7, THYR #### [facility] ([id number]) [address] [place] [address] 35920 ALT [Catalytic activity/Vol] 17 U/L Normal 0-31 [facility] Comment on above: Performed By: #### C BCA, PINR, 16233-0, CMP, 3040-3, 46196-1, 5643-2, 1987-09, 66716-3, 70050-4, 2157-6, 88535-1, THYR #### [facility] ([id number]) [address] [place] [address] [place] [address] Anion gap [Moles/Vol] 7 mmol/L Normal 5-15 [facility] Comment on above: Performed By: #### C BCA, PINR, 27926-7, CMP, 3040-3, 51593-5, 5643-2, 1987-09, 90632-2, 38144-3, 2157-6, 57629-9, THYR #### [facility] ([id number]) [address] [place] [address] [place] [address] AST [Catalytic activity/Vol] 16 U/L Normal 0-41 [facility] Comment on above: Performed By: #### C BCA, PINR, 83139-3, CMP, 3040-3, 73437-5, 5643-, 1987-09, 30386-5, 26793-5, 2157-6, 41365-1, THYR #### [facility] ([id number]) [address] [place] [address] [place] [address] Bilirubin [Mass/Vol] 0.8 mg/dL Normal 0.3-1.2 [facility] Comment on above: Performed By: #### C BCA, PINR, 25509-4, CMP, 3040-3, 23004-7, 5643-2, 1987-09, 22523-1, 15469-4, 2157-6, 24662-2, THYR #### [facility] ([id number]) [address] [place] [address], [place] [address] Calcium [Mass/Vol] 8.7 mg/dL Normal 8.5-10.5 [facility] Comment on above: Performed By: #### C BCA, PINR, 53108-9, CMP, 3040-3, 57196-6, 5643-2, 1987-09, , 88639-9, 2157-6, 21579-0, THYR #### [facility] ([id number]) [address] [place] [address] 47671 Chloride [Moles/Vol] 100 mmol/L Normal 98-109 [facility] Comment on above: Performed By: #### C BCA, PINR, 21996-4, CMP, 3040-3, 82649-0, 5643-2, 1987-09, 96363-2, 02637-9, 2157-6, 31542-9, THYR #### [facility] ([id number]) [address] [place] [address] 67107 CO2 [Moles/Vol] 27 mmol/L Normal 22-32 [facility] Comment on above: Performed By: #### C BCA, PINR, 87147-4, CMP, 3040-3, 02317-5, 5643-2, 1987-09, , 48392-7, 2157-6, 61629-3, THYR #### [facility] ([id number]) [address] [place] [address] 44937 Creatinine [Mass/Vol] 0.69 mg/dL Normal 0.40-1.00 [facility] Comment on above: Result Comment: METH OD TRACEABLE TO IDMS STANDARD Performed By: #### C BCA, PINR, 06955-2, CMP, 3040-3, 14473-4, 5643-, 1987-09, , 94851-0, 2157-6, 30874-9, THYR #### [facility] ([id number]) [address] [place] [address] 00217 eGFR (CKD-EPI) NON-RACE DEPENDENT >90 Normal >59 [facility] Comment on above: Result Comment: Reported eGFR is based on the CKD-EPI 2020 equation that does not use a race coefficient. Performed By: #### C BCA, PINR, 98808-7, CMP, 3040-3, 63699-2, 5643-2, 1987-09, 15374-0, 69577-0, 215-6, 29914-7, THYR #### [facility] ([id number]) [address] [place] [address], [place] [address] Glucose [Mass/Vol] 167 mg/dL High 65-99 [facility] Comment on above: Performed By: #### C BCA, PINR, 20376-8, CMP, 3040-3, 13911-8, 5643-2, 1987-, 96524-4, 49677-8, 215-6, 96041-1, THYR #### [facility] ([id number]) [address] [place] [address], [place] [address] Potassium [Moles/Vol] 3.6 mmol/L Normal 3.5-5.0 [facility] Comment on above: Performed By: #### C BCA, PINR, 15970-4, CMP, 3040-3, 70872-2, 5643-2, 1987-09, , 16147-5, 2156-6, 70726-6, THYR #### [facility] ([id number]) [address] [place] [address], [place] [address] Protein [Mass/Vol] 6.5 g/dL Normal 6.0-8.0 [facility] Comment on above: Performed By: #### C BCA, PINR, 37226-2, CMP, 3040-3, 77649-5, 5643-2, 1987-09, 37242-5, 92541-5, 215-6, 08010-7, THYR #### [facility] ([id number]) [address] [place] [address], [place] [address] Sodium [Moles/Vol] 134 mmol/L Normal 134-146 [facility] Comment on above: Performed By: #### C BCA, PINR, 65288-6, CMP, 3040-3, 77622-4, 5643-2, 1987-, 99681-3, 01509-1, 2157-6, 67181-8, THYR #### [facility] ([id number]) [address] [place] [address] 47457 Urea nitrogen [Mass/Vol] 14 mg/dL Normal 5-23 [facility] Comment on above: Performed By: #### C BCA, PINR, 61814-1, CMP, 3040-3, 98034-0, 5643-2, 1987-, 95528-0, 10210-3, 2157-6, 69974-2, THYR #### [facility] ([id number]) [address] [place] [address] 78611 ELECTROLYTESon - Anion gap [Moles/Vol] 9 mmol/L Normal 5-15 [facility] Comment on above: Performed By: #### E LEC ####[facility] ([id number])[address] [place] [address] 22992 Chloride [Moles/Vol] 99 mmol/L Normal 98-109 [facility] Comment on above: Performed By: #### E LEC ####[facility] ([id number])[address] [place] [address] 73892 CO2 [Moles/Vol] 25 mmol/L Normal 22-32 [facility] Comment on above: Performed By: #### E LEC ####[facility] ([id number])[address] [place] [address] 78300 Potassium [Moles/Vol] 3.8 mmol/L Normal 3.5-5.0 [facility] Comment on above: Performed By: #### E LEC ####[facility] ([id number])[address] [place] [address] 48955 Sodium [Moles/Vol] 133 mmol/L Low 134-146 [facility] Comment on above: Performed By: #### E LEC ####[facility] ([id number])[address] [place] [address] [place] [address] Anion gap [Moles/Vol] 5 mmol/L Normal 5-15 [facility] Comment on above: Performed By: #### C BCA, PINR, 92231-9, CMP, 3040-3, 11686-7, 5643-2, 1987-09, 38487-7, 85426-6, 215-6, 21478-2, THYR #### [facility] ([id number]) [address] [place] [address] [place] [address] Chloride [Moles/Vol] 97 mmol/L Low 98-109 [facility] Comment on above: Performed By: #### C BCA, PINR, 66222-9, CMP, 3040-3, 70155-6, 5643-, 1987-09, , 35495-9, 215-6, 95069-8, THYR #### [facility] ([id number]) [address] [place] [address] [place] [address] CO2 [Moles/Vol] 28 mmol/L Normal 22-32 [facility] Comment on above: Performed By: #### C BCA, PINR, 34585-7, CMP, 3040-3, 59501-5, 5643-, 1987-09, , 42504-7, 215-6, 26024-6, THYR #### [facility] ([id number]) [address] [place] [address], [place] [address] Potassium [Moles/Vol] 3.9 mmol/L Normal 3.5-5.0 [facility] Comment on above: Performed By: #### C BCA, PINR, 23964-2, CMP, 3040-3, 91175-9, 5643-2, 1987-09, 12134-6, 97997-1, 215-6, 71981-3, THYR #### [facility] ([id number]) [address] [place] [address], [place] [address] Sodium [Moles/Vol] 130 mmol/L Low 134-146 [facility] Comment on above: Performed By: #### C BCA, PINR, 21871-6, CMP, 3040-3, 99789-0, 5643-2, 1987-09, 43250-2, 92687-0, 215-6, 63326-8, THYR #### [facility] ([id number]) [address] [place] [address], [place] [address] Anion gap [Moles/Vol] 8 mmol/L Normal 5-15 [facility] Comment on above: Performed By: #### C BCA, PINR, 04514-2, CMP, 3040-3, 90066-2, 5643-, 1987-09, , 99902-0, 2156-6, 30985-6, THYR #### [facility] ([id number]) [address] [place] [address], [place] [address] Chloride [Moles/Vol] 99 mmol/L Normal 98-109 [facility] Comment on above: Performed By: #### C BCA, PINR, 68798-3, CMP, 3040-3, 67708-6, 5643-2, 1987-09, , 96744-9, 215-6, 89597-1, THYR #### [facility] ([id number]) [address] [place] [address], [place] [address] CO2 [Moles/Vol] 25 mmol/L Normal 22-32 [facility] Comment on above: Performed By: #### C BCA, PINR, 64602-8, CMP, 3040-3, 59574-5, 5643-2, 1987-09, 46778-7, 33475-3, 215-6, 18713-4, THYR #### [facility] ([id number]) [address] [place] [address] 93079 Potassium [Moles/Vol] 4.3 mmol/L Normal 3.5-5.0 [facility] Comment on above: Performed By: #### C BCA, PINR, 73272-6, CMP, 3040-3, 29824-8, 5643-2, 1987-, 28459-4, 94170-7, 215-6, 76167-8, THYR #### [facility] ([id number]) [address] [place] [address] 61036 Sodium [Moles/Vol] 132 mmol/L Low 134-146 [facility] Comment on above: Performed By: #### C BCA, PINR, 58327-5, CMP, 3040-3, 88895-8, 5643-2, 1987-09, , 97755-0, 2156-6, 08934-8, THYR #### [facility] ([id number]) [address] [place] [address] 84835 Anion gap [Moles/Vol] 8 mmol/L Normal 5-15 [facility] Comment on above: Performed By: #### C BCA, PINR, 34452-0, CMP, 3040-3, 93836-5, 5643-2, 1987-09, , 12019-0, 2156-6, 41562-8, THYR #### [facility] ([id number]) [address] [place] [address], [place] [address] Chloride [Moles/Vol] 99 mmol/L Normal 98-109 [facility] Comment on above: Performed By: #### C BCA, PINR, 81247-6, CMP, 3040-3, 19028-5, 5643-2, 1987-, 34551-0, 62692-9, 2157-6, 20064-5, THYR #### [facility] ([id number]) [address] [place] [address] 77546 CO2 [Moles/Vol] 25 mmol/L Normal 22-32 [facility] Comment on above: Performed By: #### C JOSTIN, PINR, 69171-0, CMP, 3040-3, 79614-1, 5643-2, 1987-, 97818-1, 51981-4, 2157-6, 96431-2, THYR #### [facility] ([id number]) [address] [place] [address] 09955 Potassium [Moles/Vol] 3.6 mmol/L Normal 3.5-5.0 [facility] Comment on above: Performed By: #### C JOSTIN, PINR, 96748-1, CMP, 3040-3, 07718-5, 5643-2, 1987-09, 19072-7, 20498-7, 2156-6, 60578-3, THYR #### [facility] ([id number]) [address] [place] [address] 97571 Sodium [Moles/Vol] 132 mmol/L Low 134-146 [facility] Comment on above: Performed By: #### C JOSTIN, PINR, 49878-1, CMP, 3040-3, 17985-7, 5643-2, 1987-, 36466-1, 43667-1, 2157-6, 90395-5, THYR #### [facility] ([id number]) [address] [place] [address] 94694 Anion gap [Moles/Vol] 7 mmol/L Normal 5-15 [facility] Comment on above: Performed By: #### C BCA, PINR, 55307-5, CMP, 3040-3, 35365-7, 5643-2, 1987-, 07756-6, 49688-9, 2157-6, 11688-2, THYR #### [facility] ([id number]) [address] [place] [address] 66249 Chloride [Moles/Vol] 101 mmol/L Normal 98-109 [facility] Comment on above: Performed By: #### C BCA, PINR, 98316-8, CMP, 3040-3, 83608-2, 5643-2, 1987-09, 18590-3, 31216-0, 2157-6, 26699-5, THYR #### [facility] ([id number]) [address] [place] [address] 55582 CO2 [Moles/Vol] 27 mmol/L Normal 22-32 [facility] Comment on above: Performed By: #### C BCA, PINR, 12168-3, CMP, 3040-3, 33439-7, 5643-2, 1987-09, 79908-7, 49044-6, 2157-6, 15900-9, THYR #### [facility] ([id number]) [address] [place] [address] 82935 Potassium [Moles/Vol] 3.8 mmol/L Normal 3.5-5.0 [facility] Comment on above: Performed By: #### C BCA, PINR, 93472-2, CMP, 3040-3, 47248-3, 5643-, 1987-09, 71094-9, 91182-8, 2157-6, 55006-4, THYR #### [facility] ([id number]) [address] [place] [address] [place] [address] Sodium [Moles/Vol] 135 mmol/L Normal 134-146 [facility] Comment on above: Performed By: #### C BCA, PINR, 04104-2, CMP, 3040-3, 22420-6, 5643-2, 1987-09, 61502-5, 43013-4, 2157-6, 05592-7, THYR #### [facility] ([id number]) [address] [place] [address] [place] [address] Glucose Glucometer (BldC) [M ass/Vol]on 12-31-2023 Glucose [Mass/Vol] 153 mg/dL High 65-99 [facility] Glucose [Mass/Vol] 203 mg/dL High 65-99 [facility] Glucose [Mass/Vol] 226 mg/dL High 65-99 [facility] MAGNESIUMon 12-31-2023 Magnesium [Mass/Vol] 2.3 mg/dL Normal 1.8-2.6 [facility] Comment on above: Performed By: #### E LEC, ####[facility] ([id number])[address] [place] [address] 62538 Magnesium [Mass/Vol] 1.8 mg/dL Normal 1.8-2.6 [facility] Comment on above: Performed By: #### C BCA, PINR, 67546-2, CMP, 3040-3, 14834-2, 5643-2, 1987-, 76684-9, 71391-2, 2157-6, 96728-2, THYR #### [facility] ([id number]) [address] [place] [address] 56535 XR ABDOMEN AP AND ERECT ONLY on [...] Rodriguez MD on 12/31/2023 3:12 PM Normal [facility] Beta hydroxybutyrate [Moles/ Vol]on 12-30-2023 BetaHydroxybutyrate <0.05 Normal 0.02-0.27 [facility] Comment on above: Performed By: #### C BCA, PINR, 90605-0, CMP, 3040-3, 60622-8, 5643-2, 1987-, 02131-2, 75625-5, 2157-6, 27506-5, THYR #### [facility] ([id number]) [address] [place] [address] 32086 BetaHydroxybutyrate 0.40 mmol/L High 0.02-0.27 [facility] Comment on above: Performed By: #### C BCA, PINR, 15850-1, CMP, 3040-3, 64249-2, 5643-2, 1987-09, 19811-6, 80685-6, 2157-6, 39531-4, THYR #### [facility] ([id number]) [address] [place] [address] 17265 CBC AND AUTO DIFFon 12-30-19 Erythrocyte distribution width (RBC) [Ratio] 15.7 % High 11.5-15.0 [facility] Comment on above: Performed By: #### C BCA, PINR, 55823-0, CMP, 3040-3, 89361-5, 5643-2, 1987-09, , 56993-4, 2157-6, 42010-3, THYR #### [facility] ([id number]) [address] [place] [address] [place] [address] Hematocrit (Bld) [Volume fraction] 42.6 % Normal 35-47 [facility] Comment on above: Performed By: #### C BCA, PINR, 71587-0, CMP, 3040-3, 25836-8, 5643-2, 1987-09, 47975-0, 86282-5, 215-6, 91758-5, THYR #### [facility] ([id number]) [address] [place] [address] 88045 Hemoglobin (Bld) [Mass/Vol] 13.7 g/dL Normal 11.7-15.5 [facility] Comment on above: Performed By: #### C BCA, PINR, 93041-0, CMP, 3040-3, 86411-7, 5643-2, 1987-09, 63772-4, 22075-3, 2157-6, 33445-8, THYR #### [facility] ([id number]) [address] [place] [address] [place] [address] LYMPHOCYTE, ATYPICAL 1.0 % Normal [facility] Comment on above: Performed By: #### C BCA, PINR, 24759-7, CMP, 3040-3, 71224-1, 5643-2, 1987-, 31281-9, 87277-2, 2157-6, 06693-4, THYR #### [facility] ([id number]) [address] [place] [address] [place] [address] Lymphocytes (Bld) [#/Vol] 1.2 10*3/uL Normal 1.0-3.5 [facility] Comment on above: Performed By: #### C BCA, PINR, 05143-7, CMP, 3040-3, 75406-7, 5643-2, 1987-09, , 41096-1, 2157-6, 17222-1, THYR #### [facility] ([id number]) [address] [place] [address] [place] [address] Lymphocytes/100 WBC (Bld) 4.0 % Normal [facility] Comment on above: Performed By: #### C BCA, PINR, 19103-5, CMP, 3040-3, 91726-3, 5643-2, 1987-, 80239-2, 24609-3, 2157-6, 70318-5, THYR #### [facility] ([id number]) [address] [place] [address], [place] [address] MCH (RBC) [Entitic mass] 27.8 pg Normal 27-34 [facility] Comment on above: Performed By: #### C BCA, PINR, 26693-9, CMP, 3040-3, 91179-5, 5643-2, 1987-, 63211-2, 50829-1, 2156-6, 30020-3, THYR #### [facility] ([id number]) [address] [place] [address] [place] [address] MCHC (RBC) [Mass/Vol] 32.2 g/dL Normal 32-36 [facility] Comment on above: Performed By: #### C BCA, PINR, 92340-1, CMP, 3040-3, 89422-4, 5643-2, 1987-, , 43373-1, 2156-10, 21835-5, THYR #### [facility] ([id number]) [address] [place] [address] 09472 MCV (RBC) [Entitic vol] 86 fL Normal 80-100 [facility] Comment on above: Performed By: #### C BCA, PINR, 92897-1, CMP, 3040-3, 95656-0, 5643-2, 1987-, 43966-3, 68677-1, 6, 11169-5, THYR #### [facility] ([id number]) [address] [place] [address] 15620 Monocytes (Bld) [#/Vol] 2.5 10*3/uL High 0-0.9 [facility] Comment on above: Performed By: #### C BCA, PINR, 40899-9, CMP, 3040-3, 16277-8, 5643-2, 1987-, , 25149-2, 2156-6, 51971-1, THYR #### [facility] ([id number]) [address] [place] [address] [place] [address] Monocytes/100 WBC (Bld) 10.0 % Normal [facility] Comment on above: Performed By: #### C BCA, PINR, 04617-1, CMP, 3040-3, 30488-4, 5643-2, 1987-, 13228-3, 88572-2, 2157-6, 46654-6, THYR #### [facility] ([id number]) [address] [place] [address] 48951 Neutrophils (Bld) [#/Vol] 20.9 10*3/uL High 1.5-6.6 [facility] Comment on above: Performed By: #### C BCA, PINR, 21388-6, CMP, 3040-3, 76549-5, 5643-2, 1987-, 38678-2, 53905-7, 2157-6, 00049-3, THYR #### [facility] ([id number]) [address] [place] [address] 74816 Platelet mean volume (Bld) [Entitic vol] 9.7 fL Normal 7-12 [facility] Comment on above: Performed By: #### C BCA, PINR, 95700-8, CMP, 3040-3, 50375-9, 5643-2, 1987-09, 59168-8, 10053-7, 2157-6, 57705-8, THYR #### [facility] ([id number]) [address] [place] [address] [place] [address] Platelets (Bld) [#/Vol] 238 10*3/uL Normal 150-450 [facility] Comment on above: Performed By: #### C BCA, PINR, 00042-3, CMP, 3040-3, 67370-0, 5643-2, 1987-, 63175-0, 40541-3, 2157-6, 39303-0, THYR #### [facility] ([id number]) [address] [place] [address] 90909 RBC COUNT 4.95 X10E12/L Normal 3.80-5.20 [facility] Comment on above: Performed By: #### C BCA, PINR, 30673-9, CMP, 3040-3, 11034-8, 5643-2, 1987-, 07383-0, 05121-3, 2157-6, 83181-6, THYR #### [facility] ([id number]) [address] [place] [address] [place] [address] RBC morphology finding Nom (Bld) NORMAL Normal [facility] Comment on above: Performed By: #### C BCA, PINR, 75590-1, CMP, 3040-3, 39623-2, 5643-2, 1987-09, 59732-4, 11846-0, 2157-6, 74610-7, THYR #### [facility] ([id number]) [address] [place] [address] SEG NEUTROPHIL 85.0 % Normal [facility] Comment on above: Performed By: #### C BCA, PINR, 83525-9, CMP, 3040-3, 91844-8, 5643-2, 1987-, 01246-2, 55243-1, 2157-6, 54344-1, THYR #### [facility] ([id number]) [address] [place] [address] [place] [address] WBC (Bld) [#/Vol] 24.6 10*3/uL High 4.0-11.0 [facility] Comment on above: Performed By: #### C BCA, PINR, 61621-1, CMP, 3040-3, 41760-1, 5643-2, 1987-09, 77006-0, 27736-2, 2157-6, 13869-3, THYR #### [facility] ([id number]) [address] [place] [address] [place] [address] COMPREHENSIVE METABOLIC PANE Virgil 12-30-2023 Albumin [Mass/Vol] 3.5 g/dL Normal 3.2-5.3 [facility] Comment on above: Performed By: #### C BCA, PINR, 03604-2, CMP, 3040-3, 41711-2, 5643-2, 1987-09, 10958-5, 81363-6, 215-6, 75178-7, THYR #### [facility] ([id number]) [address] [place] [address], [place] [address] ALP [Catalytic activity/Vol] 106 U/L Normal 39-130 [facility] Comment on above: Performed By: #### C BCA, PINR, 17991-8, CMP, 3040-3, 86237-0, 5643-2, 1987-, 18905-7, 63225-8, 2156-6, 27882-5, THYR #### [facility] ([id number]) [address] [place] [address] AST [Catalytic activity/Vol] 20 U/L Normal 0-41 [facility] Comment on above: Performed By: #### C BCA, PINR, 00632-2, CMP, 3040-3, 58768-9, 5643-2, 1987-, 35007-7, 37821-2, 2156-6, 76231-8, THYR #### [facility] ([id number]) [address] [place] [address], [place] [address] Bilirubin [Mass/Vol] 0.6 mg/dL Normal 0.3-1.2 [facility] Comment on above: Performed By: #### C BCA, PINR, 59941-3, CMP, 3040-3, 89182-9, 5643-2, 1987-, 67695-4, 67385-2, 2156-6, 00007-7, THYR #### [facility] ([id number]) [address] [place] [address], [place] [address] CO2 [Moles/Vol] 26 mmol/L Normal 22-32 [facility] Comment on above: Performed By: #### C BCA, PINR, 62354-6, CMP, 3040-3, 13658-8, 5643-2, 1987-, 16814-1, 86554-4, 2157-6, 63482-1, THYR #### [facility] ([id number]) [address] [place] [address] Creatinine [Mass/Vol] 0.86 mg/dL Normal 0.40-1.00 [facility] Comment on above: Result Comment: METH OD TRACEABLE TO IDMS STANDARD Performed By: #### C BCA, PINR, 21228-7, CMP, 3040-3, 00058-8, 5643-2, 1987-09, 62405-8, 19078-2, 2157-6, 86393-7, THYR #### [facility] ([id number]) [address] [place] [address] GFR/1.73 sq M.predicted among non-blacks MDRD (S/P/Bld) [Vol rate/Area] 79 mL/min/{1.73_m2} Normal >59 [facility] Comment on above: Result Comment: Reported eGFR is based on the CKD-EPI 2020 equation that does not use a race coefficient. Performed By: #### C BCA, PINR, 17738-9, CMP, 3040-3, 91348-6, 5643-2, 1987-09, 09466-3, 20005-2, 215-6, 09948-3, THYR #### [facility] ([id number]) [address] [place] [address] Glucose [Mass/Vol] 86 mg/dL Normal 65-99 [facility] Comment on above: Performed By: #### C BCA, PINR, 94619-7, CMP, 3040-3, 38284-8, 5643-2, 1987-09, 57161-9, 53639-2, 2157-6, 39507-9, THYR #### [facility] ([id number]) [address] [place] [address] Protein [Mass/Vol] 6.9 g/dL Normal 6.0-8.0 [facility] Comment on above: Performed By: #### C BCA, PINR, 87928-1, CMP, 3040-3, 48232-4, 5643-2, 1987-, 16046-5, 97536-7, 2157-6, 35873-1, THYR #### [facility] ([id number]) [address] [place] [address] Sodium [Moles/Vol] 137 mmol/L Normal 134-146 [facility] Comment on above: Performed By: #### C BCA, PINR, 26566-4, CMP, 3040-3, 61852-5, 5643-2, 1987-09, 41875-4, 99642-3, 2157-6, 50023-2, THYR #### [facility] ([id number]) [address] [place] [address] Urea nitrogen [Mass/Vol] 16 mg/dL Normal 5-23 [facility] Comment on above: Performed By: #### C BCA, PINR, 59062-6, CMP, 3040-3, 20712-0, 5643-2, 1987-, 51931-4, 83368-1, 2157-6, 03214-2, THYR #### [facility] ([id number]) [address] [place] [address] [place] [address] Albumin [Mass/Vol] 3.4 g/dL Normal 3.2-5.3 [facility] Comment on above: Performed By: #### C BCA, PINR, 23964-3, CMP, 3040-3, 81008-9, 5643-2, 1987-, 49258-7, 10981-9, 2157-6, 10937-0, THYR #### [facility] ([id number]) [address] [place] [address] [place] [address] ALP [Catalytic activity/Vol] 108 U/L Normal 39-130 [facility] Comment on above: Performed By: #### C BCA, PINR, 53392-9, CMP, 3040-3, 86902-1, 5643-2, 1987-, 89897-3, 88066-9, 2157-6, 89019-3, THYR #### [facility] ([id number]) [address] [place] [address] 11495 ALT [Catalytic activity/Vol] 18 U/L Normal 0-31 [facility] Comment on above: Performed By: #### C BCA, PINR, 00223-1, CMP, 3040-3, 02864-6, 5643-2, 1987-09, 53045-9, 46236-8, 2157-6, 92608-8, THYR #### [facility] ([id number]) [address] [place] [address] 13775 Result Comment: SPEC IMEN HEMOLYZED, RESULTS INCREASED Anion gap [Moles/Vol] 10 mmol/L Normal 5-15 [facility] Comment on above: Performed By: #### C BCA, PINR, 82927-3, CMP, 3040-3, 02240-6, 5643-2, 1987-, 92560-5, 15336-6, 2157-6, 77332-8, THYR #### [facility] ([id number]) [address] [place] [address] 21368 AST [Catalytic activity/Vol] 27 U/L Normal 0-41 [facility] Comment on above: Result Comment: SPEC IMEN HEMOLYZED, RESULTS INCREASED Performed By: #### C BCA, PINR, 36154-3, CMP, 3040-3, 19183-3, 5643-2, 1987-, 45813-9, 88351-2, 2157-6, 96759-0, THYR #### [facility] ([id number]) [address] [place] [address] 14159 Bilirubin [Mass/Vol] 1.0 mg/dL Normal 0.3-1.2 [facility] Comment on above: Result Comment: RESU LTS QUESTIONABLE DUE TO HEMOLYSIS Performed By: #### C BCA, PINR, 33095-2, CMP, 3040-3, 31184-7, 5643-2, 1987-09, 01035-3, 30346-4, 215-6, 74696-9, THYR #### [facility] ([id number]) [address] [place] [address] 60451 Calcium [Mass/Vol] 8.6 mg/dL Normal 8.5-10.5 [facility] Comment on above: Performed By: #### C BCA, PINR, 00813-3, CMP, 3040-3, 25699-5, 5643-, 1987-09, , 57342-4, 215-6, 02356-6, THYR #### [facility] ([id number]) [address] [place] [address] 46688 Chloride [Moles/Vol] 105 mmol/L Normal 98-109 [facility] Comment on above: Performed By: #### C BCA, PINR, 14652-2, CMP, 3040-3, 70753-3, 5643-2, 1987-09, , 78043-0, 215-6, 25272-6, THYR #### [facility] ([id number]) [address] [place] [address] 51708 CO2 [Moles/Vol] 20 mmol/L Low 22-32 [facility] Comment on above: Performed By: #### C BCA, PINR, 92517-4, CMP, 3040-3, 05292-6, 5643-2, 1987-09, 46732-0, 13082-5, 2157-6, 50552-3, THYR #### [facility] ([id number]) [address] [place] [address] 65130 Creatinine [Mass/Vol] 0.85 mg/dL Normal 0.40-1.00 [facility] Comment on above: Result Comment: METH OD TRACEABLE TO IDMS STANDARD Performed By: #### C BCA, PINR, 36981-3, CMP, 3040-3, 47637-9, 5643-2, 1987-, 95273-7, 50288-5, 2157-6, 38592-0, THYR #### [facility] ([id number]) [address] [place] [address] 38123 GFR/1.73 sq M.predicted among non-blacks MDRD (S/P/Bld) [Vol rate/Area] 80 mL/min/{1.73_m2} Normal >59 [facility] Comment on above: Result Comment: Reported eGFR is based on the CKD-EPI 2020 equation that does not use a race coefficient. Performed By: #### C BCA, PINR, 12632-7, CMP, 3040-3, 34670-5, 5643-2, 1987-09, 26583-6, 32534-6, 2157-6, 59745-8, THYR #### [facility] ([id number]) [address] [place] [address] 90484 Glucose [Mass/Vol] 113 mg/dL High 65-99 [facility] Comment on above: Performed By: #### C BCA, PINR, 90191-9, CMP, 3040-3, 16686-9, 5643-2, 1987-, 23150-6, 72855-4, 2157-6, 32352-6, THYR #### [facility] ([id number]) [address] [place] [address] 64104 Potassium [Moles/Vol] 4.8 mmol/L Normal 3.5-5.0 [facility] Comment on above: Result Comment: SPEC IMEN HEMOLYZED, RESULTS INCREASED Performed By: #### C BCA, PINR, 61528-5, CMP, 3040-3, 88196-6, 5643-2, 1987-, 99336-9, 25666-1, 215-6, 91242-4, THYR #### [facility] ([id number]) [address] [place] [address] [place] [address] Protein [Mass/Vol] 7.0 g/dL Normal 6.0-8.0 [facility] Comment on above: Performed By: #### C BCA, PINR, 58257-9, CMP, 3040-3, 92975-2, 5643-2, 1987-, 45827-1, 49184-1, 215-6, 30443-6, THYR #### [facility] ([id number]) [address] [place] [address] 06761 Sodium [Moles/Vol] 135 mmol/L Normal 134-146 [facility] Comment on above: Performed By: #### C BCA, PINR, 41646-1, CMP, 3040-3, 45787-0, 5643-2, 1987-09, 09232-6, 71976-4, 215-6, 83426-7, THYR #### [facility] ([id number]) [address] [place] [address], [place] [address] Urea nitrogen [Mass/Vol] 24 mg/dL High 5-23 [facility] Comment on above: Performed By: #### C BCA, PINR, 68673-9, CMP, 3040-3, 63528-7, 5643-2, 1987-, 27915-2, 42377-2, 215-6, 96683-6, THYR #### [facility] ([id number]) [address] [place] [address], [place] [address] Potassium [Moles/Vol] 3.9 mmol/L Normal 3.5-5.0 [facility] Comment on above: Performed By: #### C BCA, PINR, 02312-8, CMP, 3040-3, 67127-8, 5643-2, 1987-, 77777-9, 21400-9, 215-6, 27570-6, THYR #### [facility] ([id number]) [address] [place] [address], [place] [address] ELECTROLYTESon 12-30-2023 Anion gap [Moles/Vol] 7 mmol/L Normal 5-15 [facility] Comment on above: Performed By: #### C BCA, PINR, 97863-4, CMP, 3040-3, 84301-1, 5643-2, 1987-09, , 15431-6, 2156-, 93683-7, THYR #### [facility] ([id number]) [address] [place] [address] 60027 Chloride [Moles/Vol] 102 mmol/L Normal 98-109 [facility] Comment on above: Performed By: #### C BCA, PINR, 06267-1, CMP, 3040-3, 08334-8, 5643-2, 1987-, 52538-5, 55102-8, 2156-6, 19032-8, THYR #### [facility] ([id number]) [address] [place] [address], [place] [address] CO2 [Moles/Vol] 24 mmol/L Normal 22-32 [facility] Comment on above: Performed By: #### C BCA, PINR, 29797-6, CMP, 3040-3, 04361-9, 5643-2, 1987-, 33722-3, 79060-7, 2156-6, 79248-3, THYR #### [facility] ([id number]) [address] [place] [address], [place] [address] Potassium [Moles/Vol] 3.7 mmol/L Normal 3.5-5.0 [facility] Comment on above: Performed By: #### C BCA, PINR, 19940-6, CMP, 3040-3, 54262-7, 5643-2, 1987-09, 99021-5, 07046-8, 2157-6, 90072-3, THYR #### [facility] ([id number]) [address] [place] [address], [place] [address] Sodium [Moles/Vol] 133 mmol/L Low 134-146 [facility] Comment on above: Performed By: #### C BCA, PINR, 65337-2, CMP, 3040-3, 52588-6, 5643-2, 1987-09, , 58734-7, 215-6, 06433-7, THYR #### [facility] ([id number]) [address] [place] [address], [place] [address] Anion gap [Moles/Vol] 5 mmol/L Normal 5-15 [facility] Comment on above: Performed By: #### C BCA, PINR, 32366-4, CMP, 3040-3, 12447-0, 5643-2, 1987-09, 75200-8, 30061-4, 215-6, 33782-3, THYR #### [facility] ([id number]) [address] [place] [address], [place] [address] Chloride [Moles/Vol] 104 mmol/L Normal 98-109 [facility] Comment on above: Performed By: #### C BCA, PINR, 31426-1, CMP, 3040-3, 31394-7, 5643-2, 1987-, 78469-8, 65285-4, 2157-6, 51236-5, THYR #### [facility] ([id number]) [address] [place] [address], [place] [address] CO2 [Moles/Vol] 25 mmol/L Normal 22-32 [facility] Comment on above: Performed By: #### C BCA, PINR, 05074-2, CMP, 3040-3, 21619-0, 5643-2, 1987-09, 73794-3, 23202-3, 2157-6, 84110-5, THYR #### [facility] ([id number]) [address] [place] [address] 63636 Potassium [Moles/Vol] 4.0 mmol/L Normal 3.5-5.0 [facility] Comment on above: Performed By: #### C BCA, PINR, 73793-0, CMP, 3040-3, 28316-5, 5643-2, 1987-09, 54993-4, 17660-5, 215-6, 75945-2, THYR #### [facility] ([id number]) [address] [place] [address] 58688 Sodium [Moles/Vol] 134 mmol/L Normal 134-146 [facility] Comment on above: Performed By: #### C BCA, PINR, 89965-7, CMP, 3040-3, 02867-1, 5643-2, 1987-09, 97487-2, 47840-7, 2156-6, 16107-3, THYR #### [facility] ([id number]) [address] [place] [address] [place] [address] Anion gap [Moles/Vol] 3 mmol/L Low 5-15 [facility] Comment on above: Performed By: #### C BCA, PINR, 05659-7, CMP, 3040-3, 88777-9, 5643-2, 1987-09, 84776-8, 38038-0, 2156-6, 96833-8, THYR #### [facility] ([id number]) [address] [place] [address], [place] [address] Sodium [Moles/Vol] 130 mmol/L Low 134-146 [facility] Comment on above: Performed By: #### C BCA, PINR, 69549-5, CMP, 3040-3, 46387-7, 5643-2, 1987-09, 47725-3, 63607-8, 215-6, 86573-0, THYR #### [facility] ([id number]) [address] [place] [address], [place] [address] Anion gap [Moles/Vol] 6 mmol/L Normal 5-15 [facility] Comment on above: Performed By: #### C BCA, PINR, 48000-8, CMP, 3040-3, 54141-3, 5643-, 1987-09, , 86819-4, 2156-6, 26868-4, THYR #### [facility] ([id number]) [address] [place] [address], [place] [address] Chloride [Moles/Vol] 103 mmol/L Normal 98-109 [facility] Comment on above: Performed By: #### C BCA, PINR, 70297-1, CMP, 3040-3, 18552-4, 5643-, 1987-09, , 81452-3, 2156-6, 47367-0, THYR #### [facility] ([id number]) [address] [place] [address], [place] [address] CO2 [Moles/Vol] 25 mmol/L Normal 22-32 [facility] Comment on above: Performed By: #### C BCA, PINR, 60405-9, CMP, 3040-3, 01230-2, 5643-, 1987-09, , 10868-3, 2156-6, 91230-6, THYR #### [facility] ([id number]) [address] [place] [address], [place] [address] Sodium [Moles/Vol] 134 mmol/L Normal 134-146 [facility] Comment on above: Performed By: #### C BCA, PINR, 42857-4, CMP, 3040-3, 26704-9, 5643-, 1987-09, 19383-0, 51549-7, 2157-6, 12077-0, THYR #### [facility] ([id number]) [address] [place] [address], [place] [address] Glucose Glucometer (dC) [M ass/Vol]on 12-30-2023 Glucose [Mass/Vol] 170 mg/dL High 65-99 [facility] Glucose [Mass/Vol] 130 mg/dL High 65-99 [facility] Glucose [Mass/Vol] 109 mg/dL High 65-99 [facility] Glucose [Mass/Vol] 138 mg/dL High 65-99 [facility] Glucose [Mass/Vol] 113 mg/dL High 65-99 [facility] Glucose [Mass/Vol] 88 mg/dL Normal 65-99 [facility] Glucose [Mass/Vol] 164 mg/dL High 65-99 [facility] Glucose [Mass/Vol] 209 mg/dL High 65-99 [facility] Glucose [Mass/Vol] 210 mg/dL High 65-99 [facility] Glucose [Mass/Vol] 237 mg/dL High 65-99 [facility] Glucose [Mass/Vol] 180 mg/dL High 65-99 [facility] Glucose [Mass/Vol] 135 mg/dL High 65-99 [facility] Glucose [Mass/Vol] 117 mg/dL High 65-99 [facility] Glucose [Mass/Vol] 91 mg/dL Normal 65-99 [facility] Glucose [Mass/Vol] 114 mg/dL High 65-99 [facility] MAGNESIUMon 12-30-2023 Magnesium [Mass/Vol] 2.0 mg/dL Normal 1.8-2.6 [facility] Comment on above: Result Comment: SPEC IMEN HEMOLYZED, RESULTS INCREASED Performed By: #### C BCA, PINR, 92671-0, CMP, 3040-3, 18686-8, 5643-2, 1987-5, 77836-1, 77583-0, 2156-6, 95350-3, THYR #### [facility] ([id number]) [address] [place] [address], [place] [address] BASIC METABOLIC PANLon 12-28 Anion gap [Moles/Vol] 16 mmol/L High 5-15 [facility] Comment on above: Performed By: #### C BCA, PINR, 71048-3, CMP, 3040-3, 43909-9, 5643-, 1987-09, 54321-4, 75763-4, 215-6, 71428-9, THYR #### [facility] ([id number]) [address] [place] [address] 13246 Calcium [Mass/Vol] 9.5 mg/dL Normal 8.5-10.5 [facility] Comment on above: Performed By: #### C BCA, PINR, 43412-8, CMP, 3040-3, 47730-2, 5643-, 1987-09, , 53574-0, 215-6, 33852-1, THYR #### [facility] ([id number]) [address] [place] [address] 85571 Chloride [Moles/Vol] 88 mmol/L Low 98-109 [facility] Comment on above: Performed By: #### C BCA, PINR, 69698-5, CMP, 3040-3, 95417-9, 5643-, 1987-09, , 67136-2, 215-6, 83299-2, THYR #### [facility] ([id number]) [address] [place] [address] 47425 CO2 [Moles/Vol] 23 mmol/L Normal 22-32 [facility] Comment on above: Performed By: #### C BCA, PINR, 69630-0, CMP, 3040-3, 13044-6, 5643-2, 1987-09, 85047-1, 41742-7, 215-6, 62641-0, THYR #### [facility] ([id number]) [address] [place] [address] 19748 Creatinine [Mass/Vol] 1.56 mg/dL High 0.40-1.00 [facility] Comment on above: Result Comment: METH OD TRACEABLE TO IDMS STANDARD Performed By: #### C BCA, PINR, 25129-4, CMP, 3040-3, 24869-0, 5643-2, 1987-09, 32457-4, 50631-0, 2157-6, 38033-1, THYR #### [facility] ([id number]) [address] [place] [address] 04962 GFR/1.73 sq M.predicted among non-blacks MDRD (S/P/Bld) [Vol rate/Area] 39 mL/min/{1.73_m2} Low >59 [facility] Comment on above: Result Comment: Reported eGFR is based on the CKD-EPI 2020 equation that does not use a race coefficient. Performed By: #### C BCA, PINR, 37224-4, CMP, 3040-3, 82581-4, 5643-2, 1987-09, 35268-0, 20024-3, 2156-6, 32405-6, THYR #### [facility] ([id number]) [address] [place] [address] 18475 Glucose [Mass/Vol] 596 mg/dL Critically high 65-99 [facility] Comment on above: Performed By: #### C BCA, PINR, 24011-1, CMP, 3040-3, 53998-2, 5643-2, 1987-09, 68854-2, 58485-4, 215-6, 46660-7, THYR #### [facility] ([id number]) [address] [place] [address] 12750 Potassium [Moles/Vol] 4.2 mmol/L Normal 3.5-5.0 [facility] Comment on above: Performed By: #### C BCA, PINR, 79916-0, CMP, 3040-3, 95948-4, 5643-2, 1987-, 62429-1, 24485-8, 215-6, 34016-5, THYR #### [facility] ([id number]) [address] [place] [address], [place] [address] Sodium [Moles/Vol] 127 mmol/L Low 134-146 [facility] Comment on above: Performed By: #### C BCA, PINR, 78470-4, CMP, 3040-3, 36951-7, 5643-2, 1987-09, 10107-1, 36344-7, 2156-6, 86181-6, THYR #### [facility] ([id number]) [address] [place] [address] [place] [address] Urea nitrogen [Mass/Vol] 28 mg/dL High 5-23 [facility] Comment on above: Performed By: #### C BCA, PINR, 74453-9, CMP, 3040-3, 99287-1, 5643-2, 1987-09, 49910-1, 04594-0, 2156-6, 67361-0, THYR #### [facility] ([id number]) [address] [place] [address], [place] [address] BLOOD CULTUREon 12-29-2023 Bacteria identified Aer cx Nom (Bld) SPECIMEN NOTES SUBOPTIMAL VOLUME OF BLOOD COLLECTED, RESULTS MAY BE AFFECTED. CULTURE RESULTS NO GROWTH 5 DAYS Normal [facility] Comment on above: Performed By: #### C BCA, PINR, 76695-2, CMP, 3040-3, 12425-5, 5643-2, 1987-09, 13821-9, 48141-5, 215-6, 92336-8, THYR #### [facility] ([id number]) [address] [place] [address], [place] [address] Bacteria identified Aer cx Nom (Bld) CULTURE RESULTS NO GROWTH 5 DAYS Normal [facility] Beta hydroxybutyrate [Moles/ Vol]on 12-29-2023 BetaHydroxybutyrate 0.62 mmol/L High 0.02-0.27 [facility] Comment on above: Performed By: #### C BCA, PINR, 61864-5, CMP, 3040-3, 30112-6, 5643-2, 1987-, 21798-0, 92711-2, 2157-6, 77396-0, THYR #### [facility] ([id number]) [address] [place] [address] CBC AND AUTO DIFFon 12-29-19 ABSOLUTE BASOPHIL 0.1 X10E9/L Normal 0.0-0.2 [facility] Comment on above: Performed By: #### C BCA, PINR, 03110-7, CMP, 3040-3, 08680-1, 5643-2, 1987-09, , 27131-2, 215-6, 24296-4, THYR #### [facility] ([id number]) [address] [place] [address] 20070 ABSOLUTE NEUTROPHIL 18.6 X10E9/L High 1.5-6.6 [facility] Comment on above: Performed By: #### C BCA, PINR, 56789-2, CMP, 3040-3, 52799-0, 5643-2, 1987-09, 02451-9, 24069-2, 215-6, 36302-7, THYR #### [facility] ([id number]) [address] [place] [address] 25769 Basophils/100 WBC (Bld) 0.3 % Normal [facility] Comment on above: Performed By: #### C BCA, PINR, 92883-8, CMP, 3040-3, 80995-2, 5643-2, 1987-, 34084-7, 33059-5, 2157-6, 57184-8, THYR #### [facility] ([id number]) [facility] [place] [address] Eosinophils (Bld) [#/Vol] 0.1 10*3/uL Normal 0.0-0.4 [facility] Comment on above: Performed By: #### C BCA, PINR, 77372-9, CMP, 3040-3, 62240-0, 5643-2, 1987-09, 04342-5, 82139-2, 2157-6, 32190-8, THYR #### [facility] ([id number]) [address] [place] [address] 27681 Eosinophils/100 WBC (Bld) 0.3 % Normal [facility] Comment on above: Performed By: #### C BCA, PINR, 83972-7, CMP, 3040-3, 16855-3, 5643-2, 1987-09, 47888-4, 16038-4, 215-6, 90123-4, THYR #### [facility] ([id number]) [address] [place] [address] 23446 Erythrocyte distribution width (RBC) [Ratio] 15.9 % High 11.5-15.0 [facility] Comment on above: Performed By: #### C BCA, PINR, 42545-3, CMP, 3040-3, 11375-1, 5643-2, 1987-09, 09532-3, 38738-1, 215-6, 04311-6, THYR #### [facility] ([id number]) [address] [place] [address] 35453 Hematocrit (Bld) [Volume fraction] 47.4 % High 35-47 [facility] Comment on above: Performed By: #### C BCA, PINR, 70181-8, CMP, 3040-3, 83341-6, 5643-2, 1987-, 18122-5, 07569-6, 2157-6, 36329-6, THYR #### [facility] ([id number]) [address] [place] [address] 23932 Hemoglobin (Bld) [Mass/Vol] 15.5 g/dL Normal 11.7-15.5 [facility] Comment on above: Performed By: #### C BCA, PINR, 67056-9, CMP, 3040-3, 55731-3, 5643-2, 1987-, 40224-4, 54859-7, 2157-6, 20875-3, THYR #### [facility] ([id number]) [address] [place] [address] 31656 Lymphocytes (Bld) [#/Vol] 1.3 10*3/uL Normal 1.0-3.5 [facility] Comment on above: Performed By: #### C BCA, PINR, 14407-6, CMP, 3040-3, 90757-9, 5643-2, 1987-09, 08988-2, 24718-2, 2157-6, 73072-2, THYR #### [facility] ([id number]) [address] [place] [address] 18389 Lymphocytes/100 WBC (Bld) 5.9 % Normal [facility] Comment on above: Performed By: #### C BCA, PINR, 10312-7, CMP, 3040-3, 73831-2, 5643-2, 1987-09, 78210-9, 59830-2, 2157-6, 54653-7, THYR #### [facility] ([id number]) [address] [place] [address] 63068 MCH (RBC) [Entitic mass] 28.3 pg Normal 27-34 [facility] Comment on above: Performed By: #### C BCA, PINR, 37950-5, CMP, 3040-3, 87569-2, 5643-2, 1987-09, 77082-0, 09662-4, 2157-6, 36297-1, THYR #### [facility] ([id number]) [address] [place] [address] MCHC (RBC) [Mass/Vol] 32.7 g/dL Normal 32-36 [facility] Comment on above: Performed By: #### C BCA, PINR, 05173-8, CMP, 3040-3, 71187-0, 5643-2, 1987-, 58614-7, 36040-0, 2157-6, 30248-5, THYR #### [facility] ([id number]) [address] [place] [address] MCV (RBC) [Entitic vol] 87 fL Normal 80-100 [facility] Comment on above: Performed By: #### C BCA, PINR, 82512-2, CMP, 3040-3, 15680-9, 5643-2, 1987-, 43942-9, 59450-6, 2157-6, 14495-1, THYR #### [facility] ([id number]) [address] [place] [address] Monocytes (Bld) [#/Vol] 1.4 10*3/uL High 0-0.9 [facility] Comment on above: Performed By: #### C BCA, PINR, 50160-5, CMP, 3040-3, 37442-1, 5643-2, 1987-, 50516-3, 26592-0, 215-6, 19775-7, THYR #### [facility] ([id number]) [address] [place] [address] Monocytes/100 WBC (Bld) 6.5 % Normal [facility] Comment on above: Performed By: #### C BCA, PINR, 62030-4, CMP, 3040-3, 05355-8, 5643-2, 1987-, 10647-8, 04849-8, 2157-6, 04066-8, THYR #### [facility] ([id number]) [address] [place] [address] Neutrophils/100 WBC (Bld) 87.0 % Normal [facility] Comment on above: Performed By: #### C JOSTIN, PINR, 43264-0, CMP, 3040-3, 78904-1, 5643-2, 1987-, 96219-7, 51603-1, 2157-6, 26797-8, THYR #### [facility] ([id number]) [address] [place] [address] 36052 Platelet mean volume (Bld) [Entitic vol] 9.3 fL Normal 7-12 [facility] Comment on above: Performed By: #### C JOSTIN, PINR, 01146-1, CMP, 3040-3, 51086-1, 5643-2, 1987-09, 07309-6, 82710-1, 2157-6, 01367-8, THYR #### [facility] ([id number]) [address] [place] [address] 46650 Platelets (Bld) [#/Vol] 306 10*3/uL Normal 150-450 [facility] Comment on above: Performed By: #### C JOSTIN, PINR, 29503-1, CMP, 3040-3, 65482-4, 5643-2, 1987-09, 99454-8, 77467-2, 2157-6, 21285-7, THYR #### [facility] ([id number]) [address] [place] [address] [place] [address] RBC COUNT 5.48 X10E12/L High 3.80-5.20 [facility] Comment on above: Performed By: #### C BCA, PINR, 12159-6, CMP, 3040-3, 05141-4, 5643-2, 1987-09, 52961-7, 06415-5, 2157-6, 27846-0, THYR #### [facility] ([id number]) [address] [place] [address] 14471 WBC (Bld) [#/Vol] 21.4 10*3/uL High 4.0-11.0 [facility] Comment on above: Performed By: #### C BCA, PINR, 98158-0, CMP, 3040-3, 88704-8, 5643-2, 1987-09, , 27452-0, 2156-6, 88882-1, THYR #### [facility] ([id number]) [address] [place] [address] DRUG SCREEN, URINEon 024 AMPHETAMINE/METHAMP Negative Normal NEG [facility] Comment on above: Result Comment: AMPH /METH screening cut off = 1000 ng/mL Performed By: #### C BCA, PINR, 38212-2, CMP, 3040-3, 37413-1, 5643-, 1987-09, , 35712-8, 2156-, 23956-2, THYR #### [facility] ([id number]) [address] [place] [address] 97388 BARBITURATES Negative Normal NEG [facility] Comment on above: Result Comment: Kylah iturates screening cut off value = 200 ng/mL Performed By: #### C BCA, PINR, 44611-1, CMP, 3040-3, 98065-0, 43-, 1987-09, , 38185-3, 215-6, 66984-1, THYR #### [facility] ([id number]) [address] [place] [address] 26612 BENZODIAZEPINES Negative Normal NEG [facility] Comment on above: Result Comment: Portillo odiazepines screening cut off value = 200 ng/mL Performed By: #### C BCA, PINR, 48926-2, CMP, 3040-3, 90232-2, 5643-2, 1987-09, , 94142-8, 2157-6, 00876-1, THYR #### [facility] ([id number]) [address] [place] [address] 29092 CANNABINOIDS Positive Abnormal NEG [facility] Comment on above: Result Comment: Conf irmation available upon request. Cannabinoids/THC screening cut off value = 50 ng/mL Performed By: #### C BCA, PINR, 13024-4, CMP, 3040-3, 22405-4, 5643-2, 1987-09, 24406-9, 62973-9, 215-6, 05507-3, THYR #### [facility] ([id number]) [address] [place] [address] 08104 COCAINE METABOLITE Negative Normal NEG [facility] Comment on above: Result Comment: Coca ine screening cut off value = 300 ng/mL Performed By: #### C BCA, PINR, 19273-5, CMP, 3040-3, 61991-4, 5643-2, 1987-09, 07355-8, 79254-6, 2156-6, 11596-2, THYR #### [facility] ([id number]) [address] [place] [address] 79835 ECSTASY Negative Normal NEG [facility] Comment on above: Result Comment: Ecst asy screening cut off value = 500 ng/mL This report is intended for use in clinical monitoring or management of patients. Performed By: #### C BCA, PINR, 56633-6, CMP, 3040-3, 40421-9, 5643-, 1987-09, 52081-1, 11514-1, 215-6, 70359-4, THYR #### [facility] ([id number]) [address] [place] [address] 22460 METHADONE Negative Normal NEG [facility] Comment on above: Result Comment: Meth adone screening cut off value = 300 ng/mL. Performed By: #### C BCA, PINR, 84794-7, CMP, 3040-3, 16842-2, 5643-2, 1987-, 76929-0, 26468-1, 2157-6, 81436-6, THYR #### [facility] ([id number]) [address] [place] [address] OPIATES Negative Normal NEG [facility] Comment on above: Result Comment: Opia fidel screening cut off value = 300 ng/mL NOTE: This test is used for the detection of codeine, hydrocodone (>1000 ng/mL), morphine and hydromorphone (>900 ng/mL) in urine. Performed By: #### C BCA, PINR, 16440-0, CMP, 3040-3, 84110-7, 5643-2, 1987-09, 33573-7, 26901-9, 2157-6, 08871-3, THYR #### [facility] ([id number]) [address] [place] [address]15[address] OXYCODONE Negative Normal NEG [facility] Comment on above: Result Comment: Oxyc odone screening cut off value = 300 ng/mL NOTE: This test is used for the detection of oxycodone and oxymorphone in urine. Performed By: #### C BCA, PINR, 21289-4, CMP, 3040-3, 27241-8, 5643-2, 1987-09, 01513-4, 43333-6, 215-6, 23853-4, THYR #### [facility] ([id number]) [address] [place] [address] [place] [address] PHENCYCLIDINE Negative Normal NEG [facility] Comment on above: Result Comment: Phen cyclidine screening cut off value = 25 ng/mL Performed By: #### C BCA, PINR, 73928-7, CMP, 3040-3, 77346-0, 5643-2, 1987-09, 16584-7, 77951-6, 2157-6, 68531-2, THYR #### [facility] ([id number]) [address] [place] [address] ELECTROLYTESon 12-29-2023 Anion gap [Moles/Vol] 8 mmol/L Normal 5-15 [facility] Comment on above: Performed By: #### C BCA, PINR, 01636-8, CMP, 3040-3, 69984-6, 5643-2, 1987-, 58293-0, 53543-1, 215-6, 26461-5, THYR #### [facility] ([id number]) [address] [place] [address] Chloride [Moles/Vol] 98 mmol/L Normal 98-109 [facility] Comment on above: Performed By: #### C BCA, PINR, 04264-1, CMP, 3040-3, 16403-2, 5643-2, 1987-09, , 41577-0, 2156-10, 71252-2, THYR #### [facility] ([id number]) [address] [place] [address], [place] [address] CO2 [Moles/Vol] 25 mmol/L Normal 22-32 [facility] Comment on above: Performed By: #### C BCA, PINR, 70532-0, CMP, 3040-3, 53085-5, 5643-2, 1987-, 98465-7, 91369-7, 2156-6, 90531-2, THYR #### [facility] ([id number]) [address] [place] [address] Potassium [Moles/Vol] 4.6 mmol/L Normal 3.5-5.0 [facility] Comment on above: Result Comment: SPEC IMEN HEMOLYZED, RESULTS INCREASED Performed By: #### C BCA, PINR, 53162-2, CMP, 3040-3, 79374-9, 5643-2, 1987-, 36044-7, 78733-3, 2156-6, 18257-6, THYR #### [facility] ([id number]) [address] [place] [address] Sodium [Moles/Vol] 131 mmol/L Low 134-146 [facility] Comment on above: Performed By: #### C BCA, PINR, 26934-3, CMP, 3040-3, 20433-7, 5643-2, 1987-, 51900-4, 86246-8, 2157-6, 58735-7, THYR #### [facility] ([id number]) [address] [place] [address], [place] [address] Anion gap [Moles/Vol] 9 mmol/L Normal 5-15 [facility] Comment on above: Performed By: #### C BCA, PINR, 18240-8, CMP, 3040-3, 86574-5, 5643-2, 1987-09, 87889-6, 01031-2, 215-6, 36626-6, THYR #### [facility] ([id number]) [address] [place] [address], [place] [address] Chloride [Moles/Vol] 95 mmol/L Low 98-109 [facility] Comment on above: Performed By: #### C BCA, PINR, 92751-7, CMP, 3040-3, 62921-4, 5643-2, 1987-09, , 50965-4, 215-6, 79278-4, THYR #### [facility] ([id number]) [address] [place] [address], [place] [address] CO2 [Moles/Vol] 26 mmol/L Normal 22-32 [facility] Comment on above: Performed By: #### C BCA, PINR, 85219-8, CMP, 3040-3, 68792-9, 5643-2, 1987-, 54266-7, 91224-0, 2157-6, 40298-2, THYR #### [facility] ([id number]) [address] [place] [address] Potassium [Moles/Vol] 4.0 mmol/L Normal 3.5-5.0 [facility] Comment on above: Performed By: #### C BCA, PINR, 44368-9, CMP, 3040-3, 96690-3, 5643-2, 1987-, 10463-0, 59955-2, 215-6, 91641-0, THYR #### [facility] ([id number]) [address] [place] [address] Sodium [Moles/Vol] 130 mmol/L Low 134-146 [facility] Comment on above: Performed By: #### C BCA, PINR, 96680-5, CMP, 3040-3, 84071-5, 5643-2, 1987-09, , 00900-5, 2156-6, 23374-0, THYR #### [facility] ([id number]) [address] [place] [address] Anion gap [Moles/Vol] 9 mmol/L Normal 5-15 [facility] Comment on above: Performed By: #### C BCA, PINR, 62322-5, CMP, 3040-3, 87948-5, 5643-2, 1987-09, , 25387-8, 2156-6, 29398-1, THYR #### [facility] ([id number]) [address] [place] [address] [place] [address] Chloride [Moles/Vol] 94 mmol/L Low 98-109 [facility] Comment on above: Performed By: #### C BCA, PINR, 79360-2, CMP, 3040-3, 46689-1, 5643-2, 1987-, 16272-6, 52944-1, 215-6, 19002-4, THYR #### [facility] ([id number]) [address] [place] [address] [place] [address] CO2 [Moles/Vol] 27 mmol/L Normal 22-32 [facility] Comment on above: Performed By: #### C BCA, PINR, 96216-8, CMP, 3040-3, 01500-3, 5643-2, 1987-09, 38351-4, 68406-0, 2157-6, 04577-3, THYR #### [facility] ([id number]) [address] [place] [address] Potassium [Moles/Vol] 3.8 mmol/L Normal 3.5-5.0 [facility] Comment on above: Performed By: #### C BCA, PINR, 45077-1, CMP, 3040-3, 00617-7, 5643-, 1987-09, , 88218-6, 2157-6, 35175-6, THYR #### [facility] ([id number]) [address] [place] [address] Sodium [Moles/Vol] 130 mmol/L Low 134-146 [facility] Comment on above: Performed By: #### C BCA, PINR, 67708-1, CMP, 3040-3, 46227-9, 5643-2, 1987-09, 57631-5, 39806-0, 2157-6, 05593-8, THYR #### [facility] ([id number]) [address] [place] [address] [place] [address] Anion gap [Moles/Vol] 10 mmol/L Normal 5-15 [facility] Comment on above: Performed By: #### C BCA, PINR, 74919-5, CMP, 3040-3, 30281-9, 5643-2, 1987-09, 41574-8, 96118-3, 2157-6, 26781-8, THYR #### [facility] ([id number]) [address] [place] [address] [place] [address] Chloride [Moles/Vol] 92 mmol/L Low 98-109 [facility] Comment on above: Performed By: #### C BCA, PINR, 98124-4, CMP, 3040-3, 12089-1, 5643-2, 1987-09, 21232-4, 90075-5, 215-6, 11730-6, THYR #### [facility] ([id number]) [address] [place] [address] [place] [address] CO2 [Moles/Vol] 26 mmol/L Normal 22-32 [facility] Comment on above: Performed By: #### C BCA, PINR, 54539-4, CMP, 3040-3, 50832-2, 5643-2, 1987-09, , 63400-0, 2156-6, 60367-8, THYR #### [facility] ([id number]) [address] [place] [address] [place] [address] Potassium [Moles/Vol] 3.9 mmol/L Normal 3.5-5.0 [facility] Comment on above: Performed By: #### C BCA, PINR, 97925-1, CMP, 3040-3, 50921-2, 5643-2, 1987-09, , , 2156, 11574-4, THYR #### [facility] ([id number]) [address] [place] [address] [place] [address] Sodium [Moles/Vol] 128 mmol/L Low 134-146 [facility] Comment on above: Performed By: #### C BCA, PINR, 34492-0, CMP, 3040-3, 95717-1, 5643-2, 1987-09, , 89325-7, 2156-6, 27565-1, THYR #### [facility] ([id number]) [address] [place] [address] [place] [address] Glucose Glucometer (BldC) [M ass/Vol]on 12-29-2023 Glucose [Mass/Vol] 145 mg/dL High 65-99 [facility] Glucose [Mass/Vol] 150 mg/dL High 65-99 [facility] Glucose [Mass/Vol] 177 mg/dL High 65-99 [facility] Glucose [Mass/Vol] 172 mg/dL High 65-99 [facility] Glucose [Mass/Vol] 213 mg/dL High 65-99 [facility] Glucose [Mass/Vol] 254 mg/dL High 65-99 [facility] Glucose [Mass/Vol] 296 mg/dL High 65-99 [facility] Glucose [Mass/Vol] 309 mg/dL High 65-99 [facility] Glucose [Mass/Vol] 297 mg/dL High 65-99 [facility] Glucose [Mass/Vol] 285 mg/dL High 65-99 [facility] Glucose [Mass/Vol] 343 mg/dL High 65-99 [facility] Glucose [Mass/Vol] 477 mg/dL Critically high 65-99 [facility] BEDSIDE GLUCOSE LAB >500 Critically high 65-99 [facility] Comment on above: Result Comment: SEE LAB RESULTS FOR CONFIRMATION LIPASEon 12-29-2023 Lipase [Catalytic activity/Vol] 47 U/L High 17-40 [facility] Comment on above: Performed By: #### C BCA, PINR, 73800-2, CMP, 3040-3, 94320-9, 5643-2, 1987-09, 89624-8, 60001-3, 2157-6, 18991-4, THYR #### [facility] ([id number]) [address] [place] [address], [place] [address] LIVER PANELon 12-29-2023 Albumin [Mass/Vol] 4.1 g/dL Normal 3.2-5.3 [facility] Comment on above: Performed By: #### C BCA, PINR, 62727-0, CMP, 3040-3, 90239-4, 5643-2, 1987-09, 52808-3, 65607-9, 2157-6, 98012-1, THYR #### [facility] ([id number]) [address] [place] [address] ALP [Catalytic activity/Vol] 142 U/L High 39-130 [facility] Comment on above: Performed By: #### C BCA, PINR, 01842-4, CMP, 3040-3, 66517-0, 5643-, 1987-09, , 40454-5, 215-6, 88643-6, THYR #### [facility] ([id number]) [address] [place] [address] 56844 ALT [Catalytic activity/Vol] 23 U/L Normal 0-31 [facility] Comment on above: Performed By: #### C BCA, PINR, 97265-4, CMP, 3040-3, 80754-1, 5643-, 1987-09, , 12270-3, 215-6, 95657-4, THYR #### [facility] ([id number]) [address] [place] [address] 49284 AST [Catalytic activity/Vol] 19 U/L Normal 0-41 [facility] Comment on above: Performed By: #### C BCA, PINR, 11233-3, CMP, 3040-3, 20556-6, 5643-, 1987-09, , 00704-4, 2156-6, 31527-6, THYR #### [facility] ([id number]) [address] [place] [address]8421 Bilirubin [Mass/Vol] 1.0 mg/dL Normal 0.3-1.2 [facility] Comment on above: Performed By: #### C BCA, PINR, 42100-7, CMP, 3040-3, 24420-2, 5643-2, 1987-09, 74983-4, 71895-5, 215-6, 08446-6, THYR #### [facility] ([id number]) [address] [place] [address] Bilirubin.direct [Mass/Vol] 0.2 mg/dL Normal 0.0-0.4 [facility] Comment on above: Performed By: #### C BCA, PINR, 15208-5, CMP, 3040-3, 27477-6, 5643-2, 1987-09, 74324-3, 24127-7, 2156-6, 82893-4, THYR #### [facility] ([id number]) [address] [place] [address] Protein [Mass/Vol] 8.3 g/dL High 6.0-8.0 [facility] Comment on above: Performed By: #### C BCA, PINR, 90543-5, CMP, 3040-3, 23271-9, 5643-2, 1987-09, 67412-9, 12100-9, 2156-6, 46814-9, THYR #### [facility] ([id number]) [address] [place] [address] 89636 Lactate (P brinda) [Moles/Vol]o n 12-29-2023 LACTATE W/REFLEX 1.3 mmol/L Normal 0.4-2.0 [facility] Comment on above: Result Comment: Result did not trigger repeat Lactate, re-order if needed. Performed By: #### C BCA, PINR, 35723-2, CMP, 3040-3, 23687-2, 5643-2, 1987-09, 20087-8, 34324-3, 2156-6, 85147-9, THYR #### [facility] ([id number]) [address] [place] [address] 96910 Lactate [Moles/Vol] 2.8 mmol/L High 0.4-2.0 [facility] Comment on above: Performed By: #### C BCA, PINR, 62972-5, CMP, 3040-3, 29336-6, 5643-2, 1987-, 25648-3, 70006-6, 2157-6, 68808-4, THYR #### [facility] ([id number]) [address] [place] [address] 72070 LACTATE W/REFLEX 3.8 mmol/L High 0.4-2.0 [facility] Comment on above: Performed By: #### C BCA, PINR, 47910-0, CMP, 3040-3, 15617-6, 5643-2, 1987-, 85134-1, 78277-6, 2157-6, 84010-6, THYR #### [facility] ([id number]) [address] [place] [address]116 MAGNESIUMon 12-29-2023 Magnesium [Mass/Vol] 1.8 mg/dL Normal 1.8-2.6 [facility] Comment on above: Performed By: #### C BCA, PINR, 46376-6, CMP, 3040-3, 08642-5, 5643-2, 1987-, 86164-7, 24427-2, 2157-6, 55689-8, THYR #### [facility] ([id number]) [address] [place] [address] SARS/FLU A+B/RSV by NAAT/Mol ecularon 12-29-2023 SARS/FLU [...] operators who are performing tests using either [employer] or [employer] systems and is limited to laboratories that [...] repeat. Fact Sheet for Healthcare Providers: https://www.fda.gov/m edia/246355/download Fact Sheet for Patients: https://www.fda.gov/m edia/688188/download Normal [facility] Comment on above: Performed By: #### C BCA, PINR, 03870-1, CMP, 3040-3, 07856-6, 5643-2, 1988-5, 02813-8, 96431-1, 2157-6, 66240-4, THYR #### [facility] ([id number]) [address] [place] [address], [place] [address] Troponin I.cardiac High sens itivity method [Mass/Vol]on 12-29-2023 1 HOUR TROP I, HIGH SENSITIVITY 24 ng/L High <16 [facility] Comment on above: Result Comment: Elevations of hs-Troponin may be due to causes other than myocardial ischemia. Recommend serial hs-Troponin testing be performed. For the initial evaluation and management of chest pain patients, refer to the algorithms linked below. Emergency Patient: [email or web address] Inpatient: [email or web address] Performed By: #### C BCA, PINR, 28342-3, CMP, 3040-3, 58550-0, 5643-2, 1987-, 56614-5, 11416-2, 2157-6, 19959-8, THYR #### [facility] ([id number]) [address] [place] [address] 03183 TROPONIN I, HIGH SENSITIVITY 29 ng/L High <16 [facility] Comment on above: Result Comment: Elevations of hs-Troponin may be due to causes other than myocardial ischemia. Recommend serial hs-Troponin testing be performed. For the initial evaluation and management of chest pain patients, refer to the algorithms linked below. Emergency Patient: [email or web address] Inpatient: [email or web address] Performed By: #### C BCA, PINR, 43943-5, CMP, 3040-3, 41634-8, 5643-2, 1987-, 66219-7, 81968-1, 2157-6, 92224-0, THYR #### [facility] ([id number]) [address] [place] [address] 31915 URN MACROSCOPIC NURon 2023 BILIRUBIN MAO Negative Normal NEG [facility] Comment on above: Performed By: #### C BCA, PINR, 75641-3, CMP, 3040-3, 60529-7, 5643-2, 1987-09, 60759-1, 64121-4, 2157-6, 04756-0, THYR #### [facility] ([id number]) [address] [place] [address] 04574 BLOOD/HGB MAO Small Abnormal NEG [facility] Comment on above: Performed By: #### C BCA, PINR, 88429-4, CMP, 3040-3, 54001-4, 5643-2, 1987-09, 89432-1, 14729-9, 2157-6, 57167-8, THYR #### [facility] ([id number]) [address] [place] [address] 16796 GLUCOSE MAO >=1000 Abnormal NEG [facility] Comment on above: Performed By: #### C BCA, PINR, 72563-2, CMP, 3040-3, 56266-3, 5643-2, 1987-09, 71815-5, 01641-5, 2157-6, 54902-4, THYR #### [facility] ([id number]) [address] [place] [address] 36034 KETONES MAO Trace Abnormal NEG [facility] Comment on above: Performed By: #### C BCA, PINR, 43059-5, CMP, 3040-3, 54491-8, 5643-2, 1987-09, 44641-7, 69475-9, 2157-6, 33956-8, THYR #### [facility] ([id number]) [address] [place] [address] 29992 LEUKOCYTE ESTERASE MAO Negative Normal NEG [facility] Comment on above: Performed By: #### C BCA, PINR, 39104-1, CMP, 3040-3, 70484-9, 5643-2, 1987-09, 20695-4, 21301-7, 2157-6, 51286-9, THYR #### [facility] ([id number]) [address] [place] [address] 40833 NITRITE MAO Negative Normal NEG [facility] Comment on above: Performed By: #### C BCA, PINR, 77514-1, CMP, 3040-3, 42837-0, 5643-2, 1987-09, 98353-3, 25403-0, 2157-6, 21806-7, THYR #### [facility] ([id number]) [address] [place] [address] 01981 PH MAO 5.5 Normal 5.0-8.5 [facility] Comment on above: Performed By: #### C BCA, PINR, 74353-7, CMP, 3040-3, 84547-1, 5643-2, 1987-09, 02840-4, 49600-3, 2157-6, 91170-7, THYR #### [facility] ([id number]) [address] [place] [address] 36764 PROTEIN MAO Trace Abnormal NEG [facility] Comment on above: Performed By: #### C BCA, PINR, 07880-5, CMP, 3040-3, 10666-8, 5643-2, 1987-, 48331-7, 89062-9, 2157-6, 20732-6, THYR #### [facility] ([id number]) [address] [place] [address] 17922 SPECIFIC GRAVITY MAO 1.010 Normal 1.003-1.035 [facility] Comment on above: Performed By: #### C BCA, PINR, 33602-8, CMP, 3040-3, 39084-6, 5643-2, 1987-09, 84289-6, 72295-7, 2157-6, 25204-8, THYR #### [facility] ([id number]) [address] [place] [address] 88605 UROBILINOGEN MAO 0.2 eu/dL Normal <1.1 [facility] Comment on above: Performed By: #### C BCA, PINR, 95709-2, CMP, 3040-3, 80974-5, 5643-2, 1987-09, 14770-5, 15529-8, 215-6, 93025-6, THYR #### [facility] ([id number]) [address] [place] [address] 90470 VENOUS BLOOD GASon 4 DONALD'S TEST Normal [facility] Comment on above: Performed By: #### C BCA, PINR, 72316-6, CMP, 3040-3, 16100-8, 5643-2, 1987-09, 35787-7, 42266-8, 2156-6, 76403-7, THYR #### [facility] ([id number]) [address] [place] [address] 60676 Base excess Calc (Bld) [Moles/Vol] 0.0 mmol/L Normal 0.0-2.0 [facility] Comment on above: Performed By: #### C BCA, PINR, 17466-6, CMP, 3040-3, 06916-5, 5643-, 1987-09, , 42862-4, 215-6, 78770-6, THYR #### [facility] ([id number]) [address] [place] [address] [place] [address] Body temperature 98.6 [degF] Normal 37.0 [facility] Comment on above: Performed By: #### C BCA, PINR, 57209-6, CMP, 3040-3, 71759-2, 5643-2, 1987-09, , 52923-8, 215-6, 30369-6, THYR #### [facility] ([id number]) [address] [place] [address] 94286 HCO3 (Bld) [Moles/Vol] 23.4 mmol/L Normal 20.0-24.0 [facility] Comment on above: Performed By: #### C BCA, PINR, 42251-6, CMP, 3040-3, 23809-3, 5643-2, 1987-09, 77761-2, 89105-3, 2157-6, 63410-7, THYR #### [facility] ([id number]) [address] [place] [address], [place] [address] INSP. O2 CONC. 21 % Normal [facility] Comment on above: Performed By: #### C BCA, PINR, 61093-6, CMP, 3040-3, 53474-4, 5643-2, 1987-09, , 65088-6, 2156-6, 23250-3, THYR #### [facility] ([id number]) [address] [place] [address], [place] [address] Oxygen saturation in Blood 88.0 % Normal >80.0 [facility] Comment on above: Performed By: #### C BCA, PINR, 07468-4, CMP, 3040-3, 18241-8, 5643-2, 1987-09, 00247-2, 05094-0, 215-6, 68456-6, THYR #### [facility] ([id number]) [address] [place] [address] [place] [address] OXYGEN SOURCE [employer] [facility] Comment on above: Performed By: #### C BCA, PINR, 96146-5, CMP, 3040-3, 23070-5, 5643-2, 1987-09, 18640-9, 66513-2, 2157-6, 16060-4, THYR #### [facility] ([id number]) [address] [place] [address] [place] [address] PCO2, VENOUS 33.5 MMHG Low 35-50 [facility] Comment on above: Performed By: #### C BCA, PINR, 96318-5, CMP, 3040-3, 89997-6, 5643-2, 1987-09, 32033-3, 15163-8, 2157-6, 46954-6, THYR #### [facility] ([id number]) [address] [place] [address] [place] [address] PH, VENOUS 7.452 High 7.320-7.420 [facility] Comment on above: Performed By: #### C BCA, PINR, 71079-7, CMP, 3040-3, 09345-4, 5643-2, 1987-09, 23833-4, 65055-9, 2157-6, 81352-1, THYR #### [facility] ([id number]) [address] [place] [address] [place] [address] PO2, VENOUS 52 MMHG High 30-50 [facility] Comment on above: Performed By: #### C BCA, PINR, [id number], CMP, 3040-3, 37261-9, 5643-2, 1987-09, 84204-6, 24199-7, 2157-6, 64324-4, THYR #### [facility] ([id number]) [address] [place] [address] [place] [address] SAMPLE SITE N/A Normal [facility] Comment on above: Performed By: #### C BCA, PINR, [id number], CMP, 3040-3, 64052-0, 5643-2, 1987-09, 58566-7, 64223-2, 2157-6, 82762-2, THYR #### [facility] ([id number]) [address] [place] [address] [place] [address] SAMPLE TYPE VENOUS Normal [facility] Comment on above: Performed By: #### C BCA, PINR, [id number], CMP, 3040-3, 06604-9, 5643-2, 1987-09, 01719-2, 15101-8, 2157-6, 27455-8, THYR #### [facility] ([id number]) [address] [facility], [place] [address] XR CHEST 1 VWon 12-29-2023 XR CHEST 1 VW XR CHEST 1 VW CLINICAL INFORMATION: Hyperglycemia. Nausea. Diaphoresis. COMPARISON: Chest radiograph dated 10/16/2023. VIEWS: 1. FINDINGS: Cardiac and mediastinal shadows are normal. No infiltrates. No effusions. No pneumothorax. No free air below the diaphragm. IMPRESSION: No acute cardiopulmonary disease. Finalized by Alissa Harris MD on 12/29/2023 10:14 AM Normal [facility] BASIC METABOLIC PANELon 08-25 Anion gap [Moles/Vol] 17 mmol/L Normal 7-20 [facility] Comment on above: Performed By: #### L AB15 #### [facility] (BEAKER) [address] [place] [address] Calcium [Mass/Vol] 8.7 mg/dL Normal 8.6-10.3 [facility] Comment on above: Performed By: #### L AB15 #### [facility] ([facility]) [address] [place] [address] Chloride [Moles/Vol] 102 mmol/L Normal 98-107 [facility] Comment on above: Performed By: #### L AB15 #### [facility] (BEAK[facility]) [address] [place] [address] CO2 [Moles/Vol] 24 mmol/L Normal 21-31 [facility] Comment on above: Performed By: #### L AB15 #### [facility] (BEAK[facility]) [address] [place] [address] Creatinine [Mass/Vol] 0.71 mg/dL Normal 0.60-1.20 [facility] Comment on above: Performed By: #### L AB15 #### [facility] ([facility]) [address] [place] [address] GLOMERULAR FILTRATION RATE ML/MIN/1.73 SQ M.PREDICTED 100.4 mL/min/1.73m*2 Normal >60.0 [facility] Comment on above: Result Comment: [facility]???s estimated glomerular filtration rate (eGFR) [...] individuals. Performed By: #### L [id number] #### [facility] ([facility] [address] [place] [address] Glucose [Mass/Vol] 146 mg/dL High 70-100 [facility] Comment on above: Performed By: #### L AB15 #### [facility] ([facility] [address] [place] [address] Potassium [Moles/Vol] 3.9 mmol/L Normal 3.5-5.1 [facility] Comment on above: Performed By: #### L [id number] #### [facility] ([facility] [address] [place] [address] Sodium [Moles/Vol] 139 mmol/L Normal 136-145 [facility] Comment on above: Performed By: #### L AB15 #### [facility] ([facility] [address] [place] [address] Urea nitrogen [Mass/Vol] 17 mg/dL Normal 7-25 [facility] Comment on above: Performed By: #### L [id number] #### [facility] ([facility] ([facility])) [address] [place] [address] UREA NITROGEN/CREATININE (MASS RATIO) IN SER/PLAS 23.9 Normal [facility] Comment on above: Performed By: #### L [id number] #### [facility] ([facility] ([facility])) [address] [place] [address] CBC WITH AUTO DIFFERENTIALon 09-11-2023 Basophils (Bld) [#/Vol] 0.07 10*3/uL Normal 0.00-0.20 [facility] Comment on above: Performed By: #### L [id number] #### [facility] (BEAKER) [address] [place] [address] Basophils/100 WBC (Bld) 0.4 % Normal 0.0-1.0 [facility] Comment on above: Performed By: #### L [id number] #### [facility] ([facility] ([facility])) [address] [place] [address] Eosinophils (Bld) [#/Vol] 0.50 10*3/uL Normal 0.00-0.50 [facility] Comment on above: Performed By: #### L [id number] #### [facility] [address] [place] [address] Eosinophils/100 WBC (Bld) 3.2 % Normal 0.0-6.0 [facility] Comment on above: Performed By: #### L [id number] #### [facility] ([facility] ([facility])) [address] [place] [address] Erythrocyte distribution width (RBC) [Ratio] 16.8 % High 11.5-15.0 [facility] Comment on above: Performed By: #### L [id number] #### [facility] [address] [place] [address] ERYTHROCYTE MEAN CORPUSCULAR HEMOGLOBIN CONCENTRATION (G/DL) BY AUTOMATED 32.6 g/dL Normal 32.0-35.0 [facility] Comment on above: Performed By: #### L [id number] #### [facility] [address] [place] [address] Hematocrit (Bld) [Volume fraction] 38.9 % Normal 36.0-48.0 [facility] Comment on above: Performed By: #### L [id number] #### [facility] (BEAKER) [address] [place] [address] Hemoglobin (Bld) [Mass/Vol] 12.7 g/dL Normal 12.0-15.0 [facility] Comment on above: Performed By: #### L [id number] #### [facility] (BEAKER) [address] [address] Immature granulocytes (Bld) [#/Vol] 0.36 10*3/uL High 0.00-0.20 [facility] Comment on above: Performed By: #### L [id number] #### [facility] (BEAKER) [address] [place] [address] Immature granulocytes/100 WBC (Bld) 2.3 % High 0.0-1.0 [facility] Comment on above: Performed By: #### L [id number] #### [facility] [address] [place] [address] Lymphocytes (Bld) [#/Vol] 3.31 10*3/uL Normal 1.20-4.00 [facility] Comment on above: Performed By: #### L [id number] #### [facility] (BEAKER) [address] [place] [address] Lymphocytes/100 WBC (Bld) 21.0 % Normal 20.0-45.0 [facility] Comment on above: Performed By: #### L [id number] #### [facility] (BEAKER) [address] [place] [address] MCH (RBC) [Entitic mass] 27.9 pg Normal 27.0-33.0 [facility] Comment on above: Performed By: #### L [id number] #### [facility] (BEAKER) [address] [place] [address] MCV (RBC) [Entitic vol] 85.5 fL Normal 82.0-98.0 [facility] Comment on above: Performed By: #### L [id number] #### [facility] (BEAKER) [address] [place] [address] Monocytes (Bld) [#/Vol] 1.12 10*3/uL High 0.10-1.00 [facility] Comment on above: Performed By: #### L [id number] #### [facility] ([facility] [address] [place] [address] Monocytes/100 WBC (Bld) 7.1 % Normal 5.0-12.0 [facility] Comment on above: Performed By: #### L [id number] #### [facility] ([facility])) [address] [place] [address] Neutrophils (Bld) [#/Vol] 10.40 10*3/uL High 1.60-7.60 [facility] Comment on above: Performed By: #### L [id number] #### [facility] ([facility])) [address] [place] [address] Neutrophils/100 WBC (Bld) 66.0 % Normal 40.0-72.0 [facility] Comment on above: Performed By: #### L [id number] #### [facility] ([facility] ([facility])) [address] [place] [address] NRBC (PER 100 WBCS) BY AUTOMATED COUNT 0.0 % Normal 0 [facility] Comment on above: Performed By: #### L [id number] #### [facility] ([facility])) [address] [place] [address] PLATELETS (10*3/UL) IN BLOOD AUTOMATED COUNT 194 10*3/uL Normal 150-400 [facility] Comment on above: Performed By: #### L [id number] #### [facility] ([facility])) [address] [place] [address] RBC (Bld) [#/Vol] 4.55 10*6/uL Normal 3.80-5.00 [facility] Comment on above: Performed By: #### L [id number] #### [facility] (BEAKER) [address] [place] [address] WBC (Bld) [#/Vol] 15.76 10*3/uL High 4.00-10.60 [facility] Comment on above: Performed By: #### L [id number] #### [facility] (JACOBO) [address] [place] [address] CT CHEST W IV CONTRASTon CT CHEST [...] lingular atelectasis. Electronically signed: Manan Randolph. Not Shahla Invalid Interpretation Code [facility] EDPROVon 09-11-2023 EDPROV HPI Chief [...] for evaluation of choking, She was at [facility] whenever she was eating a steak, she [...] pain, already given 75 mcg of fentanyl. [place] Coma Scale Score: 14 Patient History History [...] Judgment: Judgment normal. Procedures ED Course & MDM ED Course as of 09/12/231533Sep 11, [id number] IMPRESSION: No evidence of acute cardiopulmonary process. Bilateral lower lobe, middle lobe and lingular atelectasis. [AE] ED Course User Index [AE] Johny TelloDO anika Diagnoses as of 09/12/231533 Choking, initial encounter Medical Decision Making patient [...] Details: 2022 Emergency Medicine Coding Guide from [email or web address] on 09/12/2023 All calculations should be rechecked [...] outcome (e (more content not included)... Normal [facility] TROPONIN Ion 09-11-2023 Troponin I.cardiac [Mass/Vol] 0.03 ng/mL Normal 0.00-0.04 [facility] Comment on above: Performed By: #### L [id number] #### [facility] ([facility]ER) [address] [place] [address] VENOUS BLOOD GAS WITH IONIZE D CALCIUMon 09-11-2023 Base excess Calc (BldV) [Moles/Vol] 2.2 mmol/L Normal [facility] Comment on above: Performed By: #### L [id number] #### [facility] RESPIRATORY THERAPY [address] [place] [address] [facility] CALCIUM IONIZED (MMOL/L) IN BLOOD 1.23 mmol/L Normal 1.15-1.33 [facility] Comment on above: Performed By: #### L [id number] #### [facility] RESPIRATORY THERAPY [address] [place] [address] [facility] CO2 (BldV) [Partial pressure] 54 mm[Hg] High 40-50 [facility] Comment on above: Performed By: #### L [id number] #### [facility] RESPIRATORY THERAPY [address] [place] [address] [facility] HCO3 (Bld) [Moles/Vol] 29.1 mmol/L Normal [facility] Comment on above: Performed By: #### L [id number] #### [facility] RESPIRATORY THERAPY [address] [place] [address] [facility] Oxygen (BldV) [Partial pressure] 58 mm[Hg] High 35-45 [facility] Comment on above: Performed By: #### L [id number] #### [facility] RESPIRATORY THERAPY [address] [place] [address] [facility] OXYGEN SATURATION (%) IN VENOUS BLOOD 88.0 % High 65.0-75.0 [facility] Comment on above: Performed By: #### L [id number] #### [facility] RESPIRATORY THERAPY [address] [place] [address] [facility] PH OF VENOUS BLOOD 7.34 Normal 7.31-7.41 [facility] Comment on above: Performed By: #### L [id number] #### [facility] RESPIRATORY THERAPY [address] [place] [address] [place] CBC AND AUTO DIFFon 09-04-19 24 ABSOLUTE BASOPHIL 0.0 X10E9/L Normal 0.0-0.2 [facility] Comment on above: Performed By: #### C BCA, PINR, 12076-8, CMP, 3040-3, 20293-0, 5643-2, 1987-5, 73882-5, 91090-2, 2157-6, 56626-1, THYR #### [facility] ([id number]) [address] [place] [address] ABSOLUTE NEUTROPHIL 5.4 X10E9/L Normal 1.5-6.6 [facility] Comment on above: Performed By: #### C BCA, PINR, 96443-1, CMP, 3040-3, 53510-6, 5643-2, 1987-09, 09941-4, 58715-1, 2157-6, 49903-8, THYR #### [facility] ([id number]) [address] [place] [address] Basophils/100 WBC (Bld) 0.5 % Normal [facility] Comment on above: Performed By: #### C BCA, PINR, 82053-4, CMP, 3040-3, 94118-9, 5643-2, 1987-09, , 73202-6, 2157-6, 28764-7, THYR #### [facility] ([id number]) [address] [place] [address] Eosinophils (Bld) [#/Vol] 0.2 10*3/uL Normal 0.0-0.4 [facility] Comment on above: Performed By: #### C BCA, PINR, 74587-7, CMP, 3040-3, 68585-8, 5643-2, 1987-09, 79229-0, 64288-4, 2157-6, 22383-3, THYR #### [facility] ([id number]) [address] [place] [address] Eosinophils/100 WBC (Bld) 2.1 % Normal [facility] Comment on above: Performed By: #### C BCA, PINR, 01559-7, CMP, 3040-3, 99954-4, 5643-2, 1987-09, 43850-0, 08122-8, 2157-6, 95017-8, THYR #### [facility] ([id number]) [address] [place] [address] Erythrocyte distribution width (RBC) [Ratio] 17.5 % High 11.5-15.0 [facility] Comment on above: Performed By: #### C JOSTIN, PINR, 85935-0, CMP, 3040-3, 74507-9, 5643-2, 1987-09, 96363-8, 00568-9, 2157-6, 47529-8, THYR #### [facility] ([id number]) [address] [place] [address] Hematocrit (Bld) [Volume fraction] 37.2 % Normal 35-47 [facility] Comment on above: Performed By: #### C JOSTIN, PINR, 48713-2, CMP, 3040-3, 69716-7, 5643-2, 1987-09, 28841-6, 09086-6, 2157-6, 09592-4, THYR #### [facility] ([id number]) [address] [place] [address] Hemoglobin (Bld) [Mass/Vol] 12.4 g/dL Normal 11.7-15.5 [facility] Comment on above: Performed By: #### C JOSTIN, PINR, 42506-7, CMP, 3040-3, 59896-4, 5643-2, 1987-09, 39376-6, 85450-1, 2157-6, 76583-1, THYR #### [facility] ([id number]) [address] [place] [address] Lymphocytes (Bld) [#/Vol] 2.0 10*3/uL Normal 1.0-3.5 [facility] Comment on above: Performed By: #### C BCA, PINR, 37159-1, CMP, 3040-3, 01776-5, 5643-2, 1987-09, 37336-4, 23129-8, 2157-6, 45443-6, THYR #### [facility] ([id number]) [address] [place] [address] [place] [address] Lymphocytes/100 WBC (Bld) 24.0 % Normal [facility] Comment on above: Performed By: #### C BCA, PINR, 21042-2, CMP, 3040-3, 12612-6, 5643-, 1987-09, , 33234-2, 2157-6, 17208-4, THYR #### [facility] ([id number]) [address] [place] [address] MCH (RBC) [Entitic mass] 27.9 pg Normal 27-34 [facility] Comment on above: Performed By: #### C BCA, PINR, 72652-3, CMP, 3040-3, 75148-6, 5643-, 1987-09, 12747-8, 61424-7, 2157-6, 91290-9, THYR #### [facility] ([id number]) [address] [place] [address] [place] [address] MCHC (RBC) [Mass/Vol] 33.4 g/dL Normal 32-36 [facility] Comment on above: Performed By: #### C BCA, PINR, 84601-3, CMP, 3040-3, 50961-3, 5643-, 1987-09, , 62738-3, 215-6, 82514-9, THYR #### [facility] ([id number]) [address] [place] [address] [place] [address] MCV (RBC) [Entitic vol] 84 fL Normal 80-100 [facility] Comment on above: Performed By: #### C BCA, PINR, 11011-2, CMP, 3040-3, 50859-4, 5643-, 1987-09, 98419-2, 48883-6, 2157-6, 11975-6, THYR #### [facility] ([id number]) [address] [place] [address] Monocytes (Bld) [#/Vol] 0.8 10*3/uL Normal 0-0.9 [facility] Comment on above: Performed By: #### C BCA, PINR, 22961-6, CMP, 3040-3, 89149-4, 5643-2, 1987-09, , 92879-4, 2157-6, 15096-8, THYR #### [facility] ([id number]) [address] [place] [address] Monocytes/100 WBC (Bld) 9.5 % Normal [facility] Comment on above: Performed By: #### C BCA, PINR, 91009-3, CMP, 3040-3, 46332-0, 5643-, 1987-09, , 85454-1, 215-6, 85842-3, THYR #### [facility] ([id number]) [address] [place] [address] Neutrophils/100 WBC (Bld) 63.9 % Normal [facility] Comment on above: Performed By: #### C BCA, PINR, 50414-0, CMP, 3040-3, 18270-4, 5643-, 1987-09, , 53175-9, 215-6, 21362-2, THYR #### [facility] ([id number]) [address] [place] [address] [place] [address] Platelet mean volume (Bld) [Entitic vol] 9.1 fL Normal 7-12 [facility] Comment on above: Performed By: #### C BCA, PINR, 29423-8, CMP, 3040-3, 15844-1, 5643-2, 1987-09, , 81129-3, 2157-6, 93827-0, THYR #### [facility] ([id number]) [address] [place] [address] Platelets (Bld) [#/Vol] 198 10*3/uL Normal 150-450 [facility] Comment on above: Performed By: #### C BCA, PINR, 52995-3, CMP, 3040-3, 47618-2, 5643-2, 1987-09, 48349-0, 11298-2, 2157-6, 36094-8, THYR #### [facility] ([id number]) [address] [place] [address] RBC COUNT 4.46 X10E12/L Normal 3.80-5.20 [facility] Comment on above: Performed By: #### C BCA, PINR, 21052-2, CMP, 3040-3, 20065-7, 5643-2, 1987-09, 53514-0, 33152-9, 2157-6, 35033-6, THYR #### [facility] ([id number]) [address] [place] [address] WBC (Bld) [#/Vol] 8.4 10*3/uL Normal 4.0-11.0 [facility] Comment on above: Performed By: #### C BCA, PINR, 74356-9, CMP, 3040-3, 97577-2, 5643-2, 1987-09, 16290-8, 15238-8, 2157-6, 57892-7, THYR #### [facility] ([id number]) [address] [place] [address] COMPREHENSIVE METABOLIC PANE Virgil 09-04-2023 Albumin [Mass/Vol] 3.4 g/dL Normal 3.2-5.3 [facility] Comment on above: Performed By: #### C BCA, PINR, 87744-9, CMP, 3040-3, 60598-0, 5643-, 1987-09, 67602-6, 10686-1, 2157-6, 28675-9, THYR #### [facility] ([id number]) [address] [place] [address] [place] [address] ALP [Catalytic activity/Vol] 81 U/L Normal 39-130 [facility] Comment on above: Performed By: #### C BCA, PINR, 41859-5, CMP, 3040-3, 35210-0, 5643-, 1987-09, 12247-9, 10853-3, 2157-6, 67287-7, THYR #### [facility] ([id number]) [address] [place] [address] [place] [address] ALT [Catalytic activity/Vol] 17 U/L Normal 0-31 [facility] Comment on above: Performed By: #### C BCA, PINR, 65036-3, CMP, 3040-3, 49222-9, 5643-, 1987-09, 28693-1, 50795-1, 2157-6, 64589-1, THYR #### [facility] ([id number]) [address] [place] [address], [place] [address] Anion gap [Moles/Vol] 7 mmol/L Normal 5-15 [facility] Comment on above: Performed By: #### C BCA, PINR, 44388-6, CMP, 3040-3, 70296-7, 5643-2, 1987-09, 03901-1, 01831-7, 2157-6, 34360-8, THYR #### [facility] ([id number]) [address] [place] [address] [place] [address] AST [Catalytic activity/Vol] 14 U/L Normal 0-41 [facility] Comment on above: Performed By: #### C BCA, PINR, 55537-2, CMP, 3040-3, 34220-9, 5643-2, 1987-09, 24057-6, 66766-1, 2157-6, 58518-3, THYR #### [facility] ([id number]) [address] [place] [address] Bilirubin [Mass/Vol] 0.5 mg/dL Normal 0.3-1.2 [facility] Comment on above: Performed By: #### C BCA, PINR, 44452-0, CMP, 3040-3, 30182-0, 5643-, 1987-09, , 64477-9, 2156-6, 48358-7, THYR #### [facility] ([id number]) [address] [place] [address] Calcium [Mass/Vol] 8.9 mg/dL Normal 8.5-10.5 [facility] Comment on above: Performed By: #### C BCA, PINR, 02278-4, CMP, 3040-3, 90377-6, 5643-, 1987-09, , 29446-3, 2156-6, 48794-2, THYR #### [facility] ([id number]) [address] [place] [address] Chloride [Moles/Vol] 106 mmol/L Normal 98-109 [facility] Comment on above: Performed By: #### C BCA, PINR, 95647-6, CMP, 3040-3, 01987-9, 5643-, 1987-09, , 56320-4, 2156-6, 41362-9, THYR #### [facility] ([id number]) [address] [place] [address] CO2 [Moles/Vol] 29 mmol/L Normal 22-32 [facility] Comment on above: Performed By: #### C BCA, PINR, 51946-3, CMP, 3040-3, 32051-1, 5643-2, 1987-09, , 44294-6, 215-6, 66351-0, THYR #### [facility] ([id number]) [address] [place] [address] Creatinine [Mass/Vol] 0.84 mg/dL Normal 0.40-1.00 [facility] Comment on above: Result Comment: METH OD TRACEABLE TO IDMS STANDARD Performed By: #### C BCA, PINR, 37906-2, CMP, 3040-3, 79931-8, 5643-2, 1987-09, , , 6, 89367-9, THYR #### [facility] ([id number]) [address] [place] [address] GFR/1.73 sq M.predicted among non-blacks MDRD (S/P/Bld) [Vol rate/Area] 82 mL/min/{1.73_m2} Normal >59 [facility] Comment on above: Result Comment: Reported eGFR is based on the CKD-EPI 2020 equation that does not use a race coefficient. Performed By: #### C BCA, PINR, 74554-0, CMP, 3040-3, 05101-3, 5643-, 1987-09, , , 2156-10, 49097-8, THYR #### [facility] ([id number]) [address] [place] [address] Glucose [Mass/Vol] 91 mg/dL Normal 65-99 [facility] Comment on above: Performed By: #### C BCA, PINR, 04347-1, CMP, 3040-3, 42662-0, 5643-2, 1987-09, , , 6, 42821-0, THYR #### [facility] ([id number]) [address] [place] [address] Potassium [Moles/Vol] 4.0 mmol/L Normal 3.5-5.0 [facility] Comment on above: Performed By: #### C BCA, PINR, 48200-2, CMP, 3040-3, 27876-8, 5643-2, 1987-09, , 96875-9, 2156, 62733-6, THYR #### [facility] ([id number]) [address] [place] [address] [place] [address] Protein [Mass/Vol] 6.4 g/dL Normal 6.0-8.0 [facility] Comment on above: Performed By: #### C BCA, PINR, 77112-8, CMP, 3040-3, 27786-6, 5643-, 1987-09, , , 2156-10, 89560-4, THYR #### [facility] ([id number]) [address] [place] [address] [place] [address] Sodium [Moles/Vol] 142 mmol/L Normal 134-146 [facility] Comment on above: Performed By: #### C BCA, PINR, 85939-8, CMP, 3040-3, 25169-5, 5643-2, 1987-09, , 07843-7, 6, 48861-7, THYR #### [facility] ([id number]) [address] [place] [address] [place] [address] Urea nitrogen [Mass/Vol] 27 mg/dL High 5-23 [facility] Comment on above: Performed By: #### C BCA, PINR, 76017-0, CMP, 3040-3, 26918-4, 5643-2, 1987-09, , 79354-5, 2156-10, 56822-1, THYR #### [facility] ([id number]) [address] [place] [address] [place] [address] Glucose Glucometer (BldC) [M ass/Vol]on 09-04-2023 Glucose [Mass/Vol] 97 mg/dL Normal 65-99 [facility] Glucose [Mass/Vol] 77 mg/dL Normal 65-99 [facility] Glucose [Mass/Vol] 74 mg/dL Normal 65-99 [facility] Glucose [Mass/Vol] 45 mg/dL Critically low 65- Pr [facility] MAGNESIUMon 09-04-2023 Magnesium [Mass/Vol] 2.1 mg/dL Normal 1.8-2.6 [facility] Comment on above: Performed By: #### C BCA, PINR, 14792-4, CMP, 3040-3, 62259-2, 5643-2, 1987-, 78201-1, 62896-9, 2157-6, 48200-2, THYR #### [facility] ([id number]) [address] [place] [id number] CBC AND AUTO DIFFon 09-03-19 24 ABSOLUTE BASOPHIL 0.1 X10E9/L Normal 0.0-0.2 [facility] Comment on above: Performed By: #### C BCA, CMP, 14790-1 ####[facility] ([id number])[address] [place] [address] 81281 ABSOLUTE NEUTROPHIL 6.4 X10E9/L Normal 1.5-6.6 [facility] Comment on above: Performed By: #### C BCA, CMP, 30148-1 ####[facility] ([id number])[address] [place] [address] 70289 Basophils/100 WBC (Bld) 0.6 % Normal [facility] Comment on above: Performed By: #### C BCA, CMP, 96002-3 ####[facility] ([id number])[address] [place] [address] 68113 Eosinophils (Bld) [#/Vol] 0.2 10*3/uL Normal 0.0-0.4 [facility] Comment on above: Performed By: #### C BCA, CMP, ####[facility] ([id number])[address] [place] [address] 58539 Eosinophils/100 WBC (Bld) 1.5 % Normal [facility] Comment on above: Performed By: #### C JOSTIN, CMP, ####[facility] ([id number])[address] [place] [address] 53029 Erythrocyte distribution width (RBC) [Ratio] 17.4 % High 11.5-15.0 [facility] Comment on above: Performed By: #### C JOSTIN CMP, ####[facility] ([id number])[address] [place] [address] 95689 Hematocrit (Bld) [Volume fraction] 36.4 % Normal 35-47 [facility] Comment on above: Performed By: #### C VERNON FRANKEL, ####[facility] ([id number])[address] [place] [address] 07869 Hemoglobin (Bld) [Mass/Vol] 12.2 g/dL Normal 11.7-15.5 [facility] Comment on above: Performed By: #### C JOSTIN CMP, ####[facility] ([id number])[address] [place] [address] 76705 Lymphocytes (Bld) [#/Vol] 2.7 10*3/uL Normal 1.0-3.5 [facility] Comment on above: Performed By: #### C JOSTIN, CMP, ####[facility] ([id number])[address] [place] [address] 65541 Lymphocytes/100 WBC (Bld) 25.9 % Normal [facility] Comment on above: Performed By: #### C JOSTIN, CMP, ####[facility] ([id number])[address] [place] [address] MCH (RBC) [Entitic mass] 28.1 pg Normal 27-34 [facility] Comment on above: Performed By: #### Siva FRANKEL CMP, ####[facility] ([id number])[address] [place] [address] 46613 MCHC (RBC) [Mass/Vol] 33.7 g/dL Normal 32-36 [facility] Comment on above: Performed By: #### Siva FRANKEL CMP, ####[facility] ([id number])[address] [place] [address] 76140 MCV (RBC) [Entitic vol] 84 fL Normal 80-100 [facility] Comment on above: Performed By: #### Siva FRANKEL CMP, ####[facility] ([id number])[address] [place] [address] 06558 Monocytes (Bld) [#/Vol] 1.1 10*3/uL High 0-0.9 [facility] Comment on above: Performed By: #### Siva FRANKEL [facility], ####[facility] ([id number])[address] [place] [address] 45160 Monocytes/100 WBC (Bld) 10.5 % Normal [facility] Comment on above: Performed By: #### Siva FRANKEL CMP, ####[facility] ([id number])[address] [place] [address] 75357 Neutrophils/100 WBC (Bld) 61.5 % Normal [facility] Comment on above: Performed By: #### Siva FRANKEL CMP, ####[facility] ([id number])[address] [place] [address] 31791 Platelet mean volume (Bld) [Entitic vol] 9.3 fL Normal 7-12 [facility] Comment on above: Performed By: #### C BCA, CMP, 93498-7 ####[facility] ([id number])[address] [place] [address] 39215 Platelets (Bld) [#/Vol] 194 10*3/uL Normal 150-450 [facility] Comment on above: Performed By: #### C BCA, CMP, ####[facility] ([id number])[address] [place] [address] 31344 RBC COUNT 4.35 X10E12/L Normal 3.80-5.20 [facility] Comment on above: Performed By: #### C BCA, CMP, 25146-6 ####[facility] ([id number])[address] [place] [address] 61790 WBC (Bld) [#/Vol] 10.4 10*3/uL Normal 4.0-11.0 [facility] Comment on above: Performed By: #### C BCA, CMP, 11541-4 ####[facility] ([id number])[address] [place] [address] 94087 COMPREHENSIVE METABOLIC PANE Virgil 09-03-2023 Albumin [Mass/Vol] 3.1 g/dL Low 3.2-5.3 [facility] Comment on above: Performed By: #### C BCA, CMP, ####[facility] ([id number])[address] [place] [address] 48347 ALP [Catalytic activity/Vol] 91 U/L Normal 39-130 [facility] Comment on above: Performed By: #### C BCA, CMP, 65681-9 ####[facility] ([id number])[address] [place] [address] 91954 ALT [Catalytic activity/Vol] 13 U/L Normal 0-31 [facility] Comment on above: Performed By: #### C BCA, CMP, ####[facility] ([id number])[address] [place] [address], [place] [address] Anion gap [Moles/Vol] 6 mmol/L Normal 5-15 [facility] Comment on above: Performed By: #### C BCA, CMP, ####[facility] ([id number])[address] [place] [address] [place] [address] AST [Catalytic activity/Vol] 11 U/L Normal 0-41 [facility] Comment on above: Performed By: #### C BCA, CMP, ####[facility] ([id number])[address] [place] [address] 83331 Bilirubin [Mass/Vol] 0.4 mg/dL Normal 0.3-1.2 [facility] Comment on above: Performed By: #### C BCA, CMP, ####[facility] ([id number])[address] [place] [address] [place] [address] Calcium [Mass/Vol] 8.3 mg/dL Low 8.5-10.5 [facility] Comment on above: Performed By: #### C BCA, CMP, 38173-6 ####[facility] ([id number])[address] [place] [address] [place] [address] Chloride [Moles/Vol] 103 mmol/L Normal 98-109 [facility] Comment on above: Performed By: #### C BCA, CMP, ####[facility] ([id number])[address] [place] [address] [place] [address] CO2 [Moles/Vol] 22 mmol/L Normal 22-32 [facility] Comment on above: Performed By: #### C BCA, CMP, 48650-1 ####[facility] ([id number])[address] [place] [address] [place] [address] Creatinine [Mass/Vol] 1.72 mg/dL High 0.40-1.00 [facility] Comment on above: Result Comment: METH OD TRACEABLE TO IDMS STANDARD Performed By: #### C VERNON FRANKEL, ####[facility] ([id number])[address] [place] [address] 45802 GFR/1.73 sq M.predicted among non-blacks MDRD (S/P/Bld) [Vol rate/Area] 35 mL/min/{1.73_m2} Low >59 [facility] Comment on above: Result Comment: Reported eGFR is based on the CKD-EPI 2020 equation that does not use a race coefficient. Performed By: #### C VERNON FRANKEL, ####[facility] ([id number])[address] [place] [address] 33895 Glucose [Mass/Vol] 84 mg/dL Normal 65-99 [facility] Comment on above: Performed By: #### C VERNON FRANKEL, ####[facility] ([id number])[address] [place] [address] 51733 Potassium [Moles/Vol] 3.8 mmol/L Normal 3.5-5.0 [facility] Comment on above: Performed By: #### C VERNON FRANKEL, ####[facility] ([id number])[address] [place] [address] 90249 Protein [Mass/Vol] 6.0 g/dL Normal 6.0-8.0 [facility] Comment on above: Performed By: #### C VERNON FRANKEL, ####[facility] ([id number])[address] [place] [address] 34654 Sodium [Moles/Vol] 131 mmol/L Low 134-146 [facility] Comment on above: Performed By: #### Siva FRANKEL CMP, ####[facility] ([id number])[address] [place] [address] 76991 Urea nitrogen [Mass/Vol] 71 mg/dL High 5-23 [facility] Comment on above: Performed By: #### C JOSTIN [facility], 43221-7 ####[facility] ([id number])[address] [place] [address] ABDOMEN AND PELVIS WO CON Ton [...] Godinez MD on 09/03/2023 1:13 AM Normal [facility] Glucose Glucometer (BldC) [M ass/Vol]on 09-03-2023 Glucose [Mass/Vol] 188 mg/dL High 65-99 [facility] Glucose [Mass/Vol] 170 mg/dL High 65-99 [facility] Glucose [Mass/Vol] 122 mg/dL High 65-99 [facility] MAGNESIUMon 09-03-2023 Magnesium [Mass/Vol] 2.5 mg/dL Normal 1.8-2.6 [facility] Comment on above: Performed By: #### C [facility]OSTIN [facility], 23784-9 ####[facility] ([id number])[address] [place] [address] 99352 XR CHEST 1 VWon 09-03-2023 XR CHEST 1 VW XR CHEST 1 VW HISTORY: Hypotension COMPARISON: Chest x-ray 03/04/2008 FINDINGS: Portable AP upright view of the chest was performed. Cardiac silhouette is within normal limits. No significant airspace consolidation or vascular congestion. No pleural effusion or pneumothorax. IMPRESSION: * No acute abnormality. Finalized by Albert Vines MD on 09/03/2023 12:01 AM Normal [facility] XR KNEE RT 3 VWSon 4 XR KNEE RT 3 VWS XR KNEE RT 3 VWS HISTORY: Pain COMPARISON: None FINDINGS: Multiple views right knee were obtained. Osseous structures are intact with normal alignment. Tricompartmental osteoarthritis. Small joint effusion. No significant soft tissue swelling. IMPRESSION: * No acute osseous abnormality. Finalized by Albert Vines MD on 09/03/2023 12:03 AM Normal [facility] BLOOD CULTUREon 09-02-2023 Bacteria identified Aer cx Nom (Bld) SPECIMEN NOTES LFORE CULTURE RESULTS NO GROWTH 5 DAYS Normal [facility] Comment on above: Performed By: #### C BCA, PINR, 30558-7, CMP, 3040-3, 85526-6, 5643-2, 1987-09, 31715-0, 18955-5, 2157-6, 97457-8, THYR #### [facility] ([id number]) [address] [place] [address] 08782 Bacteria identified Aer cx Nom (Bld) CULTURE RESULTS NO GROWTH 5 DAYS Normal [facility] CBC AND AUTO DIFFon 09-02-19 24 ABSOLUTE BASOPHIL 0.1 X10E9/L Normal 0.0-0.2 [facility] Comment on above: Performed By: #### C BCA, PINR, 45533-3, CMP, 3040-3, 91907-5, 5643-2, 1987-09, 59253-8, 58468-0, 2157-6, 12415-2, THYR #### [facility] ([id number]) [address] [place] [address] 77253 ABSOLUTE NEUTROPHIL 6.8 X10E9/L High 1.5-6.6 [facility] Comment on above: Performed By: #### C BCA, PINR, 57121-2, CMP, 3040-3, 55006-9, 5643-2, 1987-09, 87144-5, 47822-4, 2157-6, 05800-4, THYR #### [facility] ([id number]) [address] [place] [address] 01239 Basophils/100 WBC (Bld) 0.5 % Normal [facility] Comment on above: Performed By: #### C BCA, PINR, 48066-3, CMP, 3040-3, 63175-1, 5643-, 1987-09, 14885-5, 24938-0, 2157-6, 45704-9, THYR #### [facility] ([id number]) [address] [place] [address] 83430 Eosinophils (Bld) [#/Vol] 0.2 10*3/uL Normal 0.0-0.4 [facility] Comment on above: Performed By: #### C BCA, PINR, 24720-8, CMP, 3040-3, 16196-3, 5643-, 1987-09, 22010-7, 27820-3, 2157-6, 80351-2, THYR #### [facility] ([id number]) [address] [place] [address] [place] [address] Eosinophils/100 WBC (Bld) 1.6 % Normal [facility] Comment on above: Performed By: #### C BCA, PINR, 89462-8, CMP, 3040-3, 10413-5, 5643-, 1987-09, , 18874-4, 2157-6, 96567-4, THYR #### [facility] ([id number]) [address] [place] [address] [place] [address] Erythrocyte distribution width (RBC) [Ratio] 17.3 % High 11.5-15.0 [facility] Comment on above: Performed By: #### C BCA, PINR, 52574-0, CMP, 3040-3, 78148-4, 5643-, 1987-09, 68125-4, 76376-3, 2157-6, 85946-2, THYR #### [facility] ([id number]) [address] [place] [address] 49763 Hematocrit (Bld) [Volume fraction] 38.5 % Normal 35-47 [facility] Comment on above: Performed By: #### C BCA, PINR, 35234-4, CMP, 3040-3, 44773-7, 5643-2, 1987-09, 22436-0, 59816-9, 2157-6, 10551-4, THYR #### [facility] ([id number]) [address] [place] [address] 61250 Hemoglobin (Bld) [Mass/Vol] 12.8 g/dL Normal 11.7-15.5 [facility] Comment on above: Performed By: #### C BCA, PINR, 01002-8, CMP, 3040-3, 52488-1, 5643-2, 1987-09, 94247-7, 28449-6, 2157-6, 25349-1, THYR #### [facility] ([id number]) [address] [place] [address] [place] [address] Lymphocytes (Bld) [#/Vol] 3.4 10*3/uL Normal 1.0-3.5 [facility] Comment on above: Performed By: #### C BCA, PINR, 97488-9, CMP, 3040-3, 60308-1, 5643-, 1987-09, 49367-5, 12423-0, 2157-6, 42466-4, THYR #### [facility] ([id number]) [address] [place] [address] [place] [address] Lymphocytes/100 WBC (Bld) 28.9 % Normal [facility] Comment on above: Performed By: #### C BCA, PINR, 01684-0, CMP, 3040-3, 41540-8, 5643-, 1987-09, 33413-1, 28434-4, 2157-6, 00187-3, THYR #### [facility] ([id number]) [address] [place] [address] [place] [address] MCH (RBC) [Entitic mass] 27.7 pg Normal 27-34 [facility] Comment on above: Performed By: #### C BCA, PINR, 92050-3, CMP, 3040-3, 81536-5, 5643-, 1987-09, 95090-1, 90617-0, 2157-6, 92855-6, THYR #### [facility] ([id number]) [address] [place] [address] [place] [address] MCHC (RBC) [Mass/Vol] 33.3 g/dL Normal 32-36 [facility] Comment on above: Performed By: #### C BCA, PINR, 12040-0, CMP, 3040-3, 60077-8, 43-, 1987-09, 45815-8, 67969-0, 2157-6, 90267-1, THYR #### [facility] ([id number]) [address] [place] [address] [place] [address] MCV (RBC) [Entitic vol] 83 fL Normal 80-100 [facility] Comment on above: Performed By: #### C BCA, PINR, 19681-6, CMP, 3040-3, 40883-3, 5643-, 1987-09, , 00535-9, 2157-6, 75362-2, THYR #### [facility] ([id number]) [address] [place] [address] 05140 Monocytes (Bld) [#/Vol] 1.2 10*3/uL High 0-0.9 [facility] Comment on above: Performed By: #### C BCA, PINR, 45566-8, CMP, 3040-3, 70839-7, 5643-, 1987-09, 50421-7, 76300-4, 2157-6, 44914-0, THYR #### [facility] ([id number]) [address] [place] [address] 36018 Monocytes/100 WBC (Bld) 10.6 % Normal [facility] Comment on above: Performed By: #### C BCA, PINR, 07889-8, CMP, 3040-3, 51955-3, 5643-, 1987-09, 96890-2, 31133-6, 2157-6, 39871-8, THYR #### [facility] ([id number]) [address] [place] [address] 27410 Neutrophils/100 WBC (Bld) 58.4 % Normal [facility] Comment on above: Performed By: #### C BCA, PINR, 57976-5, CMP, 3040-3, 20645-6, 5643-, 1987-09, 00894-4, 11862-7, 2157-6, 82567-0, THYR #### [facility] ([id number]) [address] [place] [address] [place] [address] Platelet mean volume (Bld) [Entitic vol] 9.5 fL Normal 7-12 [facility] Comment on above: Performed By: #### C BCA, PINR, 77411-4, CMP, 3040-3, 87787-2, 5643-, 1987-09, , 27136-6, 2157-6, 45798-7, THYR #### [facility] ([id number]) [address] [place] [address] 57670 Platelets (Bld) [#/Vol] 243 10*3/uL Normal 150-450 [facility] Comment on above: Performed By: #### C BCA, PINR, 13470-1, CMP, 3040-3, 08963-2, 5643-, 1987-09, 18844-2, 13006-9, 2157-6, 10203-6, THYR #### [facility] ([id number]) [address] [place] [address] 23456 RBC COUNT 4.63 X10E12/L Normal 3.80-5.20 [facility] Comment on above: Performed By: #### C BCA, PINR, 17575-5, CMP, 3040-3, 89290-6, 5643-2, 1987-, 36311-7, 15416-3, 2157-6, 30004-6, THYR #### [facility] ([id number]) [address] [place] [address] 51646 WBC (Bld) [#/Vol] 11.6 10*3/uL High 4.0-11.0 [facility] Comment on above: Performed By: #### C BCA, PINR, 23921-0, CMP, 3040-3, 18628-7, 5643-2, 1987-09, 78930-5, 10347-5, 2157-6, 70635-2, THYR #### [facility] ([id number]) [address] [place] [address] 36977 CK [Catalytic activity/Vol]o n 09-02-2023 CPK 69 U/L Normal 24-170 [facility] Comment on above: Performed By: #### C BCA, PINR, 73915-2, CMP, 3040-3, 60366-0, 5643-2, 1987-09, 04618-0, 06044-9, 2157-6, 31215-7, THYR ####[facility] ([id number])[address] [place] [address] 76269 COMPREHENSIVE METABOLIC PANE Virgil 09-02-2023 Albumin [Mass/Vol] 3.6 g/dL Normal 3.2-5.3 [facility] Comment on above: Performed By: #### C BCA, PINR, 45945-7, CMP, 3040-3, 91891-9, 5643-2, 1987-09, 74757-6, 14210-3, 2157-6, 95282-8, THYR #### [facility] ([id number]) [address] [place] [address], [place] [address] ALP [Catalytic activity/Vol] 106 U/L Normal 39-130 [facility] Comment on above: Performed By: #### C BCA, PINR, 47129-8, CMP, 3040-3, 47052-5, 5643-2, 1987-09, 97781-1, 05750-9, 2157-6, 02764-5, THYR #### [facility] ([id number]) [address] [place] [address] [place] [address] ALT [Catalytic activity/Vol] 16 U/L Normal 0-31 [facility] Comment on above: Performed By: #### C BCA, PINR, 53795-3, CMP, 3040-3, 23073-2, 5643-2, 1987-09, 79336-0, 99127-6, 2157-6, 77970-8, THYR #### [facility] ([id number]) [address] [place] [address], [place] [address] Anion gap [Moles/Vol] 8 mmol/L Normal 5-15 [facility] Comment on above: Performed By: #### C BCA, PINR, 77893-5, CMP, 3040-3, 08176-8, 5643-2, 1987-09, 99175-5, 68318-5, 2157-6, 38373-2, THYR #### [facility] ([id number]) [address] [place] [address], [place] [address] AST [Catalytic activity/Vol] 15 U/L Normal 0-41 [facility] Comment on above: Performed By: #### C BCA, PINR, 42593-2, CMP, 3040-3, 08240-2, 5643-2, 1987-09, 43970-0, 26302-0, 2157-6, 32419-8, THYR #### [facility] ([id number]) [address] [place] [address] [place] [address] Bilirubin [Mass/Vol] 0.3 mg/dL Normal 0.3-1.2 [facility] Comment on above: Performed By: #### C BCA, PINR, 25027-3, CMP, 3040-3, 37761-2, 5643-2, 1987-09, 79455-3, 41923-6, 2157-6, 31655-1, THYR #### [facility] ([id number]) [address] [place] [address] [place] [address] Calcium [Mass/Vol] 8.6 mg/dL Normal 8.5-10.5 [facility] Comment on above: Performed By: #### C BCA, PINR, 50849-5, CMP, 3040-3, 60709-1, 5643-2, 1987-09, 06002-6, 34554-7, 2157-6, 09783-5, THYR #### [facility] ([id number]) [address] [place] [address] [place] [address] Chloride [Moles/Vol] 101 mmol/L Normal 98-109 [facility] Comment on above: Performed By: #### C BCA, PINR, 07014-2, CMP, 3040-3, 29531-1, 5643-2, 1987-09, 73374-5, 51160-3, 2157-6, 25412-9, THYR #### [facility] ([id number]) [address] [place] [address] [place] [address] CO2 [Moles/Vol] 20 mmol/L Low 22-32 [facility] Comment on above: Performed By: #### C BCA, PINR, 35050-8, CMP, 3040-3, 26525-5, 5643-2, 1987-09, 74982-2, 00768-8, 2157-6, 22942-1, THYR #### [facility] ([id number]) [address] [place] [address] 46483 Creatinine [Mass/Vol] 2.05 mg/dL High 0.40-1.00 [facility] Comment on above: Result Comment: METH OD TRACEABLE TO IDMS STANDARD Performed By: #### C BCA, PINR, 46236-5, CMP, 3040-3, 16617-1, 5643-, 1987-09, 84107-3, 49696-0, 2157-6, 88498-0, THYR #### [facility] ([id number]) [address] [place] [address] 66826 GFR/1.73 sq M.predicted among non-blacks MDRD (S/P/Bld) [Vol rate/Area] 28 mL/min/{1.73_m2} Low >59 [facility] Comment on above: Result Comment: Reported eGFR is based on the CKD-EPI 2020 equation that does not use a race coefficient. Performed By: #### C BCA, PINR, 43952-2, CMP, 3040-3, 94998-9, 5643-, 1987-09, 17548-6, 06653-1, 2157-6, 62336-8, THYR #### [facility] ([id number]) [address] [place] [address] 54847 Glucose [Mass/Vol] 69 mg/dL Normal 65-99 [facility] Comment on above: Performed By: #### C BCA, PINR, 30222-2, CMP, 3040-3, 03580-4, 5643-, 1987-09, 80944-1, 42566-4, 2157-6, 22141-3, THYR #### [facility] ([id number]) [address] [place] [address] 66717 Potassium [Moles/Vol] 3.8 mmol/L Normal 3.5-5.0 [facility] Comment on above: Performed By: #### C BCA, PINR, 16811-8, CMP, 3040-3, 39440-1, 5643-2, 1987-09, 15379-1, 68597-0, 215-6, 84820-7, THYR #### [facility] ([id number]) [address] [place] [address] [place] [address] Protein [Mass/Vol] 6.8 g/dL Normal 6.0-8.0 [facility] Comment on above: Performed By: #### C BCA, PINR, 81516-8, CMP, 3040-3, 12711-9, 5643-2, 1987-09, , 26660-9, 2156-, 65296-9, THYR #### [facility] ([id number]) [address] [place] [address] [place] [address] Sodium [Moles/Vol] 129 mmol/L Low 134-146 [facility] Comment on above: Performed By: #### C BCA, PINR, 71398-0, CMP, 3040-3, 30308-8, 5643-2, 1987-09, , 67127-9, 2156-6, 09587-5, THYR #### [facility] ([id number]) [address] [place] [address] [place] [address] Urea nitrogen [Mass/Vol] 73 mg/dL High 5-23 [facility] Comment on above: Performed By: #### C BCA, PINR, 74926-2, CMP, 3040-3, 44497-2, 5643-2, 1987-09, , 34556-1, 2156-, 65506-3, THYR #### [facility] ([id number]) [address] [place] [address] [place] [address] CRP [Mass/Vol]on 09-02-2023 C REACTIVE PROTEIN 1.1 mg/dL High 0.000-0.744 [facility] Comment on above: Performed By: #### C BCA, PINR, 95344-1, CMP, 3040-3, 65079-2, 5643-2, 1987-09, 32022-1, 76852-2, 2157-6, 98715-4, THYR #### [facility] ([id number]) [address] [place] [address] 02121 ETHANOLon 09-02-2023 Ethanol [Mass/Vol] mg/dL Normal 0.00-0.08 [facility] Comment on above: Result Comment: This report is intended for use in clinical monitoring or management of patients. Performed By: #### C BCA, PINR, 67310-9, CMP, 3040-3, 31673-7, 5643-2, 1987-09, , 09765-8, 2156-6, 11775-9, THYR #### [facility] ([id number]) [address] [place] [address] 19758 LIPASEon 09-02-2023 Lipase [Catalytic activity/Vol] 50 U/L High 17-40 [facility] Comment on above: Performed By: #### C BCA, PINR, 42010-7, CMP, 3040-3, 53675-9, 5643-2, 1987-09, , 06128-5, 215-6, 19704-9, THYR #### [facility] ([id number]) [address] [place] [address] 94896 Lactate (P brinda) [Moles/Vol]o n 09-02-2023 LACTATE W/REFLEX 1.4 mmol/L Normal 0.4-2.0 [facility] Comment on above: Result Comment: Result did not trigger repeat Lactate, re-order if needed. Performed By: #### C BCA, PINR, 91443-6, CMP, 3040-3, 38142-1, 5643-2, 1987-09, 83928-7, 65551-7, 2157-6, 91803-8, THYR #### [facility] ([id number]) [address] [place] [address] 34572 MAGNESIUMon 09-02-2023 Magnesium [Mass/Vol] 2.4 mg/dL Normal 1.8-2.6 [facility] Comment on above: Performed By: #### C BCA, PINR, 63004-2, CMP, 3040-3, 31259-2, 5643-2, 1987-09, 58403-0, 16481-3, 215-6, 90360-3, THYR ####[facility] ([id number])[address] [place] [address]168 PROTIME AND INRon 09-02-2023 INR Coag (PPP) [Relative time] 1.1 {INR} Normal 0.8-1.1 [facility] Comment on above: Performed By: #### C BCA, PINR, 17155-1, CMP, 3040-3, 26660-8, 5643-2, 1987-09, , 04777-6, 2156-6, 91777-3, THYR #### [facility] ([id number]) [address] [place] [address] 99912 PT Coag (PPP) [Time] 13.3 s High 9.8-13.2 [facility] Comment on above: Result Comment: NEW REFERENCE RANGE Performed By: #### C BCA, PINR, 69802-3, CMP, 3040-3, 43994-3, 5643-2, 1987-09, , 66598-1, 215-6, 29934-7, THYR #### [facility] ([id number]) [address] [place] [address] 18186 Procalcitonin [place] [Mass/Vol]o n 09-02-2023 PROCALCITONIN 0.10 ng/mL High <0.05 [facility] Comment on above: Result Comment: NOTE <0.50 ng/mL - Low risk of severe sepsis and/or septic shock. <2.00 ng/mL - Recommend retesting within 6-24 hours. >2.00 ng/mL - High risk of sepsis and/or septic shock. Performed By: #### C BCA, PINR, 35232-7, CMP, 3040-3, 33516-0, 5643-2, 1987-09, , 41144-3, 2156-6, 81041-9, THYR ####[facility] ([id number])[address] [place] [address] 31248 THYROID PROFILEon 09-02-2023 Free T4 [Mass/Vol] 0.67 ng/dL Normal 0.61-1.60 [facility] Comment on above: Performed By: #### C BCA, PINR, 48177-6, CMP, 3040-3, 37658-9, 5643-, 1987-09, , 32552-0, 2156-6, 35308-3, THYR ####[facility] ([id number])[address] [place] [address] 79676 TSH 5.55 uIU/mL High 0.49-4.67 [facility] Comment on above: Performed By: #### C BCA, PINR, 77408-2, CMP, 3040-3, 24245-1, 5643-2, 1987-09, , 92983-0, 215-6, 28877-7, THYR ####[facility] ([id number])[address] [place] [address] 45520 TROPONIN Ion 09-02-2023 Troponin I.cardiac [Mass/Vol] 0.03 ng/mL Normal 0.00-0.04 [facility] Comment on above: Performed By: #### C BCA, PINR, 59165-5, CMP, 3040-3, 45434-1, 5643-2, 1987-09, 83292-0, 92642-2, 2157-6, 59225-3, THYR ####[facility] ([id number])[address] [place] [address] 28969 aPTT Coag (PPP) [Time]on aPTT Coag (Bld) [Time] 36 s Normal 26-37 [facility] Comment on above: Result Comment: NEW REFERENCE RANGE Performed By: #### C BCA, PINR, 55533-5, CMP, 3040-3, 04307-9, 5643-2, 1987-09, 96271-6, 42768-8, 2157-6, 75199-0, THYR #### [facility] ([id number]) [address] [place] [address] 96378 Encounters Encounter Date Encounter Type Care Provider Facility Start: 06-08-2024 End: 06-08-2024 Telephone encounter Edwin Pruitt MD Work Phone: [facility] Start: 04-06-2024 End: 04-06-2024 Orders Only Not In System Ref Prov [facility] Start: 04-01-2024 End: 04-01-2024 ambulatory Manan Barrett [facility] Work Phone: Start: 04-01-2024 End: 04-01-2024 Departed Referred DO Manan Barrett Work Phone: [facility] Start: 03-12-2024 End: 03-12-2024 ambulatory [facility] Start: 03-03-2024 End: 03-03-2024 ambulatory JAMES STEVENSON [facility] Start: 12-29-2023 End: 01-02-2024 Emergency department patient visit ELIEZER LYONS [facility] Start: 12-29-2023 End: 01-01-2024 Evaluation and management of inpatient [facility] [facility] Start: 10-16-2023 End: 10-17-2023 Emergency department patient visit DANNI [facility] Start: 09-11-2023 Emergency department patient visit JACKSON HOLDEN [facility] Start: 09-11-2023 Emergency department patient visit JACKSON HOLDEN [facility] Start: 09-11-2023 End: 09-12-2023 Evaluation and management of inpatient LYNNETTE AVILES [facility] Start: 09-03-2023 End: 09-05-2023 Emergency department patient visit [facility] Start: 09-02-2023 End: 09-05-2023 Emergency department patient visit [facility] Start: 09-02-2023 End: 09-04-2023 Evaluation and management of inpatient NO PCP NO PCP [facility] Procedures Date Procedure Procedure Detail Performing Clinician Start: 04-02-2024 Level i surg patholo gy gross examination only Not In System Ref Prov Start: 08-16-2023 Adult depression scr eening assessment Not Ref Prov Plan of Treatment Date Care Activity Detail Author Start: 03-12-2025 Adult BMI Screening Adult BMI Screening [facility] Start: 03-12-2025 Tobacco Screening Tobacco Screening [facility] Start: 08-15-2024 Depression Screening Depression Screening [facility] Start: 07-24-2024 End: 07-24-2024 Patient encounter procedure 07/24/2024 3:45 PM EST Procedure Visit [facility] [address] [facility] [address] [place] [address] Edwin Pruitt MD [address] [facility] [address] [place], [place] [id number] [facility] Start: 04-01-2024 [facility] Start: 01-26-2024 Influenza vaccination Influenza Vaccine [facility] Start: 10-26-2017 Administration of varicella zoster vaccine Zoster (Shingles) Vaccine (1 of 2) [facility] Start: 10-26-1986 DTaP,Tdap and Td Vaccines (1 - Tdap) DTaP,Tdap and Td Vaccines (1 - Tdap) [facility] Start: 10-26-1985 Adult BMI Follow Up Plan Adult BMI Follow Up Plan [facility] Start: 10-26-1985 Diabetic foot examination Diabetic Foot Exam [facility] Start: 1967 Glaucoma screening Diabetic Ophthalmology Exam [facility] Start: 1967 Urine screening for protein Urine Microalbumin [facility] Payers Date Payer Category Payer Private Health Insurance [place] [facility] [id number] 2024 Self-pay 2023 Managed Care HMO (unspecified) [facility] [id number] 2023 Unknown [id number] 2023 Private Health Insurance [id number] 1967 Unknown [id number] [id number]. 2.1286 1967 Unknown [id number] 2.16.840.1.473273.3.579. 2.1286 1967 Unknown [id number] 2.16.840.1.830621.3.579. 2.1286 1967 Unknown [id number] 2.16.840.1.707089.3.579. 2.1286 1967 Unknown [id number] 2.16.840.1.033482.3.579. 2.1286 1967 Unknown [id number] 2.16.840.1.792214.3.579. 2.1286 1967 Unknown [id number] 2.16.840.1.604268.3.579. 2.1286 1967 Unknown [id number] 2.16.840.1.405669.3.579. 2.1286 1967 Unknown [id number] 2.16.840.1.879857.3.579. 2.1286 1967 Unknown [id number] 2.16.840.1.588312.3.579. 2.1286 Unknown Elaine BC/BS [id number] Unknown [id number] [id number]. 2.531 Social History Date Type Detail Facility Tobacco smoking stat [facility] Unknown if ever smoked [facility] Work Phone: Start: 1965 Sex Assigned At Female F [facility] Start: 03-12-2024 [facility] Start: 05-27-1993 End: 05-27-2023 History of tobacco use Current smoker [facility] Start: 05-27-1993 End: 05-27-2023 History of tobacco use Cigarette Smoker [facility] Start: 12-29-2023 End: 03-12-2024 Cigarettes smoked current (pack per day) - Reported 1 [facility] Start: 03-12-2024 Tobacco use and exposure Smokeless tobacco non-user [facility] Start: 03-12-2024 Alcoholic beverage intake Ex-drinker (finding) edo Start: 11-05-2018 End: 12-29-2023 [facility] Utilities [facility] [employer] [facility] Has the electric, ga s, oil, or water company threatened to shut off services in your home in past 12Mo [facility] Adolescent depressio n screening assessment 0 edo Start: 1965 Sex assigned at Not on file P [facility] Start: 12-30-2014 Sex Female (finding) [facility] [employer] [facility] consumption unknown [facility] Medical Equipment Procedure Code Equipment Code Equipment Origin al Text Equipment Identifier Dates USE THREE TIMES DAILY DIRECTED Start: 08-05-2023 Goals Date Patient Goal Desired Activity /State Personal health goal Comment on above: Formatting of this n ote might be different from the original. Evaluation of progress towards goal: home and denies need for home services Telephone encounter Note 06-08-2024 Telephone Encounter - Sudarshan Spears - 06/08/2024 2:46 PM EST Note Date & Type Note Facility 06-08-2024 Telephone encount er Note Scheduled BUE on 07/24/24--she could not scheduled sooner due to not having met 150.00 deductible. [facility] Healthcare Note 06-08-2024 Telephone Encounter - Sudarshan Spears - 06/08/2024 2:46 PM EST Note Date & Type Note Facility 06-08-2024 Miscellaneous Notes Formattin g of this note might be different from the original. Scheduled BUE on 07/24/24--she could not scheduled sooner due to not having met 150.00 deductible. documented in this encounter [facility] Clinical Note 10-16-2023 Note Date & Type Note Facility 10-16-2023 Note XR CHEST 2 VWS Procedure: Chest x-ray performed Number of views:PA and lateral History:Pain Comparison:09/02/2023 Findings: The heart and lungs show no acute findings, and the mediastinum and valeria are grossly negative . Impression: No acute change. Finalized by Dulce Maria Caro DO on 10/16/2023 12:34 PM [facility] Clinical Note 09-12-2023 Note Date & Type Note Facility 09-12-2023 Note Hospital Medicine Discharge Summary Final Discharge Diagnosis: Choking due to food in larynx, initial encounter Admission Diagnosis: Choking due to food in larynx, initial encounter [T17.320A, W44.[id number]] Hospital course: 57 y.o. female who came from [facility] following choking episode at [facility]. Patient reportedly received CPR for being unresponsive [...] asleep numerous times through assessment. Heart sounds member of [employer], lungs CTA bilaterally with exception of wheezing [...] HYDROcodone-acetaminophen 5-325 mg tablet Commonly known as: [place] Take 1-2 tablets by mouth every 6 [...] Medications These medications were sent to [facility] - [address] [place] [address] [address] [facility] [place] [address], [facility] [address] HYDROcodone-acetaminophen 5-325 mg tablet Leah is allergic [...] distended. Total t (more content not included)... [facility] Clinical Note 09-12-2023 Note Date & Type Note Facility 09-12-2023 Note Hospital Medicine History and Physical 09/11/2023 10:48 PM THE HOSPITALIST TEAM PREFERS TO USE [facility] FOR COMMUNICATION 7AM-7PM. IF I DO NOT RESPOND WITHIN 15 MINUTES, PLEASE PAGE ME/CALL THROUGH THE HYDRAULIC LIFT DRIVER. FROM 7PM-7AM, PLEASE PAGE [phone](COVR) Chief Complaint Chief Complaint Patient presents with [...] came from community following choking episode at [facility]. Patient reportedly received CPR for being unresponsive [...] this hospital stay by a member of [facility] Medicine. Past Medical History History reviewed. No pertinent past medical history. Past Surgical History No past surgical history on file. Social History Social History Socioeconomic History Marital status: Single Spouse name: Not on file Number (more content not included)... [facility] Evaluation note Note Date & Type Note Facility Evaluation note [facility]: Instructions Note Date & Type Note Facility Instructions Not on filedocumented in this en counter [facility] Summary Purpose Family History No Family History Records FoundNo Family History Records FoundNo Family History Records FoundNo Family History Records Found Advance Directives Advance Directive Response Recorded Date/ Time Advance Directives No April 01, 2024 12:21pm Date Activated Date Inactivated Comments 12/29/2023 12:11 PM 01/01/2024 1:33 PM Date Activated Date Inactivated Comments 09/03/2023 2:32 AM 09/04/2023 1:23 PM Additional Source Comments INFORMATION SOURCE (unrecogn ized section and content) DATE CREATED AUTHOR 09/15/2023 [facility] DATE CREATED AUTHOR AUTHOR'S ORGANIZ ATION 03/05/2024 [facility] DATE CREATED AUTHOR AUTHOR'S ORGANIZ ATION 03/14/2024 [facility] DATE CREATED AUTHOR AUTHOR'S ORGANIZ ATION 04/08/2024 [facility] Care Teams (unrecognized sec tion and content) Team Status: Inactive Member Role Status Dates Manan Barrett DO Attending Provider Active Start: April 01, 2024 End: April 01, 2024 Transitional Care Liaison Relationship Specialty Start Date End Date [address] PCP - General Family Medicine 12/29/23 Transitional Care Liaison Relationship Specialty Start Date End Date Gale Hunt MD [address] [place] [id number] PCP - General Internal Medicine 06/08/24 Goals (unrecognized section and content) Goals may be documented in a n alternate section FOR RECORDS PERTAINING TO PATIENTS WHO ARE [...] BE BASED ON THE PRIMARY CLINICAL RECORDS. [employer] [facility]. provides no warranty or guarantee of the accuracy or completeness of information in this document.
== END 2025-01-13 11:23 | disposition home or self-care (01) ==
LOC: MAMMO 11:23
PROVIDERS: Visit Provider Internal Medicine
DX: Z12.31 Encounter for screening mammogram for malignant neoplasm of breast (principal)
CPT/HCPCS: 77063; 77067